=== PATIENT | female | born 1955 | race Caucasian/White ===

== ENCOUNTER 2016-05-20 13:44 | Outpatient (RCR) | payer MEDICARE, MEDICAID ==
[~2016-05-20 13:44] MED LIST: /QUET10TA PO; ACET500C PO; ARTISOL2 OU; ATIV1TAB10 PO; CALCCHW12 OR; CYCL5TA PO; EFFE150C PO; FLON0.05; LIDO5DIS TD; MECL25TA2 OR; MELOPOW PO; MULTTAB4 PO; NASONEX; NEXI20CA PO; PRO AIR INHALER; PRO AIR INHALER INH; REST0.05 EXT; SIMV20TA2 PO; SYMB80INH INH; SYSTSOL8 OP; TRAM50TA2 PO; VENL37.5 OR; VITACAP31 PO; VITATAB11 PO; VOLTAREN TOP; ZOCO20TA PO; [UNRECOGNIZED DRUG - CODE] OU
== END 2016-05-24 ==
LOC: M PT 13:44
PROVIDERS: ATTEND Podiatrist
DX: Z51.89 Encounter for other specified aftercare (principal)

== ENCOUNTER 2016-06-17 13:42 | Outpatient (RCR) | payer MEDICARE, MEDICAID | END 2016-06-21 | LOC: M PT 13:42 | PROVIDERS: ATTEND Podiatrist | DX: Z51.89 Encounter for other specified aftercare (principal); Z98.890 Other specified postprocedural states | CPT/HCPCS: 97035; 97140; G8978; G8979 ==

== ENCOUNTER → 2016-06-21 | Outpatient (CLI) | payer OTHER | LOC: M PAIN 11:00 | PROVIDERS: ATTEND Anesthesiology | DX: M54.5 Low back pain (principal); Z53.21 Procedure and treatment not carried out due to patient leaving prior to being seen by health care provider ==

== ENCOUNTER → 2016-07-19 | Outpatient (CLI) | payer OTHER ==
--- NOTE | 2016-07-27 01:54 | ECWPNPC ---
PATIENT NAME: YUNIEL CANAS : 1955 GENDER: FEMALE VISIT DATE: 07/19/2016 DISCHARGE DATE: 07/19/16 1514 VISIT LOCKED DATE TIME: PHYSICIAN: BATSHEVA MAIER RESOURCE: BATSHEVA MAIER REASON FOR APPOINTMENT 1. LOW BACK PAIN W/C HISTORY OF PRESENT ILLNESS HISTORY OF PRESENT ILLNESS: PAIN THE PATIENT DESCRIBES THE PAIN... 60 YEAR OLD FEMALE PATIENT WITH HISTORY OF CHRONIC LOW BACK PAIN. PATIENT DESCRIBES THE PAIN ACHING, SHARP, STABBING, SHOOTING, AND HAVING IT ALL THE TIME WITH A PAIN SCORE OF 9/10. PATIENT WAS HURT IN A WORK RELATED INJURY IN 1990 WHILE WORKING AT [employer] IN [place]. PATIENT REPORTS HAVING A LOT OF WATER ON THE FLOOR OF THE KITCHEN AND WAS RUSHING THROUGH THE KITCHEN AND SLIPPED TWICE. MRS. CANAS RECEIVED A BILATERAL LUMBAR FACET BLOCK ON 04/12/16 AND STATES THAT FOR 2 MONTHS SHE HAD OVER 50% REDUCTION IN PAIN AND AN INCREASE IN MOBILITY AND FUNCTIONALITY. PATIENT IS CURRENTLY USING TRAMADOL, IBUPROFEN, TENNS UNIT, AND LIDODERM PATCHES TO AID IN PAIN RELIEF. MRS. CANAS STATES THAT THE MEDICATION KEEPS HER MOBILE AND FUNCTIONAL. AT THIS TIME THE PATIENT STATES THAT ANY TYPE OF ACTIVITY INCREASES THE PAIN IN HER LOWER BACK. PATIENT DENIES UNEXPLAINABLE WEIGHT LOSS, FEVER, CHILLS, NEW CHANGES ON HER URINARY OR BOWEL CONTROL. FALL RISK SCREENING: SCREENING :NO FALLS IN THE PAST YEAR CURRENT MEDICATIONS TAKING ULTRAM 50 MG TABLET 1 BY MOUTH 1 TAB Q 4 HRS NEEDED FOR PAIN MDD6, NOTES: 04/12 1PM TAKING ACETAMINOPHEN 500 MG CAPSULE 1 TABLET NEEDED ORALLY 1 TO 2 TABS EVERY 6 HRS PRN MDD4, NOTES: 04/11 5PM TAKING LIDODERM 5 % PATCH 2 - 3 PATCHES TO INTACT SKIN REMOVE AFTER 12 HOURS EXTERNALLY AT BEDTIME, NOTES: 2 DAYS TAKING SEROQUEL 50 MG TABLET 1 TABLET ORALLY DAILY, NOTES: 04/11 12:30PM TAKING VENLAFAXINE HCL 150 MG TABLET EXTENDED RELEASE 24 HOUR 1 TABLET ORALLY ONCE A DAY WITH 37.5 MG TABLET (DR. MCCARTHY) TAKING NEXIUM 40 MG CAPSULE DELAYED RELEASE 1 TAB ORALLY 2 TIMES A DAY TAKING ZOCOR 20 MG TABLET 1 TABLET EVERY EVENING ORALLY AT BEDTIME TAKING MECLIZINE HCL 25 MG TABLET 1 TABLET BY MOUTH ONCE A DAY NEEDED FOR DIZZINESS TAKING PROAIR HFA 108 (90 BASE) MCG/ACT AEROSOL SOLUTION 2 PUFFS INHALATION EVERY 4 HOURS, NEEDED TAKING FLONASE 50 MCG/ACT SUSPENSION 1 SPRAY IN EACH NOSTRIL NASALLY DAILY NEEDED TAKING LORAZEPAM 0.5 MG TABLET 1 TABLET NEEDED ORALLY EVERY 6 HRS TAKING SYMBICORT 160-4.5 MCG/ACT AEROSOL 2 PUFFS INHALATION TWICE A DAY NOT-TAKING ZANAFLEX 4 MG TABLET 1 TABLET NEEDED ORALLY BEFORE BEDTIME CAN REPAE IN 4 HRS NEDEEDFOR SPASMS AND PAIN MDD2, NOTES: 1 WEEK AGO NOT-TAKING ZYRTEC 10 MG TABLET CHEWABLE 1 TABLET ORALLY ONCE A DAY, NOTES: 3 MONTHS AGO NOT-TAKING TRAMADOL HCL 50 MG TABLET 1 TABLET NEEDED ORALLY EVERY 6 - 8 HRS PRN PAIN MDD=3 NOT-TAKING EFFEXOR XR 37.5 MG CAPSULE EXTENDED RELEASE 24 HOUR 1CAPSULES WITH EFFEXOR 150 MG, TOTAL DOSE 187.5 MG ORALLY ONCE A DAY NOT-TAKING ASTELIN 137 MCG/SPRAY SOLUTION 2 PUFFS IN EACH NOSTRIL NASALLY TWICE A DAY NOT-TAKING MOBIC 15 MG TABLET 1 TABLET ORALLY ONCE A DAY NOT-TAKING VITAMIN B COMPLEX-C OTC CAPSULE 1/2 TABLET ORALLY 1/2 TAB IN AM , 1/2 TAB IN PM NOT-TAKING CALCIUM 600+D HIGH POTENCY 600-400 MG-UNIT TABLET 1 TABLET ORALLY BID NOT-TAKING DRISDOL 50,000 UNITS TABLET 1 TAB ORAL WEEKLY MEDICATION LIST REVIEWED AND RECONCILED WITH THE PATIENT PAST MEDICAL HISTORY ASTHMA, MILD INTERMITTENT/IS/[id number] 2010 NORMAL PFTS EXCEPT FOR VERY MILD DIFFUSION IMPAIRMENT-RECHLIN IMPAIRED FASTING GLUCOSE GERD/DYSPEPSIA/HISTORY OF PUD-JUNE 2008 EGD WITH HIATAL HERNIA, MILD GASTRITIS LUMBAR DJD STATUS POST FUSION IN 2000 AND 2002-JULY 2009 MRI SHOWING MINIMAL DJD AND L3-L5 MILD BULGE HYPERLIPIDEMIA 2B NONALCOHOLIC FATTY LIVER DISEASE-SEPTEMBER 2004 NORMAL WORKUP AND NORMAL ULTRASOUND ALLERGIC RHINITIS BENIGN POSITIONAL VERTIGO DEPRESSION/PANIC DISORDER/INSOMNIA CERVICAL DJD VITAMIN D DEFICIENCY L POSTERIOR KNEE VERRUCA EXCISION-03/2011-DERREK ALLERGIES ASPIRIN: NAUSEA/VOMITING: CONTRAINDICATION CLINORIL: TONGYE AND LIP BLISTERS: ALLERGY SURGICAL HISTORY L TAILOR'S BUNION REDUCTION-MAJAK 05/2011 L3-4 DISC SURGERY 03/2001 L3-4 DISC SURGERY 05/2002 REPAIR RIGHT SHOULDER AND CLAVICLE 2008 RIGHT CARPAL TUNNEL REPAIR 1990 TUBAL LIGATION 1982 FAMILY HISTORY NO FAMILY HISTORY DOCUMENTED. SOCIAL HISTORY GENERAL: TOBACCO USE ARE YOU A:NONSMOKER LEARNING BARRIERS / SPECIAL NEEDS ORIENTED TO PLAN OF CARE: PATIENT, PAIN MANAGEMENT PATIENT, ORIENTED TO PLAN OF CARE: PATIENT, PAIN MANAGEMENT PATIENT. NEW PATIENT PAIN DIARY TODAY'S VISITNOTES FROM 0-10, WHAT LEVEL IS YOUR PAIN TODAY?0 PAIN CLINIC PFS, CLERGY, PUBLIC HEALTH REFERRALS PFS REFERRAL NEEDED?NO CLERGY REFERRAL NEEDED?NO PUBLIC HEALTH REFERRAL NEEDED?NO WAS THE PROVIDER NOTIFIED OF ANY PERTINENT INFO?NO PFS REFERRAL NEEDED?NO CLERGY REFERRAL NEEDED?NO PUBLIC HEALTH REFERRAL NEEDED?NO WAS THE PROVIDER NOTIFIED OF ANY PERTINENT INFO?NO HOSPITALIZATION/MAJOR DIAGNOSTIC PROCEDURE NO HOSPITALIZATION HISTORY. REVIEW OF SYSTEMS CONSTITUTIONAL: ANY CHANGE IN YOUR MEDICAL CONDITION? NO . CHILLS NO . FEVER NO . INFECTION: DO YOU HAVE NEW INFECTIONS? NO . DO YOU HAVE HISTORY OF MRSA? NO . MUSCULOSKELETAL: ANY NEW PATTERNS OF PAIN OR NUMBNESS? NO . GASTROENTEROLOGY: ANY NEW CHANGE IN BOWEL CONTROL? NO . GENITOURINARY: ANY NEW CHANGE IN BLADDER CONTROL? NO . IS THERE A CHANCE YOU COULD BE ? NO . HEMATOLOGY/LYMPH: DO YOU TAKE ANY BLOOD THINNERS? (FOR EXAMPLE- COUMADIN, PLAVIX, AGGRENOX, PLATEL, PRADAXA, OR XARELTO) NO . WHEN WAS YOUR LAST DOSE? DATE: TIME: . NEUROLOGY: HAVE YOU FALLEN IN THE PAST 6 MONTHS? NO . ANY NEW EXTREMITY NUMBNESS OR WEAKNESS? NO . CARDIOLOGY: DO YOU HAVE A PACEMAKER OR DEFIBRILLATOR? NO . RESPIRATORY: HAVE YOU BEEN SICK IN THE PAST WEEK? NO . FEVER NO . FLU LIKE SYMPTOMS? NO . COUGH NO . INTEGUMENTARY: DO YOU HAVE ANY RASHES OR OPEN SORES? NO . ALLERGIC/IMMUNO: ARE YOU ALLERGIC TO SHELLFISH OR IV DYE? NO . ANY NEW ALLERGIES? NO . PSYCHIATRIC: DO YOU HAVE THOUGHTS OF HURTING YOURSELF OR SOMEONE ELSE? NO . ARE YOU ABUSED, NEGLECTED, OR IN AN UNSAFE ENVIRONMENT? NO . ENDOCRINOLOGY: ARE YOU DIABETIC? NO . OTHER: DO YOU NEED ANY PRESCRIPTIONS? NO . IF YES, PLEASE LIST: ____ . ANY NEW PROBLEMS WITH YOUR MEDICATIONS? NO . WHEN DID YOU LAST EAT? ____ . WHEN DID YOU LAST DRINK? ____ . WHAT DID YOU LAST DRINK? ____ . NAME OF PERSON DRIVING YOU HOME? ____ . DO YOU HAVE ANY OTHER QUESTIONS OR CONCERNS NO . REVIEWED BY: PROVIDER: BATSHEVA MAIER MD . VITAL SIGNS WT 133.8 LBS, HT 62 IN, BMI 24.47 INDEX, BP 135/89 MM HG, HR 96 /MIN, RR 18 /MIN, TEMP 98.2 F, OXYGEN SAT % 97, NA INITIALS TL 1409. EXAMINATION : PATIENT IS ALERT O X 3 AND COOPERATIVE. TENDERNESS IN THE LOWER BACK AND PARASPINAL MUSCLE GROUP. MRI DONE ON 07/28/09 SHOWS POST LAMINECTOMY CHANGES ALONG WITH DEGENERATIVE CHANGES. 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, LUMBAR REGION - M47.816 SPONDYLOSIS WITHOUT MYELOPATHY OR RADICULOPATHY, LUMBOSACRAL REGION - M47.817 TREATMENT POST LAMINECTOMY SYNDROME REFILL ULTRAM TABLET, 50 MG, 1, BY MOUTH, 1 TAB Q 4 HRS NEEDED FOR PAIN MDD4, 30 DAY(S), 90, REFILLS 0, NOTES: 04/12 1PM REFILL ACETAMINOPHEN CAPSULE, 500 MG, 1 TABLET NEEDED, ORALLY, 1 TO 2 TABS EVERY 6 HRS PRN MDD4, 30 DAY(S), 100, REFILLS 2, NOTES: 04/11 5PM REFILL LIDODERM PATCH, 5 %, 2 PATCHES TO INTACT SKIN REMOVE AFTER 12 HOURS, EXTERNALLY, AT BEDTIME, 30 DAY(S), 60, REFILLS 2, NOTES: 2 DAYS START TIZANIDINE HCL TABLET, 4 MG, 1 TABLET NEEDED, ORALLY FOR SPASMS AND PAIN, 1 BEFORE BEDTIME MAY REPEAT IN 4 HRS MDD2, 30 DAY(S), 50, REFILLS 1 NOTES: WE DISCUSSED SEVERAL ISSUES WITH MRS. CANAS'S PAIN MANAGEMENT CASE. AT THIS TIME THE PATIENT WILL CONTINUE WITH THE SAME MEDICATION REGIME BEFORE. PATIENT DENIES ABUSE OF ANY MEDICATION, DENIES USE OF ILLEGAL DRUGS, AND STATES THAT SHE IS ONLY USING THE MEDICATION FOR PAIN MANAGEMENT. PATIENT USING ULTRAM FOR THE SOMATIC PAIN, ALONG WITH TYLENOL AND THE LIDODERM PATCH, AND WILL USE TIZANIDINE FOR THE MUSCLE SPASMS. URINE TOXICOLOGY REPORT DONE ON 03/29/16 SHOWS CONSISTENT RESULTS WITH THE PATIENT'S MEDICATION LIST. AT THIS TIME THE PATIENT REPORTS HAVE 3 MONTHS OF OVER 50% PAIN RELIEF WITH MOBILITY AND FUNCTIONALITY INCREASED. PAIN IS STARTING TO RETURN AND THE PATIENT WOULD LIKE TO MOVE FORWARD WITH ANOTHER INJECTION. WE DISCUSSED THE RISKS, BENENFITS, AND ALTNERATIVES OF THE INJECTION AND THE PATIENT WOULD LIKE TO PROCEED AT THIS TIME. PATIENT IS ALSO A CANDIDATE FOR A RADIOFREQUENCY. PATIENT IS AWARE THAT SHE WILL NEED TO HAVE TWO DIAGNOSTIC TESTS DONE PRIOR TO THE RADIOFREQUENCY. INSTRUCTIONS WERE GIVEN, QUESTIONS WERE ANSWERED, PATIENT REPORTS UNDERSTANDING AND AGREES WITH THE PLAN. I, GARY ROGERS, DOCUMENTED THE ABOVE INFORMATION ACTING A SCRIBE FOR DR. MAIER. I HAVE REVIEWED THE ABOVE DOCUMENT, WRITTEN BY GARY ESCALANTEIBJovanny AND I VERIFY THAT IT IS ACCURATE. PROCEDURES PN WORKMANS' COMP OPINION IN YOUR OPINION, WAS THE INCIDENT THAT THE PATIENT DESCRIBED THE COMPETENT MEDICAL CAUSE OF THIS INJURY/ILLNESS? YES ARE THE PATIENT'S COMPLAINTS CONSISTENT WITH HIS/HER HISTORY OF THE INJURY/ILLNESS? YES IS THE PATIENT'S HISTORY OF THE INJURY/ILLNESS CONSISTENT WITH YOUR OBJECTIVE FINDING? YES WHAT IS THE PERCENTAGE OF TEMPORARY IMPAIRMENT? MODERATE TO MARKED = 66.7% IS THE PATIENT WORKING? NO DOCTOR ON SITE: BATSHEVA DELGADO MD PROCEDURE CODES FA211 ESTABILISHED PATIENT [facility] FACILITY CHARGE G8427 DOC MEDS VERIFIED W/PT OR RE G8730 PAIN ASSESS POS TOOL F/U PLAN DOC DISPOSITION & COMMUNICATION ELECTRONICALLY SIGNED BY BATSHEVA MAIER MD ON 07/26/2016 AT 05:59 PM EDT DISCLAIMER : THIS IS A VISIT SUMMARY EXTRACTED FROM THE [employer] CHART. IT IS NOT A COPY OF THE [employer] PROGRESS NOTE. BRANDI
== END ==
LOC: M PAIN 14:00
PROVIDERS: ATTEND Anesthesiology
DX: Z09 Encounter for follow-up examination after completed treatment for conditions other than malignant neoplasm (principal); G89.29 Other chronic pain; M96.1 Postlaminectomy syndrome, not elsewhere classified; M47.816 Spondylosis without myelopathy or radiculopathy, lumbar region; M47.817 Spondylosis without myelopathy or radiculopathy, lumbosacral region; J45.909 Unspecified asthma, uncomplicated; R73.01 Impaired fasting glucose; K30 Functional dyspepsia; E78.5 Hyperlipidemia, unspecified; H81.10 Benign paroxysmal vertigo, unspecified ear; F32.9 Major depressive disorder, single episode, unspecified; F41.0 Panic disorder [episodic paroxysmal anxiety]; G47.00 Insomnia, unspecified; E55.9 Vitamin D deficiency, unspecified; Z88.6 Allergy status to analgesic agent; Z88.8 Allergy status to other drugs, medicaments and biological substances; Z79.1 Long term (current) use of non-steroidal anti-inflammatories (NSAID); Z79.899 Other long term (current) drug therapy

== ENCOUNTER 2016-07-21 13:45 | Outpatient (RCR) | payer MEDICARE, MEDICAID | END 2016-07-22 | LOC: M PT 13:45 | PROVIDERS: ATTEND Podiatrist | DX: Z51.89 Encounter for other specified aftercare (principal) ==

== ENCOUNTER → 2016-08-10 | Outpatient (CLI) | payer OTHER ==
--- NOTE | 2016-08-16 02:35 | ECWPNPC ---
PATIENT NAME: YUNIEL CANAS : 1955 GENDER: FEMALE VISIT DATE: 08/10/2016 DISCHARGE DATE: 08/10/16 1429 VISIT LOCKED DATE TIME: PHYSICIAN: BATSHEVA MAIER RESOURCE: BATSHEVA MAIER REASON FOR APPOINTMENT 1. MEDS HISTORY OF PRESENT ILLNESS HISTORY OF PRESENT ILLNESS: PAIN THE PATIENT DESCRIBES THE PAIN... 61 YEAR OLD FEMALE PATIENT WITH HISTORY OF CHRONIC BACK PAIN. PATIENT DESCRIBES THE PAIN ACHING, BURNING, SHARP, STABBING, SHOOTING, AND HAVING IT ALL THE TIME WITH A PAIN SCORE OF 9/10 ON TODAY'S VISIT. PATIENT WAS INJURED IN A WORK RELATED INJURY ON 09-14-1990 WORKING FOR [employer], PATIENT WAS WALKING THROUGH THE KITCHEN FLOOR WHEN WAS WET WHEN SHE SLIPPED AND FELL, PATIENT ATTEMPTED TO GET UP WHEN SHE SLIPPED AGAIN INJURING HER BACK. PATIENT REPORTS THAT SHE HAD TWO BACK SURGERIES ONE IN 2000 AND 2002. PATIENT REPORTS THAT SHE HAS TRIED PHYSICAL THERAPY IN THE PAST AND IT GREATLY HELPED WITH INCREASING HER STRENGTH. PATIENT EXPRESSES THAT SHE IS IN A LOT OF PAIN AND VERY UNCOMFORTABLE. PATIENT REPORTS THAT SHE HAS DIFFICULTIES SLEEPING AND STAYING ASLEEP AT NIGHT DUE TO THE PAIN. PATIENT DENIES UNEXPLAINABLE WEIGHT LOSS, FEVER, CHILLS, NEW CHANGES ON HER URINARY OR BOWEL CONTROL. FALL RISK SCREENING: SCREENING :NO FALLS IN THE PAST YEAR CURRENT MEDICATIONS TAKING SEROQUEL 50 MG TABLET 1 TABLET ORALLY DAILY, NOTES: 04/11 12:30PM TAKING VENLAFAXINE HCL 150 MG TABLET EXTENDED RELEASE 24 HOUR 1 TABLET ORALLY ONCE A DAY TAKING NEXIUM 40 MG CAPSULE DELAYED RELEASE 1 TAB ORALLY 2 TIMES A DAY TAKING ZOCOR 20 MG TABLET 1 TABLET EVERY EVENING ORALLY AT BEDTIME TAKING MECLIZINE HCL 25 MG TABLET 1 TABLET BY MOUTH ONCE A DAY NEEDED FOR DIZZINESS TAKING PROAIR HFA 108 (90 BASE) MCG/ACT AEROSOL SOLUTION 2 PUFFS INHALATION EVERY 4 HOURS, NEEDED TAKING FLONASE 50 MCG/ACT SUSPENSION 1 SPRAY IN EACH NOSTRIL NASALLY DAILY NEEDED TAKING LORAZEPAM 0.5 MG TABLET 1 TABLET NEEDED ORALLY EVERY 6 HRS TAKING SYMBICORT 160-4.5 MCG/ACT AEROSOL 2 PUFFS INHALATION TWICE A DAY TAKING ULTRAM 50 MG TABLET 1 BY MOUTH 1 TAB Q 4 HRS NEEDED FOR PAIN MDD4, NOTES: STATES SHE IS TAKING 2 AT A TIME MDD 4 TABS TAKING ACETAMINOPHEN 500 MG CAPSULE 1 TABLET NEEDED ORALLY 1 TO 2 TABS EVERY 6 HRS PRN MDD4, NOTES: 04/11 5PM TAKING LIDODERM 5 % PATCH 2 PATCHES TO INTACT SKIN REMOVE AFTER 12 HOURS EXTERNALLY AT BEDTIME, NOTES: 2 DAYS TAKING TIZANIDINE HCL 4 MG TABLET 1 TABLET NEEDED ORALLY FOR SPASMS AND PAIN 1 BEFORE BEDTIME MAY REPEAT IN 4 HRS MDD2 TAKING VOLTAREN 1 % GEL TRANSDERMAL DAILY NEEDED TAKING RESTASIS 0.05 % EMULSION 1 DROP INTO AFFECTED EYE OPHTHALMIC TWICE A DAY TAKING REFRESH 1.4-0.6 % SOLUTION 1 GTT OU OPHTHALMIC 2-4 X/DAY NEEDED TAKING ARTIFICIAL TEARS 1.4 % SOLUTION 1 GTT OU OPHTHALMIC 4X/DAY NEEDED NOT-TAKING ZANAFLEX 4 MG TABLET 1 TABLET NEEDED ORALLY BEFORE BEDTIME CAN REPAE IN 4 HRS NEDEEDFOR SPASMS AND PAIN MDD2, NOTES: 1 WEEK AGO NOT-TAKING ZYRTEC 10 MG TABLET CHEWABLE 1 TABLET ORALLY ONCE A DAY, NOTES: 3 MONTHS AGO NOT-TAKING TRAMADOL HCL 50 MG TABLET 1 TABLET NEEDED ORALLY EVERY 6 - 8 HRS PRN PAIN MDD=3 NOT-TAKING EFFEXOR XR 37.5 MG CAPSULE EXTENDED RELEASE 24 HOUR 1CAPSULES WITH EFFEXOR 150 MG, TOTAL DOSE 187.5 MG ORALLY ONCE A DAY NOT-TAKING ASTELIN 137 MCG/SPRAY SOLUTION 2 PUFFS IN EACH NOSTRIL NASALLY TWICE A DAY NOT-TAKING MOBIC 15 MG TABLET 1 TABLET ORALLY ONCE A DAY NOT-TAKING VITAMIN B COMPLEX-C OTC CAPSULE 1/2 TABLET ORALLY 1/2 TAB IN AM , 1/2 TAB IN PM NOT-TAKING CALCIUM 600+D HIGH POTENCY 600-400 MG-UNIT TABLET 1 TABLET ORALLY BID NOT-TAKING DRISDOL 50,000 UNITS TABLET 1 TAB ORAL WEEKLY MEDICATION LIST REVIEWED AND RECONCILED WITH THE PATIENT PAST MEDICAL HISTORY ASTHMA, MILD INTERMITTENT/IS/[id number] 2010 NORMAL PFTS EXCEPT FOR VERY MILD DIFFUSION IMPAIRMENT-RECHLIN IMPAIRED FASTING GLUCOSE GERD/DYSPEPSIA/HISTORY OF PUD-JUNE 2008 EGD WITH HIATAL HERNIA, MILD GASTRITIS LUMBAR DJD STATUS POST FUSION IN 2000 AND 2002-JULY 2009 MRI SHOWING MINIMAL DJD AND L3-L5 MILD BULGE HYPERLIPIDEMIA 2B NONALCOHOLIC FATTY LIVER DISEASE-SEPTEMBER 2004 NORMAL WORKUP AND NORMAL ULTRASOUND ALLERGIC RHINITIS BENIGN POSITIONAL VERTIGO DEPRESSION/PANIC DISORDER/INSOMNIA CERVICAL DJD VITAMIN D DEFICIENCY L POSTERIOR KNEE VERRUCA EXCISION-03/2011-DERREK ALLERGIES ASPIRIN: NAUSEA/VOMITING: CONTRAINDICATION CLINORIL: TONGYE AND LIP BLISTERS: ALLERGY SURGICAL HISTORY L BETTY'S BUNION REDUCTION-MAJAK 05/2011 L3-4 DISC SURGERY 03/2001 L3-4 DISC SURGERY 05/2002 REPAIR RIGHT SHOULDER AND CLAVICLE 2008 RIGHT CARPAL TUNNEL REPAIR 1991 TUBAL LIGATION 1982 FAMILY HISTORY NO FAMILY HISTORY DOCUMENTED. SOCIAL HISTORY GENERAL: PAIN CLINIC PFS, CLERGY, PUBLIC HEALTH REFERRALS CLERGY REFERRAL NEEDED?NO WAS THE PROVIDER NOTIFIED OF ANY PERTINENT INFO?NO PFS REFERRAL NEEDED?NO PUBLIC HEALTH REFERRAL NEEDED?NO PATIENT: ____. HOSPITALIZATION/MAJOR DIAGNOSTIC PROCEDURE NO HOSPITALIZATION HISTORY. REVIEW OF SYSTEMS CONSTITUTIONAL: ANY CHANGE IN YOUR MEDICAL CONDITION? NO . CHILLS NO . FEVER NO . INFECTION: DO YOU HAVE NEW INFECTIONS? NO . DO YOU HAVE HISTORY OF MRSA? NO . MUSCULOSKELETAL: ANY NEW PATTERNS OF PAIN OR NUMBNESS? YES PT NOTES 1 WEEK OF DISCOMFORT LEFT LOW BACK RADIATING TO LEFT BUTTOCK AND LEFT THIGH . GASTROENTEROLOGY: ANY NEW CHANGE IN BOWEL CONTROL? NO . GENITOURINARY: ANY NEW CHANGE IN BLADDER CONTROL? NO . IS THERE A CHANCE YOU COULD BE ? NO . HEMATOLOGY/LYMPH: DO YOU TAKE ANY BLOOD THINNERS? (FOR EXAMPLE- COUMADIN, PLAVIX, AGGRENOX, PLATEL, PRADAXA, OR XARELTO) NO . WHEN WAS YOUR LAST DOSE? DATE: TIME: . NEUROLOGY: HAVE YOU FALLEN IN THE PAST 6 MONTHS? NO . ANY NEW EXTREMITY NUMBNESS OR WEAKNESS? YES PT NOTES NEW WEAKNESS DOWN BOTH LEGS X 2 WEEKS . CARDIOLOGY: DO YOU HAVE A PACEMAKER OR DEFIBRILLATOR? NO . RESPIRATORY: HAVE YOU BEEN SICK IN THE PAST WEEK? NO . FEVER NO . FLU LIKE SYMPTOMS? NO . COUGH NO . INTEGUMENTARY: DO YOU HAVE ANY RASHES OR OPEN SORES? NO . ALLERGIC/IMMUNO: ARE YOU ALLERGIC TO SHELLFISH OR IV DYE? NO . ANY NEW ALLERGIES? NO . PSYCHIATRIC: DO YOU HAVE THOUGHTS OF HURTING YOURSELF OR SOMEONE ELSE? NO . ARE YOU ABUSED, NEGLECTED, OR IN AN UNSAFE ENVIRONMENT? NO . ENDOCRINOLOGY: ARE YOU DIABETIC? NO . OTHER: DO YOU NEED ANY PRESCRIPTIONS? NO . IF YES, PLEASE LIST: ____ . ANY NEW PROBLEMS WITH YOUR MEDICATIONS? NO . WHEN DID YOU LAST EAT? ____ . WHEN DID YOU LAST DRINK? ____ . WHAT DID YOU LAST DRINK? ____ . NAME OF PERSON DRIVING YOU HOME? ____ . DO YOU HAVE ANY OTHER QUESTIONS OR CONCERNS NO . REVIEWED BY: PROVIDER: BATSHEVA MAIER MD . VITAL SIGNS WT 134.6 LBS, HT 62 IN, BMI 24.62 INDEX, BP 140/88 MM HG, HR 93 /MIN, RR 18 /MIN, TEMP 97.5 F, OXYGEN SAT % 95%, NA INITIALS SC 13 :37, REVIEWED BY: MLF. EXAMINATION : PATIENT IS ALERT O X 3 AND COOPERATIVE. PATIENT HAS DIFFICULTIES STANDING UP FROM A SUPINE POSITION. PATIENT AMBULATES SLOWLY WITH AN ANTALGIC GAIT. PATIENT'S RIGHT LEFT IS WEAKER AT FLEXION AND EXTENSION COMPARED TO THE LEFT LEG. THERE IS TENDERNESS IN THE LOW BACK PARASPINAL MUSCLE GROUP. MRI DONE ON 07/28/09 SHOWS POST LAMINECTOMY CHANGES ALONG WITH DEGENERATIVE CHANGES. 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, LUMBAR REGION - M47.816 SPONDYLOSIS WITHOUT MYELOPATHY OR RADICULOPATHY, LUMBOSACRAL REGION - M47.817 TREATMENT POST LAMINECTOMY SYNDROME REFILL ULTRAM TABLET, 50 MG, 1 TABLET NEEDED, BY MOUTH, 1 TAB Q 4 HRS NEEDED FOR PAIN MDD4, 30 DAY(S), 120, REFILLS 0, NOTES: STATES SHE IS TAKING 2 AT A TIME MDD 4 TABS REFILL TIZANIDINE HCL TABLET, 4 MG, 1 TABLET NEEDED, ORALLY FOR SPASMS AND PAIN, 1 BEFORE BEDTIME MAY REPEAT IN 4 HRS MDD2, 30 DAY(S), 50, REFILLS 1 REFILL LIDODERM PATCH, 5 %, 2 PATCHES TO INTACT SKIN REMOVE AFTER 12 HOURS, EXTERNALLY, AT BEDTIME FOR PAIN, 30 DAY(S), 60, REFILLS 2, NOTES: 2 DAYS NOTES: FACET JOINT INJECTION: YOUR EXPERIENCE MATERIAL WAS PRINTED,FACET JOINT INJECTION MATERIAL WAS PRINTED. CLINICAL NOTES: WE DISCUSSED SEVERAL ISSUES WITH MRS. CANAS'S PAIN MANAGEMENT CASE. AT THIS TIME I WILL HAVE THE PATIENT START ON SOMA FOR TWO WEEKS TO HELP HER SLEEP AT NIGHT. PATIENT WILL RECEIVE A REFILL OF LIDODERM PATCH TODAY AND IS TAKING IT FOR THE NEUROPATHIC PAIN. I WILL HAVE THE PATIENT START PHYSICAL THERAPY FOR 6 WEEKS 3 TIMES A WEEK TO SEE IF IT AIDS IN HER PAIN RELIEF AND INCREASE HER MOBILITY AND FUNCTIONALITY. I DISCUSSED OTHER INTERVENTIONS WITH THE PATIENT FOR HER PAIN, PATIENT EXPRESSED THAT SHE IS VERY ANXIOUS AND WORRIED ABOUT THE PAIN FROM THE PROCEDURE. INFORMED PATIENT THAT I CAN DO A PROCEDURE WITH IV SEDATION TO HELP WITH HER ANXIETY AND FEAR OF PAIN FROM THE PROCEDURE. I DISCUSSED WITH THE PATIENT TO THINK IT OVER IF IT IS SOMETHING SHE WOULD LIKE TO PROCEED WITH. PATIENT TO FOLLOW UP WITH ME IN 7 WEEKS. , INSTRUCTIONS WERE GIVEN, QUESTIONS WERE ANSWERED, PATIENT REPORTS UNDERSTANDING AND AGREES WITH THE PLAN. I, JAVID QUIROZ, DOCUMENTED THE ABOVE INFORMATION ACTING A SCRIBE FOR DR. MAIER. I HAVE REVIEWED THE ABOVE DOCUMENT, WRITTEN BY JAVID QUIROZ SCRIBJovanny AND I VERIFY THAT IT IS ACCURATE. OTHERS START SOMA TABLET, 350 MG, 1 TABLET NEEDED, ORALLY FOR SPASMS AND PAIN, BEFORE BEDTIME MDD1, 20 DAYS, 20, REFILLS 0 PROCEDURES PN WORKMANS' COMP OPINION IN YOUR OPINION, WAS THE INCIDENT THAT THE PATIENT DESCRIBED THE COMPETENT MEDICAL CAUSE OF THIS INJURY/ILLNESS? YES ARE THE PATIENT'S COMPLAINTS CONSISTENT WITH HIS/HER HISTORY OF THE INJURY/ILLNESS? YES IS THE PATIENT'S HISTORY OF THE INJURY/ILLNESS CONSISTENT WITH YOUR OBJECTIVE FINDING? YES WHAT IS THE PERCENTAGE OF TEMPORARY IMPAIRMENT? MODERATE TO MARKED = 66.7% IS THE PATIENT WORKING? NO DOCTOR ON SITE: BATSHEVA DELGADO MD PROCEDURE CODES FA211 ESTABILISHED PATIENT [facility] FACILITY CHARGE G8730 PAIN ASSESS POS TOOL F/U PLAN DOC G8427 DOC MEDS VERIFIED W/PT OR RE DISPOSITION & COMMUNICATION FOLLOW UP 7 WEEKS ELECTRONICALLY SIGNED BY BATSHEVA MAIER MD ON 08/15/2016 AT 08:36 PM EDT DISCLAIMER : THIS IS A VISIT SUMMARY EXTRACTED FROM THE [email or web address] CHART. IT IS NOT A COPY OF THE [email or web address] PROGRESS NOTE. BRANDI
== END ==
LOC: M PAIN 13:20
PROVIDERS: ATTEND Anesthesiology
DX: M96.1 Postlaminectomy syndrome, not elsewhere classified (principal); M47.816 Spondylosis without myelopathy or radiculopathy, lumbar region; M47.817 Spondylosis without myelopathy or radiculopathy, lumbosacral region; J45.909 Unspecified asthma, uncomplicated; K30 Functional dyspepsia; K44.9 Diaphragmatic hernia without obstruction or gangrene; E78.5 Hyperlipidemia, unspecified; K76.0 Fatty (change of) liver, not elsewhere classified; F32.9 Major depressive disorder, single episode, unspecified; F41.0 Panic disorder [episodic paroxysmal anxiety]; G47.00 Insomnia, unspecified; E55.9 Vitamin D deficiency, unspecified; Z88.6 Allergy status to analgesic agent; Z88.8 Allergy status to other drugs, medicaments and biological substances; Z79.899 Other long term (current) drug therapy

== ENCOUNTER 2016-08-17 12:30 | Outpatient (RCR) | payer MEDICARE, MEDICAID | END 2016-08-21 | LOC: M PT 12:30 | PROVIDERS: ATTEND Podiatrist | DX: Z51.89 Encounter for other specified aftercare (principal); Z47.89 Encounter for other orthopedic aftercare | CPT/HCPCS: 97035; 97110; 97140; G8978; G8979 ==

== ENCOUNTER → 2016-09-05 | Outpatient (CLI) | payer OTHER ==
[~2016-09-05] MED LIST changes: +BUPIVACAINE HCL 0.25% 30 ML VIAL As Ordered ONE; +ISOVUE-M 300 61% 15ML VIAL (Q9967) As Ordered ONE; +LIDOCAINE 1% SDV INJ 30 ML VIAL As Ordered ONE; +MIDAZOLAM INJ 2 MG/2 ML VIAL (J2250) As Ordered ONE; +SYMBICORT 160/4.5MCG INHALER 6GM INH ONE; +TRIAMCINOLONE ACETONIDE SUSP 40 MG/ML VIAL (J3301) As Ordered ONE; +fentaNYL 100 MCG/2 ML INJECTION (J3010) As Ordered ONE
--- NOTE | 2016-09-05 12:53 | REP ---
Partial lumbar spine series: Two views. History: Bilateral lumbar facet block for pain. 31 seconds of fluoroscopy time is reported. Findings: A sequence of two fluoroscopically obtained last image hold spot radiographs of the lumbar spine document needle position and contrast injection associated with lumbar facet injection procedure. Signed by Nelson Earl MD 09/05/2016 03:17 P
--- NOTE | 2016-09-10 23:33 | ECWPNPC ---
PATIENT NAME: YUNIEL CANAS : 1955 GENDER: FEMALE VISIT DATE: 09/05/2016 DISCHARGE DATE: 09/05/16 1207 VISIT LOCKED DATE TIME: PHYSICIAN: BATSHEVA MAIER RESOURCE: BATSHEVA MAIER REASON FOR APPOINTMENT 1. FACET HISTORY OF PRESENT ILLNESS HISTORY OF PRESENT ILLNESS: PAIN THE PATIENT DESCRIBES THE PAIN... FALL RISK SCREENING: SCREENING :NO FALLS IN THE PAST YEAR CURRENT MEDICATIONS TAKING SOMA 350 MG TABLET 1 TABLET NEEDED ORALLY FOR SPASMS AND PAIN BEFORE BEDTIME MDD1, NOTES: 09/03/16 TAKING ULTRAM 50 MG TABLET 1 TABLET NEEDED BY MOUTH 1 TAB Q 4 HRS NEEDED FOR PAIN MDD4, NOTES: LAST DOSE 09/04/16 1600 TAKING TIZANIDINE HCL 4 MG TABLET 1 TABLET NEEDED ORALLY FOR SPASMS AND PAIN 1 BEFORE BEDTIME MAY REPEAT IN 4 HRS MDD2, NOTES: NONE RECENTLY TAKING LIDODERM 5 % PATCH 2 PATCHES TO INTACT SKIN REMOVE AFTER 12 HOURS EXTERNALLY AT BEDTIME FOR PAIN, NOTES: 09/03/16 TAKING SEROQUEL 50 MG TABLET 1 TABLET ORALLY DAILY, NOTES: 09/04/16 2400 TAKING VENLAFAXINE HCL 150 MG TABLET EXTENDED RELEASE 24 HOUR 1 TABLET ORALLY ONCE A DAY, NOTES: 09/04/16 0900 TAKING NEXIUM 40 MG CAPSULE DELAYED RELEASE 1 TAB ORALLY 2 TIMES A DAY, NOTES: 09/04/16 2200 TAKING ZOCOR 20 MG TABLET 1 TABLET EVERY EVENING ORALLY AT BEDTIME, NOTES: 09/04/16 2400 TAKING MECLIZINE HCL 25 MG TABLET 1 TABLET BY MOUTH ONCE A DAY NEEDED FOR DIZZINESS, NOTES: 4 DAYS AGO TAKING PROAIR HFA 108 (90 BASE) MCG/ACT AEROSOL SOLUTION 2 PUFFS INHALATION EVERY 4 HOURS, NEEDED, NOTES: 09/03/16 TAKING FLONASE 50 MCG/ACT SUSPENSION 1 SPRAY IN EACH NOSTRIL NASALLY DAILY NEEDED, NOTES: 09/03/16 TAKING LORAZEPAM 0.5 MG TABLET 1 TABLET NEEDED ORALLY EVERY 6 HRS, NOTES: 09/04/16 1500 TAKING SYMBICORT 160-4.5 MCG/ACT AEROSOL 2 PUFFS INHALATION TWICE A DAY, NOTES: 09/04/16 2200 TAKING ACETAMINOPHEN 500 MG CAPSULE 1 TABLET NEEDED ORALLY 1 TO 2 TABS EVERY 6 HRS PRN MDD4, NOTES: 09/04/16 1200 TAKING VOLTAREN 1 % GEL TRANSDERMAL DAILY NEEDED, NOTES: 09/05/16 0700 TAKING RESTASIS 0.05 % EMULSION 1 DROP INTO AFFECTED EYE OPHTHALMIC TWICE A DAY, NOTES: 09/04/16 2299 TAKING REFRESH 1.4-0.6 % SOLUTION 1 GTT OU OPHTHALMIC 2-4 X/DAY NEEDED, NOTES: 09/04/16 2200 TAKING ARTIFICIAL TEARS 1.4 % SOLUTION 1 GTT OU OPHTHALMIC 4X/DAY NEEDED, NOTES: 09/03/16 NOT-TAKING ZANAFLEX 4 MG TABLET 1 TABLET NEEDED ORALLY BEFORE BEDTIME CAN REPAE IN 4 HRS NEDEEDFOR SPASMS AND PAIN MDD2, NOTES: 1 WEEK AGO NOT-TAKING ZYRTEC 10 MG TABLET CHEWABLE 1 TABLET ORALLY ONCE A DAY, NOTES: 3 MONTHS AGO NOT-TAKING TRAMADOL HCL 50 MG TABLET 1 TABLET NEEDED ORALLY EVERY 6 - 8 HRS PRN PAIN MDD=3 NOT-TAKING EFFEXOR XR 37.5 MG CAPSULE EXTENDED RELEASE 24 HOUR 1CAPSULES WITH EFFEXOR 150 MG, TOTAL DOSE 187.5 MG ORALLY ONCE A DAY NOT-TAKING ASTELIN 137 MCG/SPRAY SOLUTION 2 PUFFS IN EACH NOSTRIL NASALLY TWICE A DAY NOT-TAKING MOBIC 15 MG TABLET 1 TABLET ORALLY ONCE A DAY NOT-TAKING VITAMIN B COMPLEX-C OTC CAPSULE 1/2 TABLET ORALLY 1/2 TAB IN AM , 1/2 TAB IN PM NOT-TAKING CALCIUM 600+D HIGH POTENCY 600-400 MG-UNIT TABLET 1 TABLET ORALLY BID NOT-TAKING DRISDOL 50,000 UNITS TABLET 1 TAB ORAL WEEKLY MEDICATION LIST REVIEWED AND RECONCILED WITH THE PATIENT PAST MEDICAL HISTORY ASTHMA, MILD INTERMITTENT/IS/[id number] 2010 NORMAL PFTS EXCEPT FOR VERY MILD DIFFUSION IMPAIRMENT-RECHLIN IMPAIRED FASTING GLUCOSE GERD/DYSPEPSIA/HISTORY OF PUD-JUNE 2008 EGD WITH HIATAL HERNIA, MILD GASTRITIS LUMBAR DJD STATUS POST FUSION IN 2000 AND 2002-JULY 2009 MRI SHOWING MINIMAL DJD AND L3-L5 MILD BULGE HYPERLIPIDEMIA 2B NONALCOHOLIC FATTY LIVER DISEASE-SEPTEMBER 2004 NORMAL WORKUP AND NORMAL ULTRASOUND ALLERGIC RHINITIS BENIGN POSITIONAL VERTIGO DEPRESSION/PANIC DISORDER/INSOMNIA CERVICAL DJD VITAMIN D DEFICIENCY L POSTERIOR KNEE VERRUCA EXCISION-03/2011-DERREK ALLERGIES ASPIRIN: NAUSEA/VOMITING: CONTRAINDICATION CLINORIL: TONGYE AND LIP BLISTERS: ALLERGY SURGICAL HISTORY L TAILOR'S BUNION REDUCTION-TEZ 05/2011 L3-4 DISC SURGERY 03/2001 L3-4 DISC SURGERY 05/2002 REPAIR RIGHT SHOULDER AND CLAVICLE 2008 RIGHT CARPAL TUNNEL REPAIR 1990 TUBAL LIGATION 1983 RIGHT BUNION AND SECOND TOE SURGERY 02/2015 HOSPITALIZATION/MAJOR DIAGNOSTIC PROCEDURE SURGERIES REVIEW OF SYSTEMS CONSTITUTIONAL: ANY CHANGE IN YOUR MEDICAL CONDITION? NO . CHILLS NO . FEVER NO . INFECTION: DO YOU HAVE NEW INFECTIONS? NO . DO YOU HAVE HISTORY OF MRSA? NO . MUSCULOSKELETAL: ANY NEW PATTERNS OF PAIN OR NUMBNESS? NO . GASTROENTEROLOGY: ANY NEW CHANGE IN BOWEL CONTROL? NO . GENITOURINARY: ANY NEW CHANGE IN BLADDER CONTROL? NO . IS THERE A CHANCE YOU COULD BE ? NO . HEMATOLOGY/LYMPH: DO YOU TAKE ANY BLOOD THINNERS? (FOR EXAMPLE- COUMADIN, PLAVIX, AGGRENOX, PLATEL, PRADAXA, OR XARELTO) NO . WHEN WAS YOUR LAST DOSE? DATE: TIME: . NEUROLOGY: HAVE YOU FALLEN IN THE PAST 6 MONTHS? NO . ANY NEW EXTREMITY NUMBNESS OR WEAKNESS? NO . CARDIOLOGY: DO YOU HAVE A PACEMAKER OR DEFIBRILLATOR? NO . RESPIRATORY: HAVE YOU BEEN SICK IN THE PAST WEEK? NO . FEVER NO . FLU LIKE SYMPTOMS? NO . COUGH NO . INTEGUMENTARY: DO YOU HAVE ANY RASHES OR OPEN SORES? NO . ALLERGIC/IMMUNO: ARE YOU ALLERGIC TO SHELLFISH OR IV DYE? NO . ANY NEW ALLERGIES? NO . PSYCHIATRIC: DO YOU HAVE THOUGHTS OF HURTING YOURSELF OR SOMEONE ELSE? NO . ARE YOU ABUSED, NEGLECTED, OR IN AN UNSAFE ENVIRONMENT? NO . ENDOCRINOLOGY: ARE YOU DIABETIC? NO . OTHER: DO YOU NEED ANY PRESCRIPTIONS? NO . IF YES, PLEASE LIST: ____ . ANY NEW PROBLEMS WITH YOUR MEDICATIONS? NO . WHEN DID YOU LAST EAT? 1730 . WHEN DID YOU LAST DRINK? 0830 . WHAT DID YOU LAST DRINK? SIP WATER . NAME OF PERSON DRIVING YOU HOME? RAKESH TILLEY . DO YOU HAVE ANY OTHER QUESTIONS OR CONCERNS NO . REVIEWED BY: PROVIDER: . VITAL SIGNS WT 134.6 LBS, HT 62 IN, BMI 24.62 INDEX, BP 104/65 MM HG, HR 93 /MIN, RR 16 /MIN, TEMP 98.3 F, OXYGEN SAT % 96%, NA INITIALS SC 09:03, REVIEWED BY: LS. 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 BATSHEVA MAIER AIRLINE RESERVATIONIST NONE ANESTHESIA LOCAL WITH IV SEDATION PRE PROCEDURE NOTE THE PATIENT HAS A HISTORY OF CHRONIC LOW BACK PAIN. I EVALUATE THE PATIENT AND REVIEWED THE CHART. I WENT OVER THE RISKS, ALTERNATIVES, AND BENEFITS ASSOCIATED WITH THIS PROCEDURE. THE PATIENT WOULD LIKE TO PROCEED AND GIVE CONSENT TO PERFORMED THE PROCEDURE. PATIENT WOULD LIKE TO PROCEED WITH IV SEDATION DUE TO PAIN, DISCOMFORT AND ANXIETY ASSOCIATED WITH THE PROCEDURE. THE PATIENT DENIES UNEXPLAINABLE WEIGHT LOSS, FEVER, CHILLS, OR NEW CHANGES IN URINARY OR BOWEL CONTROL DESCRIPTION OF PROCEDURE THE PATIENT WAS BROUGHT TO THE PROCEDURE ROOM AND PLACED IN THE PRONE POSITION. THE LUMBOSACRAL AREA WAS CLEANED WITH CHLORAPREP SOLUTION AND DRAPED ASEPTICALLY. THE PROCEDURE WAS DONE UNDER STERILE CONDITIONS. I CHECKED LATERALITY AND THE LEVEL WHERE THE PROCEDURE WAS GOING TO BE PERFORMED WITH THE PATIENT AND THE SUPPORTING STAFF AT THE MOMENT OF THE TIME OUT IN THE PROCEDURE ROOM. UNDER FLUOROSCOPIC GUIDANCE, THE TARGET POINT WAS SELECTED AT THE RIGHT AND LEFT L4-L5 AND RIGHT AND LEFT L5-S1 FACET JOINT. TARGET POINT WAS SELECTED AFTER LATERAL ROTATION AND TILT OF THE MAGNIFIER OF THE C-ARM. LIDOCAINE 0.5% WAS USED TO NUMB THE SKIN AND THE SUBCUTANEOUS TISSUE BELOW IT. SPINAL NEEDLES, 22-GAUGE, WERE ADVANCED UNDER FLUOROSCOPIC GUIDANCE AND FOLLOWING PATIENT FEEDBACK UNTIL THE TARGETS WERE TOUCHED. THE POSITION OF THE NEEDLES WAS VERIFIED WITH AP AND LATERAL VIEWS. AFTER PROPER POSITION OF THE NEEDLES WAS ACHIEVED, ISOVUE-M DYE 30% 0.1 ML WAS INJECTED SHOWING ADEQUATE SPREAD OF THE DYE. THEN A SOLUTION OF 1.9 ML OF BUPIVACAINE 0.125% OF KENALOG 10 MG WAS INJECTED AT EACH SITE. PATIENT RECEIVED VERSED 2MG AND FENTANYL 100 MCG IV DIVIDED DOSES. THERE WAS NO EVIDENCE OF BLOOD, PARESTHESIA OR CEREBROSPINAL FLUID DURING THE PROCEDURE. THE PATIENT WAS SENT TO THE RECOVERY ROOM. THE PATIENT WAS MOVING THE EXTREMITIES AND DOING WELL. THERE WAS NO COMPLICATION DURING THE PROCEDURE. FLUOROSCOPY TIME WAS 31 SECONDS. FACE TO FACE TIME WAS 16 MINUTES. POST PROCEDURE NOTE THE PATIENT WILL BE SEEN IN A FOLLOW UP IN THE NEXT FEW WEEKS. INSTRUCTIONS WERE GIVEN, QUESTIONS WERE ANSWERED, AND THE PATIENT EXPRESSED UNDERSTANDING AND AGREES WITH THE PLAN. I, GARY ROGERS, DOCUMENTED THE ABOVE INFORMATION ACTING A SCRIBE FOR DR. MAIER. I HAVE REVIEWED THE ABOVE DOCUMENT, WRITTEN BY GARY ROGERS SCRIBJovanny AND I VERIFY THAT IT IS ACCURATE PN WORKMANS' COMP OPINION IN YOUR OPINION, WAS THE INCIDENT THAT THE PATIENT DESCRIBED THE COMPETENT MEDICAL CAUSE OF THIS INJURY/ILLNESS? YES ARE THE PATIENT'S COMPLAINTS CONSISTENT WITH HIS/HER HISTORY OF THE INJURY/ILLNESS? YES IS THE PATIENT'S HISTORY OF THE INJURY/ILLNESS CONSISTENT WITH YOUR OBJECTIVE FINDING? YES WHAT IS THE PERCENTAGE OF TEMPORARY IMPAIRMENT? MODERATE TO MARKED = 66.7% IS THE PATIENT WORKING? NO DOCTOR ON SITE: BATSHEVA DELGADO MD DIAGNOSTIC IMAGING [facility] FACET BLOCK (PAIN)[id number] PROCEDURE CODES 82746 INJ PARAVERT F JNT L/S 1 LEV 52147 INJ PARAVERT F JNT L/S 2 LEV 6045F RADXPS IN END [id number] PXD 26351 MOD SED SAME PHYS/QHP 5/>YRS DISPOSITION & COMMUNICATION FOLLOW UP 3 WEEKS ELECTRONICALLY SIGNED BY BATSHEVA MAIER MD ON 09/10/2016 AT 07:21 PM EDT DISCLAIMER : THIS IS A VISIT SUMMARY EXTRACTED FROM THE [employer] CHART. IT IS NOT A COPY OF THE [employer] PROGRESS NOTE. MTDD
== END ==
LOC: M PAIN 09:00
PROVIDERS: ATTEND Anesthesiology
DX: G89.29 Other chronic pain (principal); M47.816 Spondylosis without myelopathy or radiculopathy, lumbar region; M47.817 Spondylosis without myelopathy or radiculopathy, lumbosacral region; J45.20 Mild intermittent asthma, uncomplicated; K21.9 Gastro-esophageal reflux disease without esophagitis; K30 Functional dyspepsia; E78.5 Hyperlipidemia, unspecified; F32.9 Major depressive disorder, single episode, unspecified; F41.0 Panic disorder [episodic paroxysmal anxiety]; G47.00 Insomnia, unspecified; E55.9 Vitamin D deficiency, unspecified; H81.10 Benign paroxysmal vertigo, unspecified ear; Z88.6 Allergy status to analgesic agent; Z88.8 Allergy status to other drugs, medicaments and biological substances; Z79.899 Other long term (current) drug therapy
CPT/HCPCS: 64493; 64494; 99152; J2250; J3010; J3301; Q9967

== ENCOUNTER → 2016-09-28 | Outpatient (CLI) | payer OTHER ==
[~2016-09-28] MED LIST changes: -BUPIVACAINE HCL 0.25% 30 ML VIAL As Ordered ONE; -ISOVUE-M 300 61% 15ML VIAL (Q9967) As Ordered ONE; -LIDOCAINE 1% SDV INJ 30 ML VIAL As Ordered ONE; -MIDAZOLAM INJ 2 MG/2 ML VIAL (J2250) As Ordered ONE; -SYMBICORT 160/4.5MCG INHALER 6GM INH ONE; -TRIAMCINOLONE ACETONIDE SUSP 40 MG/ML VIAL (J3301) As Ordered ONE; -fentaNYL 100 MCG/2 ML INJECTION (J3010) As Ordered ONE
--- NOTE | 2016-10-12 02:32 | ECWPNPC ---
PATIENT NAME: YUNIEL CANAS : 1955 GENDER: FEMALE VISIT DATE: 09/28/2016 DISCHARGE DATE: 09/28/16 1512 VISIT LOCKED DATE TIME: PHYSICIAN: BATSHEVA MAIER RESOURCE: BATSHEVA MAIER REASON FOR APPOINTMENT 1. W/C BACK PAIN HISTORY OF PRESENT ILLNESS HISTORY OF PRESENT ILLNESS: PAIN THE PATIENT DESCRIBES THE PAIN... 61 YEAR OLD FEMALE PATIENT WITH HISTORY OF CHRONIC LOW BACK PAIN. PATIENT DESCRIBES THE PAIN ACHING AND SHARP WITH THE PAIN COMING AND GOING WITH A PAIN SCORE OF 5/10. 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 MRS. CANAS RECEIVED A LUMBAR FACET BLOCK ON 09/05/16 AND REPORTS HAVING OVER 50% RELIEF FROM PAIN SINCE THE INJECTION. PATIENT REPORTS HAVING A BETTER QUALITY OF LIFE AND STATES SHE IS ABLE TO SIT UP AND WALK EASIER SINCE THE INJECTION. CURRENTLY THE PATIENT IS USING TRAMADOL, LIDODERM, AND VOLTAREN GEL AND STATES THAT THE MEDICATION KEEPS THE PATIENT MOBILE AND FUNCTIONAL. PATIENT REPORTS USING A TENNS UNIT WHEN SHE FEELS THE MUSCLES SPASMING. PATIENT STATES THAT ANY TYPE OF ACTIVITY INCLUDING WALKING, STANDING, AND SITTING INCREASES THE PAIN IN THE PATIENT'S LOWER BACK AREA. PATIENT DENIES UNEXPLAINABLE WEIGHT LOSS, FEVER, CHILLS, NEW CHANGES ON HER URINARY OR BOWEL CONTROL. FALL RISK SCREENING: SCREENING :NO FALLS IN THE PAST YEAR CURRENT MEDICATIONS TAKING SOMA 350 MG TABLET 1 TABLET NEEDED ORALLY FOR SPASMS AND PAIN BEFORE BEDTIME MDD1, NOTES: 09/03/16 TAKING ULTRAM 50 MG TABLET 1 TABLET NEEDED BY MOUTH 1 TAB Q 4 HRS NEEDED FOR PAIN MDD4, NOTES: LAST DOSE 09/04/16 1600 TAKING TIZANIDINE HCL 4 MG TABLET 1 TABLET NEEDED ORALLY FOR SPASMS AND PAIN 1 BEFORE BEDTIME MAY REPEAT IN 4 HRS MDD2, NOTES: NONE RECENTLY TAKING LIDODERM 5 % PATCH 2 PATCHES TO INTACT SKIN REMOVE AFTER 12 HOURS EXTERNALLY AT BEDTIME FOR PAIN, NOTES: 09/03/16 TAKING SEROQUEL 50 MG TABLET 1 TABLET ORALLY DAILY, NOTES: 09/04/16 2400 TAKING VENLAFAXINE HCL 150 MG TABLET EXTENDED RELEASE 24 HOUR 1 TABLET ORALLY ONCE A DAY, NOTES: 09/04/16 0900 TAKING ZOCOR 20 MG TABLET 1 TABLET EVERY EVENING ORALLY AT BEDTIME, NOTES: 09/04/16 2400 TAKING MECLIZINE HCL 25 MG TABLET 1 TABLET BY MOUTH ONCE A DAY NEEDED FOR DIZZINESS, NOTES: 4 DAYS AGO TAKING PROAIR HFA 108 (90 BASE) MCG/ACT AEROSOL SOLUTION 2 PUFFS INHALATION EVERY 4 HOURS, NEEDED, NOTES: 09/03/16 TAKING FLONASE 50 MCG/ACT SUSPENSION 1 SPRAY IN EACH NOSTRIL NASALLY DAILY NEEDED, NOTES: 09/03/16 TAKING LORAZEPAM 0.5 MG TABLET 1 TABLET NEEDED ORALLY EVERY 6 HRS, NOTES: 09/04/16 1500 TAKING SYMBICORT 160-4.5 MCG/ACT AEROSOL 2 PUFFS INHALATION TWICE A DAY, NOTES: 09/04/162199 TAKING ACETAMINOPHEN 500 MG CAPSULE 1 TABLET NEEDED ORALLY 1 TO 2 TABS EVERY 6 HRS PRN MDD4, NOTES: 09/04/16 1200 TAKING VOLTAREN 1 % GEL TRANSDERMAL DAILY NEEDED, NOTES: 09/05/16 0700 TAKING RESTASIS 0.05 % EMULSION 1 DROP INTO AFFECTED EYE OPHTHALMIC TWICE A DAY, NOTES: 09/04/16 229 TAKING REFRESH 1.4-0.6 % SOLUTION 1 GTT OU OPHTHALMIC 2-4 X/DAY NEEDED, NOTES: 09/04/162199 TAKING ARTIFICIAL TEARS 1.4 % SOLUTION 1 GTT OU OPHTHALMIC 4X/DAY NEEDED, NOTES: 09/03/16 TAKING NEXIUM 40 MG CAPSULE DELAYED RELEASE 1 TAB ORALLY ([place]) 2 TIMES A DAY, NOTES: 09/04/162199 NOT-TAKING ZANAFLEX 4 MG TABLET 1 TABLET NEEDED ORALLY BEFORE BEDTIME CAN REPAE IN 4 HRS NEDEEDFOR SPASMS AND PAIN MDD2, NOTES: 1 WEEK AGO NOT-TAKING ZYRTEC 10 MG TABLET CHEWABLE 1 TABLET ORALLY ONCE A DAY, NOTES: 3 MONTHS AGO NOT-TAKING TRAMADOL HCL 50 MG TABLET 1 TABLET NEEDED ORALLY EVERY 6 - 8 HRS PRN PAIN MDD=3 NOT-TAKING EFFEXOR XR 37.5 MG CAPSULE EXTENDED RELEASE 24 HOUR 1CAPSULES WITH EFFEXOR 150 MG, TOTAL DOSE 187.5 MG ORALLY ONCE A DAY NOT-TAKING ASTELIN 137 MCG/SPRAY SOLUTION 2 PUFFS IN EACH NOSTRIL NASALLY TWICE A DAY NOT-TAKING MOBIC 15 MG TABLET 1 TABLET ORALLY ONCE A DAY NOT-TAKING VITAMIN B COMPLEX-C OTC CAPSULE 1/2 TABLET ORALLY 1/2 TAB IN AM , 1/2 TAB IN PM NOT-TAKING CALCIUM 600+D HIGH POTENCY 600-400 MG-UNIT TABLET 1 TABLET ORALLY BID NOT-TAKING DRISDOL 50,000 UNITS TABLET 1 TAB ORAL WEEKLY MEDICATION LIST REVIEWED AND RECONCILED WITH THE PATIENT PAST MEDICAL HISTORY ASTHMA, MILD INTERMITTENT/IS/[id number] 2010 NORMAL PFTS EXCEPT FOR VERY MILD DIFFUSION IMPAIRMENT-RECHLIN IMPAIRED FASTING GLUCOSE GERD/DYSPEPSIA/HISTORY OF PUD-JUNE 2008 EGD WITH HIATAL HERNIA, MILD GASTRITIS LUMBAR DJD STATUS POST FUSION IN 2000 AND 2002-JULY 2009 MRI SHOWING MINIMAL DJD AND L3-L5 MILD BULGE HYPERLIPIDEMIA 2B NONALCOHOLIC FATTY LIVER DISEASE-SEPTEMBER 2004 NORMAL WORKUP AND NORMAL ULTRASOUND ALLERGIC RHINITIS BENIGN POSITIONAL VERTIGO DEPRESSION/PANIC DISORDER/INSOMNIA CERVICAL DJD VITAMIN D DEFICIENCY L POSTERIOR KNEE VERRUCA EXCISION-03/2011-DERREK ALLERGIES ASPIRIN: NAUSEA/VOMITING: CONTRAINDICATION CLINORIL: TONGYE AND LIP BLISTERS: ALLERGY SURGICAL HISTORY L TAILOR'S BUNION REDUCTION-TEZ 05/2011 L3-4 DISC SURGERY 03/2001 L3-4 DISC SURGERY 05/2002 REPAIR RIGHT SHOULDER AND CLAVICLE 2007 RIGHT CARPAL TUNNEL REPAIR 1990 TUBAL LIGATION 1983 RIGHT BUNION AND SECOND TOE SURGERY 02/2015 FAMILY HISTORY NO FAMILY HISTORY DOCUMENTED. SOCIAL HISTORY GENERAL: PAIN CLINIC PFS, CLERGY, PUBLIC HEALTH REFERRALS CLERGY REFERRAL NEEDED?NO WAS THE PROVIDER NOTIFIED OF ANY PERTINENT INFO?NO PFS REFERRAL NEEDED?NO PUBLIC HEALTH REFERRAL NEEDED?NO PATIENT: ____. HOSPITALIZATION/MAJOR DIAGNOSTIC PROCEDURE SURGERIES REVIEW OF SYSTEMS CONSTITUTIONAL: ANY CHANGE IN YOUR MEDICAL CONDITION? NO . CHILLS NO . FEVER NO . INFECTION: DO YOU HAVE NEW INFECTIONS? NO . DO YOU HAVE HISTORY OF MRSA? NO . MUSCULOSKELETAL: ANY NEW PATTERNS OF PAIN OR NUMBNESS? NO . GASTROENTEROLOGY: ANY NEW CHANGE IN BOWEL CONTROL? NO . GENITOURINARY: ANY NEW CHANGE IN BLADDER CONTROL? NO . IS THERE A CHANCE YOU COULD BE ? NO . HEMATOLOGY/LYMPH: DO YOU TAKE ANY BLOOD THINNERS? (FOR EXAMPLE- COUMADIN, PLAVIX, AGGRENOX, PLATEL, PRADAXA, OR XARELTO) NO . WHEN WAS YOUR LAST DOSE? DATE: TIME: . NEUROLOGY: HAVE YOU FALLEN IN THE PAST 6 MONTHS? NO . ANY NEW EXTREMITY NUMBNESS OR WEAKNESS? NO . CARDIOLOGY: DO YOU HAVE A PACEMAKER OR DEFIBRILLATOR? NO . RESPIRATORY: HAVE YOU BEEN SICK IN THE PAST WEEK? NO . FEVER NO . FLU LIKE SYMPTOMS? NO . COUGH NO . INTEGUMENTARY: DO YOU HAVE ANY RASHES OR OPEN SORES? NO . ALLERGIC/IMMUNO: ARE YOU ALLERGIC TO SHELLFISH OR IV DYE? NO . ANY NEW ALLERGIES? NO . PSYCHIATRIC: DO YOU HAVE THOUGHTS OF HURTING YOURSELF OR SOMEONE ELSE? NO . ARE YOU ABUSED, NEGLECTED, OR IN AN UNSAFE ENVIRONMENT? NO . ENDOCRINOLOGY: ARE YOU DIABETIC? NO . OTHER: DO YOU NEED ANY PRESCRIPTIONS? NO . IF YES, PLEASE LIST: ____ . ANY NEW PROBLEMS WITH YOUR MEDICATIONS? NO . WHEN DID YOU LAST EAT? ____ . WHEN DID YOU LAST DRINK? ____ . WHAT DID YOU LAST DRINK? ____ . NAME OF PERSON DRIVING YOU HOME? ____ . DO YOU HAVE ANY OTHER QUESTIONS OR CONCERNS NO . REVIEWED BY: PROVIDER: BATSHEVA MAIER MD . VITAL SIGNS WT 128.0 LBS, HT 62 IN, BMI 23.41 INDEX, BP 144/85 MM HG, HR 93 /MIN, RR 16 /MIN, TEMP 98.0 F, OXYGEN SAT % 96%, NA INITIALS AW 1344. EXAMINATION : PATIENT IS ALERT O X 3 AND COOPERATIVE. PATIENT HAS DIFFICULTIES STANDING UP FROM A SUPINE POSITION. PATIENT AMBULATES SLOWLY WITH AN ANTALGIC GAIT. PATIENT'S RIGHT LEFT IS WEAKER AT FLEXION AND EXTENSION COMPARED TO THE LEFT LEG. THERE IS TENDERNESS IN THE LOW BACK PARASPINAL MUSCLE GROUP. MRI DONE ON 07/28/09 SHOWS POST LAMINECTOMY CHANGES ALONG WITH DEGENERATIVE CHANGES. 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, LUMBAR REGION - M47.816 SPONDYLOSIS WITHOUT MYELOPATHY OR RADICULOPATHY, LUMBOSACRAL REGION - M47.817 TREATMENT POST LAMINECTOMY SYNDROME REFILL ULTRAM TABLET, 50 MG, 1 TABLET NEEDED, BY MOUTH, 1 TAB Q 4 HRS NEEDED FOR PAIN MDD4 ([place]), 30 DAY(S), 110, REFILLS 0, NOTES: LAST DOSE 09/04/16 1600 REFILL TIZANIDINE HCL TABLET, 4 MG, 1 TABLET NEEDED, ORALLY FOR SPASMS AND PAIN, 1 BEFORE BEDTIME MAY REPEAT IN 4 HRS MDD2, 30 DAY(S), 50, REFILLS 1, NOTES: NONE RECENTLY REFILL ACETAMINOPHEN CAPSULE, 500 MG, 1 TABLET NEEDED, ORALLY, 1 TO 2 TABS EVERY 6 HRS PRN MDD4, 30 DAY(S), 100, REFILLS 2, NOTES: 09/04/16 1200 NOTES: WE DISCUSSED SEVERAL ISSUES WITH MRS. CANAS'S PAIN MANAGEMENT CASE. AT THIS TIME THE PATIENT WILL CONTINUE WITH THE SAME MEDICATION REGIME BEFORE. PATIENT DENIES ABUSE OF ANY MEDICATION, DENIES USE OF ILLEGAL DRUGS, AND STATES THAT SHE IS ONLY USING THE MEDICATION FOR PAIN MANAGEMENT. PATIENT USING ULTRAM FOR THE SOMATIC PAIN, ALONG WITH TYLENOL AND THE LIDODERM PATCH, AND WILL USE TIZANIDINE FOR THE MUSCLE SPASMS. URINE TOXICOLOGY REPORT DONE ON 03/29/16 SHOWS CONSISTENT RESULTS WITH THE PATIENT'S MEDICATION LIST. AT THIS TIME THE PATIENT STATES SHE IS STILL DOING WELL FROM THE LUMBAR FACET BLOCK DONE ONE 09/05/16 AND DOES NOT WANT INTERVENTIONS AT THIS TIME. PATIENT WILL RETURN TO THE CLINIC IN 2 MONTHS BUT WAS ADVISED TO CALL IF THE PAIN SIGNIFICANTLY WORSENS. INSTRUCTIONS WERE GIVEN, QUESTIONS WERE ANSWERED, PATIENT REPORTS UNDERSTANDING AND AGREES WITH THE PLAN. I, GARY ROGERS, DOCUMENTED THE ABOVE INFORMATION ACTING A SCRIBE FOR DR. MAIER. I HAVE REVIEWED THE ABOVE DOCUMENT, WRITTEN BY GARY GEE AND I VERIFY THAT IT IS ACCURATE. OTHERS REFILL NEXIUM CAPSULE DELAYED RELEASE, 40 MG, 1 TAB, ORALLY ([place]), 2 TIMES A DAY, 30 DAY(S), 60 TABLET, REFILLS 0, NOTES: 09/04/16 2200 PROCEDURES PN WORKMANS' COMP OPINION IN YOUR OPINION, WAS THE INCIDENT THAT THE PATIENT DESCRIBED THE COMPETENT MEDICAL CAUSE OF THIS INJURY/ILLNESS? YES ARE THE PATIENT'S COMPLAINTS CONSISTENT WITH HIS/HER HISTORY OF THE INJURY/ILLNESS? YES IS THE PATIENT'S HISTORY OF THE INJURY/ILLNESS CONSISTENT WITH YOUR OBJECTIVE FINDING? YES WHAT IS THE PERCENTAGE OF TEMPORARY IMPAIRMENT? MODERATE TO MARKED = 66.7% IS THE PATIENT WORKING? NO DOCTOR ON SITE: BATSHEVA DELGADO MD PROCEDURE CODES FA211 ESTABILISHED PATIENT [facility] FACILITY CHARGE G8427 DOC MEDS VERIFIED W/PT OR RE A6585 PAIN ASSESS POS TOOL F/U PLAN DOC DISPOSITION & COMMUNICATION FOLLOW UP 2 MONTHS ELECTRONICALLY SIGNED BY BATSHEVA MAIER MD ON 10/10/2016 AT 03:33 PM EDT DISCLAIMER : THIS IS A VISIT SUMMARY EXTRACTED FROM THE [employer] CHART. IT IS NOT A COPY OF THE [employer] PROGRESS NOTE. BRANDI
== END ==
LOC: M PAIN 13:40
PROVIDERS: ATTEND Anesthesiology
DX: M96.1 Postlaminectomy syndrome, not elsewhere classified (principal); M47.816 Spondylosis without myelopathy or radiculopathy, lumbar region; M47.817 Spondylosis without myelopathy or radiculopathy, lumbosacral region; K21.9 Gastro-esophageal reflux disease without esophagitis; J45.20 Mild intermittent asthma, uncomplicated; E78.5 Hyperlipidemia, unspecified; H81.10 Benign paroxysmal vertigo, unspecified ear; F32.9 Major depressive disorder, single episode, unspecified; F41.0 Panic disorder [episodic paroxysmal anxiety]; G47.00 Insomnia, unspecified; M50.30 Other cervical disc degeneration, unspecified cervical region; E55.9 Vitamin D deficiency, unspecified; Z88.6 Allergy status to analgesic agent; Z88.8 Allergy status to other drugs, medicaments and biological substances; Z79.1 Long term (current) use of non-steroidal anti-inflammatories (NSAID); Z79.899 Other long term (current) drug therapy

== ENCOUNTER → 2016-11-28 | Outpatient (CLI) | payer OTHER ==
[~2016-11-28] MED LIST changes: +TIZA2CAP3 PO; +VENL150C43 PO; +VENL75CA47 PO
--- NOTE | 2016-12-13 01:55 | ECWPNPC ---
PATIENT NAME: YUNIEL CANAS : 1955 GENDER: FEMALE VISIT DATE: 11/28/2016 DISCHARGE DATE: 11/28/16 1605 VISIT LOCKED DATE TIME: PHYSICIAN: BATSHEVA MAIER RESOURCE: BATSHEVA MAIER REASON FOR APPOINTMENT 1. W/C LOW BACK PAIN HISTORY OF PRESENT ILLNESS HISTORY OF PRESENT ILLNESS: PAIN THE PATIENT DESCRIBES THE PAIN... 61 YEAR OLD FEMALE PATIENT WITH HISTORY OF CHRONIC LOW BACK PAIN. PATIENT DESCRIBES THE PAIN ACHING AND SHARP WITH THE PAIN COMING AND GOING WITH A PAIN SCORE OF 7/10. 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 MRS. CANAS RECEIVED A LUMBAR FACET BLOCK ON 09/05/16 AND REPORTS HAVING OVER 2 MONTHS OF OVER 50% RELIEF FROM PAIN SINCE THE INJECTION. PATIENT REPORTS HAVING A BETTER QUALITY OF LIFE AND STATES SHE IS ABLE TO SIT UP AND WALK EASIER SINCE THE INJECTION. HOWEVER, THE PAIN IS STARTING TO RETURN AT THIS TIME. CURRENTLY THE PATIENT IS USING TRAMADOL, LIDODERM, AND VOLTAREN GEL AND STATES THAT THE MEDICATION KEEPS THE PATIENT MOBILE AND FUNCTIONAL. PATIENT REPORTS USING A TENNS UNIT WHEN SHE FEELS THE MUSCLES SPASMING. PATIENT STATES THAT ANY TYPE OF ACTIVITY INCLUDING WALKING, STANDING, AND SITTING INCREASES THE PAIN IN THE PATIENT'S LOWER BACK AREA. PATIENT DENIES UNEXPLAINABLE WEIGHT LOSS, FEVER, CHILLS, NEW CHANGES ON HER URINARY OR BOWEL CONTROL. FALL RISK SCREENING: SCREENING :NO FALLS IN THE PAST YEAR CURRENT MEDICATIONS TAKING LIDODERM 5 % PATCH 2 PATCHES TO INTACT SKIN REMOVE AFTER 12 HOURS EXTERNALLY AT BEDTIME FOR PAIN TAKING SEROQUEL 50 MG TABLET 1 TABLET ORALLY DAILY TAKING VENLAFAXINE HCL 150 MG TABLET EXTENDED RELEASE 24 HOUR 1 TABLET ORALLY ONCE A DAY TAKING ZOCOR 20 MG TABLET 1 TABLET EVERY EVENING ORALLY AT BEDTIME TAKING MECLIZINE HCL 25 MG TABLET 1 TABLET BY MOUTH ONCE A DAY NEEDED FOR DIZZINESS TAKING PROAIR HFA 108 (90 BASE) MCG/ACT AEROSOL SOLUTION 2 PUFFS INHALATION EVERY 4 HOURS, NEEDED TAKING FLONASE 50 MCG/ACT SUSPENSION 1 SPRAY IN EACH NOSTRIL NASALLY DAILY NEEDED TAKING LORAZEPAM 0.5 MG TABLET 1 TABLET NEEDED ORALLY EVERY 6 HRS TAKING SYMBICORT 160-4.5 MCG/ACT AEROSOL 2 PUFFS INHALATION TWICE A DAY TAKING RESTASIS 0.05 % EMULSION 1 DROP INTO AFFECTED EYE OPHTHALMIC TWICE A DAY TAKING REFRESH 1.4-0.6 % SOLUTION 1 GTT OU OPHTHALMIC 2-4 X/DAY NEEDED TAKING ARTIFICIAL TEARS 1.4 % SOLUTION 1 GTT OU OPHTHALMIC 4X/DAY NEEDED TAKING ACETAMINOPHEN 500 MG CAPSULE 1 TABLET NEEDED ORALLY 1 TO 2 TABS EVERY 6 HRS PRN MDD4 TAKING NEXIUM 40 MG CAPSULE DELAYED RELEASE 1 TAB ORALLY ([place]) 2 TIMES A DAY TAKING VOLTAREN 1 % GEL 1 STRIP TRANSDERMAL FOUR TIMES DAILY NEEDED FOR PAIN TAKING ULTRAM 50 MG TABLET 1 TABLET NEEDED BY MOUTH 1 TAB Q 4 HRS NEEDED FOR PAIN MDD4 ([place]) NOT-TAKING SOMA 350 MG TABLET 1 TABLET NEEDED ORALLY FOR SPASMS AND PAIN BEFORE BEDTIME MDD1 NOT-TAKING TIZANIDINE HCL 4 MG TABLET 1 TABLET NEEDED ORALLY FOR SPASMS AND PAIN 1 BEFORE BEDTIME MAY REPEAT IN 4 HRS MDD2 NOT-TAKING ZANAFLEX 4 MG TABLET 1 TABLET NEEDED ORALLY BEFORE BEDTIME CAN REPAE IN 4 HRS NEDEEDFOR SPASMS AND PAIN MDD2, NOTES: 1 WEEK AGO NOT-TAKING ZYRTEC 10 MG TABLET CHEWABLE 1 TABLET ORALLY ONCE A DAY, NOTES: 3 MONTHS AGO NOT-TAKING TRAMADOL HCL 50 MG TABLET 1 TABLET NEEDED ORALLY EVERY 6 - 8 HRS PRN PAIN MDD=3 NOT-TAKING EFFEXOR XR 37.5 MG CAPSULE EXTENDED RELEASE 24 HOUR 1CAPSULES WITH EFFEXOR 150 MG, TOTAL DOSE 187.5 MG ORALLY ONCE A DAY NOT-TAKING ASTELIN 137 MCG/SPRAY SOLUTION 2 PUFFS IN EACH NOSTRIL NASALLY TWICE A DAY NOT-TAKING MOBIC 15 MG TABLET 1 TABLET ORALLY ONCE A DAY NOT-TAKING VITAMIN B COMPLEX-C OTC CAPSULE 1/2 TABLET ORALLY 1/2 TAB IN AM , 1/2 TAB IN PM NOT-TAKING CALCIUM 600+D HIGH POTENCY 600-400 MG-UNIT TABLET 1 TABLET ORALLY BID NOT-TAKING DRISDOL 50,000 UNITS TABLET 1 TAB ORAL WEEKLY MEDICATION LIST REVIEWED AND RECONCILED WITH THE PATIENT PAST MEDICAL HISTORY ASTHMA, MILD INTERMITTENT/IS/[id number] 2010 NORMAL PFTS EXCEPT FOR VERY MILD DIFFUSION IMPAIRMENT-RECHLIN IMPAIRED FASTING GLUCOSE GERD/DYSPEPSIA/HISTORY OF PUD-JUNE 2008 EGD WITH HIATAL HERNIA, MILD GASTRITIS LUMBAR DJD STATUS POST FUSION IN 2000 AND 2002-JULY 2009 MRI SHOWING MINIMAL DJD AND L3-L5 MILD BULGE HYPERLIPIDEMIA 2B NONALCOHOLIC FATTY LIVER DISEASE-SEPTEMBER 2004 NORMAL WORKUP AND NORMAL ULTRASOUND ALLERGIC RHINITIS BENIGN POSITIONAL VERTIGO DEPRESSION/PANIC DISORDER/INSOMNIA CERVICAL DJD VITAMIN D DEFICIENCY L POSTERIOR KNEE VERRUCA EXCISION-03/2011-DERREK ALLERGIES ASPIRIN: NAUSEA/VOMITING: CONTRAINDICATION CLINORIL: TONGYE AND LIP BLISTERS: ALLERGY SURGICAL HISTORY L TAILOR'S BUNION REDUCTION-MAJAK 05/2011 L3-4 DISC SURGERY 03/2001 L3-4 DISC SURGERY 05/2002 REPAIR RIGHT SHOULDER AND CLAVICLE 2007 RIGHT CARPAL TUNNEL REPAIR 1990 TUBAL LIGATION 1983 RIGHT BUNION AND SECOND TOE SURGERY 02/2015 HOSPITALIZATION/MAJOR DIAGNOSTIC PROCEDURE SURGERIES REVIEW OF SYSTEMS REVIEWED BY: PROVIDER: BATSHEVA MAIER MD . CONSTITUTIONAL: ANY CHANGE IN YOUR MEDICAL CONDITION? NO . CHILLS NO . FEVER NO . INFECTION: DO YOU HAVE NEW INFECTIONS? NO . DO YOU HAVE HISTORY OF MRSA? NO . MUSCULOSKELETAL: ANY NEW PATTERNS OF PAIN OR NUMBNESS? NO . GASTROENTEROLOGY: ANY NEW CHANGE IN BOWEL CONTROL? YES, CONSTIPATION . GENITOURINARY: ANY NEW CHANGE IN BLADDER CONTROL? NO . IS THERE A CHANCE YOU COULD BE ? NO . HEMATOLOGY/LYMPH: DO YOU TAKE ANY BLOOD THINNERS? (FOR EXAMPLE- COUMADIN, PLAVIX, AGGRENOX, PLATEL, PRADAXA, OR XARELTO) NO . WHEN WAS YOUR LAST DOSE? DATE: TIME: . NEUROLOGY: HAVE YOU FALLEN IN THE PAST 6 MONTHS? NO . ANY NEW EXTREMITY NUMBNESS OR WEAKNESS? NO . CARDIOLOGY: DO YOU HAVE A PACEMAKER OR DEFIBRILLATOR? NO . RESPIRATORY: HAVE YOU BEEN SICK IN THE PAST WEEK? NO . FEVER NO . FLU LIKE SYMPTOMS? NO . COUGH NO . INTEGUMENTARY: DO YOU HAVE ANY RASHES OR OPEN SORES? NO . ALLERGIC/IMMUNO: ARE YOU ALLERGIC TO SHELLFISH OR IV DYE? NO . ANY NEW ALLERGIES? NO . PSYCHIATRIC: DO YOU HAVE THOUGHTS OF HURTING YOURSELF OR SOMEONE ELSE? NO . ARE YOU ABUSED, NEGLECTED, OR IN AN UNSAFE ENVIRONMENT? NO . ENDOCRINOLOGY: ARE YOU DIABETIC? NO . OTHER: DO YOU NEED ANY PRESCRIPTIONS? YES, TRAMADOL, LIDO PATCHES, TENS UNIT 3.25 PATCHES, BATTERIES, LEAD WIRES . IF YES, PLEASE LIST: ____ . ANY NEW PROBLEMS WITH YOUR MEDICATIONS? NO . WHEN DID YOU LAST EAT? ____ . WHEN DID YOU LAST DRINK? ____ . WHAT DID YOU LAST DRINK? ____ . NAME OF PERSON DRIVING YOU HOME? ____ . DO YOU HAVE ANY OTHER QUESTIONS OR CONCERNS NO . VITAL SIGNS WT 130.4 LBS, HT 62 IN, BMI 23.85 INDEX, BP 143/100 MM HG, REPEAT BP MANUAL 142/98, HR 84 /MIN, RR 16 /MIN, TEMP 98.3 F, OXYGEN SAT % 97%, NA INITIALS TR [id number] TO RECHECK BP MANUALLY. EXAMINATION : PATIENT IS ALERT O X 3 AND COOPERATIVE. PATIENT HAS DIFFICULTIES STANDING UP FROM A SUPINE POSITION. PATIENT AMBULATES SLOWLY WITH AN ANTALGIC GAIT. PATIENT'S RIGHT LEFT IS WEAKER AT FLEXION AND EXTENSION COMPARED TO THE LEFT LEG. FAVERE TEST POSITIVE FOR PAIN IN RIGHT AND LEFT SIDE. THERE IS TENDERNESS IN THE LOW BACK PARASPINAL MUSCLE GROUP. MRI DONE ON 07/28/09 SHOWS POST LAMINECTOMY CHANGES ALONG WITH DEGENERATIVE CHANGES. 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, LUMBAR REGION - M47.816 SPONDYLOSIS WITHOUT MYELOPATHY OR RADICULOPATHY, LUMBOSACRAL REGION - M47.817 TREATMENT POST LAMINECTOMY SYNDROME REFILL ULTRAM TABLET, 50 MG, 1 TABLET NEEDED, BY MOUTH, 1 TAB Q 4 HRS NEEDED FOR PAIN MDD4 ([place]), 30 DAY(S), 110, REFILLS 0 REFILL ACETAMINOPHEN CAPSULE, 500 MG, 1 TABLET NEEDED, ORALLY, 1 TO 2 TABS EVERY 6 HRS PRN MDD4, 30 DAY(S), 100, REFILLS 2 REFILL LIDODERM PATCH, 5 %, 2 PATCHES TO INTACT SKIN REMOVE AFTER 12 HOURS, EXTERNALLY, AT BEDTIME FOR PAIN, 30 DAY(S), 60, REFILLS 2 START TIZANIDINE HCL TABLET, 2 MG, 1 TABLET NEEDED, ORALLY, BEFORE BEDTIME MAY REPEAT IN 5 HRS MDD2, 30 DAY(S), 45, REFILLS 0 NOTES: WE DISCUSSED SEVERAL ISSUES WITH MRS. CANAS'S PAIN MANAGEMENT CASE. AT THIS TIME THE PATIENT WILL CONTINUE WITH THE SAME MEDICATION REGIME BEFORE. PATIENT DENIES ABUSE OF ANY MEDICATION, DENIES USE OF ILLEGAL DRUGS, AND STATES THAT SHE IS ONLY USING THE MEDICATION FOR PAIN MANAGEMENT. PATIENT USING ULTRAM FOR THE SOMATIC PAIN, ALONG WITH TYLENOL, VOLTAREN GEL AND THE LIDODERM PATCH, AND WILL USE TIZANIDINE FOR THE MUSCLE SPASMS. PATIENT WAS REMINDED TO BRING ALL MEDICATIONS TO EVERY VISIT IN THEIR ORIGINAL BOTTLES. URINE TOXICOLOGY REPORT DONE ON 03/29/16 SHOWS CONSISTENT RESULTS WITH THE PATIENT'S MEDICATION LIST. PATIENT WILL PERFORM A URINE TOXICOLOGY TODAY. DUE TO THE PATIENT HAVING PAIN LOWER THEN BEFORE AND THE FAVERE TEST POSITIVE FOR PAIN I WOULD LIKE TO MOVE FORWARD WITH A SACROILIAC JOINT BLOCK. WE DISCUSSED THE RISKS, BENENFITS, AND ALTERNATIVES OF THE INJECTION AND THE PATIENT WOULD LIKE TO PROCEED. INSTRUCTIONS WERE GIVEN, QUESTIONS WERE ANSWERED, PATIENT REPORTS UNDERSTANDING AND AGREES WITH THE PLAN. I, GARY ROGERS, DOCUMENTED THE ABOVE INFORMATION ACTING A SCRIBE FOR DR. MAIER. I HAVE REVIEWED THE ABOVE DOCUMENT, WRITTEN BY GARY GEE AND I VERIFY THAT IT IS ACCURATE. OTHERS REFILL VOLTAREN GEL, 1 %, 1 STRIP, TRANSDERMAL, FOUR TIMES DAILY NEEDED FOR PAIN, 30 DAY(S), 1, REFILLS 2 REFILL ZANAFLEX TABLET, 2 MG, 1 TABLET NEEDED, ORALLY, BEFORE BEDTIME CAN REPAE IN 4 HRS NEDEEDFOR SPASMS AND PAIN MDD2, 30 DAY(S), 50, REFILLS 1 PROCEDURE CODES FA211 ESTABILISHED PATIENT [facility] FACILITY CHARGE G8427 DOC MEDS VERIFIED W/PT OR RE G8730 PAIN ASSESS POS TOOL F/U PLAN DOC DISPOSITION & COMMUNICATION FOLLOW UP SIJ AFTER APPROVAL ELECTRONICALLY SIGNED BY BATSHEVA MAIER MD ON 12/12/2016 AT 05:56 PM EDT DISCLAIMER : THIS IS A VISIT SUMMARY EXTRACTED FROM THE [employer] CHART. IT IS NOT A COPY OF THE [employer] PROGRESS NOTE. STEVEND
== END ==
LOC: M PAIN 13:40
PROVIDERS: ATTEND Anesthesiology
DX: M96.1 Postlaminectomy syndrome, not elsewhere classified (principal); M47.816 Spondylosis without myelopathy or radiculopathy, lumbar region; M47.817 Spondylosis without myelopathy or radiculopathy, lumbosacral region; J45.20 Mild intermittent asthma, uncomplicated; K21.9 Gastro-esophageal reflux disease without esophagitis; E78.5 Hyperlipidemia, unspecified; K76.0 Fatty (change of) liver, not elsewhere classified; H81.10 Benign paroxysmal vertigo, unspecified ear; F32.9 Major depressive disorder, single episode, unspecified; F41.0 Panic disorder [episodic paroxysmal anxiety]; G47.00 Insomnia, unspecified; K59.00 Constipation, unspecified; Z88.6 Allergy status to analgesic agent; Z88.8 Allergy status to other drugs, medicaments and biological substances; Z79.1 Long term (current) use of non-steroidal anti-inflammatories (NSAID); Z79.899 Other long term (current) drug therapy

== ENCOUNTER 2016-12-22 10:22 | Emergency (ER) | payer MEDICARE, MEDICAID ==
[~2016-12-22] VITALS: Ht 157.5 cm; Wt 58.2 kg
[~2016-12-22 10:22] MED LIST changes: -TIZA2CAP3 PO; -VENL150C43 PO; -VENL75CA47 PO
[2016-12-22] MEDS ORDERED: VENL150C43 PO (10:39)
[2016-12-22] MEDS ORDERED: VENL75CA47 PO (10:39)
[2016-12-22] MEDS ORDERED: TIZA2CAP3 PO (10:39)
[2016-12-22] MEDS ORDERED: LORazepam 0.5 MG TAB PO ONE ×2 (12:30→18:45)
--- NOTE | 2016-12-22 12:57 | ECGEPIP ---
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
[2016-12-22 13:20] LABS: METHADONE URINE NEGATIVE (NEGATIVE)
[2016-12-22 13:24] LABS: BASO % 0.5 % (0.0-1.0); EOS # 0.2 K/mm3 (0.0-0.50); EOS % 2.6 % (0.0-3.0); LARGE UNSTAINED CELL # 0.1 K/mm3 (0.0-0.4); LARGE UNSTAINED CELL % 1.7 % (0.0-4.0); LYMPH # 2.3 K/mm3 (1.5-4.5); LYMPH % 33.4 % (24.0-44.0); MEAN CORPUSCULAR HEMOGLOBIN 29.6 pg (27.0-33.0); MEAN CORPUSCULAR HGB CONC 33.5 g/dl (32.0-36.5); MEAN CORPUSCULAR VOLUME 88.2 fl (80.0-96.0); MONO # 0.4 K/mm3 (0.0-0.8); MONO % 5.6 % (0.0-5.0); NEUTROPHILS # 3.7 K/mm3 (1.8-7.7); NEUTROPHILS % 56.2 % (36.0-66.0); PLATELET COUNT, AUTOMATED 301 k/mm3 (150-450); RED CELL DISTRIBUTION WIDTH 12.6 % (11.5-14.5); WHITE BLOOD COUNT 6.5 K/mm3 (4.0-10.0)
--- NOTE | 2016-12-22 13:27 | REP ---
CHEST X-RAY: TWO VIEWS. HISTORY: Chest pain. COMPARISON STUDY: 02/11/2015 FINDINGS: The patient is status post ventral discectomy and spine fusion in the lower cervical spine. The lungs are well inflated and clear. Pleural angles are sharp. Heart size is normal. Pulmonary vasculature is not increased. No other significant bony abnormality is seen. IMPRESSION: Lower cervical spine fusion plate. Otherwise no acute disease. Signed by Nelson Earl MD 12/22/2016 02:39 P
[2016-12-22 13:34] LABS: ALBUMIN/GLOBULIN RATIO 1.03 (1.00-1.93); ALKALINE PHOSPHATASE 96 U/L (45-117); ALT/SGPT 21 U/L (12-78); ANION GAP 11 MEQ/L (8-16); AST/SGOT 17 U/L (15-37); BILIRUBIN,DIRECT < 0.1 MG/DL (0.0-0.2); BILIRUBIN,TOTAL 0.3 MG/DL (0.2-1.0); BLOOD UREA NITROGEN 13 MG/DL (7-18); CALCIUM LEVEL 9.2 MG/DL (8.8-10.2); CARBON DIOXIDE LEVEL 24 MEQ/L (21-32); CHLORIDE LEVEL 106 MEQ/L (98-107); CREATININE FOR GFR 0.68 MG/DL (0.55-1.02); GLOMERULAR FILTRATION RATE > 60.0 (>45); GLUCOSE, FASTING 90 MG/DL (80-110); POTASSIUM SERUM 3.3 MEQ/L (3.5-5.1); SODIUM LEVEL 141 MEQ/L (136-145); TOTAL PROTEIN 7.9 GM/DL (6.4-8.2)
[2016-12-22] MEDS ORDERED: POTASSIUM CHLORIDE 10 MEQ SR TABLET PO ONE (13:45)
[2016-12-22 18:50] VITALS: BP 152/76
--- NOTE | 2016-12-23 08:20 | ECGEPIP ---
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
== END 2016-12-22 18:59 | disposition home or self-care (01) ==
LOC: M ED 10:22
DX: F41.9 Anxiety disorder, unspecified (principal); E78.5 Hyperlipidemia, unspecified; J45.909 Unspecified asthma, uncomplicated; K21.9 Gastro-esophageal reflux disease without esophagitis; M51.36 Other intervertebral disc degeneration, lumbar region; Z82.49 Family history of ischemic heart disease and other diseases of the circulatory system; Z79.899 Other long term (current) drug therapy; Z88.6 Allergy status to analgesic agent; Z88.8 Allergy status to other drugs, medicaments and biological substances
CPT/HCPCS: 36415; 71020; 80048; 80076; 80307; 82550; 82553; 83880; 84443; 84484; 85025; 93005; 93041; 94760; 99284; G0480

== ENCOUNTER → 2016-12-30 | Outpatient (REF) | payer MEDICARE, MEDICAID, OTHER ==
[~2016-12-30] MED LIST changes: +TIZA2CAP3 PO; +VENL150C43 PO; +VENL75CA47 PO
== END ==
LOC: M SFHCPLAZ 12-29 18:03
PROVIDERS: ATTEND Family Medicine
DX: L98.9 Disorder of the skin and subcutaneous tissue, unspecified (principal)

== ENCOUNTER → 2017-01-06 | Outpatient (CLI) | payer OTHER, MEDICARE, MEDICAID ==
--- NOTE | 2017-01-20 00:56 | ECWPNPC ---
PATIENT NAME: YUNIEL CANAS : 1955 GENDER: FEMALE VISIT DATE: 01/06/2017 DISCHARGE DATE: 01/06/17 1228 VISIT LOCKED DATE TIME: PHYSICIAN: RAY EDGE RESOURCE: RAY EDGE REASON FOR APPOINTMENT 1. MEDICATIONS W/C HISTORY OF PRESENT ILLNESS HISTORY OF PRESENT ILLNESS: PAIN THE PATIENT DESCRIBES THE PAIN... THE PATIENT DESCRIBES THE PAIN... THE PATIENT DESCRIBES THE PAIN... HERE FOR F/U. F/U.HAD BILAT. LUMBAR FACET BLOCK ON 11-02-15.REPORTS >75% IMPROVEMENT IN PAIN POST PROC.THIS IS A WORK RELATED CHRONIC LBP W RATING PAIN VAS 8/10.REPORTING THAT PAIN HAS RETURNED APROXIMATLEY 1 WK AGO. CURRENTLY ATTENDING PT AND SHE FEELS IT IS HELPING.DESCRIBES PAIN CONSTANT ACHING AND SHARP PAIN. PAIN IS AGGREVATED BY DOING LAUNDRY OR PROLONGED SITTING OR WALKING.PAIN IS LOCATED ACROSS LOW BACK.CURRENTLY BEING EVALUATED FOR CHEST PAIN EPISODES.HAS UPCOMING APPOINTMENT WITH CARDIOLOGY. FALL RISK SCREENING: SCREENING :NO FALLS IN THE PAST YEAR CURRENT MEDICATIONS TAKING VENLAFAXINE HCL 150 MG TABLET EXTENDED RELEASE 24 HOUR 1 TABLET ORALLY ONCE A DAY TAKING ZOCOR 20 MG TABLET 1 TABLET EVERY EVENING ORALLY AT BEDTIME TAKING MECLIZINE HCL 25 MG TABLET 1 TABLET BY MOUTH ONCE A DAY NEEDED FOR DIZZINESS TAKING PROAIR HFA 108 (90 BASE) MCG/ACT AEROSOL SOLUTION 2 PUFFS INHALATION EVERY 4 HOURS, NEEDED TAKING FLONASE 50 MCG/ACT SUSPENSION 1 SPRAY IN EACH NOSTRIL NASALLY DAILY NEEDED TAKING LORAZEPAM 0.5 MG TABLET 1.5 TABLET MY MOUTH DAILY THROUGH DR. CARTER DAILY TAKING RESTASIS 0.05 % EMULSION 1 DROP INTO AFFECTED EYE OPHTHALMIC TWICE A DAY TAKING REFRESH 1.4-0.6 % SOLUTION 1 GTT OU OPHTHALMIC 2-4 X/DAY NEEDED TAKING ARTIFICIAL TEARS 1.4 % SOLUTION 1 GTT OU OPHTHALMIC 4X/DAY NEEDED TAKING ACETAMINOPHEN 500 MG CAPSULE 1 TABLET NEEDED ORALLY 1 TO 2 TABS EVERY 6 HRS PRN MDD4 TAKING LIDODERM 5 % PATCH 2 PATCHES TO INTACT SKIN REMOVE AFTER 12 HOURS EXTERNALLY AT BEDTIME FOR PAIN TAKING VOLTAREN 1 % GEL 1 STRIP TRANSDERMAL FOUR TIMES DAILY NEEDED FOR PAIN TAKING TIZANIDINE HCL 2 MG TABLET 1 TABLET NEEDED ORALLY BEFORE BEDTIME MAY REPEAT IN 5 HRS MDD2 TAKING NEXIUM 40 MG CAPSULE DELAYED RELEASE 1 TAB ORALLY ([place]) 2 TIMES A DAY TAKING TRAMADOL HCL 50 MG TABLET 1 TABLET NEEDED ORALLY EVERY 6 - 8 HRS PRN PAIN MDD=3 TAKING NITROGLYCERIN 0.4 MG TABLET SUBLINGUAL DIRECTED SUBLINGUAL AT ONSET OF SYMPTOMS, THEN IN 5 MINUTS IF NOT RESOLVED. IF PERSISTENT GO TO ER. TAKING ASPIRIN 81 MG TABLET CHEWABLE 1 TABLET ORALLY ONCE A DAY TAKING CLOTRIMAZOLE 1 % CREAM 1 APPLICATION TO AFFECTED AREA EXTERNALLY TWICE A DAY TAKING SERTRALINE HCL 50 MG TABLET 1 TABLET ORALLY ONCE A DAY TAKING BUSPIRONE HCL 5 MG TABLET 2 TABLETS ORALLY DAILY TAKING QUETIAPINE FUMARATE 50 MG TABLET 1 TABLET ORALLY ONCE A DAY NOT-TAKING ZANAFLEX 2 MG TABLET 1 TABLET NEEDED ORALLY BEFORE BEDTIME CAN REPAE IN 4 HRS NEDEEDFOR SPASMS AND PAIN MDD2 NOT-TAKING ULTRAM 50 MG TABLET 1 TABLET NEEDED BY MOUTH 1 TAB Q 4 HRS NEEDED FOR PAIN MDD4 ([place]) NOT-TAKING SOMA 350 MG TABLET 1 TABLET NEEDED ORALLY FOR SPASMS AND PAIN BEFORE BEDTIME MDD1 NOT-TAKING TIZANIDINE HCL 4 MG TABLET 1 TABLET NEEDED ORALLY FOR SPASMS AND PAIN 1 BEFORE BEDTIME MAY REPEAT IN 4 HRS MDD2 NOT-TAKING ZYRTEC 10 MG TABLET CHEWABLE 1 TABLET ORALLY ONCE A DAY, NOTES: 3 MONTHS AGO NOT-TAKING EFFEXOR XR 37.5 MG CAPSULE EXTENDED RELEASE 24 HOUR 1CAPSULES WITH EFFEXOR 150 MG, TOTAL DOSE 187.5 MG ORALLY ONCE A DAY NOT-TAKING ASTELIN 137 MCG/SPRAY SOLUTION 2 PUFFS IN EACH NOSTRIL NASALLY TWICE A DAY NOT-TAKING MOBIC 15 MG TABLET 1 TABLET ORALLY ONCE A DAY NOT-TAKING VITAMIN B COMPLEX-C OTC CAPSULE 1/2 TABLET ORALLY 1/2 TAB IN AM , 1/2 TAB IN PM NOT-TAKING CALCIUM 600+D HIGH POTENCY 600-400 MG-UNIT TABLET 1 TABLET ORALLY BID NOT-TAKING DRISDOL 50,000 UNITS TABLET 1 TAB ORAL WEEKLY MEDICATION LIST REVIEWED AND RECONCILED WITH THE PATIENT PAST MEDICAL HISTORY ASTHMA, MILD INTERMITTENT/IS/[id number] 2010 NORMAL PFTS EXCEPT FOR VERY MILD DIFFUSION IMPAIRMENT-RECHLIN IMPAIRED FASTING GLUCOSE GERD/DYSPEPSIA/HISTORY OF PUD-JUNE 2008 EGD WITH HIATAL HERNIA, MILD GASTRITIS LUMBAR DJD STATUS POST FUSION IN 2000 AND 2002-JULY 2009 MRI SHOWING MINIMAL DJD AND L3-L5 MILD BULGE HYPERLIPIDEMIA 2B NONALCOHOLIC FATTY LIVER DISEASE-SEPTEMBER 2004 NORMAL WORKUP AND NORMAL ULTRASOUND ALLERGIC RHINITIS BENIGN POSITIONAL VERTIGO DEPRESSION/PANIC DISORDER/INSOMNIA CERVICAL DJD VITAMIN D DEFICIENCY L POSTERIOR KNEE VERRUCA EXCISION-03/2011-DERREK ALLERGIES ASPIRIN: NAUSEA/VOMITING: CONTRAINDICATION CLINORIL: TONGYE AND LIP BLISTERS: ALLERGY SURGICAL HISTORY L TAILOR'S BUNION REDUCTION-MAJAK 05/2011 L3-4 DISC SURGERY 03/2001 L3-4 DISC SURGERY 05/2002 REPAIR RIGHT SHOULDER AND CLAVICLE 2008 RIGHT CARPAL TUNNEL REPAIR 1991 TUBAL LIGATION 1983 RIGHT BUNION AND SECOND TOE SURGERY 02/2015 RIGHT FOOT HAMMER TOE SURGERY SOCIAL HISTORY GENERAL: TOBACCO USE ARE YOU A:NONSMOKER ALCOHOL SCREENING DID YOU HAVE A DRINK CONTAINING ALCOHOL IN THE PAST YEAR?YES HOW OFTEN DID YOU HAVE A DRINK CONTAINING ALCOHOL IN THE PAST YEAR?TWO TO FOUR TIMES A MONTH (2 POINTS) HOW MANY DRINKS DID YOU HAVE ON A TYPICAL DAY WHEN YOU WERE DRINKING IN THE PAST YEAR?1 OR 2 (0 POINTS) HOW OFTEN DID YOU HAVE SIX OR MORE DRINKS ON ONE OCCASION IN THE PAST YEAR?NEVER (0 POINTS) POINTS2 INTERPRETATIONNEGATIVE RECREATIONAL DRUG USE DRUG USE?NO CAFFEINE CAFFEINE USE?YES 2 MUGS COFFEE/DAY SEXUAL HX HAD SEX IN THE LAST 12 MONTHS (VAGINAL, ORAL, OR ANAL)?NO HAVE YOU EVER HAD AN STD?NO HIV / HEP-C SCREENING HIV TEST OFFERED TO PATIENT:YES DATE OFFERED:12/30/2016 TEST ACCEPTED:NO REASON:PATIENT DECLINED HEP-C TEST OFFERED TO PATIENT:YES DATE OFFERED:12/30/2016 TEST ACCEPTED:YES OCCUPATION: DISABLED . 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 EXERCISE: NO REGULAR EXERCISE. MARITAL STATUS: .. OTHERS AT HOME: NONE. PETS: NONE. MUSLIM MUSLIM NO SIKHISM BELIEFS THAT WOULD IMPACT HEALTH CARE. LANGUAGE LANGUAGES SPOKEN:BURMESE EDUCATION LEVEL OF EDUCATION:COLLEGE LEARNING BARRIERS / SPECIAL NEEDS BARRIERS TO LEARNING?NO HEARING IMPAIRED?NO VISION IMPAIRED?NO COGNITIVELY IMPAIRED?NO READINESS TO LEARN?YES LEARNING PREFERENCES?NO LEARNING CAPABILITIES PRESENT?YES EMOTIONAL BARRIERS?NO SPECIAL DEVICES?NO LOW PRESSURE BOILER TENDER NEEDED?NO PAIN CLINIC PFS, CLERGY, PUBLIC HEALTH REFERRALS CLERGY REFERRAL NEEDED?NO WAS THE PROVIDER NOTIFIED OF ANY PERTINENT INFO?NO PFS REFERRAL NEEDED?NO PUBLIC HEALTH REFERRAL NEEDED?NO PATIENT: ____. HOSPITALIZATION/MAJOR DIAGNOSTIC PROCEDURE SURGERIES REVIEW OF SYSTEMS REVIEWED BY: PROVIDER: RAY SALCEDO . CONSTITUTIONAL: ANY CHANGE IN YOUR MEDICAL CONDITION? YES, PT STATES SHE WAS HAVING CHEST TIGHTNES, STRESS RELATED, CHEST PAIN GOT SO BAD SHE WENT TO [facility] ER VIA AMBULANCE WHERE SHE WAS TX'D WITH LORAZEPAM AND REFERED TO LABOR GANG SUPERVISOR TO MAKE SURE EVERYTHING IS OK . CHILLS NO . FEVER NO . INFECTION: DO YOU HAVE NEW INFECTIONS? NO . DO YOU HAVE HISTORY OF MRSA? NO . MUSCULOSKELETAL: ANY NEW PATTERNS OF PAIN OR NUMBNESS? NO . GASTROENTEROLOGY: ANY NEW CHANGE IN BOWEL CONTROL? NO . GENITOURINARY: ANY NEW CHANGE IN BLADDER CONTROL? NO . IS THERE A CHANCE YOU COULD BE ? NO . HEMATOLOGY/LYMPH: DO YOU TAKE ANY BLOOD THINNERS? (FOR EXAMPLE- COUMADIN, PLAVIX, AGGRENOX, PLATEL, PRADAXA, OR XARELTO) NO . WHEN WAS YOUR LAST DOSE? DATE: TIME: . NEUROLOGY: HAVE YOU FALLEN IN THE PAST 6 MONTHS? NO . ANY NEW EXTREMITY NUMBNESS OR WEAKNESS? NO . CARDIOLOGY: DO YOU HAVE A PACEMAKER OR DEFIBRILLATOR? NO . RESPIRATORY: HAVE YOU BEEN SICK IN THE PAST WEEK? NO . FEVER NO . FLU LIKE SYMPTOMS? NO . COUGH NO . INTEGUMENTARY: DO YOU HAVE ANY RASHES OR OPEN SORES? NO . ALLERGIC/IMMUNO: ARE YOU ALLERGIC TO SHELLFISH OR IV DYE? NO . ANY NEW ALLERGIES? NO . PSYCHIATRIC: DO YOU HAVE THOUGHTS OF HURTING YOURSELF OR SOMEONE ELSE? NO . ARE YOU ABUSED, NEGLECTED, OR IN AN UNSAFE ENVIRONMENT? NO . ENDOCRINOLOGY: ARE YOU DIABETIC? NO . OTHER: DO YOU NEED ANY PRESCRIPTIONS? NO . IF YES, PLEASE LIST: ____ . ANY NEW PROBLEMS WITH YOUR MEDICATIONS? NO . WHEN DID YOU LAST EAT? ____ . WHEN DID YOU LAST DRINK? ____ . WHAT DID YOU LAST DRINK? ____ . NAME OF PERSON DRIVING YOU HOME? ____ . DO YOU HAVE ANY OTHER QUESTIONS OR CONCERNS NO . VITAL SIGNS WT 129 LBS, HT 62 IN, BMI 23.59 INDEX, BP 135/99 MM HG, HR 95 /MIN, RR 16 /MIN, TEMP 98.7 F, OXYGEN SAT % 96, REVIEWED BY: EM. EXAMINATION GENERAL EXAMINATION: LUNGS:LUNG SOUNDS ARE CLEAR. HEART:HEART RATE REGULAR. MUSCULOSKELETAL:*, MUSCLE STRENGTH TESTING 5/5 BILATERAL, PALPATION: POSITIVE FOR MILD PAIN OVER L/S SPINE. POSITIVE FOR MILD PAIN OVER L/S PARSPINALS.ROJM LIMITED WITH BOTH FLEXION AND EXTENSION. SPECIFIC POINT TENDERNESS OVER LUMBAR FACETS BILAT.-L4/5-L5/S1. DIAGNOSTIC: . ASSESSMENTS POST LAMINECTOMY SYNDROME - M96.1 (PRIMARY) TREATMENT POST LAMINECTOMY SYNDROME NOTES: CONTINUE TREATMENT FOR RECENT CHEST PAIN.F/U NECESSARY WITH PAIN CENTER. PROCEDURE CODES FA211 ESTABILISHED PATIENT [facility] CHARGE DISPOSITION & COMMUNICATION FOLLOW UP 2 MONTHS ELECTRONICALLY SIGNED BY DENISSE ISLAS ON 01/19/2017 AT 09:33 PM EDT DISCLAIMER : THIS IS A VISIT SUMMARY EXTRACTED FROM THE [employer] CHART. IT IS NOT A COPY OF THE [employer] PROGRESS NOTE. BRANDI
== END ==
LOC: M PAIN 11:45
PROVIDERS: ATTEND Nurse Practitioner Family
DX: M96.1 Postlaminectomy syndrome, not elsewhere classified (principal); M47.816 Spondylosis without myelopathy or radiculopathy, lumbar region; M47.817 Spondylosis without myelopathy or radiculopathy, lumbosacral region; F41.8 Other specified anxiety disorders; J45.30 Mild persistent asthma, uncomplicated; K21.9 Gastro-esophageal reflux disease without esophagitis; E78.5 Hyperlipidemia, unspecified; E55.9 Vitamin D deficiency, unspecified; R07.9 Chest pain, unspecified; Z88.6 Allergy status to analgesic agent; Z88.8 Allergy status to other drugs, medicaments and biological substances; Z79.899 Other long term (current) drug therapy

== ENCOUNTER → 2017-01-30 | Outpatient (CLI) | payer MEDICARE, MEDICAID ==
[2017-01-30 11:21] LABS: ALBUMIN 3.6 GM/DL (3.2-5.2); ALBUMIN/GLOBULIN RATIO 1.16 (1.00-1.93); ALKALINE PHOSPHATASE 95 U/L (45-117); ALT/SGPT 22 U/L (12-78); ANION GAP 6 MEQ/L (8-16); AST/SGOT 14 U/L (15-37); BILIRUBIN,TOTAL 0.3 MG/DL (0.2-1.0); BLOOD UREA NITROGEN 12 MG/DL (7-18); CALCIUM LEVEL 8.9 MG/DL (8.8-10.2); CARBON DIOXIDE LEVEL 32 MEQ/L (21-32); CHLORIDE LEVEL 102 MEQ/L (98-107); CHOLESTEROL LEVEL 169 MG/DL (<200); CREATININE FOR GFR 0.61 MG/DL (0.55-1.02); GLOMERULAR FILTRATION RATE > 60.0 (>45); GLUCOSE, FASTING 98 MG/DL (80-110); POTASSIUM SERUM 4.3 MEQ/L (3.5-5.1); SODIUM LEVEL 140 MEQ/L (136-145); TOTAL PROTEIN 6.7 GM/DL (6.4-8.2); TRIGLYCERIDES LEVEL 302 MG/DL (<150)
== END ==
LOC: M LAB 10:23
PROVIDERS: ATTEND Family Medicine
DX: R07.9 Chest pain, unspecified (principal)

== ENCOUNTER → 2017-02-28 | Outpatient (CLI) | payer MEDICARE, MEDICAID ==
--- NOTE | 2017-02-28 23:59 | ECWPNPC ---
PATIENT NAME: YUNIEL CANAS : 1955 GENDER: FEMALE VISIT DATE: 02/28/2017 DISCHARGE DATE: 02/28/17 1152 VISIT LOCKED DATE TIME: PHYSICIAN: RAY EDGE RESOURCE: RAY EDGE REASON FOR APPOINTMENT 1. W/C, FOLLOWUP HISTORY OF PRESENT ILLNESS HISTORY OF PRESENT ILLNESS: PAIN THE PATIENT DESCRIBES THE PAIN... THE PATIENT DESCRIBES THE PAIN... THE PATIENT DESCRIBES THE PAIN... THE PATIENT DESCRIBES THE PAIN... HERE FOR F/U. HAD BILAT. LUMBAR FACET BLOCK ON 11-02-15.REPORTED >75% IMPROVEMENT IN PAIN POST PROC.THIS IS A WORK RELATED CHRONIC LBP W RATING PAIN VAS 7.5/10.REPORTING THAT PAIN HAS RETURNED APROXIMATLEY 1 WK AGO. DESCRIBES PAIN CONSTANT ACHING AND SHARP PAIN. PAIN IS AGGREVATED BY DOING LAUNDRY OR PROLONGED SITTING OR WALKING.PAIN IS LOCATED ACROSS LOW BACK.HAD APPOINTMENT WITH CARDIOLOGY RECENTLY THAT WAS NORMAL. FALL RISK SCREENING: SCREENING :NO FALLS IN THE PAST YEAR CURRENT MEDICATIONS TAKING VENLAFAXINE HCL 150 MG TABLET EXTENDED RELEASE 24 HOUR 1 TABLET ORALLY ONCE A DAY TAKING ZOCOR 20 MG TABLET 1 TABLET EVERY EVENING ORALLY AT BEDTIME TAKING MECLIZINE HCL 25 MG TABLET 1 TABLET BY MOUTH ONCE A DAY NEEDED FOR DIZZINESS TAKING PROAIR HFA 108 (90 BASE) MCG/ACT AEROSOL SOLUTION 2 PUFFS INHALATION EVERY 4 HOURS, NEEDED TAKING FLONASE 50 MCG/ACT SUSPENSION 1 SPRAY IN EACH NOSTRIL NASALLY DAILY NEEDED TAKING LORAZEPAM 0.5 MG TABLET 2 TABLETS MY MOUTH DAILY THROUGH DR. CARTER DAILY NEEDED TAKING RESTASIS 0.05 % EMULSION 1 DROP INTO AFFECTED EYE OPHTHALMIC TWICE A DAY TAKING ARTIFICIAL TEARS 1.4 % SOLUTION 1 GTT OU OPHTHALMIC 4X/DAY NEEDED TAKING ACETAMINOPHEN 500 MG CAPSULE 1 TABLET NEEDED ORALLY 1 TO 2 TABS EVERY 6 HRS PRN MDD4 TAKING LIDODERM 5 % PATCH 2 PATCHES TO INTACT SKIN REMOVE AFTER 12 HOURS EXTERNALLY AT BEDTIME FOR PAIN TAKING VOLTAREN 1 % GEL 1 STRIP TRANSDERMAL FOUR TIMES DAILY NEEDED FOR PAIN TAKING TRAMADOL HCL 50 MG TABLET 1 TABLET NEEDED ORALLY EVERY 6 - 8 HRS PRN PAIN MDD=3 TAKING ASPIRIN 81 MG TABLET CHEWABLE 1 TABLET ORALLY ONCE A DAY TAKING BUSPIRONE HCL 5 MG TABLET 2 TABLETS ORALLY DAILY TAKING QUETIAPINE FUMARATE 50 MG TABLET 1 TABLET ORALLY ONCE A DAY TAKING VALACYCLOVIR HCL 1 GM TABLET 1 TABLET ORALLY EVERY 24 HRS, NOTES: START AT THE FIRST ONSET OF SYMPTOMS AND TAKE FOR THE FULL 5 DAYS. IF NEEDING FREQUENT COURSES, FOLLOWUP TO DISCUSS SUPPRESSIVE THERAPY. TAKING VENLAFAXINE HCL 75 MG TABLET 1 TABLET WITH FOOD ORALLY ONCE A DAY TAKING NITROGLYCERIN 0.4 MG TABLET SUBLINGUAL DIRECTED SUBLINGUAL AT ONSET OF SYMPTOMS, THEN IN 5 MINUTS IF NOT RESOLVED. IF PERSISTENT GO TO ER. TAKING PULMICORT FLEXHALER 90 MCG/ACT AEROSOL POWDER BREATH ACTIVATED 2 PUFFS INHALATION TWICE A DAY TAKING LEVOCETIRIZINE DIHYDROCHLORIDE 5 MG TABLET 1 TABLET IN THE EVENING ORALLY ONCE A DAY TAKING NEXIUM 40 MG CAPSULE DELAYED RELEASE 1 TAB ORALLY ([place]) 2 TIMES A DAY TAKING TIZANIDINE HCL 2 MG TABLET 1 TABLET NEEDED ORALLY BEFORE BEDTIME MAY REPEAT IN 5 HRS MDD2 TAKING REFRESH 1.4-0.6 % SOLUTION 1 GTT OU OPHTHALMIC 2-4 X/DAY NEEDED NOT-TAKING SERTRALINE HCL 50 MG TABLET 1 TABLET ORALLY ONCE A DAY NOT-TAKING FLUTICASONE PROPIONATE 50 MCG/ACT SUSPENSION 1 SPRAY IN EACH NOSTRIL NASALLY ONCE A DAY NOT-TAKING NASACORT ALLERGY 24HR 55 MCG/ACT AEROSOL 1 PUFF IN EACH NOSTRIL NASALLY ONCE A DAY NOT-TAKING ZYRTEC 10 MG TABLET CHEWABLE 1 TABLET ORALLY ONCE A DAY, NOTES: 3 MONTHS AGO MEDICATION LIST REVIEWED AND RECONCILED WITH THE PATIENT PAST MEDICAL HISTORY ASTHMA, MILD INTERMITTENT/IS/[id number] 2010 NORMAL PFTS EXCEPT FOR VERY MILD DIFFUSION IMPAIRMENT-RECHLIN IMPAIRED FASTING GLUCOSE GERD/DYSPEPSIA/HISTORY OF PUD-JUNE 2008 EGD WITH HIATAL HERNIA, MILD GASTRITIS LUMBAR DJD STATUS POST FUSION IN 2000 AND 2002-JULY 2009 MRI SHOWING MINIMAL DJD AND L3-L5 MILD BULGE HYPERLIPIDEMIA 2B NONALCOHOLIC FATTY LIVER DISEASE-SEPTEMBER 2004 NORMAL WORKUP AND NORMAL ULTRASOUND ALLERGIC RHINITIS BENIGN POSITIONAL VERTIGO DEPRESSION/PANIC DISORDER/INSOMNIA CERVICAL DJD VITAMIN D DEFICIENCY L POSTERIOR KNEE VERRUCA EXCISION-03/2011-DERREK ALLERGIES ASPIRIN: NAUSEA/VOMITING: CONTRAINDICATION CLINORIL: TONGYE AND LIP BLISTERS: ALLERGY SOCIAL HISTORY GENERAL: TOBACCO USE ARE YOU A:NONSMOKER ALCOHOL SCREENING DID YOU HAVE A DRINK CONTAINING ALCOHOL IN THE PAST YEAR?YES HOW OFTEN DID YOU HAVE A DRINK CONTAINING ALCOHOL IN THE PAST YEAR?TWO TO FOUR TIMES A MONTH (2 POINTS) HOW MANY DRINKS DID YOU HAVE ON A TYPICAL DAY WHEN YOU WERE DRINKING IN THE PAST YEAR?1 OR 2 (0 POINTS) HOW OFTEN DID YOU HAVE SIX OR MORE DRINKS ON ONE OCCASION IN THE PAST YEAR?NEVER (0 POINTS) POINTS2 INTERPRETATIONNEGATIVE RECREATIONAL DRUG USE DRUG USE?NO CAFFEINE CAFFEINE USE?YES 2 MUGS COFFEE/DAY SEXUAL HX HAD SEX IN THE LAST 12 MONTHS (VAGINAL, ORAL, OR ANAL)?NO HAVE YOU EVER HAD AN STD?NO HIV / HEP-C SCREENING HIV TEST OFFERED TO PATIENT:YES DATE OFFERED:12/30/2016 TEST ACCEPTED:NO REASON:PATIENT DECLINED HEP-C TEST OFFERED TO PATIENT:YES DATE OFFERED:12/30/2016 TEST ACCEPTED:YES OCCUPATION: DISABLED . 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 EXERCISE: NO REGULAR EXERCISE. MARITAL STATUS: .. OTHERS AT HOME: NONE. PETS: NONE. YAZDANISM YAZDANISM NO QUAKER BELIEFS THAT WOULD IMPACT HEALTH CARE. LANGUAGE LANGUAGES SPOKEN:PORTUGUESE EDUCATION LEVEL OF EDUCATION:COLLEGE LEARNING BARRIERS / SPECIAL NEEDS CHANGE FROM LAST VISIT?NO BARRIERS TO LEARNING?NO HEARING IMPAIRED?NO VISION IMPAIRED?NO COGNITIVELY IMPAIRED?NO READINESS TO LEARN?YES LEARNING PREFERENCES?NO LEARNING CAPABILITIES PRESENT?YES EMOTIONAL BARRIERS?NO SPECIAL DEVICES?NO PIPE STRAIGHTENER NEEDED?NO PAIN CLINIC PFS, CLERGY, PUBLIC HEALTH REFERRALS PFS REFERRAL NEEDED?NO CLERGY REFERRAL NEEDED?NO PUBLIC HEALTH REFERRAL NEEDED?NO WAS THE PROVIDER NOTIFIED OF ANY PERTINENT INFO?NO HAS THE PATIENT BEEN EDUCATED REGARDING HIS/HER PLAN OF CARE?YES HAS THE PATIENT BEEN EDUCATED REGARDING PAIN, THE RISK FOR PAIN, THE IMPORTANCE OF EFFECTIVE PAIN MANAGEMENT, AND THE PAIN ASSESSMENT PROCESS?YES PATIENT: ____. ADVANCE DIRECTIVES HEALTH CARE PROXY?YES NAME OF HCP CHRIS SCHMITZSON DO YOU HAVE A COPY WITH YOU? ON RECORD DO YOU HAVE A DNR?NO WOULD YOU LIKE MORE INFORMATION?NO LIVING WILL?NO WOULD YOU LIKE MORE INFORMATION?NO POWER OF FURNITURE DIPPER?NO WOULD YOU LIKE MORE INFORMATION?NO REVIEW OF SYSTEMS REVIEWED BY: PROVIDER: RAY SALCEDO . CONSTITUTIONAL: ANY CHANGE IN YOUR MEDICAL CONDITION? NO . CHILLS NO . FEVER NO . INFECTION: DO YOU HAVE NEW INFECTIONS? NO . DO YOU HAVE HISTORY OF MRSA? NO . MUSCULOSKELETAL: ANY NEW PATTERNS OF PAIN OR NUMBNESS? NO . GASTROENTEROLOGY: ANY NEW CHANGE IN BOWEL CONTROL? NO . GENITOURINARY: ANY NEW CHANGE IN BLADDER CONTROL? NO . IS THERE A CHANCE YOU COULD BE ? NO . HEMATOLOGY/LYMPH: DO YOU TAKE ANY BLOOD THINNERS? (FOR EXAMPLE- COUMADIN, PLAVIX, AGGRENOX, PLATEL, PRADAXA, OR XARELTO) NO . WHEN WAS YOUR LAST DOSE? DATE: TIME: . NEUROLOGY: HAVE YOU FALLEN IN THE PAST 6 MONTHS? NO . ANY NEW EXTREMITY NUMBNESS OR WEAKNESS? NO . CARDIOLOGY: DO YOU HAVE A PACEMAKER OR DEFIBRILLATOR? NO . RESPIRATORY: HAVE YOU BEEN SICK IN THE PAST WEEK? NO . FEVER NO . FLU LIKE SYMPTOMS? NO . COUGH NO . INTEGUMENTARY: DO YOU HAVE ANY RASHES OR OPEN SORES? NO . ALLERGIC/IMMUNO: ARE YOU ALLERGIC TO SHELLFISH OR IV DYE? NO . ANY NEW ALLERGIES? NO . PSYCHIATRIC: DO YOU HAVE THOUGHTS OF HURTING YOURSELF OR SOMEONE ELSE? NO . ARE YOU ABUSED, NEGLECTED, OR IN AN UNSAFE ENVIRONMENT? NO . ENDOCRINOLOGY: ARE YOU DIABETIC? NO . OTHER: DO YOU NEED ANY PRESCRIPTIONS? YES . IF YES, PLEASE LIST: TRAMADOL . ANY NEW PROBLEMS WITH YOUR MEDICATIONS? NO . WHEN DID YOU LAST EAT? ____ . WHEN DID YOU LAST DRINK? ____ . WHAT DID YOU LAST DRINK? ____ . NAME OF PERSON DRIVING YOU HOME? ____ . DO YOU HAVE ANY OTHER QUESTIONS OR CONCERNS YES, "I WANT TO GO AHEAD WITH THE SHOTS IN LOWER BACK" . VITAL SIGNS WT 138.6 LBS, HT 62 IN, BMI 25.35 INDEX, BP 150/96 MM HG, REPEAT BP 110/86 MANUAL RIGHT ARM, HR 103 /MIN, RR 16 /MIN, TEMP 97.9 F, OXYGEN SAT % 95%, NA INITIALS TL 1102, REVIEWED BY: CS. EXAMINATION GENERAL EXAMINATION: LUNGS:LUNG SOUNDS ARE CLEAR. HEART:HEART RATE REGULAR. MUSCULOSKELETAL:*, MUSCLE STRENGTH TESTING 5/5 BILATERAL, PALPATION: POSITIVE FOR MILD PAIN OVER L/S SPINE. POSITIVE FOR MILD PAIN OVER L/S PARSPINALS.ROJM LIMITED WITH BOTH FLEXION AND EXTENSION. SPECIFIC POINT TENDERNESS OVER LUMBAR FACETS BILAT.-L4/5-L5/S1. DIAGNOSTIC: . 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 PROCEDURES PN WORKMANS' COMP OPINION IN YOUR OPINION, WAS THE INCIDENT THAT THE PATIENT DESCRIBED THE COMPETENT MEDICAL CAUSE OF THIS INJURY/ILLNESS? YES ARE THE PATIENT'S COMPLAINTS CONSISTENT WITH HIS/HER HISTORY OF THE INJURY/ILLNESS? YES IS THE PATIENT'S HISTORY OF THE INJURY/ILLNESS CONSISTENT WITH YOUR OBJECTIVE FINDING? YES WHAT IS THE PERCENTAGE OF TEMPORARY IMPAIRMENT? MODERATE TO MARKED = 66.7% IS THE PATIENT WORKING? NO DOCTOR ON SITE: BATSHEVA DELGADO MD PREVENTIVE MEDICINE PAIN CLINIC TEACHING: PROCEDURE TEACHING PRE-PROCEDURE TEACHING DONE. PATIENT VERBALIZES UNDERSTANDING.. PROCEDURE CODES FA211 ESTABILISHED PATIENT [facility] CHARGE DISPOSITION & COMMUNICATION FOLLOW UP 2WKS POST (REASON: BILAT L4/5-L5/S1 THERAPEUTIC FACET BLOCK-W/C) ELECTRONICALLY SIGNED BY DENISSE ISLAS ON 02/28/2017 AT 04:35 PM EST DISCLAIMER : THIS IS A VISIT SUMMARY EXTRACTED FROM THE [employer] CHART. IT IS NOT A COPY OF THE [employer] PROGRESS NOTE. BRANDI
== END ==
LOC: M PAIN 10:45
PROVIDERS: ATTEND Nurse Practitioner Family
DX: M96.1 Postlaminectomy syndrome, not elsewhere classified (principal); M43.07 Spondylolysis, lumbosacral region; M79.674 Pain in right toe(s); F41.8 Other specified anxiety disorders; J45.30 Mild persistent asthma, uncomplicated; F32.9 Major depressive disorder, single episode, unspecified; Z88.6 Allergy status to analgesic agent; Z88.8 Allergy status to other drugs, medicaments and biological substances; Z79.82 Long term (current) use of aspirin; Z79.899 Other long term (current) drug therapy; Z98.890 Other specified postprocedural states
CPT/HCPCS: 73660; 90834; G0463

== ENCOUNTER → 2017-03-22 | Outpatient (CLI) | payer MEDICARE, MEDICAID ==
--- NOTE | 2017-03-22 14:56 | REP ---
Pelvic sonography: History: Pelvic pain times 3 weeks. Findings: Transabdominal and transvaginal scanning are performed. Uterine dimensions are normal at 5.4 x 2.4 x 2.7 cm in this postmenopausal woman. Endometrial echo is 0.2 cm thick and centrally placed. Bladder mccabe are smooth as visualized. No free fluid is seen. Neither ovary could be directly visualized transabdominally or transvaginally. No adnexal mass or cyst is seen. Impression: Negative pelvic sonography. Neither ovary directly visualized. Signed by Nelson Earl MD 03/22/2017 03:13 P
== END ==
LOC: M RAD 13:49
PROVIDERS: ATTEND Nurse Practitioner Family
DX: R10.2 Pelvic and perineal pain (principal)

== ENCOUNTER 2017-04-04 07:35 | Day surgery (SDC) | payer MEDICARE, MEDICAID ==
[~2017-04-04] VITALS: Ht 157.5 cm; Wt 58.4 kg
[~2017-04-04 07:35] MED LIST changes: +MULT1CHW39 PO; +OMEG100011 PO; +PULM90IN INH; +VENTAER IN
[2017-04-04] MEDS ORDERED: NS 1,000 ML IV ONE (08:15)
[2017-04-04] MEDS ORDERED: LIDOCAINE 2% INJ 100 MG/5 ML SDV (FOR ANES.) As Ordered ONE (08:41)
[2017-04-04] MEDS ORDERED: PROPOFOL 200 MG/20 ML VIAL As Ordered ONE (08:41)
--- NOTE | 2017-04-04 08:46 | ROOR ---
Patient Name: Randee Uribe Procedure Date: 04/04/2017 8:35 AM Date of : 1955 Age: 61 Room: [facility] Gender: Female Note Status: Finalized Procedure: Upper GI endoscopy Indications: Heartburn Providers: Sonido COSTA MD Referring MD: Chepe Nayak MD Requesting Provider: Medicines: Monitored Anesthesia Care Complications: No immediate complications. Procedure: Pre-Anesthesia Assessment: - The heart rate, respiratory rate, oxygen saturations, blood pressure, adequacy of pulmonary ventilation, and response to care were monitored throughout the procedure. The Endoscope was introduced through the mouth, and advanced to the second part of duodenum. The upper GI endoscopy was accomplished without difficulty. The patient tolerated the procedure well. Findings: Very small (insignificant) Hiatal Hernia. The esophagus was normal. The stomach was normal. The examined duodenum was normal. Impression: - Very small (insignificant) Hiatal Hernia. - Normal esophagus. - Normal stomach. - Normal examined duodenum. - No specimens collected. Recommendation: - Observe patient's clinical course. - Follow an antireflux regimen. Sonido Costa MD Sonido COSTA MD 04/04/2017 8:46:34 AM This report has been signed electronically. Number of Addenda: 0 Note Initiated On: 04/04/2017 8:35 AM Estimated Blood Loss: Estimated blood loss: none.
--- NOTE | 2017-04-04 09:03 | ROOR ---
Patient Name: Randee Uribe Procedure Date: 04/04/2017 8:36 AM Date of : 1955 Age: 61 Room: [facility] Gender: Female Note Status: Finalized Procedure: Colonoscopy Indications: Screening for colorectal malignant neoplasm Providers: Sonido COSTA MD Referring MD: Chepe Nayak MD Requesting Provider: Medicines: Monitored Anesthesia Care Complications: No immediate complications. Procedure: Pre-Anesthesia Assessment: - The heart rate, respiratory rate, oxygen saturations, blood pressure, adequacy of pulmonary ventilation, and response to care were monitored throughout the procedure. The Colonoscope was introduced through the anus and advanced to the cecum, identified by appendiceal orifice and ileocecal valve. The colonoscopy was performed without difficulty. The patient tolerated the procedure well. The quality of the bowel preparation was good. Findings: The perianal and digital rectal examinations were normal. (Exam: Complete, Prep: Good or Excellent.) A diminutive polyp was found in the cecum. The polyp was sessile. The polyp was removed with a cold snare. Resection and retrieval were complete. Mild diverticulosis and small internal hemorrhoids. The exam was otherwise without abnormality. Impression: - (Exam: Complete, Prep: Good or Excellent.) - One diminutive polyp in the cecum, removed with a cold snare. Resected and retrieved. - Mild diverticulosis and small internal hemorrhoids. - The colonoscopy was otherwise normal. Recommendation: - Await pathology results. - If the pathology report reveals adenomatous tissue, then repeat the colonoscopy for surveillance in 5 years. - If the pathology report indicates hyperplastic polyp, then repeat colonoscopy for screening purposes in 10 years. - Telephone endoscopist for pathology results in 2 weeks. Sonido Costa MD Sonido COSTA MD 04/04/2017 9:03:04 AM This report has been signed electronically. Number of Addenda: 0 Note Initiated On: 04/04/2017 8:36 AM Estimated Blood Loss: Estimated blood loss: none.
[2017-04-04 09:30] VITALS: BP 109/72
== END 2017-04-04 09:45 | disposition home or self-care (01) ==
LOC: M OPP 07:35
PROVIDERS: ATTEND Internal Medicine Gastroenterology
DX: Z12.11 Encounter for screening for malignant neoplasm of colon (principal); D12.0 Benign neoplasm of cecum; K57.30 Diverticulosis of large intestine without perforation or abscess without bleeding; K64.8 Other hemorrhoids; R12 Heartburn; K44.9 Diaphragmatic hernia without obstruction or gangrene; I10 Essential (primary) hypertension; E78.5 Hyperlipidemia, unspecified; K21.9 Gastro-esophageal reflux disease without esophagitis; M19.90 Unspecified osteoarthritis, unspecified site; M54.9 Dorsalgia, unspecified; F41.9 Anxiety disorder, unspecified; J45.909 Unspecified asthma, uncomplicated; Z87.11 Personal history of peptic ulcer disease; Z88.8 Allergy status to other drugs, medicaments and biological substances; Z79.899 Other long term (current) drug therapy; Z80.3 Family history of malignant neoplasm of breast

== ENCOUNTER → 2017-04-13 | Outpatient (CLI) | payer OTHER, MEDICAID, MEDICARE ==
[~2017-04-13] MED LIST changes: -/QUET10TA PO; -ACET500C PO; -ARTISOL2 OU; -ATIV1TAB10 PO; +BUPIVACAINE HCL 0.25% 30 ML VIAL As Ordered; -CALCCHW12 OR; -CYCL5TA PO; -EFFE150C PO; -FLON0.05; +ISOVUE-M 300 61% 15ML VIAL (Q9967) As Ordered; -LIDO5DIS TD; +LIDOCAINE 1% SDV INJ 30 ML VIAL As Ordered; -MECL25TA2 OR; -MELOPOW PO; +MIDAZOLAM INJ 2 MG/2 ML VIAL (J2250) As Ordered; -MULT1CHW39 PO; -MULTTAB4 PO; -NASONEX; -NEXI20CA PO; -OMEG100011 PO; -PRO AIR INHALER; -PRO AIR INHALER INH; -PULM90IN INH; -REST0.05 EXT; -SIMV20TA2 PO; -SYMB80INH INH; -SYSTSOL8 OP; -TIZA2CAP3 PO; -TRAM50TA2 PO; +TRIAMCINOLONE ACETONIDE SUSP 40 MG/ML VIAL (J3301) As Ordered; -VENL150C43 PO; -VENL37.5 OR; -VENL75CA47 PO; -VENTAER IN; -VITACAP31 PO; -VITATAB11 PO; -VOLTAREN TOP; -ZOCO20TA PO; -[UNRECOGNIZED DRUG - CODE] OU; +fentaNYL 100 MCG/2 ML INJECTION (J3010) As Ordered
== END ==
LOC: M PAIN 11:30
DX: G89.29 Other chronic pain (principal); M47.816 Spondylosis without myelopathy or radiculopathy, lumbar region; M47.817 Spondylosis without myelopathy or radiculopathy, lumbosacral region; Z79.82 Long term (current) use of aspirin; Z79.891 Long term (current) use of opiate analgesic; Z79.899 Other long term (current) drug therapy; Z88.8 Allergy status to other drugs, medicaments and biological substances
CPT/HCPCS: J3301

== ENCOUNTER → 2017-05-05 | Outpatient (CLI) | payer OTHER, MEDICAID, MEDICARE | LOC: M PAIN 11:15 | DX: M96.1 Postlaminectomy syndrome, not elsewhere classified (principal); M47.816 Spondylosis without myelopathy or radiculopathy, lumbar region; J45.990 Exercise induced bronchospasm; R73.01 Impaired fasting glucose; E78.5 Hyperlipidemia, unspecified; H81.13 Benign paroxysmal vertigo, bilateral; F32.9 Major depressive disorder, single episode, unspecified; F41.0 Panic disorder [episodic paroxysmal anxiety]; G47.00 Insomnia, unspecified; Z79.899 Other long term (current) drug therapy; Z88.6 Allergy status to analgesic agent; Z88.8 Allergy status to other drugs, medicaments and biological substances | CPT/HCPCS: G0463 ==

== ENCOUNTER → 2017-07-18 | Outpatient (CLI) | payer OTHER, MEDICAID, MEDICARE | LOC: M PAIN 13:45 | DX: M96.1 Postlaminectomy syndrome, not elsewhere classified (principal); J45.990 Exercise induced bronchospasm; R73.01 Impaired fasting glucose; K21.9 Gastro-esophageal reflux disease without esophagitis; E78.5 Hyperlipidemia, unspecified; H81.10 Benign paroxysmal vertigo, unspecified ear; F32.9 Major depressive disorder, single episode, unspecified; F41.0 Panic disorder [episodic paroxysmal anxiety]; G47.00 Insomnia, unspecified; Z79.899 Other long term (current) drug therapy; Z88.6 Allergy status to analgesic agent; Z88.8 Allergy status to other drugs, medicaments and biological substances | CPT/HCPCS: G0463 ==

== ENCOUNTER → 2017-08-11 | Outpatient (CLI) | payer OTHER, MEDICAID, MEDICARE | LOC: M PAIN 11:15 | DX: M54.5 Low back pain (principal); G89.29 Other chronic pain; M79.1 Myalgia; M46.96 Unspecified inflammatory spondylopathy, lumbar region; J45.909 Unspecified asthma, uncomplicated; Z79.891 Long term (current) use of opiate analgesic; Z79.899 Other long term (current) drug therapy; Z88.8 Allergy status to other drugs, medicaments and biological substances | CPT/HCPCS: G0463 ==

== ENCOUNTER → 2017-10-20 | Outpatient (CLI) | payer OTHER | LOC: M PAIN 09:15 | DX: M96.1 Postlaminectomy syndrome, not elsewhere classified (principal); G89.29 Other chronic pain; J45.990 Exercise induced bronchospasm; E78.5 Hyperlipidemia, unspecified; K76.9 Liver disease, unspecified; H81.10 Benign paroxysmal vertigo, unspecified ear; F32.9 Major depressive disorder, single episode, unspecified; F43.10 Post-traumatic stress disorder, unspecified; G47.00 Insomnia, unspecified; Z79.899 Other long term (current) drug therapy; Z88.6 Allergy status to analgesic agent; Z88.8 Allergy status to other drugs, medicaments and biological substances | CPT/HCPCS: G0463 ==

== ENCOUNTER → 2017-11-17 | Outpatient (CLI) | payer OTHER, MEDICARE, MEDICAID ==
[2017-11-17 13:29] LABS: CREATININE FOR GFR 0.79 MG/DL (0.55-1.30); GLOMERULAR FILTRATION RATE > 60.0 (>45)
[2017-11-17 13:29] LABS: BLOOD UREA NITROGEN 14 MG/DL (7-18)
== END ==
LOC: M LAB 12:12
DX: Z01.812 Encounter for preprocedural laboratory examination (principal); M96.1 Postlaminectomy syndrome, not elsewhere classified
CPT/HCPCS: 82565

== ENCOUNTER 2017-11-28 14:54 | Outpatient (RCR) | payer MEDICARE, OTHER, MEDICAID | END 2017-12-22 | LOC: M PT 14:54 | DX: Z51.89 Encounter for other specified aftercare (principal); M54.2 Cervicalgia | CPT/HCPCS: 97010; 97110 ==

== ENCOUNTER → 2017-12-01 | Outpatient (CLI) | payer OTHER, MEDICARE, MEDICAID ==
[~2017-12-01] MED LIST changes: +BUPIVACAINE HCL 0.25% 10 ML VIAL As Ordered; -ISOVUE-M 300 61% 15ML VIAL (Q9967) As Ordered; -LIDOCAINE 1% SDV INJ 30 ML VIAL As Ordered; -MIDAZOLAM INJ 2 MG/2 ML VIAL (J2250) As Ordered; +diazePAM 5 MG TAB As Ordered; +diphenhydrAMINE 25 MG CAP As Ordered; -fentaNYL 100 MCG/2 ML INJECTION (J3010) As Ordered; +oxyCODONE 5MG TAB As Ordered
== END ==
LOC: M PAIN 13:30
DX: G89.29 Other chronic pain (principal); M79.1 Myalgia; M54.5 Low back pain; J44.9 Chronic obstructive pulmonary disease, unspecified; R73.01 Impaired fasting glucose; E78.5 Hyperlipidemia, unspecified; K76.0 Fatty (change of) liver, not elsewhere classified; F32.9 Major depressive disorder, single episode, unspecified; F41.0 Panic disorder [episodic paroxysmal anxiety]; G47.00 Insomnia, unspecified; Z79.899 Other long term (current) drug therapy; Z88.6 Allergy status to analgesic agent; Z88.8 Allergy status to other drugs, medicaments and biological substances; Z86.69 Personal history of other diseases of the nervous system and sense organs; Z87.11 Personal history of peptic ulcer disease
CPT/HCPCS: J3301

== ENCOUNTER → 2017-12-06 | Outpatient (CLI) | payer MEDICARE, MEDICAID ==
[2017-12-06 14:10] LABS: ANION GAP 7 MEQ/L (8-16); BLOOD UREA NITROGEN 14 MG/DL (7-18); CALCIUM LEVEL 8.9 MG/DL (8.8-10.2); CARBON DIOXIDE LEVEL 29 MEQ/L (21-32); CHLORIDE LEVEL 104 MEQ/L (98-107); CHOLESTEROL LEVEL 150 MG/DL (<200); CHOLESTEROL RISK RATIO 2.884 (<5); CREATININE FOR GFR 0.76 MG/DL (0.55-1.30); GLOMERULAR FILTRATION RATE > 60.0 (>45); GLUCOSE, FASTING 91 MG/DL (70-100); HDL CHOLESTEROL 52 MG/DL (>40); LDL CHOLESTEROL 69.2 MG/DL (<100); NON-HDL-C 98 MG/DL; SODIUM LEVEL 140 MEQ/L (136-145); TRIGLYCERIDES LEVEL 144 MG/DL (<150)
[2017-12-06 14:15] LABS: TOTAL 25(OH) VITAMIN D 35.6 NG/ML (30.0-100.0)
[2017-12-06 14:35] LABS: ESTIMATED AVERAGE GLUCOSE 120 MG/DL (60-110); HEMOGLOBIN A1c 5.8 %
== END ==
LOC: M LAB 12:46
DX: R73.03 Prediabetes (principal); E55.9 Vitamin D deficiency, unspecified; M17.11 Unilateral primary osteoarthritis, right knee
CPT/HCPCS: 73560

== ENCOUNTER 2017-12-27 12:05 | Outpatient (RCR) | payer MEDICARE, OTHER, MEDICAID | END 2018-01-21 | LOC: M PT 12:05 | DX: Z51.89 Encounter for other specified aftercare (principal); M54.2 Cervicalgia | CPT/HCPCS: 97010 ==

== ENCOUNTER → 2018-01-02 | Outpatient (CLI) | payer OTHER, MEDICAID, MEDICARE | LOC: M PAIN 11:30 | DX: M96.1 Postlaminectomy syndrome, not elsewhere classified (principal); J45.20 Mild intermittent asthma, uncomplicated; R73.01 Impaired fasting glucose; E78.5 Hyperlipidemia, unspecified; F32.9 Major depressive disorder, single episode, unspecified; F41.0 Panic disorder [episodic paroxysmal anxiety]; G47.00 Insomnia, unspecified; E55.9 Vitamin D deficiency, unspecified; Z88.6 Allergy status to analgesic agent; Z88.8 Allergy status to other drugs, medicaments and biological substances; Z86.69 Personal history of other diseases of the nervous system and sense organs | CPT/HCPCS: G0463 ==

== ENCOUNTER → 2018-01-02 | Outpatient (CLI) | payer MEDICARE, MEDICAID | LOC: M PAIN 11:00 | DX: M54.2 Cervicalgia (principal); G89.29 Other chronic pain; J45.20 Mild intermittent asthma, uncomplicated; R73.01 Impaired fasting glucose; E78.5 Hyperlipidemia, unspecified; F32.9 Major depressive disorder, single episode, unspecified; F41.0 Panic disorder [episodic paroxysmal anxiety]; G47.00 Insomnia, unspecified; E55.9 Vitamin D deficiency, unspecified; Z79.899 Other long term (current) drug therapy; Z88.6 Allergy status to analgesic agent; Z88.8 Allergy status to other drugs, medicaments and biological substances; Z87.11 Personal history of peptic ulcer disease; Z86.69 Personal history of other diseases of the nervous system and sense organs | CPT/HCPCS: G0463 ==

== ENCOUNTER → 2018-01-15 | Outpatient (CLI) | payer MEDICARE, MEDICAID | LOC: M RAD 15:11 | DX: M54.2 Cervicalgia (principal); M25.78 Osteophyte, vertebrae; Z98.1 Arthrodesis status | CPT/HCPCS: 72052 ==

== ENCOUNTER → 2018-01-17 | Outpatient (CLI) | payer MEDICARE, MEDICAID | LOC: M PAIN 11:45 | DX: M79.1 Myalgia (principal); J45.20 Mild intermittent asthma, uncomplicated; R73.01 Impaired fasting glucose; K21.9 Gastro-esophageal reflux disease without esophagitis; R10.13 Epigastric pain; M51.36 Other intervertebral disc degeneration, lumbar region; E78.5 Hyperlipidemia, unspecified; K76.0 Fatty (change of) liver, not elsewhere classified; F32.9 Major depressive disorder, single episode, unspecified; F41.0 Panic disorder [episodic paroxysmal anxiety]; M50.20 Other cervical disc displacement, unspecified cervical region; E55.9 Vitamin D deficiency, unspecified; H81.10 Benign paroxysmal vertigo, unspecified ear; Z79.1 Long term (current) use of non-steroidal anti-inflammatories (NSAID); Z79.899 Other long term (current) drug therapy; Z88.6 Allergy status to analgesic agent; Z88.8 Allergy status to other drugs, medicaments and biological substances | CPT/HCPCS: J3301 ==

== ENCOUNTER 2018-01-25 12:10 | Outpatient (RCR) | payer MEDICARE, MEDICAID, OTHER | END 2018-02-21 | LOC: M PT 12:10 | DX: M54.2 Cervicalgia (principal) | CPT/HCPCS: 97110 ==

== ENCOUNTER → 2018-02-01 | Outpatient (CLI) | payer MEDICARE, MEDICAID | LOC: M PAIN 11:30 | DX: M54.2 Cervicalgia (principal); J45.20 Mild intermittent asthma, uncomplicated; R73.01 Impaired fasting glucose; E78.5 Hyperlipidemia, unspecified; F32.9 Major depressive disorder, single episode, unspecified; F41.0 Panic disorder [episodic paroxysmal anxiety]; G47.00 Insomnia, unspecified; E55.9 Vitamin D deficiency, unspecified; H81.10 Benign paroxysmal vertigo, unspecified ear; Z79.899 Other long term (current) drug therapy; Z88.6 Allergy status to analgesic agent; Z88.8 Allergy status to other drugs, medicaments and biological substances; Z91.09 Other allergy status, other than to drugs and biological substances; Z87.11 Personal history of peptic ulcer disease | CPT/HCPCS: G0463 ==

== ENCOUNTER → 2018-02-07 | Outpatient (CLI) | payer OTHER, MEDICAID, MEDICARE ==
[~2018-02-07] MED LIST changes: -BUPIVACAINE HCL 0.25% 10 ML VIAL As Ordered; +ISOVUE-M 300 61% 15ML VIAL (Q9967) As Ordered; +LIDOCAINE 1% SDV INJ 30 ML VIAL As Ordered; +MIDAZOLAM INJ 2 MG/2 ML VIAL (J2250) As Ordered; -diazePAM 5 MG TAB As Ordered; -diphenhydrAMINE 25 MG CAP As Ordered; +fentaNYL 100 MCG/2 ML INJECTION (J3010) As Ordered; -oxyCODONE 5MG TAB As Ordered
== END ==
LOC: M PAIN 13:00
DX: G89.29 Other chronic pain (principal); M47.816 Spondylosis without myelopathy or radiculopathy, lumbar region; M47.817 Spondylosis without myelopathy or radiculopathy, lumbosacral region; J45.909 Unspecified asthma, uncomplicated; R73.01 Impaired fasting glucose; E78.5 Hyperlipidemia, unspecified; F41.0 Panic disorder [episodic paroxysmal anxiety]; F32.9 Major depressive disorder, single episode, unspecified; Z79.899 Other long term (current) drug therapy; Z88.6 Allergy status to analgesic agent; Z88.8 Allergy status to other drugs, medicaments and biological substances; Z91.018 Allergy to other foods; Z91.09 Other allergy status, other than to drugs and biological substances; Z87.11 Personal history of peptic ulcer disease; G47.00 Insomnia, unspecified; Z86.69 Personal history of other diseases of the nervous system and sense organs
CPT/HCPCS: J3301

== ENCOUNTER → 2018-02-14 | Outpatient (CLI) | payer MEDICARE, MEDICAID | LOC: M RAD 10:43 | DX: Z12.31 Encounter for screening mammogram for malignant neoplasm of breast (principal); Z80.3 Family history of malignant neoplasm of breast | CPT/HCPCS: 77067 ==

== ENCOUNTER → 2018-02-14 | Outpatient (CLI) | payer MEDICARE, MEDICAID | LOC: M RAD 10:45 | DX: M47.892 Other spondylosis, cervical region (principal); Z12.31 Encounter for screening mammogram for malignant neoplasm of breast (principal); M54.2 Cervicalgia; Z98.1 Arthrodesis status; Z80.3 Family history of malignant neoplasm of breast | CPT/HCPCS: 72141 ==

== ENCOUNTER → 2018-02-22 | Outpatient (CLI) | payer OTHER, MEDICAID | LOC: M PAIN 11:00 | DX: M96.1 Postlaminectomy syndrome, not elsewhere classified (principal); M43.07 Spondylolysis, lumbosacral region; J45.909 Unspecified asthma, uncomplicated; E78.5 Hyperlipidemia, unspecified; F32.9 Major depressive disorder, single episode, unspecified; F41.0 Panic disorder [episodic paroxysmal anxiety]; G47.00 Insomnia, unspecified; E55.9 Vitamin D deficiency, unspecified; H81.10 Benign paroxysmal vertigo, unspecified ear; Z79.899 Other long term (current) drug therapy; Z88.6 Allergy status to analgesic agent; Z88.8 Allergy status to other drugs, medicaments and biological substances; Z91.018 Allergy to other foods; Z91.09 Other allergy status, other than to drugs and biological substances; Z87.11 Personal history of peptic ulcer disease | CPT/HCPCS: G0463 ==

== ENCOUNTER → 2018-03-22 | Outpatient (CLI) | payer MEDICARE, MEDICAID, OTHER | LOC: M PAIN 11:00 | DX: M54.2 Cervicalgia (principal); M47.22 Other spondylosis with radiculopathy, cervical region; G89.29 Other chronic pain; J45.909 Unspecified asthma, uncomplicated; R73.01 Impaired fasting glucose; E78.5 Hyperlipidemia, unspecified; H81.13 Benign paroxysmal vertigo, bilateral; F32.9 Major depressive disorder, single episode, unspecified; F41.0 Panic disorder [episodic paroxysmal anxiety]; G47.00 Insomnia, unspecified; Z79.899 Other long term (current) drug therapy; Z88.6 Allergy status to analgesic agent; Z88.8 Allergy status to other drugs, medicaments and biological substances; Z91.09 Other allergy status, other than to drugs and biological substances; Z91.018 Allergy to other foods | CPT/HCPCS: G0463 ==

== ENCOUNTER → 2018-05-23 | Outpatient (CLI) | payer MEDICARE, MEDICAID ==
[~2018-05-23] MED LIST changes: +/QUET10TA PO; +ACET500C PO; +ARTISOL2 OU; +ATIV1TAB10 PO; -BUPIVACAINE HCL 0.25% 30 ML VIAL As Ordered; +BUPIVACAINE HCL 0.25% 30 ML VIAL As Ordered ONE; +CALCCHW12 OR; +CYCL5TA PO; +EFFE150C PO; +FLON0.05; -ISOVUE-M 300 61% 15ML VIAL (Q9967) As Ordered; +ISOVUE-M 300 61% 15ML VIAL (Q9967) As Ordered ONE; +LIDO5DIS TD; -LIDOCAINE 1% SDV INJ 30 ML VIAL As Ordered; +LIDOCAINE 1% SDV INJ 30 ML VIAL As Ordered ONE; +MECL25TA2 OR; +MELOPOW PO; -MIDAZOLAM INJ 2 MG/2 ML VIAL (J2250) As Ordered; +MIDAZOLAM INJ 2 MG/2 ML VIAL (J2250) As Ordered ONE; +MULT1CHW39 PO; +MULTTAB4 PO; +NASONEX; +NEXI20CA PO; +OMEG100011 PO; +PRO AIR INHALER; +PRO AIR INHALER INH; +PULM90IN INH; +REST0.05 EXT; +SIMV20TA2 PO; +SYMB80INH INH; +SYSTSOL8 OP; +TIZA2CAP PO; +TRAM50TA2 PO; -TRIAMCINOLONE ACETONIDE SUSP 40 MG/ML VIAL (J3301) As Ordered; +TRIAMCINOLONE ACETONIDE SUSP 40 MG/ML VIAL (J3301) As Ordered ONE; +VENL150C43 PO; +VENL37.5 OR; +VENL75CA47 PO; +VENTAER IN; +VITACAP31 PO; +VITATAB11 PO; +VOLTAREN TOP; +ZOCO20TA PO; +[UNRECOGNIZED DRUG - CODE] OU; -fentaNYL 100 MCG/2 ML INJECTION (J3010) As Ordered; +fentaNYL 100 MCG/2 ML INJECTION (J3010) As Ordered ONE
--- NOTE | 2018-05-23 13:00 | REP ---
Cervical spine: Single view. History: Bilateral cervical facet block for pain. 7 seconds of fluoroscopy time is reported. Findings: A single last image hold fluoroscopically obtained spot radiograph of the cervical spine documents various needle positions and contrast injections associated with cervical facet injection procedure. Electronically Signed by Nelson Earl MD 05/23/2018 12:52 P
--- NOTE | 2018-06-06 02:24 | ECWPNPC ---
PATIENT NAME: YUNIEL CANAS : 1955 GENDER: FEMALE VISIT DATE: 05/23/2018 DISCHARGE DATE: 05/23/18 1338 VISIT LOCKED DATE TIME: PHYSICIAN: BATSHEVA MAIER MD RESOURCE: BATSHEVA MAIER MD DISCLAIMER : THIS IS A VISIT SUMMARY EXTRACTED FROM THE [employer] CHART. IT IS NOT A COPY OF THE [employer] PROGRESS NOTE. MTDD
== END ==
LOC: M PAIN 10:45
PROVIDERS: ATTEND Anesthesiology
DX: G89.29 Other chronic pain (principal); M47.812 Spondylosis without myelopathy or radiculopathy, cervical region; J45.990 Exercise induced bronchospasm; K21.9 Gastro-esophageal reflux disease without esophagitis; E78.5 Hyperlipidemia, unspecified; H81.10 Benign paroxysmal vertigo, unspecified ear; F32.9 Major depressive disorder, single episode, unspecified; F41.0 Panic disorder [episodic paroxysmal anxiety]; Z79.899 Other long term (current) drug therapy; Z88.6 Allergy status to analgesic agent; Z88.8 Allergy status to other drugs, medicaments and biological substances; Z91.09 Other allergy status, other than to drugs and biological substances; Z91.018 Allergy to other foods
CPT/HCPCS: 64490; 64491; 99152; J2250; J3010; J3301; Q9967

== ENCOUNTER → 2018-06-28 | Outpatient (CLI) | payer MEDICARE ==
[~2018-06-28] MED LIST changes: -BUPIVACAINE HCL 0.25% 30 ML VIAL As Ordered ONE; -ISOVUE-M 300 61% 15ML VIAL (Q9967) As Ordered ONE; -LIDOCAINE 1% SDV INJ 30 ML VIAL As Ordered ONE; -MIDAZOLAM INJ 2 MG/2 ML VIAL (J2250) As Ordered ONE; -TRIAMCINOLONE ACETONIDE SUSP 40 MG/ML VIAL (J3301) As Ordered ONE; -fentaNYL 100 MCG/2 ML INJECTION (J3010) As Ordered ONE
[2018-06-28 15:51] LABS: HEMOGLOBIN A1c 5.9 %
[2018-06-28 16:00] LABS: ALBUMIN 3.6 GM/DL (3.2-5.2); ALT/SGPT 37 U/L (12-78); BILIRUBIN,TOTAL 0.2 MG/DL (0.2-1.0); BLOOD UREA NITROGEN 15 MG/DL (7-18); CALCIUM LEVEL 8.4 MG/DL (8.8-10.2); CARBON DIOXIDE LEVEL 30 MEQ/L (21-32); CHLORIDE LEVEL 105 MEQ/L (98-107); CHOLESTEROL LEVEL 182 MG/DL (<200); CHOLESTEROL RISK RATIO 3.137 (<5); CREATININE FOR GFR 0.72 MG/DL (0.55-1.30); GLOMERULAR FILTRATION RATE > 60.0 (>45); GLUCOSE, FASTING 93 MG/DL (70-100); HDL CHOLESTEROL 58 MG/DL (>40); LDL CHOLESTEROL 101 MG/DL (<100); NON-HDL-C 124 MG/DL; POTASSIUM SERUM 4.5 MEQ/L (3.5-5.1); SODIUM LEVEL 141 MEQ/L (136-145); TOTAL PROTEIN 6.6 GM/DL (6.4-8.2); TRIGLYCERIDES LEVEL 114 MG/DL (<150)
[2018-07-04 14:14] LABS: HLA-B27 Negative (.); SSA SJOGRENS A <0.2 AI (0.0-0.9); SSB SJOGRENS B <0.2 AI (0.0-0.9)
== END ==
LOC: M LAB 14:46
PROVIDERS: ATTEND Family Medicine
DX: Z13.1 Encounter for screening for diabetes mellitus (principal); M47.816 Spondylosis without myelopathy or radiculopathy, lumbar region; E78.2 Mixed hyperlipidemia; R13.10 Dysphagia, unspecified

== ENCOUNTER → 2018-07-25 | Outpatient (CLI) | payer MEDICARE, MEDICAID ==
[~2018-07-25] MED LIST changes: -/QUET10TA PO; -CYCL5TA PO; +CYCL5TAB5 PO; -MULT1CHW39 PO; +MULT200T7 PO; +SERO1TAB PO
--- NOTE | 2018-07-28 00:55 | ECWPNPC ---
PATIENT NAME: YUNIEL CANAS : 1955 GENDER: FEMALE VISIT DATE: 07/25/2018 DISCHARGE DATE: 07/25/18 1247 VISIT LOCKED DATE TIME: PHYSICIAN: LAURA CARPENTER RESOURCE: LAURA CARPENTER REASON FOR APPOINTMENT 1. [facility]-NECK HISTORY OF PRESENT ILLNESS HISTORY OF PRESENT ILLNESS: PAIN THE PATIENT DESCRIBES THE PAINDURING THE LAST MONTH SEVERITY - PAIN SCORE OF8/10 LOCATIONSCERVICAL 62 YR OLD FEMALE HERE FOR F/U ON CHRONIC NECK PAIN. FALL RISK SCREENING: SCREENING :NO FALLS REPORTED IN THE LAST YEAR CURRENT MEDICATIONS TAKING VENLAFAXINE HCL 150 MG TABLET EXTENDED RELEASE 24 HOUR 1 TABLET ORALLY ONCE A DAY, NOTES: 05/23/18 0900 TAKING ZOCOR 20 MG TABLET 1 TABLET EVERY EVENING ORALLY AT BEDTIME, NOTES: 05/21/18 PM TAKING PROAIR HFA 108 (90 BASE) MCG/ACT AEROSOL SOLUTION 2 PUFFS INHALATION EVERY 4 HOURS, NEEDED, NOTES: 05/22/18 TAKING LORAZEPAM 0.5 MG TABLET 2 TABLETS IN AM 1 TABLET IN PM MY MOUTH DAILY THROUGH DR. CARTER DAILY NEEDED, NOTES: 05/23/18 09 TAKING RESTASIS 0.05 % EMULSION 2 DROPS INTO AFFECTED EYE OPHTHALMIC TWICE A DAY, NOTES: 05/22/18 PM TAKING BUSPIRONE HCL 30 MG TABLET 1 TABLETS ORALLY TWICE A DAY, NOTES: 05/23/18 09 TAKING QUETIAPINE FUMARATE 50 MG TABLET 1 TABLET ORALLY ONCE A DAY, NOTES: TOTAL OF 75 MG 05/22/18 PM TAKING FISH OIL OMEGA-3 1000 MG CAPSULE 1 CAPSULE ORALLY BID, NOTES: 05/23/18 09 TAKING MULTIVITAMIN ADULTS - TABLET ORALLY , NOTES: 05/23/18899 TAKING PULMICORT FLEXHALER 90 MCG/ACT AEROSOL POWDER BREATH ACTIVATED 2 PUFFS INHALATION TWICE A DAY, NOTES: 05/23/18 0800 TAKING TENS UNIT - DAILY PRN TAKING FLUTICASONE PROPIONATE 50 MCG/ACT SUSPENSION 2 SPRAYS IN EACH NOSTRIL NASALLY ONCE A DAY, NOTES: 05/23/18 09 TAKING NITROGLYCERIN 0.4 MG TABLET SUBLINGUAL DIRECTED SUBLINGUAL AT ONSET OF SYMPTOMS, THEN IN 5 MINUTS IF NOT RESOLVED. IF PERSISTENT GO TO ER., NOTES: NONE RECENT TAKING VOLTAREN 1 % GEL DIRECTED TOPICALLY LOW BACK TID PRN, NOTES: 05/22/18 PM TAKING TIZANIDINE HCL 2 MG TABLET 1 TABLET NEEDED ORALLY BEFORE BEDTIME MAY REPEAT IN 5 HRS MDD2, NOTES: TAKES 3 TABLETS AT NIGHT TAKING QUETIAPINE FUMARATE 25 MG TABLET 1 TABLET ORALLY ONCE A DAY, NOTES: TAKES WITH 50 MG FOR TOTAL OF 75MG 02/06/18 TAKING VALACYCLOVIR HCL 1 GM TABLET 1 TABLET ORALLY EVERY 24 HRS, NOTES: NONE IN A MONTH TAKING MECLIZINE HCL 25 MG TABLET 1 TABLET BY MOUTH ONCE A DAY NEEDED FOR DIZZINESS, NOTES: 2 DAYS AGO TAKING LIDODERM 5 % PATCH 2 PATCHES TO INTACT SKIN REMOVE AFTER 12 HOURS EXTERNALLY LOW BACK AT BEDTIME FOR PAIN, NOTES: 3-4 DAYS AGO TAKING TRAMADOL HCL 50 MG TABLET 1 TABLET NEEDED ORALLY EVERY 8 HRS PRN MDD3, NOTES: 05/22/18 PM TAKING ACETAMINOPHEN 500 MG CAPSULE 1 TABLET NEEDED ORALLY 1 TO 2 TABS EVERY 6 HRS PRN MDD4, NOTES: 05/22/18 PM TAKING NEXIUM 40 MG CAPSULE DELAYED RELEASE 1 TAB ORALLY ([place]) 2 TIMES A DAY, NOTES: 05/22/18 PM TAKING VENLAFAXINE HCL 75 MG TABLET 1 TABLET WITH FOOD ORALLY ONCE A DAY, NOTES: 05/23/18 0900 TOTAL 225 MG TAKING OMEPRAZOLE 20 MG CAPSULE DELAYED RELEASE 1 CAPSULE ORALLY ONCE A DAY, NOTES: 05/22/18 PMFOR REFLUX AND HISTORY OF HIATAL HERNIA TAKING SYSTANE 0.4-0.3 % SOLUTION 2 DROPS EACH EYE DAILY, NOTES: 05/23/18 TAKING REFRESH 1.4-0.6 % SOLUTION 2 DROPS EACH EYE 2-4 X/DAY NEEDED, NOTES: 05/22/18 TAKING MONTELUKAST SODIUM 10 MG TABLET 1 TABLET ORALLY ONCE A DAY, NOTES: 05/22/18 PM TAKING ZOCOR 20 MG TABLET 1 TABLET IN THE EVENING ORALLY ONCE A DAY TAKING ARTIFICIAL TEARS 1.4 % SOLUTION 1 GTT OU OPHTHALMIC 4X/DAY NEEDED NOT-TAKING LEVOCETIRIZINE DIHYDROCHLORIDE 5 MG TABLET 1 TABLET IN THE EVENING ORALLY ONCE A DAY MEDICATION LIST REVIEWED AND RECONCILED WITH THE PATIENT PAST MEDICAL HISTORY ASTHMA, MILD INTERMITTENT/IS/[id number] 2010 NORMAL PFTS EXCEPT FOR VERY MILD DIFFUSION IMPAIRMENT-RECHLIN IMPAIRED FASTING GLUCOSE GERD/DYSPEPSIA/HISTORY OF PUD-JUNE 2008 EGD WITH HIATAL HERNIA, MILD GASTRITIS LUMBAR DJD STATUS POST FUSION IN 2000 AND 2002-JULY 2009 MRI SHOWING MINIMAL DJD AND L3-L5 MILD BULGE HYPERLIPIDEMIA 2B NONALCOHOLIC FATTY LIVER DISEASE-SEPTEMBER 2004 NORMAL WORKUP AND NORMAL ULTRASOUND ALLERGIC RHINITIS BENIGN POSITIONAL VERTIGO DEPRESSION/PANIC DISORDER/INSOMNIA CERVICAL DJD VITAMIN D DEFICIENCY L POSTERIOR KNEE VERRUCA EXCISION-03/2011-DERREK 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 BENIGN PAROXYSMAL POSITIONAL VERTIGO PERSONAL 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 ALLERGIES ASPIRIN: NAUSEA/VOMITING - CONTRAINDICATION CLINORIL: TONGYE AND LIP BLISTERS - ALLERGY PERFUME: DYSPNEA MEAT: NAUSEA/VOMITING SURGICAL HISTORY L TAILOR'S BUNION REDUCTION-MAJAK 05/2011 L3-4 DISC SURGERY 03/2001 L3-4 DISC SURGERY 05/2002 REPAIR RIGHT SHOULDER AND CLAVICLE 2007 RIGHT CARPAL TUNNEL REPAIR 1990 TUBAL LIGATION 1983 RIGHT BUNION AND SECOND TOE SURGERY 02/2015 RIGHT FOOT HAMMER TOE SURGERY FAMILY HISTORY FATHER: , DIAGNOSED WITH HYPERTENSION, HEART DISEASE MOTHER: , CANCER SIBLINGS: ALIVE, HEART DISEASE, CANCER MOTHER: MYASTHENIA GRAVIS; BREAST CA HX UNCLEAR\NFATHER: OF [place] AT 89\NSISTER: BREAST CA IN 30S, TUMORBROTHER HAD A STENT PLACED 2019. SOCIAL HISTORY GENERAL: TOBACCO USE ARE YOU A:NONSMOKER ALCOHOL SCREENING DID YOU HAVE A DRINK CONTAINING ALCOHOL IN THE PAST YEAR?YES HOW OFTEN DID YOU HAVE A DRINK CONTAINING ALCOHOL IN THE PAST YEAR?TWO TO FOUR TIMES A MONTH (2 POINTS) HOW MANY DRINKS DID YOU HAVE ON A TYPICAL DAY WHEN YOU WERE DRINKING IN THE PAST YEAR?1 OR 2 (0 POINTS) HOW OFTEN DID YOU HAVE SIX OR MORE DRINKS ON ONE OCCASION IN THE PAST YEAR?NEVER (0 POINTS) POINTS2 INTERPRETATIONNEGATIVE RECREATIONAL DRUG USE DRUG USE?NO CAFFEINE CAFFEINE USE?YES 1-2 MUGS COFFEE/DAY SEXUAL HX HAD SEX IN THE LAST 12 MONTHS (VAGINAL, ORAL, OR ANAL)?NO HAVE YOU EVER HAD AN STD?NO HIV / HEP-C SCREENING HIV TEST OFFERED TO PATIENT:YES DATE OFFERED:12/30/2016 TEST ACCEPTED:NO REASON:PATIENT DECLINED HEP-C TEST OFFERED TO PATIENT:YES DATE OFFERED:12/30/2016 TEST ACCEPTED:YES WORSHIP [id number] BUDDHISM NO SABIANISM BELIEFS THAT WOULD IMPACT HEALTH CARE. LANGUAGE LANGUAGES SPOKEN:BENINESE EDUCATION LEVEL OF EDUCATION:COLLEGE LEARNING BARRIERS / SPECIAL NEEDS CHANGE FROM LAST VISIT?NO BARRIERS TO LEARNING?NO HEARING IMPAIRED?NO VISION IMPAIRED?NO COGNITIVELY IMPAIRED?NO READINESS TO LEARN?YES LEARNING PREFERENCES?NO LEARNING CAPABILITIES PRESENT?YES EMOTIONAL BARRIERS?NO SPECIAL DEVICES?NO EARLY CHILDHOOD AIDE CLASSROOM NEEDED?NO OCCUPATION: DISABLED . 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 EXERCISE: NO REGULAR EXERCISE. MARITAL STATUS: .. OTHERS AT HOME: NONE. PAIN CLINIC PFS, CLERGY, PUBLIC HEALTH REFERRALS PFS REFERRAL NEEDED?NO CLERGY REFERRAL NEEDED?NO PUBLIC HEALTH REFERRAL NEEDED?NO WAS THE PROVIDER NOTIFIED OF ANY PERTINENT INFO?NO HAS THE PATIENT BEEN EDUCATED REGARDING HIS/HER PLAN OF CARE?YES HAS THE PATIENT BEEN EDUCATED REGARDING PAIN, THE RISK FOR PAIN, THE IMPORTANCE OF EFFECTIVE PAIN MANAGEMENT, AND THE PAIN ASSESSMENT PROCESS?YES ADVANCE DIRECTIVE ADVANCE DIRECTIVE DISCUSSED WITH PATIENT:YES HCP - CALI TILLEY ([facility]) 01/17/18 1213 REVIEWED WITH PT BVREVIEWED WITH PATIENT 02/01/18 1221 JSREVIEWED WITH PT 02/22/18 1132 BVREVIEWED WITH PT 05/23/18 1142 BVREVIEWED WITH PT 07/25/18 1150 LAS. HOSPITALIZATION/MAJOR DIAGNOSTIC PROCEDURE SURGERIES REVIEW OF SYSTEMS REVIEWED BY: PROVIDER: JANY Mc CONSTITUTIONAL: ANY CHANGE IN YOUR MEDICAL CONDITION? NO . CHILLS NO . FEVER NO . INFECTION: DO YOU HAVE NEW INFECTIONS? NO . DO YOU HAVE HISTORY OF MRSA? NO . MUSCULOSKELETAL: ANY NEW PATTERNS OF PAIN OR NUMBNESS? YES PT HAD BILATERAL CERVICAL FACET THERAPEUTIC FACETS DONE 05/23, SHE REPORTS GOOD PAIN RELIEF FOR ALMOST TWO MONTHS, WITH PAIN RETURNING A COUPLE OF WEEKS AGO. . GASTROENTEROLOGY: ANY NEW CHANGE IN BOWEL CONTROL? NO . GENITOURINARY: ANY NEW CHANGE IN BLADDER CONTROL? NO . IS THERE A CHANCE YOU COULD BE ? NO . HEMATOLOGY/LYMPH: DO YOU TAKE ANY BLOOD THINNERS? (FOR EXAMPLE- COUMADIN, PLAVIX, AGGRENOX, PLATEL, PRADAXA, OR XARELTO) NO . WHEN WAS YOUR LAST DOSE? DATE: TIME: . NEUROLOGY: HAVE YOU FALLEN IN THE PAST 12 MONTHS? NO . ANY NEW EXTREMITY NUMBNESS OR WEAKNESS? NO . CARDIOLOGY: DO YOU HAVE A PACEMAKER OR DEFIBRILLATOR? NO . RESPIRATORY: HAVE YOU BEEN SICK IN THE PAST WEEK? NO . FEVER NO . FLU LIKE SYMPTOMS? NO . COUGH NO . INTEGUMENTARY: DO YOU HAVE ANY RASHES OR OPEN SORES? NO . ALLERGIC/IMMUNO: ARE YOU ALLERGIC TO IV DYE? NO . ANY NEW ALLERGIES? NO . PSYCHIATRIC: DO YOU HAVE THOUGHTS OF HURTING YOURSELF OR SOMEONE ELSE? NO . ARE YOU ABUSED, NEGLECTED, OR IN AN UNSAFE ENVIRONMENT? NO . ENDOCRINOLOGY: ARE YOU DIABETIC? NO . OTHER: DO YOU NEED ANY PRESCRIPTIONS? NO . IF YES, PLEASE LIST: ____ . ANY NEW PROBLEMS WITH YOUR MEDICATIONS? NO . WHEN DID YOU LAST EAT? ____ . WHEN DID YOU LAST DRINK? ____ . WHAT DID YOU LAST DRINK? ____ . NAME OF PERSON DRIVING YOU HOME? ____ . DO YOU HAVE ANY OTHER QUESTIONS OR CONCERNS PT WOULD LIKE TO HAVE CERVICAL INJECTIONS AGAIN . VITAL SIGNS WT 143 LBS, HT 62 IN, BMI 26.15 INDEX, BP 146/93 MM HG, HR 74 /MIN, RR 18 /MIN, TEMP 99.0 F, OXYGEN SAT % 93%, SAFE IN ENV? (Y/N) YES, NA INITIALS AW 1136, REVIEWED BY: KARLY 11:30. EXAMINATION GENERAL EXAMINATION: GENERAL APPEARANCE:NO ACUTE DISTRESS, WELL NOURISHED AND HYDRATED. PSYCHAPPROPRIATE MOOD AND AFFECT . NECK: NO SCARS, TENDERNESS TO BILATERAL PARACERVICAL MUSCLES. PAIN WITH EXTENSION AND ROTATION OF CERVICAL SPINE.. LUNGS:CLEAR TO AUSCULTATION BILATERALLY, NO WHEEZES, RHONCHI, RALES. HEART:NO MURMURS, REGULAR RATE AND RHYTHM. 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 PROCEDURE CODES FA211 ESTABILISHED PATIENT [facility] CHARGE DISPOSITION & COMMUNICATION FOLLOW UP POST PROCEDURE (REASON: BILATERAL CERVICAL FACET BLOCK) ELECTRONICALLY SIGNED BY DENISSE CAMACHO ON 07/27/2018 AT 08:24 AM EDT DISCLAIMER : THIS IS A VISIT SUMMARY EXTRACTED FROM THE [employer] CHART. IT IS NOT A COPY OF THE [employer] PROGRESS NOTE. MTDD
== END ==
LOC: M PAIN 11:00
PROVIDERS: ATTEND Nurse Practitioner Family
DX: M47.22 Other spondylosis with radiculopathy, cervical region (principal); J45.20 Mild intermittent asthma, uncomplicated; R73.01 Impaired fasting glucose; K21.9 Gastro-esophageal reflux disease without esophagitis; K29.70 Gastritis, unspecified, without bleeding; M51.36 Other intervertebral disc degeneration, lumbar region; E78.5 Hyperlipidemia, unspecified; K76.0 Fatty (change of) liver, not elsewhere classified; F32.9 Major depressive disorder, single episode, unspecified; F41.0 Panic disorder [episodic paroxysmal anxiety]; G47.00 Insomnia, unspecified; E55.9 Vitamin D deficiency, unspecified; M50.30 Other cervical disc degeneration, unspecified cervical region; M51.37 Other intervertebral disc degeneration, lumbosacral region; H81.10 Benign paroxysmal vertigo, unspecified ear; Z79.891 Long term (current) use of opiate analgesic; Z79.899 Other long term (current) drug therapy; Z88.6 Allergy status to analgesic agent; Z88.8 Allergy status to other drugs, medicaments and biological substances; Z91.018 Allergy to other foods; Z91.048 Other nonmedicinal substance allergy status

== ENCOUNTER → 2018-07-25 | Outpatient (CLI) | payer MEDICARE, MEDICAID ==
--- NOTE | 2018-07-28 00:55 | ECWPNPC ---
PATIENT NAME: YUNIEL CANAS : 1955 GENDER: FEMALE VISIT DATE: 07/25/2018 DISCHARGE DATE: 07/25/18 1304 VISIT LOCKED DATE TIME: PHYSICIAN: LAURA CARPENTER RESOURCE: LAURA CARPENTER REASON FOR APPOINTMENT 1. W/C LOW BACK HISTORY OF PRESENT ILLNESS HISTORY OF PRESENT ILLNESS: PAIN THE PATIENT DESCRIBES THE PAIN... SEVERITY - PAIN SCORE OF8/10 62 YR OLD FEMALE S/P LAMINECTOMY AND SPINAL FUSION FOR WORK RELATED ACCIDENT, HERE FOR F/U.PAIN SCALE 8/10.LAST PROCEDURE 02/08 WAS BILATERAL THERAPUETIC FACET BLOCK WITH GOOD RESULTS.HAS BEEN RELATIVLEY PAIN FREE FOR 2-3 MONTHS. PATIENT IS COMPLAININING OF PAIN THAT IS ACHING AND RADIATES DOWN BOTH LEGS. FALL RISK SCREENING: SCREENING :NO FALLS REPORTED IN THE LAST YEAR CURRENT MEDICATIONS TAKING VENLAFAXINE HCL 150 MG TABLET EXTENDED RELEASE 24 HOUR 1 TABLET ORALLY ONCE A DAY, NOTES: 05/23/18 0900 TAKING ZOCOR 20 MG TABLET 1 TABLET EVERY EVENING ORALLY AT BEDTIME, NOTES: 05/21/18 PM TAKING PROAIR HFA 108 (90 BASE) MCG/ACT AEROSOL SOLUTION 2 PUFFS INHALATION EVERY 4 HOURS, NEEDED, NOTES: 05/22/18 TAKING LORAZEPAM 0.5 MG TABLET 2 TABLETS IN AM 1 TABLET IN PM MY MOUTH DAILY THROUGH DR. CARTER DAILY NEEDED, NOTES: 05/23/18 09 TAKING RESTASIS 0.05 % EMULSION 2 DROPS INTO AFFECTED EYE OPHTHALMIC TWICE A DAY, NOTES: 05/22/18 PM TAKING BUSPIRONE HCL 30 MG TABLET 1 TABLETS ORALLY TWICE A DAY, NOTES: 05/23/18 09 TAKING QUETIAPINE FUMARATE 50 MG TABLET 1 TABLET ORALLY ONCE A DAY, NOTES: TOTAL OF 75 MG 05/22/18 PM TAKING FISH OIL OMEGA-3 1000 MG CAPSULE 1 CAPSULE ORALLY BID, NOTES: 05/23/18 09 TAKING MULTIVITAMIN ADULTS - TABLET ORALLY , NOTES: 05/23/18 09 TAKING PULMICORT FLEXHALER 90 MCG/ACT AEROSOL POWDER BREATH ACTIVATED 2 PUFFS INHALATION TWICE A DAY, NOTES: 05/23/18 0800 TAKING TENS UNIT - DAILY PRN TAKING FLUTICASONE PROPIONATE 50 MCG/ACT SUSPENSION 2 SPRAYS IN EACH NOSTRIL NASALLY ONCE A DAY, NOTES: 05/23/18 0900 TAKING NITROGLYCERIN 0.4 MG TABLET SUBLINGUAL DIRECTED SUBLINGUAL AT ONSET OF SYMPTOMS, THEN IN 5 MINUTS IF NOT RESOLVED. IF PERSISTENT GO TO ER., NOTES: NONE RECENT TAKING VOLTAREN 1 % GEL DIRECTED TOPICALLY LOW BACK TID PRN, NOTES: 05/22/18 PM TAKING TIZANIDINE HCL 2 MG TABLET 1 TABLET NEEDED ORALLY BEFORE BEDTIME MAY REPEAT IN 5 HRS MDD2, NOTES: TAKES 3 TABLETS AT NIGHT TAKING QUETIAPINE FUMARATE 25 MG TABLET 1 TABLET ORALLY ONCE A DAY, NOTES: TAKES WITH 50 MG FOR TOTAL OF 75MG 02/06/18 TAKING VALACYCLOVIR HCL 1 GM TABLET 1 TABLET ORALLY EVERY 24 HRS, NOTES: NONE IN A MONTH TAKING MECLIZINE HCL 25 MG TABLET 1 TABLET BY MOUTH ONCE A DAY NEEDED FOR DIZZINESS, NOTES: 2 DAYS AGO TAKING LIDODERM 5 % PATCH 2 PATCHES TO INTACT SKIN REMOVE AFTER 12 HOURS EXTERNALLY LOW BACK AT BEDTIME FOR PAIN, NOTES: 3-4 DAYS AGO TAKING TRAMADOL HCL 50 MG TABLET 1 TABLET NEEDED ORALLY EVERY 8 HRS PRN MDD3, NOTES: 05/22/18 PM TAKING ACETAMINOPHEN 500 MG CAPSULE 1 TABLET NEEDED ORALLY 1 TO 2 TABS EVERY 6 HRS PRN MDD4, NOTES: 05/22/18 PM TAKING NEXIUM 40 MG CAPSULE DELAYED RELEASE 1 TAB ORALLY ([place]) 2 TIMES A DAY, NOTES: 05/22/18 PM TAKING VENLAFAXINE HCL 75 MG TABLET 1 TABLET WITH FOOD ORALLY ONCE A DAY, NOTES: 05/23/18 0900 TOTAL 225 MG TAKING OMEPRAZOLE 20 MG CAPSULE DELAYED RELEASE 1 CAPSULE ORALLY ONCE A DAY, NOTES: 05/22/18 PMFOR REFLUX AND HISTORY OF HIATAL HERNIA TAKING SYSTANE 0.4-0.3 % SOLUTION 2 DROPS EACH EYE DAILY, NOTES: 05/23/18 TAKING REFRESH 1.4-0.6 % SOLUTION 2 DROPS EACH EYE 2-4 X/DAY NEEDED, NOTES: 05/22/18 TAKING MONTELUKAST SODIUM 10 MG TABLET 1 TABLET ORALLY ONCE A DAY, NOTES: 05/22/18 PM TAKING ZOCOR 20 MG TABLET 1 TABLET IN THE EVENING ORALLY ONCE A DAY TAKING ARTIFICIAL TEARS 1.4 % SOLUTION 1 GTT OU OPHTHALMIC 4X/DAY NEEDED NOT-TAKING LEVOCETIRIZINE DIHYDROCHLORIDE 5 MG TABLET 1 TABLET IN THE EVENING ORALLY ONCE A DAY MEDICATION LIST REVIEWED AND RECONCILED WITH THE PATIENT PAST MEDICAL HISTORY ASTHMA, MILD INTERMITTENT/IS/[id number]-TUYEIIC-KOHLLREE 2010 NORMAL PFTS EXCEPT FOR VERY MILD DIFFUSION IMPAIRMENT-RECHLIN IMPAIRED FASTING GLUCOSE GERD/DYSPEPSIA/HISTORY OF PUD-JUNE 2008 EGD WITH HIATAL HERNIA, MILD GASTRITIS LUMBAR DJD STATUS POST FUSION IN 2000 AND 2002-JULY 2009 MRI SHOWING MINIMAL DJD AND L3-L5 MILD BULGE HYPERLIPIDEMIA 2B NONALCOHOLIC FATTY LIVER DISEASE-SEPTEMBER 2004 NORMAL WORKUP AND NORMAL ULTRASOUND ALLERGIC RHINITIS BENIGN POSITIONAL VERTIGO DEPRESSION/PANIC DISORDER/INSOMNIA CERVICAL DJD VITAMIN D DEFICIENCY L POSTERIOR KNEE VERRUCA EXCISION-03/2011-DERREK 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 BENIGN PAROXYSMAL POSITIONAL VERTIGO PERSONAL 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 ALLERGIES ASPIRIN: NAUSEA/VOMITING - CONTRAINDICATION CLINORIL: TONGYE AND LIP BLISTERS - ALLERGY PERFUME: DYSPNEA MEAT: NAUSEA/VOMITING SURGICAL HISTORY L TAILOR'S BUNION REDUCTION-MAJTYSHAWN 05/2011 L3-4 DISC SURGERY 03/2001 L3-4 DISC SURGERY 05/2002 REPAIR RIGHT SHOULDER AND CLAVICLE 2007 RIGHT CARPAL TUNNEL REPAIR 1990 TUBAL LIGATION 1982 RIGHT BUNION AND SECOND TOE SURGERY 02/2015 RIGHT FOOT HAMMER TOE SURGERY FAMILY HISTORY FATHER: , DIAGNOSED WITH HYPERTENSION, HEART DISEASE MOTHER: , CANCER SIBLINGS: ALIVE, HEART DISEASE, CANCER MOTHER: MYASTHENIA GRAVIS; BREAST CA HX UNCLEAR\\NFATHER: OF [place] AT 89\\NSISTER: BREAST CA IN 30S, TUMOR\NBROTHER HAD A STENT PLACED 2018. SOCIAL HISTORY GENERAL: TOBACCO USE ARE YOU A:NONSMOKER ALCOHOL SCREENING DID YOU HAVE A DRINK CONTAINING ALCOHOL IN THE PAST YEAR?YES HOW OFTEN DID YOU HAVE A DRINK CONTAINING ALCOHOL IN THE PAST YEAR?TWO TO FOUR TIMES A MONTH (2 POINTS) HOW MANY DRINKS DID YOU HAVE ON A TYPICAL DAY WHEN YOU WERE DRINKING IN THE PAST YEAR?1 OR 2 (0 POINTS) HOW OFTEN DID YOU HAVE SIX OR MORE DRINKS ON ONE OCCASION IN THE PAST YEAR?NEVER (0 POINTS) POINTS2 INTERPRETATIONNEGATIVE RECREATIONAL DRUG USE DRUG USE?NO CAFFEINE CAFFEINE USE?YES 1-2 MUGS COFFEE/DAY SEXUAL HX HAD SEX IN THE LAST 12 MONTHS (VAGINAL, ORAL, OR ANAL)?NO HAVE YOU EVER HAD AN STD?NO HIV / HEP-C SCREENING HIV TEST OFFERED TO PATIENT:YES DATE OFFERED:12/30/2016 TEST ACCEPTED:NO REASON:PATIENT DECLINED HEP-C TEST OFFERED TO PATIENT:YES DATE OFFERED:12/30/2016 TEST ACCEPTED:YES RASTAFARI [id number] AMISH NO RASTAFARI BELIEFS THAT WOULD IMPACT HEALTH CARE. LANGUAGE LANGUAGES SPOKEN:GERMAN EDUCATION LEVEL OF EDUCATION:COLLEGE LEARNING BARRIERS / SPECIAL NEEDS CHANGE FROM LAST VISIT?NO BARRIERS TO LEARNING?NO HEARING IMPAIRED?NO VISION IMPAIRED?NO COGNITIVELY IMPAIRED?NO READINESS TO LEARN?YES LEARNING PREFERENCES?NO LEARNING CAPABILITIES PRESENT?YES EMOTIONAL BARRIERS?NO SPECIAL DEVICES?NO SPECIAL SYSTEMS TECHNICIAN NEEDED?NO OCCUPATION: DISABLED . 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 EXERCISE: NO REGULAR EXERCISE. MARITAL STATUS: .. OTHERS AT HOME: NONE. PAIN CLINIC PFS, CLERGY, PUBLIC HEALTH REFERRALS PFS REFERRAL NEEDED?NO CLERGY REFERRAL NEEDED?NO PUBLIC HEALTH REFERRAL NEEDED?NO WAS THE PROVIDER NOTIFIED OF ANY PERTINENT INFO?NO HAS THE PATIENT BEEN EDUCATED REGARDING HIS/HER PLAN OF CARE?YES HAS THE PATIENT BEEN EDUCATED REGARDING PAIN, THE RISK FOR PAIN, THE IMPORTANCE OF EFFECTIVE PAIN MANAGEMENT, AND THE PAIN ASSESSMENT PROCESS?YES ADVANCE DIRECTIVE ADVANCE DIRECTIVE DISCUSSED WITH PATIENT:YES HCP - CALI TILLEY ([facility]) 01/17/18 1213 REVIEWED WITH PT BVREVIEWED WITH PATIENT 02/01/18 1221 JSREVIEWED WITH PT 02/22/18 1132 BVREVIEWED WITH PT 05/23/18 1142 BVREVIEWED WITH PT 07/25/18 1150 LAS. HOSPITALIZATION/MAJOR DIAGNOSTIC PROCEDURE SURGERIES REVIEW OF SYSTEMS REVIEWED BY: PROVIDER: DEEPIKA . CONSTITUTIONAL: ANY CHANGE IN YOUR MEDICAL CONDITION? NO . CHILLS NO . FEVER NO . INFECTION: DO YOU HAVE NEW INFECTIONS? NO . DO YOU HAVE HISTORY OF MRSA? NO . MUSCULOSKELETAL: ANY NEW PATTERNS OF PAIN OR NUMBNESS? NO . GASTROENTEROLOGY: ANY NEW CHANGE IN BOWEL CONTROL? NO . GENITOURINARY: ANY NEW CHANGE IN BLADDER CONTROL? NO . IS THERE A CHANCE YOU COULD BE ? NO . HEMATOLOGY/LYMPH: DO YOU TAKE ANY BLOOD THINNERS? (FOR EXAMPLE- COUMADIN, PLAVIX, AGGRENOX, PLATEL, PRADAXA, OR XARELTO) NO . WHEN WAS YOUR LAST DOSE? DATE: TIME: . NEUROLOGY: HAVE YOU FALLEN IN THE PAST 12 MONTHS? NO . ANY NEW EXTREMITY NUMBNESS OR WEAKNESS? NO . CARDIOLOGY: DO YOU HAVE A PACEMAKER OR DEFIBRILLATOR? NO . RESPIRATORY: HAVE YOU BEEN SICK IN THE PAST WEEK? NO . FEVER NO . FLU LIKE SYMPTOMS? NO . COUGH NO . INTEGUMENTARY: DO YOU HAVE ANY RASHES OR OPEN SORES? NO . ALLERGIC/IMMUNO: ARE YOU ALLERGIC TO IV DYE? NO . ANY NEW ALLERGIES? NO . PSYCHIATRIC: DO YOU HAVE THOUGHTS OF HURTING YOURSELF OR SOMEONE ELSE? NO . ARE YOU ABUSED, NEGLECTED, OR IN AN UNSAFE ENVIRONMENT? NO . ENDOCRINOLOGY: ARE YOU DIABETIC? NO . OTHER: DO YOU NEED ANY PRESCRIPTIONS? YES . IF YES, PLEASE LIST: ____TRAMADOL, LIDODERM PATCHES . ANY NEW PROBLEMS WITH YOUR MEDICATIONS? NO . WHEN DID YOU LAST EAT? ____ . WHEN DID YOU LAST DRINK? ____ . WHAT DID YOU LAST DRINK? ____ . NAME OF PERSON DRIVING YOU HOME? ____ . DO YOU HAVE ANY OTHER QUESTIONS OR CONCERNS YES WOULD LIKE TO DISCUSS INJECTIONS LOW BACK . VITAL SIGNS WT 143 LBS, HT 62 IN, BMI 26.15 INDEX, BP 146/93 MM HG, HR 74 /MIN, RR 18 /MIN, TEMP 99.0 F, OXYGEN SAT % 93%, SAFE IN ENV? (Y/N) YES, NA INITIALS AW 1136, REVIEWED BY: POOJA. EXAMINATION GENERAL EXAMINATION: GENERAL APPEARANCE:NO ACUTE DISTRESS, WELL NOURISHED AND HYDRATED. PSYCHAPPROPRIATE MOOD AND AFFECT . LUNGS:CLEAR TO AUSCULTATION BILATERALLY, NO WHEEZES, RHONCHI, RALES. HEART:NO MURMURS, REGULAR RATE AND RHYTHM. BACK: TENDERNESS ALONG LUMBAR SPINE L4-5 REGION SLR POSITIVE BILATERAL REFLEXES 2 +\LIMITED ROM PAIN WITH EXTENSION AND ROTATION OF LUMBAR SPINE. ASSESSMENTS SPONDYLOSIS OF LUMBAR REGION WITHOUT MYELOPATHY OR RADICULOPATHY - M47.816 (PRIMARY) SPONDYLOSIS OF LUMBOSACRAL REGION WITHOUT MYELOPATHY OR RADICULOPATHY - M47.817 LUMBAR ARTHROPATHY - M46.96 TREATMENT SPONDYLOSIS OF LUMBAR REGION WITHOUT MYELOPATHY OR RADICULOPATHY CONTINUE VOLTAREN GEL, 1 %, DIRECTED, TOPICALLY LOW BACK, TID PRN, 30 DAYS, 1 TUBE, REFILLS 1, NOTES: 05/22/18 PM CONTINUE TRAMADOL HCL TABLET, 50 MG, 1 TABLET NEEDED, ORALLY, EVERY 8 HRS PRN MDD3, 30 DAYS, 90, REFILLS 0, NOTES: 05/22/18 PM CLINICAL NOTES: BRINGS IN MEDICATIONS WHICH IS APPROPRIATE FOR WHAT WAS DISPENSED. RECENT URINE TOXICOLOGY REVIEWED. NO UNAUTHORIZED MEDICATIONS. NO ILLICIT SUBSTANCES AND PRESCRIBED MEDICATIONS WERE PRESENT. , RISKS AND BENEFITS OF NARCOTIC/OPIOD MEDICATIONS WERE REVIEWED WITH PATIENT - THIS INCLUDES BUT IS NOT LIMITED TO RISK OF DEPENDANCE/DEVELOPMENT OF ADDICTION, MOOD DISTURBANCE AND DEPRESSION, OSTEOPOROSIS, HORMONAL AND LABIDAL CHANGES, RESPIRATORY DEPRESSION AND . PATIENT IS ADVISED NOT TO DRIVE OR DRINK ALCOHOL WHILE ON THESE MEDICATIONS, ISTOP REGISTRY REVIEWED AND DEMONSTRATES COMPLLIANCE. (REF #[id number] ) BRINGS IN MEDICATIONS WHICH IS APPROPRIATE FOR WHAT WAS DISPENSED. RECENT URINE TOXICOLOGY REVIEWED. NO UNAUTHORIZED MEDICATIONS. NO ILLICIT SUBSTANCES AND PRESCRIBED MEDICATIONS WERE PRESENT. LUMBAR ARTHROPATHY START LIDODERM PATCH, 5 %, 1 PATCH TO SKIN REMOVE AFTER 12 HOURS, EXTERNALLY, ONCE A DAY, 30 DAYS, 1 CLINICAL NOTES: BILATERAL L4-L5, L5-S1 THERAPUETIC FACET BLOCK. PROCEDURE CODES FA211 ESTABILISHED PATIENT [facility] CHARGE DISPOSITION & COMMUNICATION FOLLOW UP POST PROCEDURE (REASON: BILATERAL L4-L5, L5-S1 THERAPUETIC FACET BLOCK) ELECTRONICALLY SIGNED BY DENISSE CAMACHO ON 07/27/2018 AT 08:24 AM EDT DISCLAIMER : THIS IS A VISIT SUMMARY EXTRACTED FROM THE [employer] CHART. IT IS NOT A COPY OF THE [employer] PROGRESS NOTE. BRANDI
== END ==
LOC: M PAIN 11:15
PROVIDERS: ATTEND Nurse Practitioner Family
DX: M47.816 Spondylosis without myelopathy or radiculopathy, lumbar region (principal); M47.817 Spondylosis without myelopathy or radiculopathy, lumbosacral region; M46.96 Unspecified inflammatory spondylopathy, lumbar region; J45.20 Mild intermittent asthma, uncomplicated; R73.01 Impaired fasting glucose; K21.9 Gastro-esophageal reflux disease without esophagitis; R10.13 Epigastric pain; K29.70 Gastritis, unspecified, without bleeding; M51.36 Other intervertebral disc degeneration, lumbar region; E78.5 Hyperlipidemia, unspecified; K76.0 Fatty (change of) liver, not elsewhere classified; J30.9 Allergic rhinitis, unspecified; H81.10 Benign paroxysmal vertigo, unspecified ear; F32.9 Major depressive disorder, single episode, unspecified; F41.0 Panic disorder [episodic paroxysmal anxiety]; M50.30 Other cervical disc degeneration, unspecified cervical region; E55.9 Vitamin D deficiency, unspecified; Z79.899 Other long term (current) drug therapy; Z98.1 Arthrodesis status; Z88.6 Allergy status to analgesic agent; Z88.8 Allergy status to other drugs, medicaments and biological substances; Z91.018 Allergy to other foods; Z91.048 Other nonmedicinal substance allergy status

== ENCOUNTER 2018-08-02 16:31 | Emergency (ER) | payer OTHER, MEDICARE, MEDICAID ==
[~2018-08-02] VITALS: Ht 157.5 cm; Wt 64.1 kg
[2018-08-02] MEDS ORDERED: ONDANSETRON 4MG/2ML VIAL (J2405) IV ONE (17:15)
[2018-08-02] MEDS ORDERED: ISOVUE-370 76% 100ML VIAL (Q9967) As Ordered ONE (17:17)
[2018-08-02] MEDS: MORPHINE 4 MG/ML 1ML VIAL/SYRINGE (J2270) IV PRN ×2 (17:37→18:29)
[2018-08-02 18:20] LABS: BASO % 0.3 % (0.0-1.0); EOS # 0.2 10^3/uL (0.0-0.50); EOS % 2.3 % (0.0-3.0); HEMATOCRIT 40.4 % (36.0-47.0); HEMOGLOBIN 13.6 g/dl (12.0-15.5); LYMPH % 22.6 % (24.0-44.0); MEAN CORPUSCULAR HEMOGLOBIN 30.6 pg (27.0-33.0); MEAN CORPUSCULAR HGB CONC 33.7 g/dl (32.0-36.5); MONO # 0.8 10^3/uL (0.0-0.8); MONO % 8.9 % (0.0-5.0); NEUTROPHILS # 5.7 10^3/uL (1.8-7.7); NEUTROPHILS % 65.6 % (36.0-66.0); PLATELET COUNT, AUTOMATED 289 10^3/uL (150-450); RED BLOOD COUNT 4.44 10^6/uL (4.00-5.40); WHITE BLOOD COUNT 8.7 10^3/uL (4.0-10.0)
--- NOTE | 2018-08-02 18:22 | REP ---
CT BRAIN WITHOUT IV CONTRAST: TECHNIQUE: CT brain performed without IV contrast. The ventricles are normal in size and position with no midline shift or mass effect. Carlisle/white differentiation is well maintained. There is no acute intracranial hemorrhage. There is no extra-axial fluid collection. No skull fracture is seen. There is chronic opacification of the right mastoid air cells compatible with chronic changes similar to prior study of 11/14/2008. IMPRESSION: No evidence of acute bleed or fracture. Electronically Signed by Jose Elias Carlisle MD 08/02/2018 08:36 P
[2018-08-02 18:24] LABS: ALBUMIN 3.6 GM/DL (3.2-5.2); ALT/SGPT 35 U/L (12-78); AMYLASE 37 U/L (25-115); BILIRUBIN,DIRECT < 0.1 MG/DL (0.0-0.2); BILIRUBIN,TOTAL 0.3 MG/DL (0.2-1.0); BLOOD UREA NITROGEN 11 MG/DL (7-18); CALCIUM LEVEL 8.9 MG/DL (8.8-10.2); CARBON DIOXIDE LEVEL 28 MEQ/L (21-32); CHLORIDE LEVEL 106 MEQ/L (98-107); CPK CREATINE PHOSPHOKINASE 81 U/L (26-192); CREATININE FOR GFR 0.75 MG/DL (0.55-1.30); GLOMERULAR FILTRATION RATE > 60.0 (>45); GLUCOSE, FASTING 92 MG/DL (70-100); LIPASE 148 U/L (73-393); POTASSIUM SERUM 4.2 MEQ/L (3.5-5.1); SODIUM LEVEL 139 MEQ/L (136-145); TOTAL PROTEIN 6.7 GM/DL (6.4-8.2); TROPONIN I < 0.02 NG/ML (< 0.10)
--- NOTE | 2018-08-02 18:27 | REP ---
CT CERVICAL SPINE: CT cervical spine was performed in the axial plane with sagittal and coronal reconstruction images performed. There is no evidence of compression fracture or malalignment. There is evidence of prior anterior cervical discectomy and fusion at the C6 and C7 levels. There is mild anterior spurring of C3 through C5. There is narrowing with subchondral sclerosis and cystic change at the dens and ring of C1 with apparent fusion of C1 and C2 on the right. There are erosive changes of the dens. There is diffuse narrowing, sclerosis and spurring at the posterior facet joints. There is bilateral femoral narrowing at C3-4, left sided foraminal narrowing at C4-5 and right sided foraminal narrowing at C5-6. IMPRESSION: Diffuse degenerative changes. No evidence of acute fracture or dislocation. Electronically Signed by Jose Elias Carlisle MD 08/02/2018 08:37 P
--- NOTE | 2018-08-02 18:28 | REP ---
CT CHEST WITH IV CONTRAST: TECHNIQUE: Axial contrast enhanced images from the thoracic inlet to the upper abdomen using 100 mL Isovue 370 intravenous contrast material with multiplanar reformations. The lungs demonstrate no infiltrate or other significant parenchymal opacity. There is no pneumothorax. No thoracic aortic dissection is seen. There is no mediastinal hematoma. The heart is normal in size. There is no mediastinal, hilar or chest wall lymphadenopathy. There is no pleural or pericardial effusion. There is a small hiatal hernia. The visualized osseous structures are intact with no evidence of acute fracture. IMPRESSION: Essentially unremarkable CT of the chest with no acute traumatic findings. Small hiatal hernia. Electronically Signed by Jose Elias Carlisle MD 08/02/2018 08:36 P
[2018-08-02 18:34] LABS: INR 0.97
[2018-08-02 18:35] LABS: PARTIAL THROMBOPLASTIN TIME 28.4 SECONDS (25.4-37.6)
--- NOTE | 2018-08-02 18:41 | REP ---
CT ABDOMEN AND PELVIS WITH IV CONTRAST: TECHNIQUE: Axial contrast enhanced images from the lung bases to the pubic symphysis using 100 mL Isovue 370 intravenous contrast material with multiplanar reformations. Liver, spleen, adrenals, pancreas and kidneys are unremarkable in appearance with no evidence of traumatic injury. There is no abdominal aortic aneurysm. There is no adenopathy, free air or free fluid. No bowel wall thickening is seen. The appendix is normal. No pelvic mass is seen. Urinary bladder appears intact. The visualized osseous structures appear intact. There are degenerative changes of the spine. IMPRESSION: No evidence of acute traumatic injury. No free air or free fluid. Electronically Signed by Jose Elias Carlisle MD 08/02/2018 08:37 P
--- NOTE | 2018-08-02 18:45 | REP ---
CT LUMBAR SPINE: CT lumbar spine performed in the axial plane. Sagittal and coronal reconstruction images are performed. There is no compression fracture. There is no malalignment with normal lumbar lordosis. There is mild diffuse spurring. There is a disc spacer at the L3-4 level. Metallic clips are seen anterior to the L4 vertebral body. Mild diffuse sclerosis, narrowing and spurring is seen at the posterior facet joints. IMPRESSION: Degenerative changes. Disc spacer at L3-4. No acute fracture or dislocation. Electronically Signed by Jose Elias Carlisle MD 08/02/2018 08:37 P
--- NOTE | 2018-08-02 18:48 | REP ---
CT MAXILLOFACIAL BONES: CT maxillofacial bones performed in the axial plane. Sagittal and coronal reconstruction images are performed. There is no evidence of maxillofacial bone fracture. The mandible is intact. Zygomatic arches are intact. No nasal bone fracture is seen. No orbital floor fracture is seen. Globes are intact. A tiny amount of fluid is seen in the sphenoid sinus. Otherwise no abnormal sinus opacification is seen. Chronic changes are seen in the right mastoid air cells with chronic opacification. IMPRESSION: No evidence of maxillofacial bone fracture. Electronically Signed by Jose Elias Carlisle MD 08/02/2018 08:42 P
--- NOTE | 2018-08-02 19:39 | REP ---
PELVIS AND LEFT HIP: AP view of the pelvis and AP and frog leg views of the left hip are performed. There is no acute fracture or dislocation. No intrinsic osseous pathology is seen. There are minor degenerative changes at the hips. IMPRESSION: No fracture or dislocation. Electronically Signed by Jose Elias Carlisle MD 08/02/2018 08:44 P
--- NOTE | 2018-08-02 19:40 | REP ---
LEFT KNEE, FOUR VIEWS: There is no evidence of an acute fracture, dislocation or intrinsic bone disease. IMPRESSION: No fracture or dislocation. Electronically Signed by Jose Elias Carlisle MD 08/02/2018 08:44 P
--- NOTE | 2018-08-02 19:40 | REP ---
LEFT FEMUR. TWO VIEWS: There is no evidence of an acute fracture, dislocation or intrinsic bone disease. IMPRESSION: No fracture or dislocation. Electronically Signed by Jose Elias Carlisle MD 08/02/2018 08:44 P
[2018-08-02] MEDS ORDERED: MORPHINE 10 MG/ML 1ML VIAL (J2270) IV ONE (20:15)
[2018-08-02] MEDS ORDERED: NORCO 5/325MG TABLET (BULK FOR ED) PO ONE (20:15)
[2018-08-02 20:30] VITALS: BP 152/88
--- NOTE | 2018-08-03 21:48 | ECGEPIP ---
Stationary ECG Study [facility] - ED Test Date: 2018-08-02 Pat Name: YUNIEL CANAS Department: Room: - Gender: F [employer] Department: [place] : 1955 Requested By: Akash Foreman Order Number: [id number] Reading MD: Brittny Ashley Measurements Intervals Sylvester Rate: 80 P: 51 MS: 193 QRS: 14 QRSD: 94 T: 42 QT: 378 QTc: 437 Interpretive Statements SINUS RHYTHM NSTTW ABNORMALITY SIMILAR 12/22/16 Electronically Signed On 08-03-2018 21:47:50 EDT by Brittny Ashley
== END 2018-08-02 20:40 | disposition home or self-care (01) ==
LOC: M ED 16:31
DX: Z04.1 Encounter for examination and observation following transport accident (principal); V03.10XA Pedestrian on foot injured in collision with car, pick-up truck or van in traffic accident, initial encounter; Y92.410 Unspecified street and highway as the place of occurrence of the external cause; M50.321 Other cervical disc degeneration at C4-C5 level; M50.322 Other cervical disc degeneration at C5-C6 level; M51.36 Other intervertebral disc degeneration, lumbar region; J45.909 Unspecified asthma, uncomplicated; K21.9 Gastro-esophageal reflux disease without esophagitis; Z98.1 Arthrodesis status; Z88.8 Allergy status to other drugs, medicaments and biological substances; Z79.899 Other long term (current) drug therapy; Z79.51 Long term (current) use of inhaled steroids
CPT/HCPCS: 70450; 70486; 71260; 72125; 72131; 73502; 73552; 73564; 74177; 80048; 80076; 82150; 82550; 82553; 83605; 83690; 84484; 85025; 85610; 85730; 86850; 86900; 86901; 93005; 93041; 94760; 96374; 96375; 96376; 99285; J2270; J2405; Q9967

== ENCOUNTER → 2018-08-28 | Outpatient (CLI) | payer OTHER ==
--- NOTE | 2018-08-28 10:32 | REP ---
MRI LEFT KNEE: TECHNIQUE: Axial proton density fat saturation, sagittal proton density T2 STIR, water excitation, coronal proton density, proton density fat saturation. Medial meniscus is intact. The anterior horn of the lateral meniscus centrally demonstrates some ill-defined high signal which may represent some degree of fraying. There is increased signal in the region of the femoral insertion of the anterior cruciate ligament most consistent with a high grade sprain or partial tear. The posterior cruciate ligament is intact. There is increased signal involving the medial collateral ligament, predominately in the region of the femoral insertion, most consistent with a sprain or a low grade partial tear. Lateral collateral ligament is intact. Extensor mechanism is intact medial and lateral patellar retinacula are intact. There is significant cartilaginous thinning the medial patellar facet. There is moderate chondromalacia along the femoral condyles and tibial plateaus with some minor subchondral marrow edema, particularly in the lateral femoral condyle. There is no occult fracture. There is a moderate joint effusion, with fluid extending into the medial popliteal fossa. A rounded joint body is seen at the inferior margin of the patellofemoral joint measuring about 9 mm in maximum diameter. IMPRESSION: There may be some fraying centrally of the anterior horn of the lateral meniscus. There are findings most consistent with a high grade sprain or partial tear at the femoral insertion of the anterior cruciate ligament. There are also findings consistent with a sprain or partial tear of the medial collateral ligament. Severe cartilaginous thinning, medial patellar facet. Moderate cartilaginous thinning along the femoral condyles and tibial plateaus. Moderate joint effusion. Oval 8 mm joint body at the inferior margin of the patellofemoral joint. Electronically Signed by Jose Elias Carlisle MD 08/29/2018 02:57 P
== END ==
LOC: M RAD 08:51
PROVIDERS: ATTEND Family Medicine
DX: S83.511A Sprain of anterior cruciate ligament of right knee, initial encounter (principal); X58.XXXA Exposure to other specified factors, initial encounter; Y92.89 Other specified places as the place of occurrence of the external cause

== ENCOUNTER 2018-09-20 13:45 | Outpatient (RCR) | payer OTHER | END 2018-09-21 | LOC: M PT 13:45 | PROVIDERS: ATTEND Family Medicine | DX: T14.8XXD Other injury of unspecified body region, subsequent encounter (principal); W18.30XD Fall on same level, unspecified, subsequent encounter; Y92.009 Unspecified place in unspecified non-institutional (private) residence as the place of occurrence of the external cause ==

== ENCOUNTER 2018-10-15 12:43 | Outpatient (RCR) | payer OTHER | END 2018-10-21 | LOC: M PT 12:43 | PROVIDERS: ATTEND Family Medicine | DX: T14.8XXA Other injury of unspecified body region, initial encounter (principal); W18.30XA Fall on same level, unspecified, initial encounter; Y92.009 Unspecified place in unspecified non-institutional (private) residence as the place of occurrence of the external cause ==

== ENCOUNTER 2018-11-19 12:39 | Outpatient (RCR) | payer OTHER | END 2018-11-21 | LOC: M PT 12:39 | PROVIDERS: ATTEND Family Medicine | DX: S83.412A Sprain of medial collateral ligament of left knee, initial encounter (principal); S83.512A Sprain of anterior cruciate ligament of left knee, initial encounter; T14.8XXA Other injury of unspecified body region, initial encounter ==

== ENCOUNTER 2018-12-20 11:01 | Outpatient (RCR) | payer OTHER | END 2018-12-22 | LOC: M PT 11:01 | PROVIDERS: ATTEND Family Medicine | DX: M16.12 Unilateral primary osteoarthritis, left hip (principal); R42 Dizziness and giddiness ==

== ENCOUNTER → 2019-01-01 | Outpatient (CLI) | payer MEDICARE, MEDICAID, OTHER ==
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
== END ==
LOC: M PAIN 13:45
PROVIDERS: ATTEND Nurse Practitioner Family
DX: M54.2 Cervicalgia (principal); M47.22 Other spondylosis with radiculopathy, cervical region; G89.29 Other chronic pain; J45.20 Mild intermittent asthma, uncomplicated; K21.9 Gastro-esophageal reflux disease without esophagitis; E78.5 Hyperlipidemia, unspecified; Z86.59 Personal history of other mental and behavioral disorders; Z88.6 Allergy status to analgesic agent; Z91.018 Allergy to other foods; Z91.09 Other allergy status, other than to drugs and biological substances; Z79.899 Other long term (current) drug therapy

== ENCOUNTER → 2019-01-11 | Outpatient (CLI) | payer OTHER, MEDICAID ==
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
== END ==
LOC: M PAIN 13:15
PROVIDERS: ATTEND Nurse Practitioner Family
DX: M47.817 Spondylosis without myelopathy or radiculopathy, lumbosacral region (principal); G89.29 Other chronic pain; J45.20 Mild intermittent asthma, uncomplicated; R73.01 Impaired fasting glucose; K21.9 Gastro-esophageal reflux disease without esophagitis; E78.5 Hyperlipidemia, unspecified; Z86.59 Personal history of other mental and behavioral disorders; G47.00 Insomnia, unspecified; Z88.6 Allergy status to analgesic agent; Z91.018 Allergy to other foods; Z79.899 Other long term (current) drug therapy

== ENCOUNTER 2019-01-17 12:51 | Outpatient (RCR) | payer OTHER | END 2019-01-21 | LOC: M PT 12:51 | PROVIDERS: ATTEND Family Medicine | DX: S83.412D Sprain of medial collateral ligament of left knee, subsequent encounter (principal); M76.822 Posterior tibial tendinitis, left leg; M76.72 Peroneal tendinitis, left leg; W18.30XA Fall on same level, unspecified, initial encounter; Y92.009 Unspecified place in unspecified non-institutional (private) residence as the place of occurrence of the external cause ==

== ENCOUNTER → 2019-02-12 | Outpatient (CLI) | payer MEDICARE, MEDICAID ==
[~2019-02-12] MED LIST changes: +BUPIVACAINE HCL 0.25% 30 ML VIAL As Ordered ONE; +ISOVUE-M 300 61% 15ML VIAL (Q9967) As Ordered ONE; +LIDOCAINE 1% SDV INJ 30 ML VIAL As Ordered ONE; +TRIAMCINOLONE ACETONIDE SUSP 40 MG/ML VIAL (J3301) As Ordered ONE; +diazePAM 5 MG TAB As Ordered ONE; +diphenhydrAMINE 25 MG CAP As Ordered ONE; +oxyCODONE 5MG TAB As Ordered ONE
--- NOTE | 2019-02-12 15:06 | REP ---
C-ARM VIEWS CERVICAL SPINE: CLINICAL HISTORY: Pain. C-arm views cervical spine is performed during bilateral facet injection by Dr. Vale. Wishek are seen in the lower cervical facet joints bilaterally and a tiny amount of contrast is injected. 10 seconds of fluoroscopy time utilized. Electronically Signed by Jose Elias Carlisle MD 02/13/2019 12:25 P
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
== END ==
LOC: M PAIN 10:30
PROVIDERS: ATTEND Anesthesiology
DX: M47.812 Spondylosis without myelopathy or radiculopathy, cervical region (principal); J45.20 Mild intermittent asthma, uncomplicated; R73.01 Impaired fasting glucose; K21.9 Gastro-esophageal reflux disease without esophagitis; K44.9 Diaphragmatic hernia without obstruction or gangrene; K29.70 Gastritis, unspecified, without bleeding; H81.10 Benign paroxysmal vertigo, unspecified ear; F32.9 Major depressive disorder, single episode, unspecified; E55.9 Vitamin D deficiency, unspecified; K76.0 Fatty (change of) liver, not elsewhere classified; R10.13 Epigastric pain; G47.00 Insomnia, unspecified; M50.30 Other cervical disc degeneration, unspecified cervical region; M51.37 Other intervertebral disc degeneration, lumbosacral region; Z79.899 Other long term (current) drug therapy; Z88.6 Allergy status to analgesic agent; Z88.8 Allergy status to other drugs, medicaments and biological substances; Z91.018 Allergy to other foods; Z91.048 Other nonmedicinal substance allergy status
CPT/HCPCS: 64490; 64491; J3301; Q9967

== ENCOUNTER 2019-02-20 12:54 | Outpatient (RCR) | payer OTHER ==
[~2019-02-20 12:54] MED LIST changes: -BUPIVACAINE HCL 0.25% 30 ML VIAL As Ordered ONE; -ISOVUE-M 300 61% 15ML VIAL (Q9967) As Ordered ONE; -LIDOCAINE 1% SDV INJ 30 ML VIAL As Ordered ONE; -TRIAMCINOLONE ACETONIDE SUSP 40 MG/ML VIAL (J3301) As Ordered ONE; -diazePAM 5 MG TAB As Ordered ONE; -diphenhydrAMINE 25 MG CAP As Ordered ONE; -oxyCODONE 5MG TAB As Ordered ONE
== END 2019-02-21 ==
LOC: M PT 12:54
PROVIDERS: ATTEND Family Medicine
DX: Z47.89 Encounter for other orthopedic aftercare (principal)

== ENCOUNTER → 2019-04-30 | Outpatient (CLI) | payer OTHER | LOC: M PAIN 11:30 | PROVIDERS: ATTEND Anesthesiology | DX: Z53.21 Procedure and treatment not carried out due to patient leaving prior to being seen by health care provider (principal) ==

== ENCOUNTER → 2019-08-15 | Outpatient (CLI) | payer OTHER ==
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
== END ==
LOC: M TMPAIN 10:45 → M PAIN 10:45
PROVIDERS: ATTEND Nurse Practitioner Family
DX: M47.816 Spondylosis without myelopathy or radiculopathy, lumbar region (principal); Z79.891 Long term (current) use of opiate analgesic; Z79.899 Other long term (current) drug therapy; Z88.8 Allergy status to other drugs, medicaments and biological substances; Z91.030 Bee allergy status; Z91.048 Other nonmedicinal substance allergy status

== ENCOUNTER → 2019-09-05 | Outpatient (CLI) | payer OTHER ==
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
== END ==
LOC: M PAIN 13:00
PROVIDERS: ATTEND Nurse Practitioner Family
DX: M79.18 Myalgia, other site (principal); R73.01 Impaired fasting glucose; Z86.59 Personal history of other mental and behavioral disorders; Z88.6 Allergy status to analgesic agent; Z88.8 Allergy status to other drugs, medicaments and biological substances; Z91.018 Allergy to other foods; Z91.09 Other allergy status, other than to drugs and biological substances; Z79.899 Other long term (current) drug therapy

== ENCOUNTER → 2019-09-22 | Outpatient (CLI) | payer OTHER | LOC: M LABSMTC 11:30 | PROVIDERS: ATTEND Anesthesiology | DX: Z11.59 Encounter for screening for other viral diseases (principal) | CPT/HCPCS: C9803; U0003 ==

== ENCOUNTER → 2019-09-25 | Outpatient (CLI) | payer OTHER ==
[~2019-09-25] MED LIST changes: +BUPIVACAINE HCL 0.25% 10ML VIAL As Ordered ONE; +BUPIVACAINE HCL 0.25% 30ML VIAL As Ordered ONE; +diazePAM 5 MG TAB As Ordered ONE; +diphenhydrAMINE 25MG CAP As Ordered ONE; +oxyCODONE 5MG TAB As Ordered ONE
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
== END ==
LOC: M PAIN 09:45
PROVIDERS: ATTEND Anesthesiology
DX: M79.18 Myalgia, other site (principal)

== ENCOUNTER → 2019-09-26 | Outpatient (CLI) | payer OTHER ==
[~2019-09-26] MED LIST changes: -BUPIVACAINE HCL 0.25% 10ML VIAL As Ordered ONE; -BUPIVACAINE HCL 0.25% 30ML VIAL As Ordered ONE; -diazePAM 5 MG TAB As Ordered ONE; -diphenhydrAMINE 25MG CAP As Ordered ONE; -oxyCODONE 5MG TAB As Ordered ONE
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
== END ==
LOC: M PAIN 11:30
PROVIDERS: ATTEND Nurse Practitioner Family
DX: M79.18 Myalgia, other site (principal); M47.816 Spondylosis without myelopathy or radiculopathy, lumbar region

== ENCOUNTER 2019-10-21 13:45 | Outpatient (RCR) | payer OTHER | END 2019-10-22 | disposition home or self-care (01) | LOC: M PT 13:45 | PROVIDERS: ATTEND Orthopaedic Surgery | DX: Z47.89 Encounter for other orthopedic aftercare (principal); M76.72 Peroneal tendinitis, left leg; M76.822 Posterior tibial tendinitis, left leg ==

== ENCOUNTER → 2019-11-22 | Outpatient (RCR) | payer OTHER | LOC: M PT 10-24 13:50 | PROVIDERS: ATTEND Orthopaedic Surgery | DX: M65.272 Calcific tendinitis, left ankle and foot (principal) ==

== ENCOUNTER → 2019-11-26 | Outpatient (POV) | payer OTHER, MEDICARE, MEDICAID | LOC: M PAIN 09:00 | PROVIDERS: ATTEND Nurse Practitioner Family | DX: M96.1 Postlaminectomy syndrome, not elsewhere classified (principal) ==

== ENCOUNTER 2019-12-17 13:00 | Outpatient (RCR) | payer OTHER | END 2019-12-23 | disposition home or self-care (01) | LOC: M PT 13:00 | PROVIDERS: ATTEND Orthopaedic Surgery | DX: M76.72 Peroneal tendinitis, left leg (principal); M76.822 Posterior tibial tendinitis, left leg ==

== ENCOUNTER → 2020-01-30 | Outpatient (CLI) | payer OTHER, MEDICARE, MEDICAID | LOC: M LABSMTC 10:01 | PROVIDERS: ATTEND Anesthesiology | DX: Z20.828 Contact with and (suspected) exposure to other viral communicable diseases (principal) ==

== ENCOUNTER → 2020-02-04 | Outpatient (CLI) | payer OTHER ==
[~2020-02-04] MED LIST changes: +ISOVUE-M 300 61% 15ML VIAL As Ordered ONE; +LIDOCAINE 1% SDV 30ML VIAL As Ordered ONE; +diazePAM 5 MG TAB As Ordered ONE; +diphenhydrAMINE 25MG CAP As Ordered ONE; +methylPREDNISolone SUSP 40MG/ML 1ML VIAL (DEPO MEDROL) As Ordered ONE; +oxyCODONE 5MG TAB As Ordered ONE
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
--- NOTE | 2020-02-07 09:08 | REP ---
FLUORSCOPIC GUIDED SPINE INJECTION: 02/04/20. CLINICAL: Epidural injection. TECHNIQUE: Intraoperative fluoroscopic imaging using portable C-ARM Technique. FINDINGS: Few images demonstrate catheter placement at the lower lumbar level in satisfactory position. Total fluoroscopic time 14.7 seconds. IMPRESSION: Status post epidural injection. MTDD
== END ==
LOC: M PAIN 09:00
PROVIDERS: ATTEND Anesthesiology
DX: M96.1 Postlaminectomy syndrome, not elsewhere classified (principal); M51.16 Intervertebral disc disorders with radiculopathy, lumbar region; R73.01 Impaired fasting glucose; K21.9 Gastro-esophageal reflux disease without esophagitis; Z86.59 Personal history of other mental and behavioral disorders; Z88.6 Allergy status to analgesic agent; Z91.018 Allergy to other foods; Z91.09 Other allergy status, other than to drugs and biological substances; Z79.899 Other long term (current) drug therapy
CPT/HCPCS: 62323; J1030; Q9967

== ENCOUNTER → 2020-02-18 | Outpatient (CLI) | payer OTHER ==
[~2020-02-18] MED LIST changes: -ISOVUE-M 300 61% 15ML VIAL As Ordered ONE; -LIDOCAINE 1% SDV 30ML VIAL As Ordered ONE; -diazePAM 5 MG TAB As Ordered ONE; -diphenhydrAMINE 25MG CAP As Ordered ONE; -methylPREDNISolone SUSP 40MG/ML 1ML VIAL (DEPO MEDROL) As Ordered ONE; -oxyCODONE 5MG TAB As Ordered ONE
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
== END ==
LOC: M PAIN 14:00
PROVIDERS: ATTEND Nurse Practitioner Family
DX: G89.29 Other chronic pain (principal); M96.1 Postlaminectomy syndrome, not elsewhere classified; M51.16 Intervertebral disc disorders with radiculopathy, lumbar region; J45.20 Mild intermittent asthma, uncomplicated; R73.01 Impaired fasting glucose; K21.9 Gastro-esophageal reflux disease without esophagitis; E78.5 Hyperlipidemia, unspecified; K76.0 Fatty (change of) liver, not elsewhere classified; F32.9 Major depressive disorder, single episode, unspecified; E55.9 Vitamin D deficiency, unspecified; F41.9 Anxiety disorder, unspecified; Z79.891 Long term (current) use of opiate analgesic; Z79.899 Other long term (current) drug therapy; Z88.6 Allergy status to analgesic agent; Z88.8 Allergy status to other drugs, medicaments and biological substances; Z91.018 Allergy to other foods

== ENCOUNTER → 2020-05-20 | Outpatient (CLI) | payer OTHER ==
[2020-05-22 10:10] LABS: ANTINUCLEAR ANTIBODIES DIRECT Negative (Negative)
== END ==
LOC: M LAB 15:01
PROVIDERS: ATTEND Physician Assistant Medical
DX: R51.9 Headache, unspecified (principal); M54.2 Cervicalgia

== ENCOUNTER → 2020-05-20 | Outpatient (CLI) | payer OTHER ==
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
== END ==
LOC: M PAIN 13:30
PROVIDERS: ATTEND Nurse Practitioner Family
DX: M47.817 Spondylosis without myelopathy or radiculopathy, lumbosacral region (principal); J45.20 Mild intermittent asthma, uncomplicated; R73.01 Impaired fasting glucose; K21.9 Gastro-esophageal reflux disease without esophagitis; E78.5 Hyperlipidemia, unspecified; K76.0 Fatty (change of) liver, not elsewhere classified; F32.9 Major depressive disorder, single episode, unspecified; F41.0 Panic disorder [episodic paroxysmal anxiety]; E55.9 Vitamin D deficiency, unspecified; F07.81 Postconcussional syndrome; Z79.891 Long term (current) use of opiate analgesic; Z79.899 Other long term (current) drug therapy; Z88.2 Allergy status to sulfonamides; Z88.8 Allergy status to other drugs, medicaments and biological substances; Z91.018 Allergy to other foods; Z91.048 Other nonmedicinal substance allergy status

== ENCOUNTER → 2020-06-04 | Outpatient (CLI) | payer OTHER, MEDICARE, MEDICAID | LOC: M LABSMTC 12:40 | PROVIDERS: ATTEND Anesthesiology | DX: Z20.822 Contact with and (suspected) exposure to COVID-19 (principal) ==

== ENCOUNTER → 2020-06-09 | Outpatient (CLI) | payer OTHER ==
[~2020-06-09] MED LIST changes: +BUPIVACAINE HCL 0.25% 30ML VIAL As Ordered ONE; +ISOVUE-M 300 61% 15ML VIAL As Ordered ONE; +LIDOCAINE 1% SDV 30ML VIAL As Ordered ONE
--- NOTE | 2020-06-09 15:20 | REP ---
INDICATION: BILATERAL LUMBAR DIAGNOSTIC FACET BLOCK. COMPARISON: None. TECHNIQUE: Three views. 35.3 seconds of fluoroscopy time is reported. FINDINGS: A sequence of 3 last image hold fluoroscopically obtained spot radiograph(s) of the lumbar spine document(s) needle position(s) and contrast injection associated with injection procedure. IMPRESSION: Procedural imaging. <Electronically signed by Gunnar Earl > 06/09/20 [id number]
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
== END ==
LOC: M PAIN 11:20
PROVIDERS: ATTEND Anesthesiology
DX: M47.816 Spondylosis without myelopathy or radiculopathy, lumbar region (principal); M47.817 Spondylosis without myelopathy or radiculopathy, lumbosacral region; R73.01 Impaired fasting glucose; K21.9 Gastro-esophageal reflux disease without esophagitis; Z86.59 Personal history of other mental and behavioral disorders; Z88.6 Allergy status to analgesic agent; Z88.8 Allergy status to other drugs, medicaments and biological substances; Z91.018 Allergy to other foods; Z91.09 Other allergy status, other than to drugs and biological substances; Z79.899 Other long term (current) drug therapy
CPT/HCPCS: 64493; 64494; Q9967

== ENCOUNTER → 2020-06-23 | Outpatient (CLI) | payer OTHER ==
[~2020-06-23] MED LIST changes: -BUPIVACAINE HCL 0.25% 30ML VIAL As Ordered ONE; -ISOVUE-M 300 61% 15ML VIAL As Ordered ONE; -LIDOCAINE 1% SDV 30ML VIAL As Ordered ONE
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
== END ==
LOC: M PAIN 14:00
PROVIDERS: ATTEND Nurse Practitioner Family
DX: G89.29 Other chronic pain (principal); M47.816 Spondylosis without myelopathy or radiculopathy, lumbar region; J45.20 Mild intermittent asthma, uncomplicated; R73.01 Impaired fasting glucose; K21.9 Gastro-esophageal reflux disease without esophagitis; E78.5 Hyperlipidemia, unspecified; K76.0 Fatty (change of) liver, not elsewhere classified; F32.9 Major depressive disorder, single episode, unspecified; E55.9 Vitamin D deficiency, unspecified; F41.9 Anxiety disorder, unspecified; Z79.891 Long term (current) use of opiate analgesic; Z79.899 Other long term (current) drug therapy; Z88.6 Allergy status to analgesic agent; Z88.8 Allergy status to other drugs, medicaments and biological substances; Z91.048 Other nonmedicinal substance allergy status

== ENCOUNTER → 2020-08-06 | Outpatient (CLI) | payer OTHER, MEDICARE, MEDICAID | LOC: M LABSMTC 12:21 | PROVIDERS: ATTEND Anesthesiology | DX: Z20.828 Contact with and (suspected) exposure to other viral communicable diseases (principal); Z11.59 Encounter for screening for other viral diseases ==

== ENCOUNTER → 2020-08-11 | Outpatient (CLI) | payer OTHER ==
[~2020-08-11] MED LIST changes: +BUPIVACAINE HCL 0.25% 30ML VIAL As Ordered ONE; +ISOVUE-M 300 61% 15ML VIAL As Ordered ONE; +LIDOCAINE 1% SDV 30ML VIAL As Ordered ONE
--- NOTE | 2020-08-11 12:32 | REP ---
INDICATION: BILAT LFBD. COMPARISON: None. TECHNIQUE: Two views. 28.7 seconds of fluoroscopy time is reported. FINDINGS: A sequence of 2 last image hold fluoroscopically obtained spot radiograph(s) of the lumbar spine document(s) needle position(s) and contrast injection associated with injection procedure. IMPRESSION: Procedural imaging. <Electronically signed by Gunnar Earl > 08/11/20 [id number]
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
== END ==
LOC: M PAIN 10:00
PROVIDERS: ATTEND Anesthesiology
DX: M47.816 Spondylosis without myelopathy or radiculopathy, lumbar region (principal); M47.817 Spondylosis without myelopathy or radiculopathy, lumbosacral region; J45.20 Mild intermittent asthma, uncomplicated; R73.01 Impaired fasting glucose; K21.9 Gastro-esophageal reflux disease without esophagitis; Z86.59 Personal history of other mental and behavioral disorders; Z87.820 Personal history of traumatic brain injury; Z88.6 Allergy status to analgesic agent; Z88.8 Allergy status to other drugs, medicaments and biological substances; Z91.018 Allergy to other foods; Z91.09 Other allergy status, other than to drugs and biological substances; Z79.899 Other long term (current) drug therapy
CPT/HCPCS: 64493; 64494; Q9967

== ENCOUNTER → 2020-08-12 | Outpatient (CLI) | payer MEDICARE ==
[~2020-08-12] MED LIST changes: -BUPIVACAINE HCL 0.25% 30ML VIAL As Ordered ONE; -ISOVUE-M 300 61% 15ML VIAL As Ordered ONE; -LIDOCAINE 1% SDV 30ML VIAL As Ordered ONE
--- NOTE | 2020-08-12 14:17 | REPPI ---
INDICATION: RIGHT MEDIAL KNEE PAIN COMPARISON: None. TECHNIQUE: Single AP weightbearing view of the right and left knee FINDINGS: Subchondral sclerosis and joint space narrowing is appreciated bilaterally (right greater than left) along with subtle cortical irregularity and very subtle early spurring along the right knee lateral compartment. IMPRESSION: Degenerative changes (right greater than left). <Electronically signed by Jorge Soliz > 08/12/20 [id number]
== END ==
LOC: M PLAIMG 13:42
PROVIDERS: ATTEND Family Medicine
DX: M17.0 Bilateral primary osteoarthritis of knee (principal); M25.561 Pain in right knee
CPT/HCPCS: 73565; G0463

== ENCOUNTER → 2020-08-18 | Outpatient (CLI) | payer MEDICARE ==
--- NOTE | 2020-08-19 14:37 | REP ---
INDICATION: PAIN. COMPARISON: No prior standing lateral view of the left knee for comparison. Latest prior sunrise view 05/28/2013 TECHNIQUE: Standing lateral view and sunrise view FINDINGS: The patellofemoral interval appears unchanged. There is no fracture, dislocation, or subluxation. IMPRESSION: As above <Electronically signed by Master Correa > 08/19/20 [id number]
--- NOTE | 2020-08-19 14:37 | REP ---
INDICATION: PAIN. COMPARISON: No prior standing ankle radiographs for comparison. TECHNIQUE: Four views standing, however, the radiographic beam was centered mid tibia with greater than 90% of the tibia and fibula being radiographed rather than proper collimation as per department policy and procedure. This examination was performed in my absence. FINDINGS: Secondary to fan beam artifact the mortise is fictitiously narrowed. There is no evidence of an acute fracture or destructive osseous lesion. IMPRESSION: As above <Electronically signed by Master Correa > 08/19/20 [id number]
== END ==
LOC: M SOG 11:38
PROVIDERS: ATTEND Orthopaedic Surgery Adult Reconstructive Orthopaedic Surgery
DX: M25.562 Pain in left knee (principal); M25.572 Pain in left ankle and joints of left foot

== ENCOUNTER → 2020-08-31 | Outpatient (CLI) | payer OTHER, MEDICARE ==
[~2020-08-31] MED LIST changes: +PROHANCE 279.3MG/ML 15ML VIAL As Ordered ONE
--- NOTE | 2020-09-01 08:45 | REP ---
INDICATION: LT ANKLE PAIN ? POST TRAUMATIC ARTHRITIS. COMPARISON: MRI 05/27/2019. TECHNIQUE: Multiple sequences are obtained in the axial, coronal and sagittal planes prior to and following the intravenous administration of 13 mL ProHance. FINDINGS: The Achilles, anterior tibial, posterior tibial, flexor hallucis longus, flexor digitorum longus and peroneal tendons are all intact. There is mild fluid surrounding portions of the visualized peroneal tendons, posterior tibial tendon, with mild to moderate fluid surrounding portions of the flexor hallucis longus tendon, suggesting some degree of tenosynovitis involving these tendons. These findings have mildly increased since the prior study. The anterior and posterior talofibular, calcaneofibular and deltoid ligaments appear intact. Plantar tendon appears intact. There is no plantar fasciitis. Sinus tarsi appears unremarkable. No ganglion cyst is seen. There is normal amount of joint fluid. The cartilaginous surfaces are smooth. No osteochondral defect is seen at the tibiotalar joint. There is no bone marrow edema or occult fracture. There is no abnormal soft tissue or osseous enhancement identified. IMPRESSION: There is mild fluid surrounding portions of the visualized peroneal tendons, posterior tibial tendon, with mild to moderate fluid surrounding portions of the flexor hallucis longus tendon, suggesting some degree of tenosynovitis involving these tendons. These findings have mildly increased since the prior study. <Electronically signed by Jose Elias Carlisle > 09/01/20 0849
== END ==
LOC: M RAD 18:04
PROVIDERS: ATTEND Orthopaedic Surgery Adult Reconstructive Orthopaedic Surgery
DX: M25.572 Pain in left ankle and joints of left foot (principal)
CPT/HCPCS: 73723; A9576

== ENCOUNTER → 2020-08-31 | Outpatient (CLI) | payer MEDICARE, OTHER ==
[~2020-08-31] MED LIST changes: -PROHANCE 279.3MG/ML 15ML VIAL As Ordered ONE
[2020-08-31 16:28] LABS: BLOOD UREA NITROGEN 14 MG/DL (7-18); CREATININE FOR GFR 0.68 MG/DL (0.55-1.30); GLOMERULAR FILTRATION RATE > 60.0 (>45)
== END ==
LOC: M LAB 14:55
PROVIDERS: ATTEND Orthopaedic Surgery Adult Reconstructive Orthopaedic Surgery
DX: M25.572 Pain in left ankle and joints of left foot (principal)

== ENCOUNTER → 2020-09-09 | Outpatient (CLI) | payer OTHER ==
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
== END ==
LOC: M PAIN 14:15
PROVIDERS: ATTEND Nurse Practitioner Family
DX: M47.816 Spondylosis without myelopathy or radiculopathy, lumbar region (principal); G89.29 Other chronic pain; J45.20 Mild intermittent asthma, uncomplicated; R73.01 Impaired fasting glucose; Z86.59 Personal history of other mental and behavioral disorders; Z87.820 Personal history of traumatic brain injury; Z88.6 Allergy status to analgesic agent; Z88.8 Allergy status to other drugs, medicaments and biological substances; Z91.018 Allergy to other foods; Z79.899 Other long term (current) drug therapy

== ENCOUNTER → 2020-09-14 | Outpatient (REF) | payer MEDICARE, MEDICAID ==
[~2020-09-14] MED LIST changes: +ATIV1TAB10; +BUSP30TA PO; +ESOM40CA35; +FLUT11IN; +MECL-86; +MONT10TA10; +NITR0.4S14; +OMEG1CAP85; +OMEP-221; +QUET50TA4; +SIMV20TA22; +TRAM50TA2; +ZONI50CA11
[2020-09-14 11:26] LABS: HEMOGLOBIN A1c 5.5 %
[2020-09-14 11:30] LABS: ALBUMIN 3.6 GM/DL (3.2-5.2); ALT/SGPT 21 U/L (12-78); BILIRUBIN,TOTAL 0.2 MG/DL (0.2-1.0); BLOOD UREA NITROGEN 21 MG/DL (7-18); CALCIUM LEVEL 9.4 MG/DL (8.8-10.2); CARBON DIOXIDE LEVEL 27 MEQ/L (21-32); CHLORIDE LEVEL 109 MEQ/L (98-107); CHOLESTEROL LEVEL 184 MG/DL (<200); CHOLESTEROL RISK RATIO 4.842 (<5); CREATININE FOR GFR 0.77 MG/DL (0.55-1.30); GLOMERULAR FILTRATION RATE > 60.0 (>45); GLUCOSE, FASTING 116 MG/DL (70-100); HDL CHOLESTEROL 38 MG/DL (>40); LDL CHOLESTEROL 119 MG/DL (<100); NON-HDL-C 146 MG/DL; POTASSIUM SERUM 4.1 MEQ/L (3.5-5.1); SODIUM LEVEL 142 MEQ/L (136-145); TOTAL PROTEIN 6.8 GM/DL (6.4-8.2); TRIGLYCERIDES LEVEL 135 MG/DL (<150)
== END ==
LOC: M PLALAB 08:34
PROVIDERS: ATTEND Family Medicine
DX: E78.2 Mixed hyperlipidemia (principal); R73.03 Prediabetes

== ENCOUNTER → 2020-11-17 | Outpatient (CLI) | payer MEDICARE, MEDICAID ==
[~2020-11-17] MED LIST changes: -ATIV1TAB10; -BUSP30TA PO; -ESOM40CA35; -FLUT11IN; -MECL-86; -MONT10TA10; -NITR0.4S14; -OMEG1CAP85; -OMEP-221; -QUET50TA4; -SIMV20TA22; -TRAM50TA2; -ZONI50CA11
--- NOTE | 2020-11-17 16:02 | DEXAMM ---
INDICATION: M81.0 AGE REL OSTEOPOROSIS W/O FX. COMPARISON: January 01, 2004. TECHNIQUE: Bone density was measured using dual-energy x-ray absorptionmetry (DEXA). FINDINGS: AP SPINE L1-L4 BMD 1.381 g/cm2 Young Adult T-Score 1.5 Age Matched Z-Score 3.1. LT FEMUR, TOTAL BMD 0.940 g/cm2 Young Adult T-Score -0.5 Age Matched Z-Score 0.7. LT NECK BMD 0.849 g/cm2 Young Adult T-Score -1.4 Age Matched Z-Score 0.2. RT FEMUR, TOTAL BMD 0.942 g/cm2 Young Adult T-Score -0.5 Age Matched Z-Score 0.7. RT NECK BMD 0.894 g/cm2 Young Adult T-Score -1.0 Age Matched Z-Score 0.5. IMPRESSION: There is normal bone density of the spine. There is low bone density of the left hip. There is low bone density of the right hip. The density of the spine has decreased 14.1% since the initial exam on January 01, 2004. The density of the left hip has decreased 11.6% since initial exam on January 01, 2004. The density of the right hip has decreased 11.0% since the initial exam on January 01, 2004. FOLLOW-UP: Recommendation for the next bone density exam: 2 years. <Electronically signed by Gunnar Earl > 11/17/20 [id number]
--- NOTE | 2020-11-18 09:06 | REPMRS ---
Patient History The patient states she has not had a clinical breast exam in over a year. Patient is postmenopausal. Family history of breast cancer at age 39 in sister. Benign US guided breast biopsy of the right breast. No Hormone Replacement Therapy Patient states no breast complaints today. Patient has signed MRS History Sheet. Digital Woman Screen Mammo: November 17, 2020 - Exam #: [id number] Bilateral CC and MLO view(s) were taken. Technologist: Yesenia Martin, Technologist Prior study comparison: February 14, 2018, bilateral digital mammo screening bilat, performed at [facility]. October 16, 2014, bilateral digital mammo screening bilat, performed at [facility]. FINDINGS: There are scattered fibroglandular densities. Screening. Digital screening (2D) mammography was performed bilaterally in the CC and MLO projections. Additionally, breast tomosynthesis (3D mammography) was performed bilaterally in the CC and MLO projections. Todays exam was compared to the prior exam/exams. By history, the patient has no complaints of a palpable breast abnormality or other significant breast complaints. The breasts are unchanged in size and shape. There are no vanessa-soft tissue densities or spiculated masses. There is no internal architectural distortion. Once again, stable benign appearing calcifications are seen.There are no suspicious vanessa-calcific clusters. Skin thickening or nipple retraction is not present. IMPRESSION: BI-RADS Category 2- Benign Findings. There is no evidence of malignant alteration of the breasts. Followup examination recommended in one year. The Volpara volumetric breast density category is B, there are scattered areas of fibroglandular densities. This mammogram was read with the assistance of [facility] [place],an FDA approved computer aided detection system for mammography. The lifetime Tyrer-Cuzick score is 11.2 % Negative x-ray reports should not delay surgical consultation if a dominant or clinically suspicious mass is present. Not all breast cancers can be identified by mammography. Therefore, we recommend that you continue to perform regular breast self-examination and physical examination and then promptly contact your physician of any concerns or changes. Adenosis and dense breasts may obscure an underlying neoplasm. Assessment: BI-RADS/ACR category 2 mammogram. Benign Findings. Recommendation Routine screening mammogram of both breasts in 1 year. Electronically Signed By: Master Correa DO 11/18/20 0906
== END ==
LOC: M WHC 13:31
PROVIDERS: ATTEND Family Medicine
DX: Z12.31 Encounter for screening mammogram for malignant neoplasm of breast (principal); M81.0 Age-related osteoporosis without current pathological fracture

== ENCOUNTER 2020-11-18 12:46 | Outpatient (RCR) | payer OTHER ==
[2020-11-30] MEDS ORDERED: OMEP40CA5 PO (07:18)
[2020-11-30] MEDS ORDERED: FLUT11IN (07:18)
[2020-11-30] MEDS ORDERED: ATIV1TAB10 PO (07:18)
[2020-11-30] MEDS ORDERED: QUET50TA4 PO (07:18)
[2020-11-30] MEDS ORDERED: SIMV20TA22 (07:18)
[2020-11-30] MEDS ORDERED: MONT10TA97 PO (07:18)
[2020-11-30] MEDS ORDERED: ESOM40CA35 (07:18)
[2020-11-30] MEDS ORDERED: MECL-86 PO (07:18)
[2020-11-30] MEDS ORDERED: BUSP30TA PO (07:18)
[2020-11-30] MEDS ORDERED: ZONI50CA11 PO (07:18)
[2020-11-30] MEDS ORDERED: NITR0.4S14 PO (07:18)
[2020-11-30] MEDS ORDERED: TRAM50TA2 PO (07:18)
[2020-11-30] MEDS ORDERED: OMEG1CAP85 PO (07:18)
[2021-02-22] MEDS ORDERED: VALA1TAB5 PO (13:25)
[2021-02-22] MEDS ORDERED: SIMV20TA22 PO (13:25)
[2021-02-22] MEDS ORDERED: ESOM40CA35 PO (13:25)
[2021-02-22] MEDS ORDERED: CALCCAP4 PO (13:35)
[2021-02-22] MEDS ORDERED: VITA200031 PO (13:35)
[2021-02-22] MEDS ORDERED: GLUC500C37 PO (13:35)
== END 2020-11-21 ==
LOC: M PT 12:46
PROVIDERS: ATTEND Orthopaedic Surgery Adult Reconstructive Orthopaedic Surgery
DX: M65.272 Calcific tendinitis, left ankle and foot (principal)

== ENCOUNTER → 2020-12-03 | Outpatient (CLI) | payer OTHER ==
[~2020-12-03] MED LIST changes: +ATIV1TAB10; +BUSP30TA PO; +ESOM40CA35; +FLUT11IN; +MECL-86; +MONT10TA10; +NITR0.4S14; +OMEG1CAP85; +OMEP-221; +QUET50TA4; +SIMV20TA22; +TRAM50TA2; +ZONI50CA11
== END ==
LOC: M LABSMTC 14:06
PROVIDERS: ATTEND Anesthesiology
DX: Z01.812 Encounter for preprocedural laboratory examination (principal); Z20.822 Contact with and (suspected) exposure to COVID-19

== ENCOUNTER 2020-12-04 13:03 | Outpatient (RCR) | payer OTHER, MEDICARE | END 2020-12-22 | LOC: M PT 13:03 | PROVIDERS: ATTEND Orthopaedic Surgery Adult Reconstructive Orthopaedic Surgery | DX: M65.272 Calcific tendinitis, left ankle and foot (principal) ==

== ENCOUNTER → 2020-12-07 | Outpatient (CLI) | payer OTHER | LOC: M LABSMTC 11:34 | PROVIDERS: ATTEND Anesthesiology | DX: Z20.828 Contact with and (suspected) exposure to other viral communicable diseases (principal); Z11.59 Encounter for screening for other viral diseases ==

== ENCOUNTER → 2020-12-08 | Outpatient (CLI) | payer OTHER ==
[~2020-12-08] MED LIST changes: +BUPIVACAINE HCL 0.25% 30ML VIAL As Ordered ONE; +LIDOCAINE 1% SDV 30ML VIAL As Ordered ONE; +dexameTHASONE 10MG/1ML VIAL PRES.FREE (J1100 PER 1MG) As Ordered ONE; +diazePAM 5MG TABLET As Ordered ONE; +diphenhydrAMINE 25MG CAP As Ordered ONE; +oxyCODONE 5MG TAB As Ordered ONE
--- NOTE | 2020-12-08 16:55 | REP ---
INDICATION: RIGHT LUMBAR COOL RADIOFREQUENCY. COMPARISON: None. TECHNIQUE: Four C-arm views lumbar spine. FINDINGS: [place] are seen along the lower lumbar spine. IMPRESSION: 75 seconds fluoroscopy time utilized. <Electronically signed by Jose Elias Carlisle > 12/08/20 1644
== END ==
LOC: M PAIN 13:00
PROVIDERS: ATTEND Anesthesiology
DX: M47.816 Spondylosis without myelopathy or radiculopathy, lumbar region (principal); J45.20 Mild intermittent asthma, uncomplicated; R73.01 Impaired fasting glucose; K21.9 Gastro-esophageal reflux disease without esophagitis; E55.9 Vitamin D deficiency, unspecified; Z86.59 Personal history of other mental and behavioral disorders; Z87.820 Personal history of traumatic brain injury; Z88.6 Allergy status to analgesic agent; Z88.8 Allergy status to other drugs, medicaments and biological substances; Z91.018 Allergy to other foods; Z79.899 Other long term (current) drug therapy
CPT/HCPCS: 64635; 64636; J1100

== ENCOUNTER 2021-01-20 12:19 | Outpatient (RCR) | payer OTHER, MEDICARE ==
[~2021-01-20 12:19] MED LIST changes: -ATIV1TAB10; -BUPIVACAINE HCL 0.25% 30ML VIAL As Ordered ONE; -LIDOCAINE 1% SDV 30ML VIAL As Ordered ONE; -MECL-86; +MECL-86 PO; -MONT10TA10; +MONT10TA97 PO; -NITR0.4S14; +NITR0.4S14 PO; -OMEG1CAP85; +OMEG1CAP85 PO; -OMEP-221; +OMEP40CA5 PO; -QUET50TA4; +QUET50TA4 PO; -TRAM50TA2; -ZONI50CA11; +ZONI50CA11 PO; -dexameTHASONE 10MG/1ML VIAL PRES.FREE (J1100 PER 1MG) As Ordered ONE; -diazePAM 5MG TABLET As Ordered ONE; -diphenhydrAMINE 25MG CAP As Ordered ONE; -oxyCODONE 5MG TAB As Ordered ONE
[2021-02-22] MEDS ORDERED: VALA1TAB5 PO (13:25)
[2021-02-22] MEDS ORDERED: ESOM40CA35 PO (13:25)
[2021-02-22] MEDS ORDERED: SIMV20TA22 PO (13:25)
[2021-02-22] MEDS ORDERED: VITA200031 PO (13:35)
[2021-02-22] MEDS ORDERED: GLUC500C37 PO (13:35)
[2021-02-22] MEDS ORDERED: CALCCAP4 PO (13:35)
== END 2021-01-21 ==
LOC: M PT 12:19
PROVIDERS: ATTEND Orthopaedic Surgery Adult Reconstructive Orthopaedic Surgery
DX: M65.272 Calcific tendinitis, left ankle and foot (principal)

== ENCOUNTER → 2021-01-21 | Outpatient (CLI) | payer OTHER ==
[~2021-01-21] MED LIST changes: +ATIV1TAB10; +MECL-86; -MECL-86 PO; +MONT10TA10; -MONT10TA97 PO; +NITR0.4S14; -NITR0.4S14 PO; +OMEG1CAP85; -OMEG1CAP85 PO; +OMEP-221; -OMEP40CA5 PO; +QUET50TA4; -QUET50TA4 PO; +TRAM50TA2; +ZONI50CA11; -ZONI50CA11 PO
== END ==
LOC: M PAIN 14:30
PROVIDERS: ATTEND Anesthesiology
DX: M79.18 Myalgia, other site (principal); J45.20 Mild intermittent asthma, uncomplicated; K21.9 Gastro-esophageal reflux disease without esophagitis; E55.9 Vitamin D deficiency, unspecified; Z86.59 Personal history of other mental and behavioral disorders; Z87.820 Personal history of traumatic brain injury; Z88.6 Allergy status to analgesic agent; Z88.8 Allergy status to other drugs, medicaments and biological substances; Z91.018 Allergy to other foods; Z91.09 Other allergy status, other than to drugs and biological substances; Z79.899 Other long term (current) drug therapy

== ENCOUNTER → 2021-02-22 | Outpatient (CLI) | payer OTHER ==
[~2021-02-22] MED LIST changes: -ATIV1TAB10; +CALCCAP4 PO; +ESOM40CA35 PO; +GLUC500C37 PO; -MECL-86; +MECL-86 PO; -MONT10TA10; +MONT10TA10 PO; -NITR0.4S14; +NITR0.4S14 PO; -OMEG1CAP85; +OMEG1CAP85 PO; -OMEP-221; +OMEP-221 PO; -QUET50TA4; +QUET50TA4 PO; +SIMV20TA22 PO; -TRAM50TA2; +VALA1TAB5 PO; +VITA200031 PO; -ZONI50CA11; +ZONI50CA11 PO
== END ==
LOC: M PAIN 15:00
PROVIDERS: ATTEND Anesthesiology
DX: M79.18 Myalgia, other site (principal); Z79.899 Other long term (current) drug therapy

== ENCOUNTER → 2021-03-03 | Outpatient (CLI) | payer MEDICARE, OTHER, MEDICAID | LOC: M LABSMTC 11:52 | PROVIDERS: ATTEND Anesthesiology | DX: Z01.818 Encounter for other preprocedural examination (principal); Z11.52 Encounter for screening for COVID-19 ==

== ENCOUNTER 2021-03-08 11:39 | Day surgery (SDC) | payer MEDICARE ==
[~2021-03-08] VITALS: Ht 157.5 cm; Wt 63.5 kg
[~2021-03-08 11:39] MED LIST changes: +NS 1,000 ML IV ONE
--- OUTSIDE RECORDS SUMMARY | 2021-03-08 11:45 | CCD | Continuity of Care Document ---
Author Author Randee NAYAK MD Organization Unknown Address [address] [place] [address], [place] [address] Phone [phone] Care Team Providers Care Professor Of Violin Name Role Phone Nael Morillo MD AUTM [phone] Compa Shaikh MD AUTM [phone] Tanner Vale MD AUTM [phone] Ashley Mcneill MD AUTM [phone] Iraida Mejia AUTM [phone] Problems Active Problems Provider Date Precordial pain Sonido Nayak MD Onset: 01/09/2017 Pure hypercholesterolemia Sonido Nayak MD Onset: 2016 Palpitations Sonido Nayak MD Onset: 01/09/2017 Heart murmur Sonido Nayak MD Onset: 01/09/2017 Dietary management surveillance Sonido Nayak MD Onset: 01/09/2017 Dyspnea XIOMY Stinson Onset: 05/29/2020 Social History Type Date Description Comments Sex Unknown ETOH Use Does not consume alcohol Tobacco Use Start: Unknown Patient has never smoked Smoking Status Reviewed: 05/29/20 Patient has never smoked Exercise Type/Frequency Does housework sporadica lly Exercise Limitations Back Pain Exercise Limitations Palpitations Exercise Limitations Shortness Of Breath Exercise Limitations Orthopedic Problem tendonit is in left ankle/lower leg; MCL and ACL issues in left knee Allergies, Adverse Reactions, Alerts Active Allergies Criticality Reaction | Severity Comments Date Aspirin Unable to assess criticality ulcers 01/09/2017 Sulindac Unable to assess criticality 05/28/2020 Medications Active Medications SIG Qnty Indications Ordering Provide r Date Omeprazole 40mg Capsules DR 1 by mouth twice every day Ashley Mcneill MD 11/16/2020 Vitamin B Complex Tablets 1 by mouth every day Unknown 11/16/2020 Zonisamide 100mg Capsules 1 by mouth twice daily Iraida Mejia PA 11/16/2020 Venlafaxine HCL 75mg Tablets 1 by mouth every day with 150 mg dose Unknown 11/15 Seroquel 50mg Tablets 1 by mouth once a day at bedtime Compa Shaikh MD 05/28/2020 Multivitamin Women 50+ 50+ Tablets 1 by mouth every day Unknown 05/28/2020 Montelukast Sodium 10mg Tablets 1 by mouth daily Unknown 05/28/2020 Buspirone HCL 30mg Tablets 1 by mouth twice a day Compa Shaikh MD 06/12/2018 Restasis 0.05% Emulsion 1 drop in both eyes twice a day Unknown 04/02/2018 [place] 3 1000mg Capsules 1 by mouth two times a day Unknown 04/02/2018 Flonase Allergy Relief 50mcg/Act Suspension 2 sprays nasally daily as needed Tani Nayak MD 02/06/2017 Nitroglycerin 0.4mg Tablets Sub 1 tab sl every 5 min times 3 doses as needed chest disc 30tabs J jay jay Schofield MD 01/08/2017 Tramadol HCL 50mg Tablets 1 by mouth every 6 hours as needed, as directed Unknown 0 01/08/2017 Voltaren 1% Gel apply as d irected daily Unknown 01/08/2017 Lidoderm 5% Patches as directed as needed Unknown 01/08/2017 Acetaminophen 500mg Tablets a s needed Unknown 01/08/2017 Artificial Tears 1.4% Solution 1gtt both eyes three times a day, as needed Unknown 01/08/2017 Refresh Tears 0.5% Solution both eyes as needed Unknown 01/08/2017 Lorazepam 0.5mg Tablets 2 by mouth once a day as needed Unknown 01/08/2017 Proair HFA 108(90Base) mcg/Act Aer osol 2 puffs by mouth as needed Unknown 017 Meclizine HCL 25mg Tablets 1 by mouth daily as needed Unknown 01/08/2017 Zocor 20mg Tablets take 1 tab in the evening Unknown 01/08/2017 Venlafaxine HCL ER 150mg Caps ER 2 4HR 1 by mouth every day Unknown 01/08/2017 Immunizations Description No Information Available Vital Signs Date Vital Result Comment 05/29/2020 1:29pm Weight 145.00 lb Height 62 inches 5'2" BMI (Body Mass Index) 26.5 kg/m2 Heart Rate 95 /min BP Systolic Sitting 130 mmHg Ra, medium cuff BP Diastolic Sitting 86 mmHg Ra, medium cuff 04/03/2018 12:52pm Weight 136.00 lb Height 62 inches 5'2" BMI (Body Mass Index) 24.9 kg/m2 BP Systolic Sitting 158 mmHg Adult cuff/LA BP Diastolic Sitting 98 mmHg Adult cuff/LA Results Description No Information Available Procedures Date Code Description Status 11/12/2020 78728 Chronic Care MGMT 20 Mins Clinical Staff Time Per Calendar Month Completed 11/12/2020 63443 Chronic Care Management Services Ea Addl 20 Min Completed 10/07/2020 96730 Chronic Care MGMT 20 Mins Clinical Staff Time Per Calendar Month Completed 10/07/2020 64724 Chronic Care Management Services Ea Addl 20 Min Completed 09/04/2020 35168 Chronic Care MGMT 20 Mins Clinical Staff Time Per Calendar Month Completed 09/04/2020 21469 Chronic Care Management Services Ea Addl 20 Min Completed 07/29/2020 21202 Chronic Care MGMT 20 Mins Clinical Staff Time Per Calendar Month Completed 07/29/2020 55998 Chronic Care Management Services Ea Addl 20 Min Completed 07/20/2020 15750 Echocardiogram 2-D Doppler Color Completed 07/17/2020 55315 Chronic Care MGMT 20 Mins Clinical Staff Time Per Calendar Month Completed 07/17/2020 36733 Chronic Care Management Services Ea Addl 20 Min Completed Medical Devices Description No Information Available Encounters Type Date Location Provider Dx Diagnosis Office Visit 11/12/2020 8:29a Main Office Sonido Nayak MD E78.0 0 Pure hypercholesterolemia, unspecified R00.2 Palpitations Office Visit 10/07/2020 7:54a Main Office Sonido Nayak MD E78.0 0 Pure hypercholesterolemia, unspecified R00.2 Palpitations Office Visit 09/04/2020 9:55a Main Office Sonido Nayak MD E78.0 0 Pure hypercholesterolemia, unspecified R00.2 Palpitations Office Visit 07/29/2020 2:48p Main Office Sonido Nayak MD R00.2 Palpitations E78.00 Pure hypercholesterolemia, u nspecified Office Visit 07/17/2020 1:51p Main Office Sonido Nayak MD E78.0 0 Pure hypercholesterolemia, unspecified R07.2 Precordial pain R00.2 Palpitations Assessments Date Code Description Provider 11/12/2020 E78.00 Pure hypercholesterolemia, unspe cified Sonido Nayak MD 11/12/2020 R00.2 Palpitations Sonido Nayak MD 10/07/2020 E78.00 Pure hypercholesterolemia, unspe cified Sonido Nayak MD 10/07/2020 R00.2 Palpitations Sonido Nayak MD 09/04/2020 E78.00 Pure hypercholesterolemia, unspe cified Sonido Nayak MD 09/04/2020 R00.2 Palpitations Sonido Nayak MD 07/29/2020 R00.2 Palpitations Sonido Nayak MD 07/29/2020 E78.00 Pure hypercholesterolemia, unspe cified Sonido Nayak MD 07/20/2020 R00.2 Palpitations ECHO 07/20/2020 R06.02 Shortness of breath ECHO 07/17/2020 E78.00 Pure hypercholesterolemia, unspe cified Sonido Nayak MD 07/17/2020 R07.2 Precordial pain Sonido Nayak MD 07/17/2020 R00.2 Palpitations Sonido Nayak MD Plan of Treatment Future Appointment(s):* 05/31/2021 1:00 pm - XIOMY Stinson at Main Office 05/29/2020 - XIOMY Stinson* R07.2 Precordial pain* Recommendations:* Discussed repeat stress testing, at this time patient denies stress testing She is agreeable to let us know if this pain changes or becomes more consistent * R00.2 Palpitations* New Labs:* BMP, Ordered: 05/29/20 * Magnesium Level, Ordered: 05/29/20 * Thyroid Stimulating Hormone, Ordered: 05/29/20 * Free T4, Ordered: 05/29/20 * Recommendations:* Echocardiogram Doppler ordered for further evaluation Holter monitor discussed with patient, at this time she denies further evaluation with Holter monitor Please obtain labs Decrease caffeine consumption Patient agreeable to contact us if these palpitations change or worsen * R06.02 Shortness of breath* Recommendations:* Echocardiogram Doppler ordered for further evaluation As above, patient refuses further stress testing at this time She is agreeable to adhere to her asthma regimen and will be following with her primary care provider Patient is agreeable to contact us if her shortness of breath worsens * E78.00 Pure hypercholesterolemia, unspecified* New Labs:* Lipid Panel, Ordered: 05/29/20 * Recommendations:* Please obtain fasting labs Continue Zocor at the current dosage * Z71.3 Dietary counseling and surveillance* Recommendations:* Recommended for patient to follow a more whole food diet. Advised patient to avoid overly processed foods and packaged foods. Advised patient to avoid sodas, juices and other liquid calories. Recommended at least 30 minutes of exercise 3 days a week. * All * Follow up:* Follow up in 1 year Functional Status Functional Condition Comment Date Status Independent with all ADL's Activ e Mental Status Description No Information Available Referrals Description No Information Available
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
--- OUTSIDE RECORDS SUMMARY | 2021-03-08 11:45 | CCD | Continuity of Care Document ---
Author Author Randee NAYAK MD Organization Unknown Address [address] [place] [address], [place] [address] Phone [phone] Care Team Providers Care Law Examiner Name Role Phone Nael Morillo MD AUTM [phone] Compa Shaikh MD AUTM [phone] Tanner Vale MD AUTM [phone] Ashley Mcneill MD AUTM [phone] Iraida Mejia AUTM [phone] Problems Active Problems Provider Date Precordial pain Soindo Nayak MD Onset: 01/09/2017 Pure hypercholesterolemia Sonido Nayak MD Onset: 2016 Palpitations Sonido Nayak MD Onset: 01/09/2017 Heart murmur Sondio Nayak MD Onset: 01/09/2017 Dietary management surveillance [...] both eyes twice a day Unknown 04/02/2018 [place] 3 1000mg Capsules 1 by mouth two [...] Information Available Procedures Date Code Description Status 12/15/2020 28470 Chronic Care MGMT 20 Mins Clinical Staff Time Per Calendar Month Completed 11/12/2020 57080 Chronic Care MGMT 20 Mins Clinical Staff Time Per Calendar Month Completed 11/12/2020 45810 Chronic Care Management Services Ea Addl 20 Min Completed 10/07/2020 81272 Chronic Care MGMT 20 Mins Clinical Staff Time Per Calendar Month Completed 10/07/2020 47878 Chronic Care Management Services Ea Addl 20 Min Completed 09/04/2020 36842 Chronic Care MGMT 20 Mins Clinical Staff Time Per Calendar Month Completed 09/04/2020 04028 Chronic Care Management Services Ea Addl 20 Min Completed 07/29/2020 36863 Chronic Care MGMT 20 Mins Clinical Staff Time Per Calendar Month Completed 07/29/2020 88396 Chronic Care Management Services Ea Addl 20 Min Completed Medical Devices Description No Information Available Encounters Type Date Location Provider Dx Diagnosis Office Visit 12/15/2020 9:11a Main Office Sonido Nayak MD E78.0 0 Pure hypercholesterolemia, unspecified R00.2 Palpitations Office Visit 11/12/2020 8:29a Main Office Sonido [...] R00.2 Palpitations E78.00 Pure hypercholesterolemia, u nspecified Assessments Date Code Description Provider 12/15/2020 E78.00 Pure hypercholesterolemia, unspe cified Sonido Nayak MD 12/15/2020 R00.2 Palpitations Sonido Nayak MD 11/12/2020 E78.00 Pure hypercholesterolemia, unspe cified Sonido Nayak MD 11/12/2020 R00.2 Palpitations Sonido Nayak MD 10/07/2020 E78.00 Pure hypercholesterolemia, unspe cified Sonido Nayak MD 10/07/2020 R00.2 Palpitations Sonido Nayak MD 09/04/2020 E78.00 Pure hypercholesterolemia, unspe cified Sonido Nayak MD 09/04/2020 R00.2 Palpitations Sonido Nayak MD 07/29/2020 R00.2 Palpitations Sonido Nayak MD 07/29/2020 E78.00 Pure hypercholesterolemia, unspe cified Sonido Nayak MD Plan of Treatment Future Appointment(s):* 05/31/2021 1:00 pm - XIOMY Stinson at Main Office 05/29/2020 - XOIMY Stinson* R07.2 Precordial pain* Recommendations:* Discussed repeat [...]
--- OUTSIDE RECORDS SUMMARY | 2021-03-08 11:45 | CCD | Continuity of Care Document ---
Author Author Randee NAYAK MD Organization Unknown Address [address] [place] [address], [place] [address] Phone [phone] Care Team Providers Care Softball Umpire Name Role Phone Nael Morillo MD AUTM [phone] Compa Shaikh MD AUTM [phone] Tanner Vale MD AUTM Ashley Mcneill MD AUTM [phone] Iraida Mejia AUTM [phone] Problems Active Problems Provider Date Precordial pain [...] both eyes twice a day Unknown 04/02/2018 [place] 3 1000mg Capsules 1 by mouth two [...] Available Procedures Date Code Description Status 11/12/2020 75636 Chronic Care MGMT 20 Mins Clinical Staff Time Per Calendar Month Completed 11/12/2020 18672 Chronic Care Management Services Ea Addl 20 Min Completed 10/07/2020 96443 Chronic Care MGMT 20 Mins Clinical Staff Time Per Calendar Month Completed 10/07/2020 67437 Chronic Care Management Services Ea Addl 20 Min Completed 09/04/2020 26213 Chronic Care MGMT 20 Mins Clinical Staff Time Per Calendar Month Completed 09/04/2020 53475 Chronic Care Management Services Ea Addl 20 Min Completed 07/29/2020 92251 Chronic Care MGMT 20 Mins Clinical Staff Time Per Calendar Month Completed 07/29/2020 82024 Chronic Care Management Services Ea Addl 20 Min Completed 07/20/2020 37472 Echocardiogram 2-D Doppler Color Completed 07/17/2020 38641 Chronic Care MGMT 20 Mins Clinical Staff Time Per Calendar Month Completed 07/17/2020 28952 Chronic Care Management Services Ea Addl 20 [...]
--- OUTSIDE RECORDS SUMMARY | 2021-03-08 11:45 | CCD | Continuity of Care Document ---
Author Author Randee NAYAK MD Organization Unknown Address [address] [place] [address], [place] [address] Phone [phone] Care Team Providers Care Inspector Fuel Hose Name Role Phone Nael Morillo MD AUTM [phone] Compa Shaikh MD AUTM [phone] Tanner Vale MD AUTM Ashley Mcneill MD AUTM [phone] Iraida Mejia AUTM [phone] Problems Active Problems Provider Date Precordial pain oSnido Nayak MD Onset: 01/09/2017 Pure hypercholesterolemia Sonido [...] MCL and ACL issues in left knee Allergies and adverse reactions Active Allergies Criticality Reaction | Severity Comments [...] mouth once a day at bedtime Compa Sahikh MD 05/28/2020 Multivitamin Women 50+ 50+ Tablets 1 by mouth every day Unknown 05/28/2020 Montelukast Sodium 10mg Tablets 1 by mouth daily Unknown 05/28/2020 Buspirone HCL 30mg Tablets 1 by mouth twice a day Compa Shaikh MD 06/12/2018 Restasis 0.05% Emulsion 1 drop in both eyes twice a day Unknown 04/02/2018 [place] 3 1000mg Capsules 1 by mouth two [...] Information Available Procedures Date Code Description Status 01/08/2021 22997 Chronic Care MGMT 20 Mins Clinical Staff Time Per Calendar Month Completed 12/15/2020 35539 Chronic Care MGMT 20 Mins Clinical Staff Time Per Calendar Month Completed 11/12/2020 27485 Chronic Care MGMT 20 Mins Clinical Staff Time Per Calendar Month Completed 11/12/2020 55016 Chronic Care Management Services Ea Addl 20 Min Completed 10/07/2020 55240 Chronic Care MGMT 20 Mins Clinical Staff Time Per Calendar Month Completed 10/07/2020 47476 Chronic Care Management Services Ea Addl 20 Min Completed 09/04/2020 08897 Chronic Care MGMT 20 Mins Clinical Staff Time Per Calendar Month Completed 09/04/2020 29660 Chronic Care Management Services Ea Addl 20 Min Completed Medical Devices Description No Information Available Encounters Type Date Location Provider Dx Diagnosis Office Visit 01/08/2021 7:50a Main Office Sonido Nayak MD E78.0 0 Pure hypercholesterolemia, unspecified R00.2 Palpitations Office Visit 12/15/2020 9:11a Main Office Sonido [...] E78.0 0 Pure hypercholesterolemia, unspecified R00.2 Palpitations Assessments Date Code Description Provider 01/08/2021 E78.00 Pure hypercholesterolemia, unspe cified Sonido Nayak MD 01/08/2021 R00.2 Palpitations Sonido Nayak MD 12/15/2020 E78.00 Pure hypercholesterolemia, unspe umesh Nayak MD 12/15/2020 R00.2 Palpitations Sonido Nayak MD 11/12/2020 E78.00 Pure hypercholesterolemia, unspe cified Sonido Nayak MD 11/12/2020 R00.2 Palpitations Sonido Nayak MD 10/07/2020 E78.00 Pure hypercholesterolemia, unspe civishal Nayak MD 10/07/2020 R00.2 Palpitations Sonido Nayak MD 09/04/2020 E78.00 Pure hypercholesterolemia, unspe umesh Nayka MD 09/04/2020 R00.2 Palpitations Sonido Nayak MD Plan of [...]
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
--- OUTSIDE RECORDS SUMMARY | 2021-03-08 11:45 | CCD | Continuity of Care Document ---
Author Author Randee NAYAK MD Organization Unknown Address [address] [place] [address], [place] [address] Phone [phone] Care Team Providers Care Bartenders Name Role Phone Nael Morillo MD AUTM [phone] Compa Shaikh MD AUTM [phone] Tanner Vale MD AUTM [phone] Ashley Mcneill MD AUTM [phone] Iraida Mejia AUTM [phone] Problems Active Problems Provider Date Precordial pain [...] both eyes twice a day Unknown 04/02/2018 [place] 3 1000mg Capsules 1 by mouth two [...] Available Procedures Date Code Description Status 12/15/2020 53540 Chronic Care MGMT 20 Mins Clinical Staff Time Per Calendar Month Completed 11/12/2020 91801 Chronic Care MGMT 20 Mins Clinical Staff Time Per Calendar Month Completed 11/12/2020 48676 Chronic Care Management Services Ea Addl 20 Min Completed 10/07/2020 28339 Chronic Care MGMT 20 Mins Clinical Staff Time Per Calendar Month Completed 10/07/2020 99901 Chronic Care Management Services Ea Addl 20 Min Completed 09/04/2020 14362 Chronic Care MGMT 20 Mins Clinical Staff Time Per Calendar Month Completed 09/04/2020 50868 Chronic Care Management Services Ea Addl 20 Min Completed 07/29/2020 42465 Chronic Care MGMT 20 Mins Clinical Staff Time Per Calendar Month Completed 07/29/2020 08423 Chronic Care Management Services Ea Addl 20 [...]
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
--- OUTSIDE RECORDS SUMMARY | 2021-03-08 11:45 | CCD ---
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 Active confirmed 278864462 Problem Gastroesophageal reflux disease without esophagitis K21.9 Active confirmed 694378226 Problem Other chronic pain G89.29 Active confirmed 8 4938478 Problem Mixed hyperlipidemia E78.2 Active confirmed 401457866 Problem Vitamin D deficiency E55.9 Active confirmed 11261145 Problem Chronic allergic rhinitis J30.9 Active confirmed 95843768 Problem Moderate persistent asthma without complication J4 5.40 Active confirmed 622208765 Problem Spondylosis without myelopathy or radiculopathy, cervical region M47.812 Active confirmed 985839436 Problem 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.812 Active confirmed 76143429947047033 Problem Recurrent major depressive disorder, in partial remission F33.41 Active confirmed 86175003 Problem Spondylosis without myelopathy or radiculopathy, lumbosacral region M47.817 Active confirmed 00247705 Problem Post concussive syndrome F07.81 Active confirmed 47486723 Problem Spondylosis without myelopathy or radiculopathy, lumbar region M47.816 Active confirmed 822450363 Problem Bilateral hearing loss, unspecified hearing loss type H91.93 Active confirmed 63022340 Problem Dry eyes H04.123 Active confirmed 937035478 Problem Panic disorder F41.0 Active confirmed 17829 1005 Problem Psychophysiological insomnia F51.04 Active confirme d 504879752 Problem Age-related osteoporosis without current pathological fracture M81.0 Active confirmed 03578720 ALLERGIES Allergen (clinical drug ingredient) Drug/Non Drug Allergy do cumented on EMR Reaction Allergy Type Onset Date Status meat (CRAWLS OR FLYS) Nausea/Vomiting Non Drug Allergy Active aspirin Aspirin([facility] Code:[address]-32) Nausea/Vomiting Drug Aller gy Active Perfume Perfume Dyspnea Drug Allergy Active Clinoril Tongye and lip blisters Drug Allergy Active ENCOUNTERS from 1955 to 2021-02-08 Encounter Location Date Provider Diagnosis [facility] [address] Floor [phone] [place] [address] Jan, Tanner Acuña IMMUNIZATIONS Vaccine Route Administration Date Status COVID-19 dose #2 given elsewhere Unspecified Unknown Jul Administered COVID-19 dose #1 given elsewhere Unspecified Unknown Mar 2020 Administered Pneumococcal Adult 0.5mL Pneumovax 23 IM [...] Education Language: Question Answer Notes Languages spoken: Malagasy Orthodoxy: Question Answer Notes Orthodoxy 06 Bahai No amish beliefs that would impact health care. Domestic [...] REASON FOR REFERRAL No Information VITAL SIGNS No information MEDICATIONS Medication SIG (Take, Route, Frequency, Duration) Notes Start Da te End Date Status Nebo 3-6-9 - as directed Orally Not -Taking Voltaren 1 % as directed topically low back TID PRN Apr Active ProAir HFA 108 (90 Base) MCG/ACT 2 puffs Inhalation Every 4 hour s, as needed Active Acetaminophen 500 MG 1 tablet as needed Orally 1 to 2 tabs e very 6 hrs prn mdd4 Oct, Active Tens Unit - daily prn Active Fluticasone Propionate 50 MCG/ACT 2 sprays in each nostril Nasal ly Once a day Jan, Active Flovent HFA 110 MCG/ACT 1 puff Inhalation Twice a day 2020 Active Montelukast Sodium 10 MG 1 tablet Orally Once a day Active Lidoderm 5 % 2 patches to intact skin rem ove after 12 hours Externally low back at bedtime for pain Active Fish Oil 1000 MG 1 capsule Orally Twice a day Active Simvastatin 20 MG TAKE ONE TABLET BY MOUTH AT BEDTIME oral ly Daily for 90 days Active Gabapentin 100 MG 1 capsule Orally 3x a day Not-Taking Vitamin D (Cholecalciferol) 25 MCG (1000 UT) 1 capsule Orally twice a day Active busPIRone HCl 30 MG 1 tablets Orally twice a day Active LORazepam 0.5 MG 2 tablets in AM 1 tablet in PM My mouth daily through Dr. Pitts Daily as needed more than 3 days ago Active Meclizine HCl 25 MG 1 tablet by mouth Once a day as needed for 90 day s Active NexIUM 40 MG 1 capsule Orally Once a day for 90 day(s) Sep, Active valACYclovir HCl 1 GM 1 tablet Orally Once a day x 5 days as needed for 90 days Active Restasis 0.05 % 2 drops into affected eye Ophthalmic Twice a day Active Venlafaxine HCl 150 MG 1 tablet Orally Once a day Active QUEtiapine Fumarate 50 MG 1 tablet Orally Once a day Active Venlafaxine HCl 75 MG 1 tablet with food Orally Once a day for 30 day (s) Active Calcium 500 MG 1 tablet with meals Orally Twice a day for 30 day(s) Active Artificial Tears 1.4 % 1 gtt ou Ophthalmic 4x/day as needed Active Zonisamide 25 MG 2 capsules Orally Twice a day Active Refresh 1.4-0.6 % 2 drops each eye 2-4 x/day as needed Active Alaway 0.025 % 1 drop into affected eye Ophthalmic Twice a day Active Nitroglycerin 0.4 MG as directed Sublingual At on set of symptoms, then in 5 minuts if not resolved. If persistent go to ER. Dec, Active Multivitamin Adults - 1 Orally Daily Active Systane 0.4-0.3 % 2 drops each eye Daily Active traMADol HCl 50 MG 1 tablet as needed Orally Daily for 30 days 0900 30 Dec, 2020 Active PROCEDURES No Information RESULTS No Results REASON FOR VISIT Trigger Point Injections MEDICAL (GENERAL) HISTORY Type Description Date Medical History Asthma, mild intermittent/is /vjqermpf-tkrgjix-Jlxtaqdn 2010 normal PFTs except for very mild [...] No Information FUNCTIONAL STATUS No Information ASSESSMENTS No Information PLAN OF TREATMENT Medication Medication Name Sig Start Date Stop Date traMADol HCl 50 MG 1 tablet as needed Orally Daily for 30 days 3 0 Dec, 2020 Next Appt Details Provider Name:Tanner Arianne, 2021-02-22 03:00:00 PM, [address], , [place], [address], Provider Name:Ashlye Mcneill, 2021-03-01 01:00:00 PM, [address] [facility], , [place], [address], Insurance Providers Payer Name Payer Address Payer Phone Insured Name Patient Relati onship to Insured Coverage Start Date Coverage End Date [facility] [employer] [address] [facility] [id number] YUNIEL CANAS 1991
--- OUTSIDE RECORDS SUMMARY | 2021-03-08 11:45 | CCD | Summary of Care ---
Author Author [facility] Address Unknown Phone Unavailable Care Team Providers Care Assistant Golf Professional Name Role Phone Rad Smtyh MD PCP Reason for Visit * Reason Comments Memory Loss * Consultation (Routine) Referred By Contact Referred To Contact Status Reason Specialty Diagnoses / Procedures Iraida Mejia, XIOMY [address] [place] [address] Neuropsychology [facility] [address] [place] [phone] Authorized Physical Diagnoses Medicine and Headache, Rehabilitation unspecified Encounter Details Care Team Description Date Type Department Smith Crooks, PhD [address] [place] [address] [phone] Memory loss 12/29/2020 Telemedicine Neuropsychology Assessment Program [address] [place] [phone] Allergies No Known Active Allergiesdocumented as of this encounter (statuses as of 12/29/2020) Medications End Date Status Medication Sig Dispensed Refills Start Date Active esomeprazole (NEXIUM) 40 Take 40 mg by 0 MG capsule mouth every morning before breakfast. Active venlafaxine (EFFEXOR) 100 Take 100 mg 0 MG tablet by mouth Three times daily. Active tramadol (ULTRAM) 50 MG Take 50 mg by 0 tablet mouth every 6 (six) hours as needed for Pain. Active acetaminophen (TYLENOL) Take 650 mg 0 325 MG tablet by mouth every 6 (six) hours as needed for Pain. Active lidocaine (LIDODERM) 5 % Place 1 patch 0 onto the skin every 24 (twenty-four) hours. Active quetiapine (SEROQUEL) 100 Take 100 mg 0 MG tablet by mouth Two Times Daily. Active meclizine (ANTIVERT) 12.5 Take 12.5 mg 0 MG tablet by mouth Three times daily as needed. Active atorvastatin (LIPITOR) 10 Take 10 mg by 0 MG tablet mouth daily. Active mometasone (NASONEX) 50 2 sprays by 0 MCG/ACT nasal spray Nasal route daily. Active albuterol (VENTOLIN HFA) Inhale 2 0 108 (90 BASE) MCG/ACT puffs into inhaler the lungs every 6 (six) hours. documented as of this encounter (statuses as of 12/29/2020) Active Problems No known active problemsdocumented as of this encounter (statuses as of 12/29/2020) Immunizations Name Administration Dates Next Due documented as of this encounter Social History Date Tobacco Use Types Packs/Day Years Used Never Smoker Smokeless Tobacco: Never Used Comments Alcohol Use Standard Drinks/Week No 0 (1 standard drink = 0.6 o z pure alcohol) Sex Assigned at Date Recorded Not on file documented as of this encounter Last Filed Vital Signs Not on filedocumented in this encounter Progress Notes * Smith Crooks, PhD - 12/29/2020 8:15 AM EDT Patient was seen for neuropsychological evaluation (4 hours). Patient will retur n on 01/05/21 to complete testing. Full report to follow. Due to health concerns and community risk brought about by the COVID-19 outbreak and [facility] declaration of a state of emergency, a telehealth interview was offered instead of an in-person appointment, which she agreed to do via telephone. Smith Crooks, Ph.D., ABPP-CN Diplomate, [place] [employer] of [employer] Neuropsychology documented in this encounter Plan of Treatment Care Team Description Date Type Specialty Smith Crooks, PhD [address] [place] [address] [phone] 01/05/2021 Confidential Physical Medicine a nd Rehabilitation Health Maintenance Due Date Last Done Comments Hepatitis C Screening (B. 1955 [id number]) MMR Vaccines (1 of 1 - [birth year]07/1956 Standard series) Varicella Vaccines (1 of 08/07/1956 2 - 2-dose childhood series) Breast Cancer Screening 2 2004 years Zoster Vaccines (1 of 2) 2004 DTaP,Tdap,and Td Vaccines 01/27/2017 12/30/2016 (2 - Td or Tdap) Osteoporosis Screening 2 08/07/2019 yr Pneumococcal Vaccine: 65+ 08/07/2019 Years (1 of 1 - PPSV23) Influenza Vaccine 01/22/2021 Colon Cancer Screening 10 04/04/2027 04/04/2017 yrs COVID-19 Vaccine Completed 07/23/2020, 07/23/2020, 06/25/2020, Additional history exists HIB Vaccines Aged Out No longer eligible based on patient's age to complete this topic Hepatitis A Vaccines Aged Out No longer eligibl e based on patient's age to complete this topic Hepatitis B Vaccines Aged Out No longer eligibl e based on patient's age to complete this topic IPV Vaccines Aged Out No longer eligible based on patient's age to complete this topic Pneumococcal Vaccine: Aged Out No longer eligib le based on patient's age to Pediatrics (0 to 5 Years) complete this topic and At-Risk Patients (6 to 64 Years) documented as of this encounter Results Not on filedocumented in this encounter Visit Diagnoses Diagnosis Memory loss documented in this encounter
--- OUTSIDE RECORDS SUMMARY | 2021-03-08 11:45 | CCD | Continuity of Care Document ---
Author Author Randee NAYAK MD Organization Unknown Address [address] [place] [address], [place] [address] Phone [phone] Care Team Providers Care Director Of Cardiology Service Line Name Role Phone Nael Morillo MD AUTM [phone] Compa Shaikh MD AUTM [phone] Tanner Vale MD AUTM Ashley Mcneill MD AUTM [phone] Iraida Mejia AUTM [phone] Problems Active Problems Provider Date Precordial pain [...] both eyes twice a day Unknown 04/02/2018 [place] 3 1000mg Capsules 1 by mouth two [...] Available Procedures Date Code Description Status 01/08/2021 99314 Chronic Care MGMT 20 Mins Clinical Staff Time Per Calendar Month Completed 12/15/2020 07192 Chronic Care MGMT 20 Mins Clinical Staff Time Per Calendar Month Completed 11/12/2020 17036 Chronic Care MGMT 20 Mins Clinical Staff Time Per Calendar Month Completed 11/12/2020 99347 Chronic Care Management Services Ea Addl 20 Min Completed 10/07/2020 97843 Chronic Care MGMT 20 Mins Clinical Staff Time Per Calendar Month Completed 10/07/2020 94867 Chronic Care Management Services Ea Addl 20 Min Completed 09/04/2020 39807 Chronic Care MGMT 20 Mins Clinical Staff Time Per Calendar Month Completed 09/04/2020 57400 Chronic Care Management Services Ea Addl 20 [...] MD 09/04/2020 E78.00 Pure hypercholesterolemia, unspe umesh Nayak MD 09/04/2020 R00.2 Palpitations Snoido Nayak MD Plan of Treatment Future Appointment(s):* [...]
--- OUTSIDE RECORDS SUMMARY | 2021-03-08 11:45 | CCD ---
Author Author [facility] Organization [facility] Address Unknown Phone Unavailable Care Team Providers Care Certified Optician Name Role Phone Ashley Mcneill Unavailable PROBLEMS Type Condition ICD9-CM Code [id number] Code Onset Dates Condition S tatus W/U Status Risk SNOMED Code Notes Problem Herpes simplex infection of perianal skin A60.1 Active confirmed 507826734 Problem Gastroesophageal reflux disease without esophagitis K21.9 Active confirmed 429042556 Problem Other chronic pain G89.29 Active confirmed 8 2157592 Problem Mixed hyperlipidemia E78.2 Active confirmed 298656647 Problem Vitamin D deficiency E55.9 Active confirmed 99423087 Problem Chronic allergic rhinitis J30.9 Active confirmed 41130721 Problem Moderate persistent asthma without complication J4 5.40 Active confirmed 530014027 Problem Spondylosis without myelopathy or radiculopathy, cervical region M47.812 Active confirmed 809441137 Problem 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.812 Active confirmed 92605197822577951 Problem Recurrent major depressive disorder, in partial remission F33.41 Active confirmed 54450264 Problem Spondylosis without myelopathy or radiculopathy, lumbosacral region M47.817 Active confirmed 76980957 Problem Post concussive syndrome F07.81 Active confirmed 46247046 Problem Spondylosis without myelopathy or radiculopathy, lumbar region M47.816 Active confirmed 942825806 Problem Bilateral hearing loss, unspecified hearing loss type H91.93 Active confirmed 99864286 Problem Dry eyes H04.123 Active confirmed 744846165 Problem Panic disorder F41.0 Active confirmed 07597 1005 Problem Psychophysiological insomnia F51.04 Active confirme d 834459456 Problem Age-related osteoporosis without current pathological fracture M81.0 Active confirmed 36357873 ALLERGIES Allergen (clinical drug ingredient) Drug/Non Drug Allergy do cumented on EMR Reaction Allergy Type Onset Date Status meat (CRAWLS OR FLYS) Nausea/Vomiting Non Drug Allergy Active aspirin Aspirin([facility] Code:[address]-95) Nausea/Vomiting Drug Aller gy Active Perfume Perfume Dyspnea Drug Allergy Active Clinoril Tongye and lip blisters Drug Allergy Active ENCOUNTERS from 1955 to 2021-03-04 Encounter Location Date Provider Diagnosis [facility] [address] [facility] [phone] [place] [address] Feb, Ashley Mcneill Moderate persistent asthma w ithout complication J45.40 ; Chronic allergic rhinitis J30.9 ; Gastroesophageal reflux disease without esophagitis K21.9 ; Mixed hyperlipidemia E78.2 and Herpes simplex infection of perianal skin A60.1 IMMUNIZATIONS Vaccine Route Administration Date Status COVID-19 dose #2 given elsewhere Unspecified Unknown Apr 2020 Administered COVID-19 dose #1 given elsewhere Unspecified Unknown Mar ch 2020 Administered Pneumococcal Adult 0.5mL Pneumovax 23 [...] Education Language: Question Answer Notes Languages spoken: Romansh Jewish: Question Answer Notes Jewish 06 Buddhist No anabaptist beliefs that would impact health care. Domestic [...] FOR REFERRAL No Information VITAL SIGNS Weight 139.4 lbs Feb, Height 62 in Feb, BMI 25.49 kg/m2 Feb, Heart Rate 90 /min Feb, Respiratory Rate 18 /min 08 Feb, 2021 Temperature 96.8 degrees Fahrenheit Feb, Oximetry 96 08 Feb, 2021 Blood pressure systolic 120 mm Hg Feb, Blood pressure diastolic 80 mm Hg Feb, MEDICATIONS Medication SIG (Take, Route, Frequency, Duration) Notes Start Da te End Date Status Flovent HFA 110 MCG/ACT 1 puff Inhalation Twice a day 2020 Active Venlafaxine HCl 75 MG 1 tablet with food Orally Once a day for 30 day (s) Active QUEtiapine Fumarate 50 MG 1 tablet Orally Once a day Active Tens Unit - daily prn Active Fluticasone Propionate 50 MCG/ACT 2 sprays in each nostril Nasal ly Once a day Jan, Active Calcium 600 MG 1 tablet with meals Orally Once a day Active Lidoderm 5 % 2 patches to intact skin rem ove after 12 hours Externally low back at bedtime for pain Active Zonisamide 100 MG 2 capsules Orally Twice a day Active valACYclovir HCl 1 GM 1 tablet Orally Once a day x 5 days as needed for 90 days Active Albuterol Sulfate HFA 108 (90 Base) MCG/ACT INHALE TWO PUFFS BY MOUTH EVERY 4 HOURS NEEDED Active Vitamin D (Cholecalciferol) 25 MCG (1000 UT) 1 capsule Orally twice a day Active Fish Oil 1000 MG 1 capsule Orally Twice a day Active busPIRone HCl 30 MG 1 tablets Orally twice a day Active Meclizine HCl 25 MG 1 tablet by mouth Once a day as needed for 90 day s Active Gabapentin 100 MG 1 capsule Orally 3x a day Not-Taking NexIUM 40 MG 1 capsule Orally Once a day Sep, Active Montelukast Sodium 10 MG TAKE ONE TABLET BY MOUTH EVERY DAY Active Restasis 0.05 % 2 drops into affected eye Ophthalmic Twice a day Active LORazepam 0.5 MG 2 tablets in AM 1 tablet in PM My mouth daily through Dr. Pitts Daily as needed more than 3 days ago Active Voltaren 1 % as directed topically low back TID PRN Apr Active Acetaminophen 500 MG 1 tablet as needed Orally 1 to 2 tabs e very 6 hrs prn mdd4 Oct, Active Simvastatin 20 MG TAKE ONE TABLET BY MOUTH AT BEDTIME orally Daily Active Venlafaxine HCl 150 MG 1 tablet Orally Once a day PLUS 70MG Active Artificial Tears 1.4 % 1 gtt ou Ophthalmic 4x/day as needed Active Refresh 1.4-0.6 % 2 drops each eye 2-4 x/day as needed Active traMADol HCl 50 MG 1 tablet as needed Orally for pain Daily for 30 days Feb, Active Systane 0.4-0.3 % 2 drops each eye Daily Active Nitroglycerin 0.4 MG as directed Sublingual At on set of symptoms, then in 5 minuts if not resolved. If persistent go to ER. Dec, Active Multivitamin Adults - 1 Orally Daily Active PROCEDURES No Information RESULTS No Results REASON FOR VISIT follow up MEDICAL (GENERAL) HISTORY Type Description Date Medical History Asthma, mild intermittent/is /axejphoq-lowlaxd-Lsheodpx 2010 normal PFTs except for very mild [...] deficiency Medical History L posterior knee verruca excision--[facility] History Degeneration of cervical intervertebral disc [...] Surgical History repair right shoulder and clavicle 2008 Surgical History right carpal tunnel repair 1990 [...] Notes Treatment Notes Treatm ent Clinical Notes Feb, Moderate persistent asthma without compl ication (ICD-10 - J45.40) Denies any recent asthma exacerbations; hasn't used albuterol in several months. Feb, Chronic allergic rhinitis (ICD-10 - J30.9) Allergies are well controlled. Feb, Gastroesophageal reflux dise ase without esophagitis (ICD-10 - K21.9) She states nexium is no longer working for reflux; has an EGD scheduled next week with Dr. Gomez. Feb, Mixed hyperlipidemia (ICD-10 - E78.2) Feb, Herpes simplex infection of perianal skin (ICD-1 0 - A60.1) PLAN OF TREATMENT Medication Medication Name Sig Start Date Stop Date NexIUM 40 MG 1 capsule Orally Once a day Sep, Simvastatin 20 MG TAKE ONE TABLET BY MOUTH AT BEDTIME orally Noemi ly Fluticasone Propionate 50 MCG/ACT 2 sprays in each nostril N asally Once a day Jan, Flovent HFA 110 MCG/ACT 1 puff Inhalation Twice a day Sep, Montelukast Sodium 10 MG TAKE ONE TABLET BY MOUTH EVERY DAY Albuterol Sulfate HFA 108 (90 Base) MCG/ACT INHALE TWO PUFFS BY MOUTH EVERY 4 HOURS NEEDED valACYclovir HCl 1 GM 1 tablet Orally Once a day x 5 days as needed for 90 days Treatment Notes Assessment Notes Clinical Notes Moderate persistent asthma without complication Denies any recent asthma exacerbations; hasn't used albuterol in several months. Chronic allergic rhinitis Allergies are well controlled. Gastroesophageal reflux disease without esophagitis She states nexium is no longer working for reflux; has an EGD scheduled next week with Dr. Gomez. Next Appt Details 09/2021; 30 min Reason:AWV Follow Up:09/2021; 30 minAWV Insurance Providers Payer Name Payer Address Payer Phone Insured Name Patient Relati onship to Insured Coverage Start Date Coverage End Date MEDICARE COMPLETE [facility] [address] [address] [facility] [id number] YUNIEL CANAS self
--- OUTSIDE RECORDS SUMMARY | 2021-03-08 11:46 | CCD ---
Author Author [facility] Organization [facility] Address Unknown Phone Unavailable Care Team Providers Care Gi Asst Name Role Phone Tanner Acuña Unavailable PROBLEMS Type Condition ICD9-CM Code [id number] Code Onset Dates Condition S tatus W/U Status Risk SNOMED Code Notes Problem Herpes simplex infection of perianal skin A60.1 Active confirmed 242104282 Problem Gastroesophageal reflux disease without esophagitis K21.9 Active confirmed 418246136 Problem Other chronic pain G89.29 Active confirmed 8 6731389 Problem Mixed hyperlipidemia E78.2 Active confirmed 328140664 Problem Vitamin D deficiency E55.9 Active confirmed 66303755 Problem Chronic allergic rhinitis J30.9 Active confirmed 39481258 Problem Moderate persistent asthma without complication J4 5.40 Active confirmed 360687275 Problem Spondylosis without myelopathy or radiculopathy, cervical region M47.812 Active confirmed 243394830 Problem 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.812 Active confirmed 62283682269627847 Problem Recurrent major depressive disorder, in partial remission F33.41 Active confirmed 99112578 Problem Spondylosis without myelopathy or radiculopathy, lumbosacral region M47.817 Active confirmed 69814311 Problem Post concussive syndrome F07.81 Active confirmed 78869244 Problem Spondylosis without myelopathy or radiculopathy, lumbar region M47.816 Active confirmed 628469874 Problem Bilateral hearing loss, unspecified hearing loss type H91.93 Active confirmed 04810362 Problem Dry eyes H04.123 Active confirmed 298396156 Problem Panic disorder F41.0 Active confirmed 39298 1005 Problem Psychophysiological insomnia F51.04 Active confirme d 894035047 Problem Age-related osteoporosis without current pathological fracture M81.0 Active confirmed 82793716 ALLERGIES Allergen (clinical drug ingredient) Drug/Non Drug Allergy do cumented on EMR Reaction Allergy Type Onset Date Status Clinoril Tongye and lip blisters Drug Allergy Active meat (CRAWLS OR FLYS) Nausea/Vomiting Non Drug Allergy Active aspirin Aspirin([facility] Code:[address]-32) Nausea/Vomiting Drug Aller gy Active Perfume Perfume Dyspnea Non Drug Allergy Active ENCOUNTERS from 1955 to 2020-12-15 Encounter Location Date Provider Diagnosis [facility] [address] [phone] [place] [address] Nov, Tanner Acuña Other chronic pain G 89.29 IMMUNIZATIONS Vaccine Route Administration Date Status COVID-19 [...] Education Language: Question Answer Notes Languages spoken: Uzbek Baptist: Question Answer Notes Baptist 06 Druze No mormonism beliefs that would impact health care. Domestic [...] affected eye Ophthalmic Twice a day Active [place] 3-6-9 - as directed Orally Not -Taking [...] Information RESULTS No Results REASON FOR VISIT TRAMADOL REFILL MEDICAL (GENERAL) HISTORY Type Description Date Medical History Asthma, mild intermittent/is /cgdmorkw-hrrgegp-Agxkixxt 2010 normal PFTs except for very mild [...] Treatment Notes Treatm ent Clinical Notes Nov, Other chronic pain (ICD-10 - G89.29) PLAN OF TREATMENT Medication Medication Name Sig Start Date Stop Date traMADol HCl 50 MG 1-2 tablet as needed Orally every 8 hrs prn mdd3 for 30 days Nov, Simvastatin 20 MG TAKE ONE TABLET BY MOUTH AT BEDTIME oral ly Daily for 90 days Next Appt Details Provider Name:Tanner Acuña, 2021-01-21 02:30:00 PM, [address], , [place], [address], Provider Name:Ashley Mcneill, 2021-03-01 01:00:00 PM, [address] [facility], , [place], [address], Insurance Providers Payer Name Payer Address Payer Phone Insured Name Patient Relati onship to Insured Coverage Start Date Coverage End Date [facility] [employer] [address] [facility] [id number] YUNIEL CANAS 1991
--- OUTSIDE RECORDS SUMMARY | 2021-03-08 11:46 | CCD ---
Author Author [facility] Organization [facility] Address Unknown Phone Unavailable Care Team Providers Care Tumbler Operator Name Role Phone Tanner Acuña Unavailable PROBLEMS Type Condition ICD9-CM Code [id number] Code Onset Dates Condition S tatus W/U Status Risk SNOMED Code Notes Problem Herpes simplex infection of perianal skin A60.1 Active confirmed 676654338 Problem Gastroesophageal reflux disease without esophagitis K21.9 Active confirmed 575331132 Problem Other chronic pain G89.29 Active confirmed 8 1693763 Problem Mixed hyperlipidemia E78.2 Active confirmed 815810331 Problem Vitamin D deficiency E55.9 Active confirmed 76775269 Problem Chronic allergic rhinitis J30.9 Active confirmed 96742169 Problem Moderate persistent asthma without complication J4 5.40 Active confirmed 162169623 Problem Spondylosis without myelopathy or radiculopathy, cervical region M47.812 Active confirmed 828476401 Problem 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.812 Active confirmed 84836610171480992 Problem Recurrent major depressive disorder, in partial remission F33.41 Active confirmed 75629525 Problem Spondylosis without myelopathy or radiculopathy, lumbosacral region M47.817 Active confirmed 15809711 Problem Post concussive syndrome F07.81 Active confirmed 64353254 Problem Spondylosis without myelopathy or radiculopathy, lumbar region M47.816 Active confirmed 696046983 Problem Bilateral hearing loss, unspecified hearing loss type H91.93 Active confirmed 26693657 Problem Dry eyes H04.123 Active confirmed 421963312 Problem Panic disorder F41.0 Active confirmed 13229 1005 Problem Psychophysiological insomnia F51.04 Active confirme d 613218257 Problem Age-related osteoporosis without current pathological fracture M81.0 Active confirmed 61986726 ALLERGIES Allergen (clinical drug ingredient) Drug/Non Drug Allergy do cumented on EMR Reaction Allergy Type Onset Date Status Clinoril Tongye and lip blisters Drug Allergy Active meat (CRAWLS OR FLYS) Nausea/Vomiting Non Drug Allergy Active aspirin Aspirin([facility] Code:[address]-92) Nausea/Vomiting Drug Aller gy Active Perfume Perfume Dyspnea Non Drug Allergy Active ENCOUNTERS from 1955 to 2020-12-08 Encounter Location Date Provider Diagnosis [facility] [address] [phone] [place] [address] 16 Nov, 2020 Tanner Acuña IMMUNIZATIONS Vaccine Route Administration Date [...] Education Language: Question Answer Notes Languages spoken: Chinese Confucianism: Question Answer Notes Confucianism 06 Rastafarian No holiness beliefs that would impact health care. Domestic [...] affected eye Ophthalmic Twice a day Active [place]antis 3-6-9 - as directed Orally Not -Taking [...] 1 capsule Orally twice a day Active QUEtiapine Fumarate 50 MG 1 tablet Orally Once a day Active Zocor 20 MG 1 tablet every evening Orally at bedtime Active Lidoderm 5 % 2 patches to intact skin rem ove after 12 hours Externally low back at bedtime for pain Active Venlafaxine HCl 150 MG 1 tablet Orally Once a day Active valACYclovir HCl 1 GM 1 tablet Orally Once a day x 5 days as needed for 90 days Active Voltaren 1 % as directed topically low back TID PRN Apr Active LORazepam 0.5 MG 2 tablets in AM 1 tablet in PM My mouth daily through Dr. Pitts Daily as needed more than 3 days ago Active Nitroglycerin 0.4 MG as directed Sublingual [...] a day for 30 day (s) Active traMADol HCl 50 MG 1-2 tablet as needed Orally every 8 hrs prn mdd3 12/07/20 0900 Sep, Active Fluticasone Propionate 50 MCG/ACT 2 sprays in each nostril Nasal ly Once a day Jan, Active ProAir HFA 108 (90 Base) MCG/ACT 2 puffs Inhalation Every 4 hour s, as needed Active Montelukast Sodium 10 MG 1 tablet Orally Once a day Active PROCEDURES No Information RESULTS No Results REASON FOR VISIT PHYSICAL THERAPY MEDICAL (GENERAL) HISTORY Type Description Date Medical History Asthma, mild intermittent/is /ubgevmgy-bisjjrk-Baxcqvuy 2010 normal PFTs except for very mild [...] Information ASSESSMENTS No Information PLAN OF TREATMENT Next Appt Details Provider Name:Tanner Acuña, 2021-01-21 02:30:00 PM, [address], , [place], [address], Provider Name:Ashley Mcneill, 2021-03-01 01:00:00 PM, [address] [facility], , [place], [address], Insurance Providers Payer Name Payer Address Payer Phone Insured Name Patient Relati onship to Insured Coverage Start Date Coverage End Date [facility] [employer] [address] [facility] [id number] YUNIEL CANAS 1991
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
--- OUTSIDE RECORDS SUMMARY | 2021-03-08 11:47 | CCD ---
Author Author [facility] Organization [facility] Address Unknown Phone Unavailable Care Team Providers Care Crutch Maker Name Role Phone Charlebois, A Juanita RPA C Unavailable Unavailable Charlebois, A Juanita RPA C Unavailable Unavailable Charlebois, A Juanita RPA C Unavailable Unavailable Charlebois, A Juanita RPA C Unavailable Unavailable Charlebois, A Juanita RPA C Unavailable Unavailable Charlebois, A Juanita RPA C Unavailable Unavailable Charlebois, A Juanita RPA C Unavailable Unavailable Charlebois, A Juanita RPA C Unavailable Unavailable Charlebois, A Juanita RPA C Unavailable Unavailable Charlebois, A Juanita RPA C Unavailable Unavailable Charlebois, A Juanita RPA C Unavailable Unavailable Charlebois, A Juanita RPA C Unavailable Unavailable Charlebois, A Juanita RPA C Unavailable Unavailable Charlebois, A Juanita RPA C Unavailable Unavailable Charlebois, A Ujanita RPA C Unavailable Unavailable Charlebois, A Juanita RPA C Unavailable Unavailable Charlebois, A Juanita RPA C Unavailable Unavailable Charlebois, A Juanita RPA C Unavailable Unavailable Charlebois, A Juanita RPA C Unavailable Unavailable Charlebois, A Juanita RPA C Unavailable Unavailable Charlebois, A Juanita RPA C Unavailable Unavailable Charlebois, A Juanita RPA C Unavailable Unavailable Charlebois, A Juanita RPA C Unavailable Unavailable Charlebois, A Juanita RPA C Unavailable Unavailable Charlebois, A Juanita RPA C Unavailable Unavailable Charlebois, A Juanita RPA C Unavailable Unavailable Charlebois, A Juanita RPA C Unavailable Unavailable Charlebois, A Juanita RPA C Unavailable Unavailable Charlebois, A Juanita RPA C Unavailable Unavailable Charlebois, A Juanita RPA C Unavailable Unavailable Charlebois, A Juanita RPA C Unavailable Unavailable Charlebois, A Juanita RPA C Unavailable Unavailable Charlebois, A Juanita RPA C Unavailable Unavailable CARONE, A TREY Unavailable Unavailable Trickey, J Iraida PA Unavailable Unavailable Trickey, J Iraida PA Unavailable Unavailable Trickey, J Iraida PA Unavailable Unavailable Trickey, J Iraida PA Unavailable Unavailable Trickey, J Iraida PA Unavailable Unavailable Trickey, J Iraida PA Unavailable Unavailable Trickey, J Iraida PA Unavailable Unavailable Trickey, J Iraida PA Unavailable Unavailable Trickey, J Iraida PA Unavailable Unavailable Trickey, J Iraida PA Unavailable Unavailable Trickey, J Iraida PA Unavailable Unavailable Trickey, J Iraida PA Unavailable Unavailable Trickey, J Iraida PA Unavailable Unavailable Trickey, J Iraida PA Unavailable Unavailable Trickey, J Iraida PA Unavailable Unavailable Trickey, J Iraida PA Unavailable Unavailable Trickey, J Iraida PA Unavailable Unavailable Trickey, J Iraida PA Unavailable Unavailable Trickey, J Iraida PA Unavailable Unavailable Trickey, J Iraida PA Unavailable Unavailable Trickey, J Iraida PA Unavailable Unavailable Trickey, J Iraida PA Unavailable Unavailable Trickey, J Iraida PA Unavailable Unavailable Trickey, J Iraida PA Unavailable Unavailable Trickey, J Iraida PA Unavailable Unavailable Trickey, J Iraida PA Unavailable Unavailable Trickey, J Iraida PA Unavailable Unavailable Trickey, J Iraida PA Unavailable Unavailable Trickey, J Iraida PA Unavailable Unavailable Trickey, J Iraida PA Unavailable Unavailable Trickey, J Iraida PA Unavailable Unavailable Trickey, J Iraida PA Unavailable Unavailable Trickey, J Iraida PA Unavailable Unavailable Trickey, J Iraida PA Unavailable Unavailable Trickey, J Iraida PA Unavailable Unavailable Trickey, J Iraida PA Unavailable Unavailable Trickey, J Iraida PA Unavailable Unavailable Trickey, J Iraida PA Unavailable Unavailable Trickey, J Iraida PA Unavailable Unavailable Trickey, J Iraida PA Unavailable Unavailable Trickey, J Iraida PA Unavailable Unavailable Trickey, J Iraida PA Unavailable Unavailable Trickey, J Iraida PA Unavailable Unavailable Trickey, J Iraida PA Unavailable Unavailable Trickey, J Iraida PA Unavailable Unavailable Trickey, J Iraida PA Unavailable Unavailable Trickey, J Iraida PA Unavailable Unavailable Trickey, J Iraida PA Unavailable Unavailable Trickey, J Iraida PA Unavailable Unavailable Margret Sauer MD Unavailable Unavailable Margret Sauer MD Unavailable Unavailable Margret Sauer MD Unavailable Unavailable Margret Sauer MD Unavailable Unavailable Margret Sauer MD Unavailable Unavailable Margret Sauer MD Unavailable Unavailable Margret Sauer MD Unavailable Unavailable Margret Sauer MD Unavailable Unavailable Margret Sauer MD Unavailable Unavailable Margret Sauer MD Unavailable Unavailable Dani Steve MD Unavailable Unavailable Dani Steve MD Unavailable Unavailable Dani Steve MD Unavailable Unavailable Dani Steve MD Unavailable Unavailable Dani Steve MD Unavailable Unavailable Dani Steve MD Unavailable Unavailable Dani Steve MD Unavailable Unavailable Dani Steve MD Unavailable Unavailable Dani Steve MD Unavailable Unavailable Dani Steve MD Unavailable Unavailable Dani Steve MD Unavailable Unavailable Dani Steve MD Unavailable Unavailable Dani Steve MD Unavailable Unavailable Dani Steve MD Unavailable Unavailable Dani Steve MD Unavailable Unavailable SteveDani mckeon MD Unavailable Unavailable SteveDani mckeon MD Unavailable Unavailable Dani Steve MD Unavailable Unavailable Dani Steve MD Unavailable Unavailable Dani Steve MD Unavailable Unavailable Dani Steve MD Unavailable Unavailable Dani Steve MD Unavailable Unavailable Dani Steve MD Unavailable Unavailable Dani Steve MD Unavailable Unavailable Dani Steve MD Unavailable Unavailable Dani Steve MD Unavailable Unavailable Dani Steve MD Unavailable Unavailable Dani Steve MD Unavailable Unavailable Dani Steve MD Unavailable Unavailable Dani Steve MD Unavailable Unavailable Dani Steve MD Unavailable Unavailable Dani Steve MD Unavailable Unavailable Steve, Dani Roach MD Unavailable Unavailable Steve, Dani Roach MD Unavailable Unavailable Steve, Dani Roach MD Unavailable Unavailable Steve, Dani Roach MD Unavailable Unavailable Steve, Dani Roach MD Unavailable Unavailable Steve, Dani Roach MD Unavailable Unavailable Steve, Dani Roach MD Unavailable Unavailable Steve, Dani Roach MD Unavailable Unavailable Steve, Dani Roach MD Unavailable Unavailable Steve, Dani Roach MD Unavailable Unavailable Steve, Dani Roach MD Unavailable Unavailable Steve, Dani Roach MD Unavailable Unavailable Steve, Dani Roach MD Unavailable Unavailable Steve, Dani Roach MD Unavailable Unavailable Steve, Dani Roach MD Unavailable Unavailable Steve, Dani Roach MD Unavailable Unavailable Steve, Dani Roach MD Unavailable Unavailable Steve, Dani Roach MD Unavailable Unavailable FIDEL, L MIKE PA Unavailable Unavailable FIDEL, L MIKE PA Unavailable Unavailable FIDEL, L MIKE PA Unavailable Unavailable FIDEL, L MIKE PA Unavailable Unavailable FIDEL, L MIKE PA Unavailable Unavailable FIDEL, L MIKE PA Unavailable Unavailable FIDEL, L MIKE PA Unavailable Unavailable FIDEL, L MIKE PA Unavailable Unavailable FIDEL, L MIKE PA Unavailable Unavailable FIDEL, L MIKE PA Unavailable Unavailable FIDEL, L MIKE PA Unavailable Unavailable FIDEL, L MIKE PA Unavailable Unavailable FIDEL, L MIKE PA Unavailable Unavailable FIDEL, L MIKE PA Unavailable Unavailable FIDEL, L MIKE PA Unavailable Unavailable FIDEL, L MIKE PA Unavailable Unavailable ANTECOL, Obed OSWALD MD Unavailable Unavailable ANTECOL, Obed OSWALD MD Unavailable Unavailable ANTECOL, Obed OSWALD MD Unavailable Unavailable ANTECOL, Obed OSWALD MD Unavailable Unavailable ANTECOL, Obed OSWALD MD Unavailable Unavailable ANTECOL, Obed OSWALD MD Unavailable Unavailable ANTECOL, Obed OSWALD MD Unavailable Unavailable ANTECOL, Obed OSWALD MD Unavailable Unavailable ANTECOL, Obed OSWALD MD Unavailable Unavailable ANTECOL, Obed OSWALD MD Unavailable Unavailable ANTECOL, Obed OSWALD MD Unavailable Unavailable ANTECOL, Obed OSWALD MD Unavailable Unavailable ANTECOL, Obed OSWALD MD Unavailable Unavailable ANTECOL, Obed OSWALD MD Unavailable Unavailable ANTECOL, Obed OSWALD MD Unavailable Unavailable ANTECOL, Obed OSWALD MD Unavailable Unavailable ANTECOL, Obed OSWALD MD Unavailable Unavailable ANTECOL, Obed OSWALD MD Unavailable Unavailable ANTECOL, Obed OSWALD MD Unavailable Unavailable ANTECOL, Obed OSWALD MD Unavailable Unavailable ANTECOL, Obed OSWALD MD Unavailable Unavailable ANTECOL, Obed OSWALD MD Unavailable Unavailable ANTECOL, Obed OSWALD MD Unavailable Unavailable ANTECOL, Obed OSWALD MD Unavailable Unavailable ANTECOL, Obed OSWALD MD Unavailable Unavailable ANTECOL, Obed OSWALD MD Unavailable Unavailable ANTECOL, Obed OSWALD MD Unavailable Unavailable ANTECOL, Obed OSWALD MD Unavailable Unavailable ANTECOL, Obed OSWALD MD Unavailable Unavailable ANTECOL, Obed OSWALD MD Unavailable Unavailable ANTECOL, Obed OSWALD MD Unavailable Unavailable ANTECOL, Obed OSWALD MD Unavailable Unavailable ANTECOL, Obed OSWALD MD Unavailable Unavailable ANTECOL, Obed OSWALD MD Unavailable Unavailable ANTECOL, Obed OSWALD MD Unavailable Unavailable ANTECOL, Obed OSWALD MD Unavailable Unavailable ANTECOL, Obed OSWALD MD Unavailable Unavailable ANTECOL, Obed OSWALD MD Unavailable Unavailable ANTECOL, Obed OSWALD MD Unavailable Unavailable ANTECOL, Obed OSWALD MD Unavailable Unavailable ANTECOL, Obed OSWALD MD Unavailable Unavailable ANTECOL, Obed OSWALD MD Unavailable Unavailable ANTECOL, Obed OSWALD MD Unavailable Unavailable ANTECOL, Obed OSWALD MD Unavailable Unavailable ANTECOL, Obed OSWALD MD Unavailable Unavailable ANTECOL, Obed OSWALD MD Unavailable Unavailable ANTECOL, Obed OSWALD MD Unavailable Unavailable ANTECOL, Obed OSWALD MD Unavailable Unavailable ANTECOL, Obed OSWALD MD Unavailable Unavailable ANTECOL, Obed OSWALD MD Unavailable Unavailable ANTECOL, Obed OSWALD MD Unavailable Unavailable ANTECOL, Obed OSWALD MD Unavailable Unavailable ANTECOL, Obed OSWALD MD Unavailable Unavailable ANTECOL, Obed OSWALD MD Unavailable Unavailable LISANDRA MEDEROS MD Unavailable Unavailable LISANDRA MEDEROS MD Unavailable Unavailable LISANDRA MEDEROS MD Unavailable Unavailable LISANDRA MEDEROS MD Unavailable Unavailable LISANDRA MEDEROS MD Unavailable Unavailable LISANDRA MEDEROS MD Unavailable Unavailable LISANDRA MEDEROS MD Unavailable Unavailable LISANDRA MEDEROS MD Unavailable Unavailable LISANDRA MEDEROS MD Unavailable Unavailable LISANDRA MEDEROS MD Unavailable Unavailable LISANDRA MEDEROS MD Unavailable Unavailable LISANDRA MEDEROS MD Unavailable Unavailable LISANDRA MEDEROS MD Unavailable Unavailable LISANDRA MEDEROS MD Unavailable Unavailable LISANDRA MEDEROS MD Unavailable Unavailable LISANDRA MEDEROS MD Unavailable Unavailable LISANDRA MEDEROS MD Unavailable Unavailable LISANDRA MEDEROS MD Unavailable Unavailable LISANDRA MEDEROS MD Unavailable Unavailable LISANDRA MEDEROS MD Unavailable Unavailable LISANDRA MEDEROS MD Unavailable Unavailable LISANDRA MEDEROS MD Unavailable Unavailable LISANDRA MEDEROS MD Unavailable Unavailable LISANDRA MEDEROS MD Unavailable Unavailable LISANDRA MEDEROS MD Unavailable Unavailable LISANDRA MEDEROS MD Unavailable Unavailable LISANDRA MEDEROS MD Unavailable Unavailable LISANDRA MEDEROS MD Unavailable Unavailable LISANDRA MEDEROS MD Unavailable Unavailable LISANDRA MEDEROS MD Unavailable Unavailable LISANDRA MEDEROS MD Unavailable Unavailable [id number], [id number] Unavailable Unavailable MEDENT_[id number], [id number] Unavailable Unavailable MEDENT_[id number], [id number] Unavailable Unavailable MEDENT_[id number], [id number] Unavailable Unavailable MEDENT_[id number], [id number] Unavailable Unavailable Re-disclosure Warning The records that you are about to access may contain information from federally-assisted alcohol or drug abuse programs. If such information is present, then the following federally mandated warning applies: This information has been disclosed to you from records protected by federal confidentiality rules (42 CFR part 2). The federal rules prohibit you from making any further disclosure of this information unless further disclosure is expressly permitted by the written consent of the person to whom it pertains or as otherwise permitted by 42 CFR part 2. A general authorization for the release of medical or other information is NOT sufficient for this purpose. The Federal rules restrict any use of the information to criminally investigate or prosecute any alcohol or drug abuse patient.The records that you are about to access may contain highly sensitive health information, the redisclosure of which is protected by Article 27-F of the [place] Public Health law. If you continue you may have access to information: Regarding HIV / AIDS; Provided by facilities licensed or operated by the [place] Office of Mental Health; or Provided by the [place] Office for People With Developmental Disabilities. If such information is present, then the following [place] mandated warning applies: This information has been disclosed to you from confidential records which are protected by state law. State law prohibits you from making any further disclosure of this information without the specific written consent of the person to whom it pertains, or as otherwise permitted by law. Any unauthorized further disclosure in violation of state law may result in a fine or usp sentence or both. A general authorization for the release of medical or other information is NOT sufficient authorization for further disc losure. Allergies and Adverse Reactions Type Description Substance Reaction Status Data Source(s ) Propensity to adverse reactions NO KNOWN ALLERGIES NO KNOWN [facility] Family History Family Member Name Family Member Gender Family Member Status Date o f Status Description Data Source(s) Unknown Male Problem MEDENT ([facility]) Unknown Unknown Problem MEDENT ([facility], ) sister late 30s dx Unknown Male Problem [facility] ([facility]) Unknown Female Problem MEDENT ([facility] Encounters Encounter Providers Location Date Indications Data Source(s ) [place] [address] [facility] [address] 03/01/2021 12:00:00 AM EST eCW1 ([facility]) TeleMedicine Phone E/M by Phys 11-20 Min [address] [place] [address] 02/22/2021 12:00:00 AM EDT eCW1 ([facility]) [place] [address] [facility] [address] 02/02/2021 12:00:00 AM EDT eCW1 ([facility]) Outpatient Attender: Iraida STAUFFER Main office - [facility] 01/14/2021 11:15:00 AM EDT MEDENT ([facility]) Office Visit Attender: MARGRET HAWKINS MD Main Office 01/08/2021 07: 50:00 AM EDT MEDENT ([facility]) Outpatient Attender: TREY Cline nder: [phone] [id number]: Iraida STAUFFER [id number] 01/05/2021 12:00:00 AM EDT [facility] Outpatient Attender: [id number] MEDENT_ [id number]: TREY OLIVARESeferrer: Iraida STAUFFER [id number] 12/29/2020 12:00:00 AM EDT - 12/29/2020 09:35:32 AM [facility] Office Visit Attender: MARGRET HAWKINS MD Main Office 12/15/2020 09: 11:00 AM EDT MED[facility] ([facility]) [place] [address] [facility] [address] 12/14/2020 12:00:00 AM EDT eCW1 ([facility]) [place] [address] [facility] [address] 12/14/2020 12:00:00 AM EDT eCW1 ([facility]) (PN WCPROC) W/C Procedure [address] [place] [address] 12/08/2020 12:00:00 AM EDT eCW1 ([facility]) [place] [address] [facility] [address] 12/07/2020 12:00:00 AM EDT [facility] [place] [address] [facility] [address] 11/23/2020 12:00:00 AM EDT eCW1 ([facility]) Office Visit Attender: MARGRET HAWKINS MD Main Office 11/12/2020 08: 29:00 AM EDT MED[facility] ([facility]) [place] [address] [facility] [address] 10/29/2020 12:00:00 AM EDT eCW1 ([facility]) Outpatient Attender: Iraida STAUFFER Main office - [facility] 10/14/2020 01:15:00 PM EDT MEDENT ([facility] ) Office Visit Attender: MARGRET HAWKINS MD Main Office 10/07/2020 07: 54:00 AM EDT MED[facility] ([facility]) [place] [address] [facility] [address] 10/06/2020 12:00:00 AM EDT [facility]CW1 [facility] Outpatient [address] [facility] [place] [address] 10/05/2020 12:00:00 AM EDT [facility]CW1 [facility]) Outpatient Attender: Margret Alvarado/Alysa/Chintan/Rein dl 10/01/2020 01:30:00 PM EDT MED[facility] ([facility]) [place] [address] [facility] [address] 09/22/2020 12:00:00 AM EDT [facility]CW1 [facility]) [place] [address] [facility] [address] 09/22/2020 12:00:00 AM EDT eCW1 [facility]) Outpatient Attender: Juanita Alvarado/Alysa/Roberta sarabia/Patricia 09/14/2020 01:00:00 PM EDT MEDENT ([facility]) Unknown [address] [facility] [address] 09/09/2020 12:00:00 AM EDT eCW1 [facility] Outpatient [address] [facility] [address] 09/09/2020 12:00:00 AM EDT eCW1 ([facility]) Office Visit Attender: MARGRET HAWKINS MD Main Office 09/04/2020 09: 55:00 AM EDT MEDENT ([facility]) Outpatient Attender: Margret Alvarado/Alysa/Chintan/Evan monique 08/19/2020 01:00:00 PM EDT MED[facility] ([facility]) Unknown [address] [facility] [address] 08/13/2020 12:00:00 AM EDT eCW1 ([facility]) Outpatient [address] [facility] [address] 08/12/2020 12:00:00 AM EDT eCW1 ([facility]) (PN Proc 45) Pain Procedure 45 [address] [place] [address] 08/11/2020 12:00:00 AM EDT eCW1 [facility]) Unknown [address] [facility] [address] 08/10/2020 12:00:00 AM EDT eCW1 ([facility]) Office Visit Attender: MARGRET HAWKINS MD Main Office 07/29/2020 02: 48:00 PM EDT MEDENT ([facility]) Office Visit Attender: MARGRET HAWKINS MD Main Office 07/17/2020 01: 51:00 PM EDT MEDENT ([facility]) Outpatient Attender: Iraida STAUFFER Main office - [facility] 06/24/2020 12:00:00 PM EST MED[facility] ([facility] Unknown [address] [facility] [address] 06/24/2020 12:00:00 AM EST eCW1 ([facility]) Outpatient [address] [facility] [place] [address] 06/23/2020 12:00:00 AM EST eCW1 ([facility]) Unknown [address] [facility] [place] [address] 06/15/2020 12:00:00 AM EST eCW1 ([facility]) (PN [facility]) W/C Procedure [address] [place] [address] 06/09/2020 12:00:00 AM EST eCW1 ([facility]) Unknown [address] [facility] [place] [address] 06/05/2020 12:00:00 AM EST eCW1 ([facility]) Outpatient Attender: MIKE STAUFFER Main Office 05/29/2020 1 2:30:00 PM EST MEDENT ([facility]) Unknown [address] [facility] [address] 05/25/2020 12:00:00 AM EST eCW1 ([facility]) Outpatient [address] [facility] [address] 05/20/2020 12:00:00 AM EST eCW1 ([facility]) Office Visit Attender: MARGRET HAWKINS MD Main Office 05/18/2020 08: 02:00 AM EST MEDENT ([facility]) Unknown [address] [facility] [address] 05/18/2020 12:00:00 AM EST eCW1 ([facility]) Outpatient Attender: Iraida STAUFFER Main office - [facility] 05/15/2020 10:00:00 AM EST MED[facility] ([facility]) Unknown [address] [facility] [id number] 05/12/2020 12:00:00 AM EST eCW1 ([facility]) Outpatient [address] [facility] [id number] 04/06/2020 12:00:00 AM EST eCW1 ([facility]) [place] [address] [facility] [address] 04/01/2020 12:00:00 AM EST eCW1 ([facility]) Outpatient Attender: LISANDRA MEDEROS MD Physical Therapy 12:15:00 PM EST MEDENT ([facility]) Office Visit Attender: MARGRET HAWKINS MD Main Office 03/17/2020 07: 45:00 AM EST MEDENT ([facility]) Outpatient Attender: Doc Steve MD Physical Therapy 03/02/2020 1 2:00:00 PM EST MED[facility] ([facility]) [place]patient [address] [facility] [address] 02/18/2020 12:00:00 AM EDT eCW1 ([facility]) Office Visit Attender: MARGRET HAWKINS MD Main Office 02/12/2020 11: 54:00 AM EDT MEDENT ([facility]) (PN Proc 60) Pain Procedure 60 [address] [place] [address] 02/04/2020 12:00:00 AM EDT eCW1 ([facility]) [place] [address] [facility] [address] 01/31/2020 12:00:00 AM EDT eCW1 ([facility]) Office Visit Attender: Doc Steve MD Physical Therapy 2019 12:15:00 PM EDT MEDENT ([facility]) Office Visit Attender: MARGRET HAWKINS MD Main Office 01/16/2020 02: 52:00 PM EDT MEDENT ([facility]) Immunizations Vaccine Date Status Description Data Source(s) COVID-19 dose #2 given elsewhere Unspecified 07/23/2020 01:1 7:00 PM EDT completed eCW1 ([facility]) COVID-19 dose #2 given elsewhere Unspecified 07/23/2020 01:1 7:00 PM EDT completed eCW1 ([facility]) COVID-19 dose #2 given elsewhere Unspecified 07/23/2020 01:1 7:00 PM EDT completed eCW1 ([facility]) COVID-19 dose #2 given elsewhere Unspecified 07/23/2020 01:1 7:00 PM EDT completed eCW1 ([facility]) COVID-19 dose #2 given elsewhere Unspecified 07/23/2020 01:1 7:00 PM EDT completed eCW1 ([facility]) COVID-19 dose #2 given elsewhere Unspecified 07/23/2020 01:1 7:00 PM EDT completed eCW1 ([facility]) COVID-19 dose #2 given elsewhere Unspecified 07/23/2020 01:1 7:00 PM EDT completed eCW1 ([facility]) COVID-19 dose #2 given elsewhere Unspecified 07/23/2020 01:1 7:00 PM EDT completed eCW1 ([facility]) COVID-19 dose #2 given elsewhere Unspecified 07/23/2020 01:1 7:00 PM EDT completed eCW1 ([facility]) COVID-19 dose #2 given elsewhere Unspecified 07/23/2020 01:1 7:00 PM EDT completed eCW1 ([facility]) COVID-19 dose #2 given elsewhere Unspecified 07/23/2020 01:1 7:00 PM EDT completed eCW1 ([facility]) COVID-19 VACCINE Moderna 07/23/2020 12:00:00 AM EDT completed [facility] Vaccine Series Complete: YESThis Data wa s Submitted to [facility] Via [employer]. COVID-19 dose #1 given elsewhere Unspecified 06/25/2020 01:1 7:00 PM EST completed eCW1 ([facility]) COVID-19 dose #1 given elsewhere Unspecified 06/25/2020 01:1 7:00 PM EST completed eCW1 ([facility]) COVID-19 dose #1 given elsewhere Unspecified 06/25/2020 01:1 7:00 PM EST completed eCW1 ([facility]) COVID-19 dose #1 given elsewhere Unspecified 06/25/2020 01:1 7:00 PM EST completed eCW1 ([facility]) COVID-19 dose #1 given elsewhere Unspecified 06/25/2020 01:1 7:00 PM EST completed eCW1 ([facility]) COVID-19 dose #1 given elsewhere Unspecified 06/25/2020 01:1 7:00 PM EST completed eCW1 ([facility]) COVID-19 dose #1 given elsewhere Unspecified 06/25/2020 01:1 7:00 PM EST completed eCW1 ([facility]) COVID-19 dose #1 given elsewhere Unspecified 06/25/2020 01:1 7:00 PM EST completed eCW1 ([facility]) COVID-19 dose #1 given elsewhere Unspecified 06/25/2020 01:1 7:00 PM EST completed eCW1 ([facility]) COVID-19 dose #1 given elsewhere Unspecified 06/25/2020 01:1 7:00 PM EST completed eCW1 ([facility]) COVID-19 dose #1 given elsewhere Unspecified 06/25/2020 01:1 7:00 PM EST completed eCW1 ([facility]) COVID-19 VACCINE Moderna 06/25/2020 12:00:00 AM EST completed [employer] Vaccine Series Complete: NOThis Data was Submitted to [facility] Via [employer]. Medications Medication Brand Name Start Date Product Form Dose Route Admi nistrative Instructions Pharmacy Instructions Status Indications Reaction Description Data Source(s) valacyclovir 1000 MG Oral Tablet VALACYCLOVIR HCL 03/02/2021 12: 00:00 AM EST tablet 20 TAKE ONE TABLET BY MOUTH EVERY D AY FOR 5 DAYS NEEDED TAKE ONE TABLET BY MOUTH EVERY DAY FOR 5 DAYS NEEDED SOLD: 03/05/2021 [facility] tramadol hydrochloride 50 MG Oral Tablet traMADol HCl 50 MG traMADol HCl 50 MG 02/22/2021 12:00:00 AM EDT 1.0 {tablet_as_needed} active traMADol HCl 50 MG eCW1 ([facility]) 50 mg 02/22/2021 12:00:00 AM EDT tablet 20 TAKE ONE TABLET BY MOUTH EVERY DAY NEEDED FOR PAIN MAXIMUM DAILY DOSE = 1 TABLET TAKE ONE TABLET BY MOUTH EVERY DAY NEEDED FOR PAIN MAXIMUM DAILY DOSE = 1 TABLET SOLD: 02/25/2021 [facility] tramadol hydrochloride 50 MG Oral Tablet traMADol HCl 50 MG traMADol HCl 50 MG 02/22/2021 12:00:00 AM EDT 1.0 {tablet_as_needed} active traMADol HCl 50 MG eCW1 ([facility]) 1 gram 02/18/2021 12:00:00 AM EDT capsule 180 TAKE ONE CAPSULE BY MOUTH TWICE A DAY TAKE ONE CAPSULE BY MOUTH TWICE A DAY SOLD: 02/25/2021 [facility] 90 mcg/actuation 02/18/2021 12:00:00 AM EDT HFA aerosol inha ler 8 INHALE TWO PUFFS BY MOUTH EVERY 4 HOURS NEEDED INHALE TWO PUFFS BY MOUTH EVERY 4 HOURS NEEDED SOLD: 02/25/2021 [facility] montelukast 10 MG Oral Tablet MONTELUKAST SODIUM 02/15/2021 12:0 0:00 AM EDT tablet 30 TAKE ONE TABLET BY MOUTH EVERY D AY TAKE ONE TABLET BY MOUTH EVERY DAY SOLD: 02/25/2021 [facility] 30 mg 02/08/2021 12:00:00 AM EDT tablet 60 TAKE ONE TABLET BY MOUTH TWICE A DAY TAKE ONE TABLET BY MOUTH TWICE A DAY SOLD: 02/10/2021 [facility] 150 mg 02/05/2021 12:00:00 AM EDT capsule,extended releas e 24hr 30 TAKE ONE CAPSULE BY MOUTH EVERY DAY TAKE ONE CAPSULE BY MOUTH EVERY DAY SOLD: 02/10/2021 [facility] 75 mg 02/05/2021 12:00:00 AM EDT capsule,extended releas e 24hr 30 TAKE ONE CAPSULE BY MOUTH EVERY DAY TAKE ONE CAPSULE BY MOUTH EVERY DAY SOLD: 02/10/2021 [facility] 0.5 mg 02/05/2021 12:00:00 AM EDT tablet 14 TAKE TWO TABLETS BY MOUTH EVERY DAY NEEDED MAXIMUM DAILY DOSE = 2 TABLETS TAKE TWO TABLETS BY MOUTH EVERY DAY NEEDED MAXIMUM DAILY DOSE = 2 TABLETS SOLD: 02/10/2021 [facility] quetiapine 50 MG Oral Tablet QUETIAPINE FUMARATE 02/04/2021 12:0 0:00 AM EDT tablet 30 TAKE ONE TABLET BY MOUTH AT BEDT MEI TAKE ONE TABLET BY MOUTH AT BEDTIME SOLD: 02/10/2021 [facility] 50 mg 01/21/2021 12:00:00 AM EDT tablet 20 TAKE ONE TABLET BY MOUTH EVERY DAY NEEDED MAXIMUM DAILY DOSE = 1 TAKE ONE TABLET BY MOUTH EVERY DAY NEEDED MAXIMUM DAILY DOSE = 1 SOLD: 01/27/2021 [facility] tramadol hydrochloride 50 MG Oral Tablet traMADol HCl 50 MG traMADol HCl 50 MG 01/21/2021 12:00:00 AM EDT 1.0 {tablet_as_needed} active traMADol HCl 50 MG eCW1 ([facility]) 30 mg 01/16/2021 12:00:00 AM EDT tablet 60 TAKE ONE TABLET BY MOUTH TWICE A DAY DIRECTED TAKE ONE TABLET BY MOUTH TWICE A DAY DIRECTED SOLD: 01/19/2021 [facility] 150 mg 12/16/2020 12:00:00 AM EDT capsule,extended releas e 24hr 30 TAKE ONE CAPSULE BY MOUTH ONCE DAILY TAKE ONE CAPSULE BY MOUTH ONCE DAILY SOLD: 12/17/2020 [facility] quetiapine 50 MG Oral Tablet QUETIAPINE FUMARATE 12/16/2020 12:0 0:00 AM EDT tablet 30 TAKE ONE TABLET BY MOUTH AT BEDT MEI TAKE ONE TABLET BY MOUTH AT BEDTIME SOLD: 12/17/2020 [facility] 50 mg 12/15/2020 12:00:00 AM EDT tablet 21 TAKE ONE TO TWO TABLETS BY MOUTH EVERY 8 HOURS NEEDED MAXIMUM DAILY DOSE = THREE TABLETS TAKE ONE TO TWO TABLETS BY MOUTH EVERY 8 HOURS NEEDED MAXIMUM DAILY DOSE = THREE TABLETS SOLD: 12/17/2020 [facility] 50 mg 12/15/2020 12:00:00 AM EDT tablet 21 TAKE ONE TO TWO TABLETS BY MOUTH EVERY 8 HOURS NEEDED MAXIMUM DAILY DOSE = THREE TABLETS TAKE ONE TO TWO TABLETS BY MOUTH EVERY 8 HOURS NEEDED MAXIMUM DAILY DOSE = THREE TABLETS SOLD: 12/31/2020 [facility] tramadol hydrochloride 50 MG Oral Tablet traMADol HCl 50 MG traMADol HCl 50 MG 12/14/2020 12:00:00 AM EDT active traMADol HCl 50 MG eCW1 ([facility]) tramadol hydrochloride 50 MG Oral Tablet traMADol HCl 50 MG traMADol HCl 50 MG 12/14/2020 12:00:00 AM EDT active traMADol HCl 50 MG eCW1 ([facility]) tramadol hydrochloride 50 MG Oral Tablet traMADol HCl 50 MG traMADol HCl 50 MG 12/14/2020 12:00:00 AM EDT active traMADol HCl 50 MG eCW1 ([facility]) 20 mg 12/11/2020 12:00:00 AM EDT tablet 90 TAKE ONE TABLET BY MOUTH AT BEDTIME TAKE ONE TABLET BY MOUTH AT BEDTIME SOLD: 12/15/2020 [facility] 30 mg 11/27/2020 12:00:00 AM EDT tablet 60 TAKE ONE TABLET BY MOUTH TWO TIMES A DAY DIRECTED TAKE ONE TABLET BY MOUTH TWO TIMES A DAY DIRECTED SOLD: 11/27/2020 [facility] 0.5 mg 11/27/2020 12:00:00 AM EDT tablet 14 TAKE 2 TABLETS BY MOUTH ONCE A DAY NEEDED MAXIMUM DAILY DOSE = 2 TABLETS TAKE 2 TABLETS BY MOUTH ONCE A DAY NEEDED MAXIMUM DAILY DOSE = 2 TABLETS SOLD: 11/27/2020 [facility] 75 mg 11/24/2020 12:00:00 AM EDT capsule,extended releas e 24hr 30 TAKE ONE CAPSULE BY MOUTH ONCE A DAY TAKE ONE CAPSULE BY MOUTH ONCE A DAY SOLD: 12/31/2020 [facility] 75 mg 11/24/2020 12:00:00 AM EDT capsule,extended releas e 24hr 30 TAKE ONE CAPSULE BY MOUTH ONCE A DAY TAKE ONE CAPSULE BY MOUTH ONCE A DAY SOLD: 11/27/2020 [facility] valacyclovir 1000 MG Oral Tablet VALACYCLOVIR HCL 11/23/2020 12: 00:00 AM EDT tablet 10 TAKE ONE TABLET BY M OUTH ONCE DAILY FOR 5 DAYS THEN NEEDED FOR FLARES TAKE ONE TABLET BY MOUTH ONCE DAILY FOR 5 DAYS THEN NEEDED FOR FLARES SOLD: 11/23/2020 [facility] 0.05 % 11/23/2020 12:00:00 AM EDT dropperette 60 INSTILL ONE DROP INTO BOTH EYES TWICE A DAY INSTILL ONE DROP INTO BOTH EYES TWICE A DAY SOLD: 11/23/2020 [facility] Vitamin B Complex 11/16/2020 12:00:00 AM EDT ORAL active MEDENT ([facility]) Omeprazole 40 MG Delayed Release Oral Capsule Omeprazole 11/16/2020 12:00:00 AM EDT ORAL active [facility] ([facility]) zonisamide 100 MG Oral Capsule Zonisamide 11/16/2020 12:00:00 AM EDT ORAL active [facility] ([facility]) venlafaxine 75 MG Oral Tablet Venlafaxine HCL 11/15/2020 12:00:00 AM EDT ORAL active [facility] ([facility]) quetiapine 50 MG Oral Tablet QUETIAPINE FUMARATE 10/30/2020 12:0 0:00 AM EDT tablet 30 TAKE ONE TABLET BY MOUTH AT BEDT MEI TAKE ONE TABLET BY MOUTH AT BEDTIME SOLD: 11/23/2020 [facility] quetiapine 50 MG Oral Tablet QUETIAPINE FUMARATE 10/30/2020 12:0 0:00 AM EDT tablet 30 TAKE ONE TABLET BY MOUTH AT BEDT MEI TAKE ONE TABLET BY MOUTH AT BEDTIME SOLD: 11/04/2020 [facility] 150 mg 10/30/2020 12:00:00 AM EDT capsule,extended releas e 24hr 30 TAKE ONE CAPSULE BY MOUTH EVERY DAY TAKE ONE CAPSULE BY MOUTH EVERY DAY SOLD: 11/23/2020 [facility] 150 mg 10/30/2020 12:00:00 AM EDT capsule,extended releas e 24hr 30 TAKE ONE CAPSULE BY MOUTH EVERY DAY TAKE ONE CAPSULE BY MOUTH EVERY DAY SOLD: 11/04/2020 [facility] 0.5 mg 10/30/2020 12:00:00 AM EDT tablet 14 TAKE TWO TABLETS BY MOUTH EVERY DAY NEEDED MAXIMUM DAILY DOSE = 2 TABLETS TAKE TWO TABLETS BY MOUTH EVERY DAY NEEDED MAXIMUM DAILY DOSE = 2 TABLETS SOLD: 11/04/2020 [facility] 0.5 mg 10/20/2020 12:00:00 AM EDT tablet 14 TAKE TWO TABLETS BY MOUTH EVERY DAY NEEDED MAXIMUM DAILY DOSE = TWO TABLETS TAKE TWO TABLETS BY MOUTH EVERY DAY NEEDED MAXIMUM DAILY DOSE = TWO TABLETS SOLD: 10/22/2020 [facility] 100 mg 10/15/2020 12:00:00 AM EDT capsule 60 TAKE ONE CAPSULE BY MOUTH TWICE A DAY TAKE ONE CAPSULE BY MOUTH TWICE A DAY SOLD: 01/19/2021 [facility] 100 mg 10/15/2020 12:00:00 AM EDT capsule 60 TAKE ONE CAPSULE BY MOUTH TWICE A DAY TAKE ONE CAPSULE BY MOUTH TWICE A DAY SOLD: 10/22/2020 [facility] Meclizine Hydrochloride 25 MG Oral Tablet MECLIZINE HCL 10/15/2020 12:00:00 AM EDT tablet 60 TAKE ONE TABLET BY MOUTH TWI CE A DAY NEEDED FOR DIZZINESS TAKE ONE TABLET BY MOUTH TWICE A DAY NEEDED FOR DIZZINESS SOLD: 10/22/2020 [facility] 100 mg 10/15/2020 12:00:00 AM EDT capsule 60 TAKE ONE CAPSULE BY MOUTH TWICE A DAY TAKE ONE CAPSULE BY MOUTH TWICE A DAY SOLD: 02/12/2021 [facility] Meclizine Hydrochloride 25 MG Oral Tablet MECLIZINE HCL 10/15/2020 12:00:00 AM EDT tablet 60 TAKE ONE TABLET BY MOUTH TWI CE A DAY NEEDED FOR DIZZINESS TAKE ONE TABLET BY MOUTH TWICE A DAY NEEDED FOR DIZZINESS SOLD: 12/31/2020 [facility] 100 mg 10/15/2020 12:00:00 AM EDT capsule 60 TAKE ONE CAPSULE BY MOUTH TWICE A DAY TAKE ONE CAPSULE BY MOUTH TWICE A DAY SOLD: 12/15/2020 [facility] Meclizine Hydrochloride 25 MG Oral Tablet MECLIZINE HCL 10/15/2020 12:00:00 AM EDT tablet 60 TAKE ONE TABLET BY MOUTH TWI CE A DAY NEEDED FOR DIZZINESS TAKE ONE TABLET BY MOUTH TWICE A DAY NEEDED FOR DIZZINESS SOLD: 02/10/2021 [facility] zonisamide 100 MG Oral Capsule Zonisamide 10/14/2020 12:00:00 AM EDT ORAL active MEDENT ([facility]) 40 mg 10/07/2020 12:00:00 AM EDT capsule,delayed release (DR/EC) 90 TAKE ONE CAPSULE BY MOUTH EVERY DAY TAKE ONE CAPSULE BY MOUTH EVERY DAY SOLD: 10/10/2020 [facility] 40 mg 10/07/2020 12:00:00 AM EDT capsule,delayed release (DR/EC) 90 TAKE ONE CAPSULE BY MOUTH EVERY DAY TAKE ONE CAPSULE BY MOUTH EVERY DAY SOLD: 01/19/2021 [facility] Esomeprazole 40 MG Delayed Release Oral Capsule [Nexiu m] NexIUM 40 MG NexIUM 40 MG 10/05/2020 12:00:00 AM EDT 1.0 {capsule} active NexIUM 40 MG eCW1 ([facility]) Esomeprazole 40 MG Delayed Release Oral Capsule [Nexiu m] NexIUM 40 MG NexIUM 40 MG 10/05/2020 12:00:00 AM EDT 1.0 {capsule} active NexIUM 40 MG eCW1 ([facility]) Esomeprazole 40 MG Delayed Release Oral Capsule [Nexiu m] NexIUM 40 MG NexIUM 40 MG 10/05/2020 12:00:00 AM EDT 1.0 {capsule} active NexIUM 40 MG eCW1 ([facility]) Esomeprazole 40 MG Delayed Release Oral Capsule [Nexiu m] NexIUM 40 MG NexIUM 40 MG 10/05/2020 12:00:00 AM EDT 1.0 {capsule} active NexIUM 40 MG eCW1 ([facility]) Esomeprazole 40 MG Delayed Release Oral Capsule [Nexiu m] NexIUM 40 MG NexIUM 40 MG 10/05/2020 12:00:00 AM EDT 1.0 {capsule} active NexIUM 40 MG eCW1 ([facility]) Esomeprazole 40 MG Delayed Release Oral Capsule [Nexiu m] NexIUM 40 MG NexIUM 40 MG 10/05/2020 12:00:00 AM EDT 1.0 {capsule} active NexIUM 40 MG eCW1 ([facility]) Esomeprazole 40 MG Delayed Release Oral Capsule [Nexiu m] NexIUM 40 MG NexIUM 40 MG 10/05/2020 12:00:00 AM EDT 1.0 {capsule} active NexIUM 40 MG eCW1 ([facility]) Esomeprazole 40 MG Delayed Release Oral Capsule [Nexiu m] NexIUM 40 MG NexIUM 40 MG 10/05/2020 12:00:00 AM EDT 1.0 {capsule} active NexIUM 40 MG eCW1 ([facility]) Esomeprazole 40 MG Delayed Release Oral Capsule [Nexiu m] NexIUM 40 MG NexIUM 40 MG 10/05/2020 12:00:00 AM EDT 1.0 {capsule} active NexIUM 40 MG eCW1 ([facility]) Esomeprazole 40 MG Delayed Release Oral Capsule [Nexiu m] NexIUM 40 MG NexIUM 40 MG 10/05/2020 12:00:00 AM EDT 1.0 {capsule} active NexIUM 40 MG eCW1 ([facility]) Esomeprazole 40 MG Delayed Release Oral Capsule [Nexiu m] NexIUM 40 MG NexIUM 40 MG 10/05/2020 12:00:00 AM EDT 1.0 {capsule} active NexIUM 40 MG eCW1 ([facility]) 0.5 mg 09/26/2020 12:00:00 AM EDT tablet 14 TAKE TWO TABLETS BY MOUTH EVERY DAY NEEDED MAXIMUM DAILY DOSE = 2 TABLETS TAKE TWO TABLETS BY MOUTH EVERY DAY NEEDED MAXIMUM DAILY DOSE = 2 TABLETS SOLD: 09/27/2020 [facility] 110 mcg/actuation 09/23/2020 12:00:00 AM EDT HFA aerosol inh aler 12 INHALE ONE PUFF BY MOUTH TWICE A DAY INHALE ONE PUFF BY MOUTH TWICE A DAY SOLD: 09/25/2020 [facility] 120 ACTUAT Fluticasone propionate 0.11 M G/ACTUAT Metered Dose Inhaler [Flovent] Flovent HFA 110 MCG/ACT Flovent HFA 110 MCG/ACT 09/22/2020 12:00:00 AM EDT 1.0 {puff} active Flovent HFA 110 MCG/ACT eCW1 ([facility]) 90 mcg/actuation 09/22/2020 12:00:00 AM EDT HFA aerosol inha ler 8 INHALE TWO PUFFS BY MOUTH EVERY 4 HOURS NEEDED INHALE TWO PUFFS BY MOUTH EVERY 4 HOURS NEEDED SOLD: 01/27/2021 [facility] 120 ACTUAT Fluticasone propionate 0.11 M G/ACTUAT Metered Dose Inhaler [Flovent] Flovent HFA 110 MCG/ACT Flovent HFA 110 MCG/ACT 09/22/2020 12:00:00 AM EDT 1.0 {puff} active Flovent HFA 110 MCG/ACT eCW1 ([facility]) 120 ACTUAT Fluticasone propionate 0.11 M G/ACTUAT Metered Dose Inhaler [Flovent] Flovent HFA 110 MCG/ACT Flovent HFA 110 MCG/ACT 09/22/2020 12:00:00 AM EDT 1.0 {puff} active Flovent HFA 110 MCG/ACT eCW1 ([facility]) 120 ACTUAT Fluticasone propionate 0.11 M G/ACTUAT Metered Dose Inhaler [Flovent] Flovent HFA 110 MCG/ACT Flovent HFA 110 MCG/ACT 09/22/2020 12:00:00 AM EDT 1.0 {puff} active Flovent HFA 110 MCG/ACT eCW1 ([facility]) 120 ACTUAT Fluticasone propionate 0.11 M G/ACTUAT Metered Dose Inhaler [Flovent] Flovent HFA 110 MCG/ACT Flovent HFA 110 MCG/ACT 09/22/2020 12:00:00 AM EDT 1.0 {puff} active Flovent HFA 110 MCG/ACT eCW1 ([facility]) 120 ACTUAT Fluticasone propionate 0.11 M G/ACTUAT Metered Dose Inhaler [Flovent] Flovent HFA 110 MCG/ACT Flovent HFA 110 MCG/ACT 09/22/2020 12:00:00 AM EDT 1.0 {puff} active Flovent HFA 110 MCG/ACT eCW1 ([facility]) 120 ACTUAT Fluticasone propionate 0.11 M G/ACTUAT Metered Dose Inhaler [Flovent] Flovent HFA 110 MCG/ACT Flovent HFA 110 MCG/ACT 09/22/2020 12:00:00 AM EDT 1.0 {puff} active eCW1 ([facility]) 120 ACTUAT Fluticasone propionate 0.11 M G/ACTUAT Metered Dose Inhaler [Flovent] Flovent HFA 110 MCG/ACT Flovent HFA 110 MCG/ACT 09/22/2020 12:00:00 AM EDT 1.0 {puff} active Flovent HFA 110 MCG/ACT eCW1 ([facility]) 120 ACTUAT Fluticasone propionate 0.11 M G/ACTUAT Metered Dose Inhaler [Flovent] Flovent HFA 110 MCG/ACT Flovent HFA 110 MCG/ACT 09/22/2020 12:00:00 AM EDT 1.0 {puff} active Flovent HFA 110 MCG/ACT eCW1 ([facility]) 120 ACTUAT Fluticasone propionate 0.11 M G/ACTUAT Metered Dose Inhaler [Flovent] Flovent HFA 110 MCG/ACT Flovent HFA 110 MCG/ACT 09/22/2020 12:00:00 AM EDT 1.0 {puff} active Flovent HFA 110 MCG/ACT eCW1 ([facility]) 120 ACTUAT Fluticasone propionate 0.11 M G/ACTUAT Metered Dose Inhaler [Flovent] Flovent HFA 110 MCG/ACT Flovent HFA 110 MCG/ACT 09/22/2020 12:00:00 AM EDT 1.0 {puff} active Flovent HFA 110 MCG/ACT eCW1 ([facility]) 120 ACTUAT Fluticasone propionate 0.11 M G/ACTUAT Metered Dose Inhaler [Flovent] Flovent HFA 110 MCG/ACT Flovent HFA 110 MCG/ACT 09/22/2020 12:00:00 AM EDT 1.0 {puff} active Flovent HFA 110 MCG/ACT eCW1 ([facility]) 90 mcg/actuation 09/22/2020 12:00:00 AM EDT HFA aerosol inha ler 8 INHALE TWO PUFFS BY MOUTH EVERY 4 HOURS NEEDED INHALE TWO PUFFS BY MOUTH EVERY 4 HOURS NEEDED SOLD: 09/25/2020 [facility] 120 ACTUAT Fluticasone propionate 0.11 M G/ACTUAT Metered Dose Inhaler [Flovent] Flovent HFA 110 MCG/ACT Flovent HFA 110 MCG/ACT 09/22/2020 12:00:00 AM EDT 1.0 {puff} active Flovent HFA 110 MCG/ACT eCW1 ([facility]) Esomeprazole 20 MG Delayed Release Oral Capsule ESOMEPRAZOLE MAGNESIUM 09/15/2020 12:00:00 AM EDT capsule,delayed release(DR/EC) 30 TAKE ONE CAPSULE BY MOUTH ONCE DAILY TAKE ONE CAPSULE BY MOUTH ONCE DAILY SOLD: 09/21/2020 [facility] Esomeprazole 20 MG Delayed Release Oral Capsule [Nexium] Nex ium 09/14/2020 12:00:00 AM EDT ORAL active M [facility]ENT ([facility] ) 75 mg 09/02/2020 12:00:00 AM EDT capsule,extended releas e 24hr 30 TAKE ONE CAPSULE BY MOUTH EVERY DAY TAKE ONE CAPSULE BY MOUTH EVERY DAY SOLD: 09/04/2020 [facility] 0.025 % (0.035 %) 08/30/2020 12:00:00 AM EDT drops 5 INSTILL 1 DROP INTO BOTH EYES TWO TIMES A DAY INSTILL 1 DROP INTO BOTH EYES TWO TIMES A DAY SOLD: 09/04/2020 [facility] 0.025 % (0.035 %) 08/30/2020 12:00:00 AM EDT drops 5 INSTILL 1 DROP INTO BOTH EYES TWO TIMES A DAY INSTILL 1 DROP INTO BOTH EYES TWO TIMES A DAY SOLD: 01/27/2021 [facility] 30 mg 08/28/2020 12:00:00 AM EDT tablet 60 TAKE ONE TABLET BY MOUTH TWICE A DAY DIRECTED TAKE ONE TABLET BY MOUTH TWICE A DAY DIRECTED SOLD: 10/28/2020 [facility] 150 mg 08/28/2020 12:00:00 AM EDT capsule,extended releas e 24hr 30 TAKE ONE CAPSULE BY MOUTH EVERY DAY TAKE ONE CAPSULE BY MOUTH EVERY DAY SOLD: 09/04/2020 [facility] 150 mg 08/28/2020 12:00:00 AM EDT capsule,extended releas e 24hr 30 TAKE ONE CAPSULE BY MOUTH EVERY DAY TAKE ONE CAPSULE BY MOUTH EVERY DAY SOLD: 10/07/2020 [facility] 0.5 mg 08/28/2020 12:00:00 AM EDT tablet 14 TAKE TWO TABLETS BY MOUTH EVERY DAY NEEDED MAXIMUM DAILY DOSE = TWO TABLETS TAKE TWO TABLETS BY MOUTH EVERY DAY NEEDED MAXIMUM DAILY DOSE = TWO TABLETS SOLD: 09/04/2020 [facility] 30 mg 08/28/2020 12:00:00 AM EDT tablet 60 TAKE ONE TABLET BY MOUTH TWICE A DAY DIRECTED TAKE ONE TABLET BY MOUTH TWICE A DAY DIRECTED SOLD: 09/04/2020 [facility] 20 mg 08/26/2020 12:00:00 AM EDT tablet 90 TAKE ONE TABLET BY MOUTH AT BEDTIME TAKE ONE TABLET BY MOUTH AT BEDTIME SOLD: 09/04/2020 [facility] quetiapine 50 MG Oral Tablet QUETIAPINE FUMARATE 08/02/2020 12:0 0:00 AM EDT tablet 90 TAKE ONE TABLET BY MOUTH AT BEDT MEI TAKE ONE TABLET BY MOUTH AT BEDTIME SOLD: 08/07/2020 [facility] 0.5 mg 07/22/2020 12:00:00 AM EDT tablet 40 TAKE ONE TABLET BY MOUTH TWICE A DAY NEEDED FOR ANXIETY MAXIMUM DAILY DOSE = 2 TAKE ONE TABLET BY MOUTH TWICE A DAY NEEDED FOR ANXIETY MAXIMUM DAILY DOSE = 2 SOLD: 07/23/2020 [facility] 40 mg 07/21/2020 12:00:00 AM EDT capsule,delayed release (DR/EC) 30 TAKE ONE CAPSULE BY MOUTH EVERY MORNING BEFORE MORNING MEAL TAKE ONE CAPSULE BY MOUTH EVERY MORNING BEFORE MORNING MEAL SOLD: 07/21/2020 [facility] montelukast 10 MG Oral Tablet MONTELUKAST SODIUM 07/20/2020 12:0 0:00 AM EDT tablet 30 TAKE ONE TABLET BY MOUTH EVERY D AY TAKE ONE TABLET BY MOUTH EVERY DAY SOLD: 12/08/2020 [facility] montelukast 10 MG Oral Tablet MONTELUKAST SODIUM 07/20/2020 12:0 0:00 AM EDT tablet 30 TAKE ONE TABLET BY MOUTH EVERY D AY TAKE ONE TABLET BY MOUTH EVERY DAY SOLD: 01/19/2021 [facility] montelukast 10 MG Oral Tablet MONTELUKAST SODIUM 07/20/2020 12:0 0:00 AM EDT tablet 30 TAKE ONE TABLET BY MOUTH EVERY D AY TAKE ONE TABLET BY MOUTH EVERY DAY SOLD: 09/04/2020 [facility] montelukast 10 MG Oral Tablet MONTELUKAST SODIUM 07/20/2020 12:0 0:00 AM EDT tablet 30 TAKE ONE TABLET BY MOUTH EVERY D AY TAKE ONE TABLET BY MOUTH EVERY DAY SOLD: 10/07/2020 [facility] montelukast 10 MG Oral Tablet MONTELUKAST SODIUM 07/20/2020 12:0 0:00 AM EDT tablet 30 TAKE ONE TABLET BY MOUTH EVERY D AY TAKE ONE TABLET BY MOUTH EVERY DAY SOLD: 07/21/2020 [facility] montelukast 10 MG Oral Tablet MONTELUKAST SODIUM 07/20/2020 12:0 0:00 AM EDT tablet 30 TAKE ONE TABLET BY MOUTH EVERY D AY TAKE ONE TABLET BY MOUTH EVERY DAY SOLD: 11/10/2020 [facility] Meclizine Hydrochloride 25 MG Oral Tablet MECLIZINE HCL 07/19/2020 12:00:00 AM EDT tablet 60 TAKE ONE TABLET BY MOUTH TWICE A DAY NEEDED FOR DIZZINESS MAXIMUM DAILY DOSE = TWO TABLETS TAKE ONE TABLET BY MOUTH TWICE A DAY NEEDED FOR DIZZINESS MAXIMUM DAILY DOSE = TWO TABLETS SOLD: 07/21/2020 [facility] 24 HR venlafaxine 75 MG Extended Release Oral Capsule VENLAF AXINE HCL 06/29/2020 12:00:00 AM EST capsule,extended release 24hr 90 T [place] ONE CAPSULE BY MOUTH EVERY DAY TAKE ONE CAPSULE BY MOUTH EVERY DAY SOLD: 07/01/2020 [facility] 50 mg 06/25/2020 12:00:00 AM EST capsule 60 TAKE ONE CAPSULE BY MOUTH TWICE A DAY MAXIMUM DAILY DOSE = 2 CAPSULES TAKE ONE CAPSULE BY MOUTH TWICE A DAY MAXIMUM DAILY DOSE = 2 CAPSULES SOLD: 07/01/2020 [facility] 50 mg 06/25/2020 12:00:00 AM EST capsule 60 TAKE ONE CAPSULE BY MOUTH TWICE A DAY MAXIMUM DAILY DOSE = 2 CAPSULES TAKE ONE CAPSULE BY MOUTH TWICE A DAY MAXIMUM DAILY DOSE = 2 CAPSULES SOLD: 10/22/2020 [facility] 50 mg 06/25/2020 12:00:00 AM EST capsule 60 TAKE ONE CAPSULE BY MOUTH TWICE A DAY MAXIMUM DAILY DOSE = 2 CAPSULES TAKE ONE CAPSULE BY MOUTH TWICE A DAY MAXIMUM DAILY DOSE = 2 CAPSULES SOLD: 09/21/2020 [facility] Meclizine Hydrochloride 25 MG Oral Tablet Meclizine HCL 06/24/2020 12:00:00 AM EST ORAL active MEDENT ([facility]) zonisamide 50 MG Oral Capsule Zonisamide 06/24/2020 12:00:00 AM EST ORAL completed MEDENT ([facility]) Meclizine Hydrochloride 25 MG Oral Tablet MECLIZINE HCL 06/15/2020 12:00:00 AM EST tablet 90 TAKE ONE TABLET BY MOUTH BO RY DAY NEEDED TAKE ONE TABLET BY MOUTH EVERY DAY NEEDED SOLD: 06/17/2020 [facility] 40 mg 06/11/2020 12:00:00 AM EST capsule,delayed release (DR/EC) 30 TAKE ONE CAPSULE BY MOUTH EVERY MORNING 30 MINUTES BEFORE MEAL TAKE ONE CAPSULE BY MOUTH EVERY MORNING 30 MINUTES BEFORE MEAL SOLD: 06/12/2020 [facility] 30 mg 06/06/2020 12:00:00 AM EST tablet 180 TAKE ONE TABLET BY MOUTH TWICE A DAY DIRECTED TAKE ONE TABLET BY MOUTH TWICE A DAY DIRECTED SOLD: 06/12/2020 [facility] 0.5 mg 06/04/2020 12:00:00 AM EST tablet 40 TAKE ONE TABLET BY MOUTH TWICE A DAY NEEDED FOR ANXIETY MAXIMUM DAILY DOSE = TWO TABLETS TAKE ONE TABLET BY MOUTH TWICE A DAY NEEDED FOR ANXIETY MAXIMUM DAILY DOSE = TWO TABLETS SOLD: 06/05/2020 [facility] quetiapine 50 MG Oral Tablet [Seroquel] Seroquel 05/28/2020 12:00:0 0 AM EST ORAL active [facility] ([facility]) Multivitamin Women 50+ 05/28/2020 12:00:00 AM EST ORAL active MED[facility] ([facility]) Omeprazole 40 MG Delayed Release Oral Capsule Omeprazole 05/28/2020 12:00:00 AM EST ORAL active [facility] ([facility]) zonisamide 25 MG Oral Capsule Zonisamide 05/28/2020 12:00:00 AM EST ORAL active [facility] ([facility]) montelukast 10 MG Oral Tablet Montelukast Sodium 05/28/2020 12:00:00 AM EST ORAL active [facility] ([facility]) 25 mg 05/15/2020 12:00:00 AM EST capsule 60 TAKE ONE CAPSULE BY MOUTH AT BEDTIME FOR 7 DAYS , THEN TAKE ONE CAPSULE BY MOUTH TWICE A DAY TAKE ONE CAPSULE BY MOUTH AT BEDTIME FOR 7 DAYS , THEN TAKE ONE CAPSULE BY MOUTH TWICE A DAY SOLD: 05/15/2020 [facility] zonisamide 25 MG Oral Capsule Zonisamide 05/15/2020 12:00:00 AM EST ORAL completed [facility] ([facility] ) 25 mg 05/15/2020 12:00:00 AM EST capsule 60 TAKE ONE CAPSULE BY MOUTH AT BEDTIME FOR 7 DAYS , THEN TAKE ONE CAPSULE BY MOUTH TWICE A DAY TAKE ONE CAPSULE BY MOUTH AT BEDTIME FOR 7 DAYS , THEN TAKE ONE CAPSULE BY MOUTH TWICE A DAY SOLD: 06/21/2020 [facility] 50 mg 05/14/2020 12:00:00 AM EST tablet 90 TAKE ONE TO TWO TABLETS BY MOUTH EVERY 8 HOURS NEEDED MAXIMUM DAILY DOSE = 3 TABLETS TAKE ONE TO TWO TABLETS BY MOUTH EVERY 8 HOURS NEEDED MAXIMUM DAILY DOSE = 3 TABLETS SOLD: 05/15/2020 [facility] 20 mg 05/13/2020 12:00:00 AM EST tablet 90 TAKE ONE TABLET BY MOUTH AT BEDTIME TAKE ONE TABLET BY MOUTH AT BEDTIME SOLD: 05/15/2020 [facility] quetiapine 50 MG Oral Tablet QUETIAPINE FUMARATE 05/12/2020 12:0 0:00 AM EST tablet 90 TAKE ONE TABLET BY MOUTH AT BEDT MEI TAKE ONE TABLET BY MOUTH AT BEDTIME SOLD: 05/15/2020 [facility] 0.5 mg 04/15/2020 12:00:00 AM EST tablet 40 TAKE ONE TABLET BY MOUTH TWICE A DAY NEEDED FOR ANXIETY MAXIMUM DAILY DOSE = TWO TABLETS TAKE ONE TABLET BY MOUTH TWICE A DAY NEEDED FOR ANXIETY MAXIMUM DAILY DOSE = TWO TABLETS SOLD: 04/27/2020 [facility] 40 mg 04/07/2020 12:00:00 AM EST capsule,delayed release (DR/EC) 30 TAKE ONE CAPSULE BY MOUTH EVERY MORNING 30 MINUTES BEFORE MORNING MEAL TAKE ONE CAPSULE BY MOUTH EVERY MORNING 30 MINUTES BEFORE MORNING MEAL SOLD: 04/09/2020 [facility] 1 gram 04/07/2020 12:00:00 AM EST tablet 25 TAKE ONE TABLET BY MOUTH EVERY DAY FOR 5 DAYS NEEDED TAKE ONE TABLET BY MOUTH EVERY DAY FOR 5 DAYS NEEDED SOLD: 04/09/2020 [facility] 40 mg 04/07/2020 12:00:00 AM EST capsule,delayed release (DR/EC) 30 TAKE ONE CAPSULE BY MOUTH EVERY MORNING 30 MINUTES BEFORE MORNING MEAL TAKE ONE CAPSULE BY MOUTH EVERY MORNING 30 MINUTES BEFORE MORNING MEAL SOLD: 05/15/2020 [facility] Omeprazole 40 MG Delayed Release Oral Capsule Omeprazole 40 MG 04/06/2020 12:00:00 AM EST active Omeprazo le 40 MG eCW1 ([facility]) Omeprazole 40 MG Delayed Release Oral Capsule Omeprazole 40 MG 04/06/2020 12:00:00 AM EST active Omeprazo le 40 MG eCW1 ([facility]) Omeprazole 40 MG Delayed Release Oral Capsule Omeprazole 40 MG 04/06/2020 12:00:00 AM EST active Omeprazo le 40 MG eCW1 ([facility]) Omeprazole 40 MG Delayed Release Oral Capsule Omeprazole 40 MG 04/06/2020 12:00:00 AM EST active Omeprazo le 40 MG eCW1 ([facility]) Omeprazole 40 MG Delayed Release Oral Capsule Omeprazole 40 MG 04/06/2020 12:00:00 AM EST active Omeprazo le 40 MG eCW1 ([facility]) Omeprazole 40 MG Delayed Release Oral Capsule Omeprazole 40 MG 04/06/2020 12:00:00 AM EST active Omeprazo le 40 MG eCW1 ([facility]) 0.5 mg 03/17/2020 12:00:00 AM EST tablet 40 TAKE ONE TABLET BY MOUTH TWICE A DAY NEEDED FOR ANXIETY MAXIMUM DAILY DOSE = TWO TABLETS TAKE ONE TABLET BY MOUTH TWICE A DAY NEEDED FOR ANXIETY MAXIMUM DAILY DOSE = TWO TABLETS SOLD: 03/20/2020 [facility] 0.5 mg 02/25/2020 12:00:00 AM EST tablet 40 TAKE ONE TABLET BY MOUTH TWICE A DAY NEEDED MAXIMUM DAILY DOSE = 2 TABLETS TAKE ONE TABLET BY MOUTH TWICE A DAY NEEDED MAXIMUM DAILY DOSE = 2 TABLETS SOLD: 02/26/2020 [facility] 30 mg 02/15/2020 12:00:00 AM EDT tablet 180 TAKE ONE TABLET BY MOUTH TWICE A DAY DIRECTED TAKE ONE TABLET BY MOUTH TWICE A DAY DIRECTED SOLD: 02/16/2020 [facility] 75 mg 02/15/2020 12:00:00 AM EDT capsule,extended releas e 24hr 90 TAKE ONE CAPSULE BY MOUTH EVERY DAY TAKE ONE CAPSULE BY MOUTH EVERY DAY SOLD: 02/16/2020 [facility] quetiapine 50 MG Oral Tablet QUETIAPINE FUMARATE 02/15/2020 12:0 0:00 AM EDT tablet 90 TAKE ONE TABLET BY MOUTH AT BEDT MEI TAKE ONE TABLET BY MOUTH AT BEDTIME SOLD: 02/16/2020 [facility] 0.5 mg 01/31/2020 12:00:00 AM EDT tablet 40 TAKE ONE TABLET BY MOUTH TWICE A DAY NEEDED MAXIMUM DAILY DOSE = 2 TABLETS TAKE ONE TABLET BY MOUTH TWICE A DAY NEEDED MAXIMUM DAILY DOSE = 2 TABLETS SOLD: 02/03/2020 [facility] 100 mg 01/21/2020 12:00:00 AM EDT capsule 90 TAKE ONE CAPSULE BY MOUTH THREE TIMES A DAY TAKE ONE CAPSULE BY MOUTH THREE TIMES A DAY SOLD: 01/21/2020 [facility] gabapentin 100 MG Oral Capsule Gabapentin 01/20/2020 12:00:00 AM EDT ORAL active MEDENT ([facility]) 150 mg 01/14/2020 12:00:00 AM EDT capsule,extended releas e 24hr 90 TAKE ONE CAPSULE BY MOUTH EVERY DAY TAKE ONE CAPSULE BY MOUTH EVERY DAY SOLD: 01/18/2020 [facility] valacyclovir 1000 MG Oral Tablet VALACYCLOVIR HCL 01/13/2020 12: 00:00 AM EDT tablet 5 TAKE ONE TABLET BY MOUTH EVERY D AY TAKE ONE TABLET BY MOUTH EVERY DAY SOLD: 01/18/2020 [facility] quetiapine 50 MG Oral Tablet QUETIAPINE FUMARATE 01/10/2020 12:0 0:00 AM EDT tablet 30 TAKE ONE TABLET BY MOUTH AT BEDT MEI TAKE ONE TABLET BY MOUTH AT BEDTIME SOLD: 01/10/2020 [facility] 30 mg 01/10/2020 12:00:00 AM EDT tablet 60 TAKE ONE TABLET BY MOUTH TWICE A DAY NEEDED TAKE ONE TABLET BY MOUTH TWICE A DAY NEEDED SOLD: 01/10/2020 [facility] montelukast 10 MG Oral Tablet MONTELUKAST SODIUM 12/31/2019 12:0 0:00 AM EDT tablet 90 TAKE ONE TABLET BY MOUTH EVERY D AY TAKE ONE TABLET BY MOUTH EVERY DAY SOLD: 04/09/2020 [facility] 0.025 % (0.035 %) 12/05/2019 12:00:00 AM EDT drops 5 INSTILL 1 DROP INTO BOTH EYES 2 TIMES A DAY INSTILL 1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 by [employer]. ID Date Data Source [id number] 06/04/2020 01:00:00 PM EST [facility] Name Value Range Interpretation Code Description Data Korin rce(s) Supporting Document(s) SARS coronavirus 2 RNA Not Detected [facility] This lab was ordered by [facility] and reported by [facility]. ID Date Data Source [id number] 05/20/2020 03:11:00 PM EST MEDENT ([facility] ) Name Value Range Interpretation Code Description Data Korin rce(s) Supporting Document(s) Antinuclear Antibodies Direct Laboratory test result MEDENT ([facility] ) Performed at: [facility] [place] [id number] Surveyor: Maria Esther Villafuerte MD, Phone: [phone] ID Date Data Source [id number] 05/20/2020 03:11:00 PM EST MEDENT ([facility] ) Name Value Range Interpretation Code Description Data Korin rce(s) Supporting Document(s) Rheumatoid factor [Units/volume] in Serum or Plasma Laboratory test result MEDENT ([facility] ) Erythrocyte sedimentation rate by 2H Westergren method 11 mm/hr 0-3 0 MEDENT ([facility] ) ID Date Data Source [id number] 01/30/2020 10:00:00 AM EDT [facility] Name Value Range Interpretation Code Description Data Korin rce(s) Supporting Document(s) SARS coronavirus 2 RNA [facility] This lab was ordered by [facility] and reported by [facility]. Procedure Social History Code Duration Value Status Description Data Source(s ) Smoking 03/01/2021 12:00:00 AM EST Never Smoker completed Never S moker eCW1 ([facility]) Smoking 02/22/2021 12:00:00 AM EDT Never Smoker completed Never S moker eCW1 ([facility]) Smoking 02/06/2021 12:00:00 AM EDT Never Smoker completed Never S moker eCW1 ([facility]) Smoking 12/08/2020 12:00:00 AM EDT Never Smoker completed Never S moker eCW1 ([facility]) Smoking 12/08/2020 12:00:00 AM EDT Never Smoker completed Never S moker eCW1 ([facility]) Smoking 12/08/2020 12:00:00 AM EDT Never Smoker completed Never S moker eCW1 ([facility]) Smoking 12/08/2020 12:00:00 AM EDT Never Smoker completed Never S moker eCW1 ([facility]) Smoking 11/18/2020 12:00:00 AM EDT Never Smoker completed Never S moker eCW1 ([facility]) Smoking 10/05/2020 12:00:00 AM EDT Never Smoker completed Never S moker eCW1 ([facility]) Smoking 10/05/2020 12:00:00 AM EDT Never Smoker completed Never S moker eCW1 ([facility]) Smoking 10/05/2020 12:00:00 AM EDT Never Smoker completed Never S moker eCW1 ([facility]) Smoking 09/09/2020 12:00:00 AM EDT Never Smoker completed Never S moker eCW1 ([facility]) Smoking 09/09/2020 12:00:00 AM EDT Never Smoker completed Never S moker eCW1 ([facility]) Smoking 09/09/2020 12:00:00 AM EDT Never Smoker completed Never S moker eCW1 ([facility]) Smoking 09/09/2020 12:00:00 AM EDT Never Smoker completed Never S moker eCW1 ([facility]) Smoking 08/19/2020 12:00:00 AM EDT Non Smoker completed Non Smoke r MEDENT ([facility] ) Smoking 08/12/2020 12:00:00 AM EDT Never Smoker completed Never S moker eCW1 ([facility]) Smoking 08/12/2020 12:00:00 AM EDT Never Smoker completed Never S moker eCW1 ([facility]) Smoking 08/12/2020 12:00:00 AM EDT Never Smoker completed Never S moker eCW1 ([facility]) Smoking 08/10/2020 12:00:00 AM EDT Never Smoker completed Never S moker eCW1 ([facility]) Smoking 06/23/2020 12:00:00 AM EST Never Smoker completed Never S moker eCW1 ([facility]) Smoking 06/23/2020 12:00:00 AM EST Never Smoker completed Never S moker eCW1 ([facility]) Smoking 06/09/2020 12:00:00 AM EST Never Smoker completed Never S moker eCW1 ([facility]) Smoking 06/09/2020 12:00:00 AM EST Never Smoker completed Never S moker eCW1 ([facility]) Smoking 06/09/2020 12:00:00 AM EST Never Smoker completed Never S moker eCW1 ([facility]) Smoking 05/29/2020 12:00:00 AM EST Patient has never smoked co mpleted Patient has never smoked [facility] ([facility]) Smoking 05/20/2020 12:00:00 AM EST Never Smoker completed Never S moker eCW1 ([facility]) Smoking 05/20/2020 12:00:00 AM EST Never Smoker completed Never S moker eCW1 ([facility]) Smoking 04/06/2020 12:00:00 AM EST Never Smoker completed Never S moker eCW1 ([facility]) Smoking 04/06/2020 12:00:00 AM EST Never Smoker completed Never S moker eCW1 ([facility]) Smoking 04/06/2020 12:00:00 AM EST Never Smoker completed Never S moker eCW1 ([facility]) Smoking 04/01/2020 12:00:00 AM EST Never Smoker completed Never S moker eCW1 ([facility]) Smoking 02/18/2020 12:00:00 AM EDT Never Smoker completed Never S moker eCW1 ([facility]) Smoking 02/04/2020 12:00:00 AM EDT Never Smoker completed Never S moker eCW1 ([facility]) Smoking 01/31/2020 12:00:00 AM EDT Never Smoker completed Never S moker eCW1 ([facility]) Vital Signs ID Date Data Source UNK Name Value Range Interpretation Code Description Data Source(s) Body weight 139.4 [lb_av] 139.4 [lb_av] eCW1 ([facility]) Body height 62 [in_i] 62 [in_i] eCW1 ([facility]) Body temperature 96.8 [degF] 96.8 [degF] eCW1 ( [facility]) Systolic blood pressure 120 mm[Hg] 120 mm[Hg] e CW1 ([facility]) Diastolic blood pressure 80 mm[Hg] 80 mm[Hg] eCW1 ([facility]) Body mass index (BMI) [Ratio] 25.49 kg/m2 25.49 kg/m2 eCW1 ([facility]) Heart rate 90 /min 90 /min eCW1 ([facility]) Respiratory rate 18 /min 18 /min eCW1 ([facility]) Body height 62 [in_i] 62 [in_i] eCW1 ([facility]) Body weight 138 [lb_av] 138 [lb_av] eCW1 (On license of [facility]) Body weight 62.6 kg 62.6 kg eCW1 ([facility]) Body mass index (BMI) [Ratio] 25.24 kg/m2 25.24 kg/m2 eCW1 ([facility]) Systolic blood pressure 120 mm[Hg] 120 mm[Hg] [place] MARTINEZ ([facility] ) Heart rate 68 /min 68 /min MEDENT ([facility] ) Respiratory rate 16 /min 16 /min MEDENT ( [facility] ) Diastolic blood pressure 70 mm[Hg] 70 mm[Hg] MEDENT ([facility] ) Body weight 139.6 [lb_av] 139.6 [lb_av] eCW1 ([facility]) Body weight 63.32 kg 63.32 kg eCW1 ([facility]) Body mass index (BMI) [Ratio] 25.53 kg/m2 25.53 kg/m2 eCW1 ([facility]) Heart rate 94 /min 94 /min eCW1 ([facility]) Respiratory rate 18 /min 18 /min eCW1 ([facility]) Body temperature 97.2 [degF] 97.2 [degF] eCW1 ( [facility]) Systolic blood pressure 126 mm[Hg] 126 mm[Hg] e CW1 ([facility]) Diastolic blood pressure 84 mm[Hg] 84 mm[Hg] eCW1 ([facility]) Body height 62 [in_i] 62 [in_i] eCW1 ([facility]) Respiratory rate 16 /min 16 /min MEDENT ( [facility] ) Systolic blood pressure 110 mm[Hg] 110 mm[Hg] M EDENT ([facility] ) Diastolic blood pressure 60 mm[Hg] 60 mm[Hg] MEDENT ([facility] ) Heart rate 64 /min 64 /min MEDENT ([facility] ) Body weight 141 [lb_av] 141 [lb_av] eCW1 (On license of [facility]) Body height 62 [in_i] 62 [in_i] eCW1 ([facility]) Body mass index (BMI) [Ratio] 25.79 kg/m2 25.79 kg/m2 W1 ([facility]) Heart rate 96 /min 96 /min eCW1 ([facility]) Respiratory rate 18 /min 18 /min eCW1 ([facility]) Body temperature 96.7 [degF] 96.7 [degF] eCW1 ( [facility]) Systolic blood pressure 120 mm[Hg] 120 mm[Hg] e CW1 ([facility]) Diastolic blood pressure 74 mm[Hg] 74 mm[Hg] eCW1 ([facility]) Body temperature 98.0 [degF] 98.0 [degF] MEDENT ([facility]) Body height 62 [in_i] 62 [in_i] MEDENT ([facility]) 5'2" Body mass index (BMI) [Ratio] 26.2 kg/m2 26.2 k g/m2 [facility] ([facility]) [place] body weight 110 [lb_av] 110 [lb_av] MEDEN T ([facility]) Body weight 64.865 kg 64.865 kg [facility] ([facility]) Body surface area Derived from formula 1.66 m2 1.66 m2 [facility] ([facility]) Systolic blood pressure 112 mm[Hg] 112 mm[Hg] M EDENT ([facility]) Diastolic blood pressure 68 mm[Hg] 68 mm[Hg] MEDENT ([facility]) Body weight 143.00 [lb_av] 143.00 [lb_av] MEDEN T ([facility]) Body weight 142 [lb_av] 142 [lb_av] eCW1 (On license of [facility]) Heart rate 95 /min 95 /min eCW1 ([facility]) Respiratory rate 18 /min 18 /min eCW1 ([facility]) Body temperature 95.5 [degF] 95.5 [degF] eCW1 ( [facility]) Systolic blood pressure 134 mm[Hg] 134 mm[Hg] e CW1 ([facility]) Diastolic blood pressure 81 mm[Hg] 81 mm[Hg] eCW1 ([facility]) Body height 62 [in_i] 62 [in_i] eCW1 ([facility]) Body mass index (BMI) [Ratio] 25.97 kg/m2 25.97 kg/m2 eCW1 ([facility]) Systolic blood pressure 140 mm[Hg] 140 mm[Hg] M EDENT ([facility]) Diastolic blood pressure 88 mm[Hg] 88 mm[Hg] MEDENT ([facility]) Heart rate 18 /min 18 /min [facility] ([facility]) Oxygen saturation in Arterial blood by Pulse oximetry 97 % 97 % [facility] Body weight 147.44 [lb_av] 147.44 [lb_av] MEDEN T ([facility]) Body mass index (BMI) [Ratio] 27.0 kg/m2 27.0 k g/m2 [facility] ([facility]) [place] body weight 110 [lb_av] 110 [lb_av] MEDEN T ([facility]) Respiratory rate 91 /min 91 /min [facility] ( [facility]) Body temperature 97.7 [degF] 97.7 [degF] [facility] ([facility]) Body height 62 [in_i] 62 [in_i] [facility] ([facility]) 5'2" Body weight 66.878 kg 66.878 kg [facility] ([facility]) Body surface area Derived from formula 1.68 m2 1.68 m2 [facility] ([facility]) Body weight 145 [lb_av] 145 [lb_av] eCW1 (On license of [facility]) Body mass index (BMI) [Ratio] 26.52 kg/m2 26.52 kg/m2 eCW1 ([facility]) Heart rate 102 /min 102 /min eCW1 ([facility]) Respiratory rate 18 /min 18 /min eCW1 ([facility]) Body temperature 96.3 [degF] 96.3 [degF] eCW1 ( [facility]) Systolic blood pressure 132 mm[Hg] 132 mm[Hg] e CW1 ([facility]) Diastolic blood pressure 76 mm[Hg] 76 mm[Hg] eCW1 ([facility]) Body height 62 [in_i] 62 [in_i] eCW1 ([facility]) Body height 62 [in_i] 62 [in_i] eCW1 ([facility]) Body weight 144.2 [lb_av] 144.2 [lb_av] eCW1 ([facility]) Body mass index (BMI) [Ratio] 26.37 kg/m2 26.37 kg/m2 eCW1 ([facility]) Heart rate 84 /min 84 /min eCW1 ([facility]) Respiratory rate 18 /min 18 /min eCW1 ([facility]) Body temperature 98.3 [degF] 98.3 [degF] eCW1 ( [facility]) Systolic blood pressure 116 mm[Hg] 116 mm[Hg] e CW1 ([facility]) Diastolic blood pressure 81 mm[Hg] 81 mm[Hg] eCW1 ([facility]) Body weight 147 [lb_av] 147 [lb_av] eCW1 (On license of [facility]) Body height 62 [in_i] 62 [in_i] eCW1 ([facility]) Body mass index (BMI) [Ratio] 26.88 kg/m2 26.88 kg/m2 eCW1 ([facility]) Heart rate 89 /min 89 /min eCW1 ([facility]) Respiratory rate 18 /min 18 /min eCW1 ([facility]) Body temperature 97.3 [degF] 97.3 [degF] eCW1 ( [facility]) Systolic blood pressure 156 mm[Hg] 156 mm[Hg] e CW1 ([facility]) Diastolic blood pressure 88 mm[Hg] 88 mm[Hg] eCW1 ([facility]) Body weight 146.4 [lb_av] 146.4 [lb_av] eCW1 ([facility]) Body height 62 [in_i] 62 [in_i] eCW1 ([facility]) Body mass index (BMI) [Ratio] 26.77 kg/m2 26.77 kg/m2 eCW1 ([facility]) Heart rate 86 /min 86 /min eCW1 ([facility]) Respiratory rate 20 /min 20 /min eCW1 ([facility]) Body temperature 97.1 [degF] 97.1 [degF] eCW1 ( [facility]) Systolic blood pressure 147 mm[Hg] 147 mm[Hg] e CW1 ([facility]) Diastolic blood pressure 87 mm[Hg] 87 mm[Hg] eCW1 ([facility]) Body weight 145.00 [lb_av] 145.00 [lb_av] MEDEN T ([facility]) Body height 62 [in_i] 62 [in_i] MEDENT ([facility] 5'2" Body mass index (BMI) [Ratio] 26.5 kg/m2 26.5 k g/m2 MEDENT ([facility]) Heart rate 95 /min 95 /min [facility] ([facility] Systolic blood pressure--sitting 130 mm[Hg] 130 mm[Hg] MEDENT ([facility]) Ra, medium cuff Diastolic blood pressure--sitting 86 mm[Hg] 86 mm[Hg] MEDENT ([facility]) Ra, medium cuff Body weight 147.6 [lb_av] 147.6 [lb_av] eCW1 ([facility]) Body height 62 [in_i] 62 [in_i] eCW1 ([facility]) Body mass index (BMI) [Ratio] 26.99 kg/m2 26.99 kg/m2 eCW1 ([facility]) Heart rate 96 /min 96 /min eCW1 ([facility]) Respiratory rate 18 /min 18 /min eCW1 ([facility]) Body temperature 97.7 [degF] 97.7 [degF] eCW1 ( [facility]) Systolic blood pressure 136 mm[Hg] 136 mm[Hg] e CW1 ([facility]) Diastolic blood pressure 74 mm[Hg] 74 mm[Hg] eCW1 ([facility]) Body weight 142 [lb_av] 142 [lb_av] eCW1 (On license of [facility]) Respiratory rate 20 /min 20 /min eCW1 ([facility]) Body temperature 96.9 [degF] 96.9 [degF] eCW1 ( [facility]) Systolic blood pressure 110 mm[Hg] 110 mm[Hg] e CW1 ([facility]) Diastolic blood pressure 70 mm[Hg] 70 mm[Hg] eCW1 ([facility]) Body height 62 [in_i] 62 [in_i] eCW1 ([facility]) Body mass index (BMI) [Ratio] 25.97 kg/m2 25.97 kg/m2 eCW1 ([facility]) Heart rate 99 /min 99 /min eCW1 ([facility]) Body weight 141 [lb_av] 141 [lb_av] eCW1 (On license of [facility]) Body mass index (BMI) [Ratio] 25.79 kg/m2 25.79 kg/m2 eCW1 ([facility]) Heart rate 97 /min 97 /min eCW1 ([facility]) Respiratory rate 20 /min 20 /min eCW1 ([facility]) Body temperature 96 [degF] 96 [degF] eCW1 ([facility]) Systolic blood pressure 102 mm[Hg] 102 mm[Hg] e CW1 ([facility]) Diastolic blood pressure 68 mm[Hg] 68 mm[Hg] eCW1 ([facility]) Body height 62 [in_i] 62 [in_i] eCW1 ([facility]) Body temperature 98.0 [degF] 98.0 [degF] MEDENT ([facility]) Body weight 138.0 [lb_av] 138.0 [lb_av] eCW1 ([facility]) Body height 62 [in_i] 62 [in_i] eCW1 ([facility]) Body mass index (BMI) [Ratio] 25.24 kg/m2 25.24 kg/m2 eCW1 ([facility]) Heart rate 85 /min 85 /min eCW1 ([facility]) Respiratory rate 18 /min 18 /min eCW1 ([facility]) Body temperature 97.5 [degF] 97.5 [degF] eCW1 ( [facility]) Systolic blood pressure 119 mm[Hg] 119 mm[Hg] e CW1 ([facility]) Diastolic blood pressure 74 mm[Hg] 74 mm[Hg] eCW1 ([facility]) Body weight 139.2 [lb_av] 139.2 [lb_av] eCW1 ([facility]) Body height 62 [in_i] 62 [in_i] eCW1 ([facility]) Body mass index (BMI) [Ratio] 25.46 kg/m2 25.46 kg/m2 eCW1 ([facility]) Heart rate 98 /min 98 /min eCW1 ([facility]) Respiratory rate 18 /min 18 /min eCW1 ([facility]) Body temperature 98.6 [degF] 98.6 [degF] eCW1 ( [facility]) Systolic blood pressure 140 mm[Hg] 140 mm[Hg] e CW1 ([facility]) Diastolic blood pressure 78 mm[Hg] 78 mm[Hg] eCW1 ([facility]) Patient Treatment Plan of Care Planned Activity Planned Date Details Description Data Source (s) tramadol hydrochloride 50 MG Oral Tablet 02/22/2021 12:00:00 AM EDT eCW1 ([facility]) tramadol hydrochloride 50 MG Oral Tablet 01/21/2021 12:00:00 AM EDT eCW1 ([facility]) tramadol hydrochloride 50 MG Oral Tablet 12/14/2020 12:00:00 AM EDT eCW1 ([facility]) tramadol hydrochloride 50 MG Oral Tablet 12/14/2020 12:00:00 AM EDT eCW1 ([facility]) tramadol hydrochloride 50 MG Oral Tablet 12/14/2020 12:00:00 AM EDT eCW1 ([facility]) Esomeprazole 40 MG Delayed Release Oral Capsule [Nexiu m] 10/05/2020 12:00:00 AM EDT eCW1 ([facility]) Esomeprazole 40 MG Delayed Release Oral Capsule [Nexiu m] 10/05/2020 12:00:00 AM EDT eCW1 ([facility]) Esomeprazole 40 MG Delayed Release Oral Capsule [Nexiu m] 10/05/2020 12:00:00 AM EDT eCW1 ([facility]) Esomeprazole 40 MG Delayed Release Oral Capsule [Nexiu m] 10/05/2020 12:00:00 AM EDT eCW1 ([facility]) Esomeprazole 40 MG Delayed Release Oral Capsule [Nexiu m] 10/05/2020 12:00:00 AM EDT eCW1 ([facility]) 120 ACTUAT Fluticasone propionate 0.11 MG/ACTUAT Meter ed Dose Inhaler [Flovent] 09/22/2020 12:00:00 AM EDT eCW1 ([facility]) 120 ACTUAT Fluticasone propionate 0.11 MG/ACTUAT Meter ed Dose Inhaler [Flovent] 09/22/2020 12:00:00 AM EDT eCW1 ([facility]) 120 ACTUAT Fluticasone propionate 0.11 MG/ACTUAT Meter ed Dose Inhaler [Flovent] 09/22/2020 12:00:00 AM EDT eCW1 ([facility]) 120 ACTUAT Fluticasone propionate 0.11 MG/ACTUAT Meter ed Dose Inhaler [Flovent] 09/22/2020 12:00:00 AM EDT eCW1 ([facility]) 120 ACTUAT Fluticasone propionate 0.11 MG/ACTUAT Meter ed Dose Inhaler [Flovent] 09/22/2020 12:00:00 AM EDT eCW1 ([facility]) 120 ACTUAT Fluticasone propionate 0.11 MG/ACTUAT Meter ed Dose Inhaler [Flovent] 09/22/2020 12:00:00 AM EDT eCW1 ([facility]) 120 ACTUAT Fluticasone propionate 0.11 MG/ACTUAT Meter ed Dose Inhaler [Flovent] 09/22/2020 12:00:00 AM EDT eCW1 ([facility]) Omeprazole 40 MG Delayed Release Oral Capsule 04/06/2020 12:00:00 A M EST eCW1 ([facility]) Omeprazole 40 MG Delayed Release Oral Capsule 04/06/2020 12:00:00 A M EST eCW1 ([facility]) Omeprazole 40 MG Delayed Release Oral Capsule 04/06/2020 12:00:00 A M EST eCW1 ([facility])
[2021-03-08] MEDS ORDERED: LIDOCAINE 2% 100MG/5ML SDV (FOR ANES.) As Ordered ONE (13:03)
[2021-03-08] MEDS ORDERED: propofoL 500 MG/50 ML VIAL As Ordered ONE (13:03)
[2021-03-08] MEDS ORDERED: fentaNYL 100 MCG/2 ML INJECTION (J3010) As Ordered ONE (13:03)
--- NOTE | 2021-03-08 13:11 | ROOR ---
Patient Name: Randee Uribe Procedure Date: 03/08/2021 12:57 PM Date of : 1955 Age: 65 Room: [facility] Gender: Female Note Status: Finalized Procedure: Upper GI endoscopy Indications: Heartburn Providers: Sonido Gomez MD Referring MD: Ashley Mcneill MD Requesting Provider: Medicines: Monitored Anesthesia Care Complications: No immediate complications. Procedure: Pre-Anesthesia Assessment: - The heart rate, respiratory rate, oxygen saturations, blood pressure, adequacy of pulmonary ventilation, and response to care were monitored throughout the procedure. The Endoscope was introduced through the mouth, and advanced to the second part of duodenum. The upper GI endoscopy was accomplished without difficulty. The patient tolerated the procedure well. Findings: The Z-line was variable and was found 35 cm from the incisors. This was biopsied with a cold forceps for histology. The entire examined stomach was normal. Biopsies were taken with a cold forceps for Helicobacter pylori testing. The examined duodenum was normal. Impression: - Z-line variable, 35 cm from the incisors. Biopsied. - Normal stomach. Biopsied. - Normal examined duodenum. Recommendation: - Telephone endoscopist for pathology results in 2 weeks. Procedure Code(s): --- Professional --- 01608, Esophagogastroduodenoscopy, flexible, transoral; with biopsy, single or multiple Diagnosis Code(s): --- Professional --- R12, Heartburn K22.8, Other specified diseases of esophagus CPT copyright 2019 [employer]. All rights reserved. The codes documented in this report are preliminary and upon silk trimmer review may be revised to meet current compliance requirements. Sonido Gomez MD Sonido Gomez MD 03/08/2021 1:11:16 PM Electronically signed by Sonido Gomez MD Number of Addenda: 0 Note Initiated On: 03/08/2021 12:57 PM Estimated Blood Loss: Estimated blood loss: none.
[2021-03-08 13:30] VITALS: BP 123/73
== END 2021-03-08 14:01 | disposition home or self-care (01) ==
LOC: M OPP 11:39
PROVIDERS: ATTEND Internal Medicine Gastroenterology
DX: K22.89 Other specified disease of esophagus (principal); R10.13 Epigastric pain; R01.1 Cardiac murmur, unspecified; Z79.891 Long term (current) use of opiate analgesic; Z79.899 Other long term (current) drug therapy; Z88.8 Allergy status to other drugs, medicaments and biological substances; Z87.11 Personal history of peptic ulcer disease
CPT/HCPCS: 43239; 88305; J3010

== ENCOUNTER → 2021-05-05 | Outpatient (CLI) | payer OTHER ==
[~2021-05-05] MED LIST changes: -MONT10TA10 PO; +MONT10TA97 PO; -NS 1,000 ML IV ONE
== END ==
LOC: M RAD 14:34
PROVIDERS: ATTEND Orthopaedic Surgery Adult Reconstructive Orthopaedic Surgery
DX: M94.262 Chondromalacia, left knee (principal)

== ENCOUNTER → 2021-06-10 | Outpatient (REF) | payer MEDICARE, MEDICAID ==
[~2021-06-10] MED LIST changes: -OMEP-221 PO; +OMEP40CA5 PO
== END ==
LOC: M SFHCPLAZ 13:05
PROVIDERS: ATTEND Family Medicine
DX: J02.9 Acute pharyngitis, unspecified (principal)

== ENCOUNTER → 2021-07-23 | Outpatient (CLI) | payer MEDICARE, MEDICAID | LOC: M LABSMTC 11:28 | PROVIDERS: ATTEND Anesthesiology | DX: Z01.812 Encounter for preprocedural laboratory examination (principal); Z20.822 Contact with and (suspected) exposure to COVID-19 ==

== ENCOUNTER → 2021-07-27 | Outpatient (CLI) | payer OTHER ==
[~2021-07-27] MED LIST changes: +BUPIVACAINE HCL 0.25% 10ML VIAL As Ordered ONE; +BUPIVACAINE HCL 0.25% 30ML VIAL As Ordered ONE; +TRIAMCINOLONE ACETONIDE SUSP 40 MG/ML VIAL (J3301) As Ordered ONE; +diazePAM 5MG TABLET As Ordered ONE; +diphenhydrAMINE 25MG CAP As Ordered ONE; +oxyCODONE 5MG TAB As Ordered ONE
== END ==
LOC: M PAIN 11:00
PROVIDERS: ATTEND Anesthesiology
DX: M79.18 Myalgia, other site (principal); J45.20 Mild intermittent asthma, uncomplicated; K21.9 Gastro-esophageal reflux disease without esophagitis; E55.9 Vitamin D deficiency, unspecified; Z86.59 Personal history of other mental and behavioral disorders; Z87.820 Personal history of traumatic brain injury; Z88.6 Allergy status to analgesic agent; Z88.8 Allergy status to other drugs, medicaments and biological substances; Z91.018 Allergy to other foods; Z79.899 Other long term (current) drug therapy
CPT/HCPCS: 20552; J3301

== ENCOUNTER → 2021-09-02 | Outpatient (CLI) | payer MEDICAID, MEDICARE, OTHER ==
[~2021-09-02] MED LIST changes: -BUPIVACAINE HCL 0.25% 10ML VIAL As Ordered ONE; -BUPIVACAINE HCL 0.25% 30ML VIAL As Ordered ONE; -TRIAMCINOLONE ACETONIDE SUSP 40 MG/ML VIAL (J3301) As Ordered ONE; +VITATAB73 PO; -diazePAM 5MG TABLET As Ordered ONE; -diphenhydrAMINE 25MG CAP As Ordered ONE; -oxyCODONE 5MG TAB As Ordered ONE
== END ==
LOC: M LABSMTC 11:48
PROVIDERS: ATTEND Anesthesiology
DX: Z01.818 Encounter for other preprocedural examination (principal); Z11.52 Encounter for screening for COVID-19

== ENCOUNTER 2021-09-07 11:41 | Day surgery (SDC) | payer OTHER ==
[~2021-09-07] VITALS: Ht 157.5 cm; Wt 63.5 kg
[~2021-09-07 11:41] MED LIST changes: +ACETAMINOPHEN 500 MG TAB PO ONE; +GABAPENTIN 300 MG CAP PO ONE; +LR 1,000 ML IV ONE; +ONDANSETRON 4MG/2ML VIAL IV ONE
[2021-09-07] MEDS ORDERED: fentaNYL 100 MCG/2 ML INJECTION As Ordered ONE (12:11)
[2021-09-07] MEDS ORDERED: LIDOCAINE 2% 100MG/5ML SDV (FOR ANES.) As Ordered ONE (12:11)
[2021-09-07] MEDS ORDERED: propofoL 200 MG/20 ML VIAL As Ordered ONE (12:11)
[2021-09-07] MEDS ORDERED: MIDAZOLAM INJ 2MG/2ML VIAL (J2250 PER 1MG) As Ordered ONE (12:11)
[2021-09-07] MEDS ORDERED: BUPIVACAINE/EPIN 0.5% 30 ML VIAL As Ordered ONE (13:01)
[2021-09-07] MEDS ORDERED: EPINEPHrine 1MG/ML INJ 30ML MD-VIAL As Ordered ONE (13:01)
[2021-09-07] MEDS ORDERED: dexameTHASONE 4 MG/ML 1ML VIAL (J1100 PER 1MG) As Ordered ONE (13:50)
[2021-09-07] MEDS ORDERED: ONDANSETRON 4MG/2ML VIAL As Ordered ONE (13:50)
[2021-09-07] MEDS ORDERED: KETOROLAC 60MG 2ML VIAL As Ordered ONE (13:50)
[2021-09-07] MEDS ORDERED: ONDANSETRON 4MG/2ML VIAL IV PRN (14:25)
[2021-09-07] MEDS ORDERED: LR 1,000 ML IV SCH (14:25)
[2021-09-07] MEDS ORDERED: fentaNYL 100 MCG/2 ML INJECTION IV PRN (14:25)
[2021-09-07] MEDS: oxyCODONE 5MG TAB PO PRN ×2 (14:59→15:41)
[2021-09-07 15:50] VITALS: BP 151/79
== END 2021-09-07 16:40 | disposition home or self-care (01) ==
LOC: M SDC 11:41
PROVIDERS: ATTEND Orthopaedic Surgery Adult Reconstructive Orthopaedic Surgery
DX: M22.42 Chondromalacia patellae, left knee (principal); M12.562 Traumatic arthropathy, left knee; K21.9 Gastro-esophageal reflux disease without esophagitis; J45.909 Unspecified asthma, uncomplicated; E78.2 Mixed hyperlipidemia; Z79.899 Other long term (current) drug therapy; Z79.51 Long term (current) use of inhaled steroids; F43.10 Post-traumatic stress disorder, unspecified; Z87.820 Personal history of traumatic brain injury; Z88.8 Allergy status to other drugs, medicaments and biological substances; Z91.014 Allergy to mammalian meats
CPT/HCPCS: 29881; J0171; J1100; J1885; J2250; J2405; J3010

== ENCOUNTER → 2021-09-28 | Outpatient (CLI) | payer OTHER ==
[~2021-09-28] MED LIST changes: -ACETAMINOPHEN 500 MG TAB PO ONE; -GABAPENTIN 300 MG CAP PO ONE; -LR 1,000 ML IV ONE; -ONDANSETRON 4MG/2ML VIAL IV ONE
== END ==
LOC: M PAIN 14:30
PROVIDERS: ATTEND Nurse Practitioner Family
DX: M96.1 Postlaminectomy syndrome, not elsewhere classified (principal); G89.29 Other chronic pain; J45.20 Mild intermittent asthma, uncomplicated; K21.9 Gastro-esophageal reflux disease without esophagitis; E55.9 Vitamin D deficiency, unspecified; Z86.59 Personal history of other mental and behavioral disorders; Z87.820 Personal history of traumatic brain injury; Z88.6 Allergy status to analgesic agent; Z88.8 Allergy status to other drugs, medicaments and biological substances; Z91.018 Allergy to other foods; Z91.09 Other allergy status, other than to drugs and biological substances; Z79.899 Other long term (current) drug therapy

== ENCOUNTER → 2021-10-05 | Outpatient (CLI) | payer OTHER | LOC: M PLAIMG 10:26 | PROVIDERS: ATTEND Orthopaedic Surgery Adult Reconstructive Orthopaedic Surgery | DX: M12.561 Traumatic arthropathy, right knee (principal) ==

== ENCOUNTER → 2021-11-16 | Outpatient (CLI) | payer OTHER, MEDICARE, MEDICAID ==
[2021-11-16 13:54] LABS: BLOOD UREA NITROGEN 9 MG/DL (7-18); CREATININE FOR GFR 0.81 MG/DL (0.55-1.30); GLOMERULAR FILTRATION RATE > 60.0 (>45)
== END ==
LOC: M LAB 12:46
PROVIDERS: ATTEND Nurse Practitioner Family
DX: M96.1 Postlaminectomy syndrome, not elsewhere classified (principal)

== ENCOUNTER → 2021-11-19 | Outpatient (CLI) | payer OTHER ==
[~2021-11-19] MED LIST changes: +PROHANCE 279.3MG/ML 15ML VIAL As Ordered ONE
== END ==
LOC: M RAD 14:10
PROVIDERS: ATTEND Nurse Practitioner Family
DX: M51.26 Other intervertebral disc displacement, lumbar region (principal); M51.37 Other intervertebral disc degeneration, lumbosacral region; M48.061 Spinal stenosis, lumbar region without neurogenic claudication; M96.1 Postlaminectomy syndrome, not elsewhere classified
CPT/HCPCS: 72158; A9576

== ENCOUNTER → 2022-01-19 | Outpatient (CLI) | payer OTHER ==
[~2022-01-19] MED LIST changes: -PROHANCE 279.3MG/ML 15ML VIAL As Ordered ONE; +SIMV-253 PO; -ZOCO20TA PO
== END ==
LOC: M PAIN 10:30
PROVIDERS: ATTEND Anesthesiology
DX: M79.18 Myalgia, other site (principal); G89.29 Other chronic pain; J45.20 Mild intermittent asthma, uncomplicated; K21.9 Gastro-esophageal reflux disease without esophagitis; E55.9 Vitamin D deficiency, unspecified; Z86.59 Personal history of other mental and behavioral disorders; Z87.820 Personal history of traumatic brain injury; Z88.6 Allergy status to analgesic agent; Z88.8 Allergy status to other drugs, medicaments and biological substances; Z91.018 Allergy to other foods; Z79.899 Other long term (current) drug therapy

== ENCOUNTER → 2022-02-01 | Outpatient (REF) | payer OTHER, MEDICAID, MEDICARE | LOC: M SFHCPLAZ 16:47 | PROVIDERS: ATTEND Family Medicine | DX: Z53.21 Procedure and treatment not carried out due to patient leaving prior to being seen by health care provider (principal) ==

== ENCOUNTER → 2022-02-23 | Outpatient (CLI) | payer MEDICAID, MEDICARE, OTHER | LOC: M SOG 08:51 | PROVIDERS: ATTEND Orthopaedic Surgery Adult Reconstructive Orthopaedic Surgery | DX: M25.552 Pain in left hip (principal) ==

== ENCOUNTER → 2022-04-10 | Outpatient (CLI) | payer MEDICARE, MEDICAID | LOC: M LABSMTC 11:25 | PROVIDERS: ATTEND Anesthesiology | DX: Z11.52 Encounter for screening for COVID-19 (principal) ==

== ENCOUNTER → 2022-04-14 | Outpatient (CLI) | payer MEDICARE, MEDICAID ==
[~2022-04-14] MED LIST changes: +BUPIVACAINE HCL 0.25% 10ML VIAL As Ordered ONE; +BUPIVACAINE HCL 0.25% 30ML VIAL As Ordered ONE; +TRIAMCINOLONE ACETONIDE SUSP 40MG/ML 1ML VIAL As Ordered ONE; +diazePAM 5MG TABLET As Ordered ONE; +diphenhydrAMINE 25MG CAP As Ordered ONE; +oxyCODONE 5MG TAB As Ordered ONE
== END ==
LOC: M PAIN 15:00
PROVIDERS: ATTEND Anesthesiology
DX: M79.18 Myalgia, other site (principal); G89.29 Other chronic pain; J45.20 Mild intermittent asthma, uncomplicated; K21.9 Gastro-esophageal reflux disease without esophagitis; E55.9 Vitamin D deficiency, unspecified; Z86.59 Personal history of other mental and behavioral disorders; Z87.820 Personal history of traumatic brain injury; Z88.6 Allergy status to analgesic agent; Z88.8 Allergy status to other drugs, medicaments and biological substances; Z91.018 Allergy to other foods; Z79.899 Other long term (current) drug therapy
CPT/HCPCS: 20552; J3301

== ENCOUNTER → 2022-05-20 | Outpatient (CLI) | payer OTHER, MEDICAID, MEDICARE ==
[~2022-05-20] MED LIST changes: -BUPIVACAINE HCL 0.25% 10ML VIAL As Ordered ONE; -BUPIVACAINE HCL 0.25% 30ML VIAL As Ordered ONE; -TRIAMCINOLONE ACETONIDE SUSP 40MG/ML 1ML VIAL As Ordered ONE; -diazePAM 5MG TABLET As Ordered ONE; -diphenhydrAMINE 25MG CAP As Ordered ONE; -oxyCODONE 5MG TAB As Ordered ONE
== END ==
LOC: M PAIN 13:45
PROVIDERS: ATTEND Nurse Practitioner Family
DX: M79.10 Myalgia, unspecified site (principal); G89.29 Other chronic pain; J45.20 Mild intermittent asthma, uncomplicated; K21.9 Gastro-esophageal reflux disease without esophagitis; E55.9 Vitamin D deficiency, unspecified; Z86.59 Personal history of other mental and behavioral disorders; Z87.820 Personal history of traumatic brain injury; Z88.6 Allergy status to analgesic agent; Z88.8 Allergy status to other drugs, medicaments and biological substances; Z91.018 Allergy to other foods; Z91.09 Other allergy status, other than to drugs and biological substances; Z79.899 Other long term (current) drug therapy

== ENCOUNTER → 2022-06-08 | Outpatient (CLI) | payer MEDICARE | LOC: M PLALAB 15:54 | PROVIDERS: ATTEND Nurse Practitioner Adult Health | DX: M25.531 Pain in right wrist (principal) ==

== ENCOUNTER → 2022-06-24 | Outpatient (CLI) | payer OTHER, MEDICAID ==
[~2022-06-24] MED LIST changes: +EFFE150C2 PO; +LATA0.0015 OU; +REFR1DRO8 OU; +SERO1TAB3 PO; +SERO50TA PO; +SYMB16INH INH; +VENL75TA2 PO
== END ==
LOC: M PAIN 14:00
PROVIDERS: ATTEND Nurse Practitioner Family
DX: M96.1 Postlaminectomy syndrome, not elsewhere classified (principal); M51.16 Intervertebral disc disorders with radiculopathy, lumbar region; G89.29 Other chronic pain; J45.20 Mild intermittent asthma, uncomplicated; K21.9 Gastro-esophageal reflux disease without esophagitis; E55.9 Vitamin D deficiency, unspecified; Z86.59 Personal history of other mental and behavioral disorders; Z87.820 Personal history of traumatic brain injury; Z88.6 Allergy status to analgesic agent; Z88.8 Allergy status to other drugs, medicaments and biological substances; Z91.018 Allergy to other foods; Z79.899 Other long term (current) drug therapy

== ENCOUNTER → 2022-07-18 | Outpatient (CLI) | payer MEDICARE, MEDICAID | LOC: M LABSMTC 10:53 | PROVIDERS: ATTEND Anesthesiology | DX: Z01.818 Encounter for other preprocedural examination (principal); Z11.52 Encounter for screening for COVID-19 ==

== ENCOUNTER 2022-07-21 08:30 | Day surgery (SDC) | payer MEDICARE, MEDICAID ==
[~2022-07-21] VITALS: Ht 157.5 cm; Wt 63.2 kg
[~2022-07-21 08:30] MED LIST changes: +NS 1,000 ML IV ONE
[2022-07-21] MEDS ORDERED: LIDOCAINE 2% MDV 20ML VIAL As Ordered ONE (10:28)
[2022-07-21] MEDS ORDERED: propofoL 200 MG/20 ML VIAL As Ordered ONE (10:28)
[2022-07-21 10:40] VITALS: BP 120/73
== END 2022-07-21 11:42 | disposition home or self-care (01) ==
LOC: M OPP 08:30
PROVIDERS: ATTEND Internal Medicine Gastroenterology
DX: Z86.010 Personal history of colon polyps (principal); K57.30 Diverticulosis of large intestine without perforation or abscess without bleeding; K64.8 Other hemorrhoids; F43.12 Post-traumatic stress disorder, chronic; J45.909 Unspecified asthma, uncomplicated; Z87.11 Personal history of peptic ulcer disease; Z79.02 Long term (current) use of antithrombotics/antiplatelets; Z79.2 Long term (current) use of antibiotics; Z79.51 Long term (current) use of inhaled steroids; Z79.891 Long term (current) use of opiate analgesic; Z79.899 Other long term (current) drug therapy; Z88.6 Allergy status to analgesic agent; Z91.018 Allergy to other foods; Z80.3 Family history of malignant neoplasm of breast

== ENCOUNTER → 2022-08-15 | Outpatient (CLI) | payer OTHER, MEDICAID ==
[~2022-08-15] MED LIST changes: +ISOVUE-M 300 61% 15ML VIAL As Ordered ONE; +LIDOCAINE 1% SDV 30ML VIAL As Ordered ONE; +NITR0.4S14 SL; -NS 1,000 ML IV ONE; +diazePAM 5MG TABLET As Ordered ONE; +methylPREDNISolone SUSP 40MG/ML 1ML VIAL (DEPO MEDROL) As Ordered ONE; +oxyCODONE 5MG TAB As Ordered ONE
== END ==
LOC: M PAIN 11:00
PROVIDERS: ATTEND Anesthesiology
DX: M51.16 Intervertebral disc disorders with radiculopathy, lumbar region (principal); G89.29 Other chronic pain; J45.20 Mild intermittent asthma, uncomplicated; K21.9 Gastro-esophageal reflux disease without esophagitis; E55.9 Vitamin D deficiency, unspecified; Z86.59 Personal history of other mental and behavioral disorders; Z87.820 Personal history of traumatic brain injury; Z88.6 Allergy status to analgesic agent; Z88.8 Allergy status to other drugs, medicaments and biological substances; Z91.018 Allergy to other foods; Z79.899 Other long term (current) drug therapy
CPT/HCPCS: 62323; J1030; Q9967

== ENCOUNTER 2022-08-29 06:37 | Day surgery (SDC) | payer MEDICARE, MEDICAID ==
[~2022-08-29] VITALS: Ht 157.5 cm; Wt 64.3 kg
[~2022-08-29 06:37] MED LIST changes: -ISOVUE-M 300 61% 15ML VIAL As Ordered ONE; -LIDOCAINE 1% SDV 30ML VIAL As Ordered ONE; +LIDOCAINE W/EPINEPHRINE 1% 20ML VIAL XX ONE; +SODIUM BICARBONATE 8.4% INJ 50MEQ 50ML VIAL XX ONE; -diazePAM 5MG TABLET As Ordered ONE; -methylPREDNISolone SUSP 40MG/ML 1ML VIAL (DEPO MEDROL) As Ordered ONE; -oxyCODONE 5MG TAB As Ordered ONE
[2022-08-29] MEDS ORDERED: POLYSPORIN TOPICAL OINTMENT 15GM As Ordered ONE (08:51)
[2022-08-29 08:57] VITALS: BP 146/72
== END 2022-08-29 09:16 | disposition home or self-care (01) ==
LOC: M SDC 06:37
PROVIDERS: ATTEND Orthopaedic Surgery Hand Surgery
DX: M65.4 Radial styloid tenosynovitis [de Quervain] (principal); J45.909 Unspecified asthma, uncomplicated; K21.9 Gastro-esophageal reflux disease without esophagitis; F43.10 Post-traumatic stress disorder, unspecified; F41.9 Anxiety disorder, unspecified; J30.2 Other seasonal allergic rhinitis; R01.1 Cardiac murmur, unspecified; Z79.899 Other long term (current) drug therapy

== ENCOUNTER → 2022-09-19 | Outpatient (CLI) | payer MEDICARE, MEDICAID ==
[~2022-09-19] MED LIST changes: -LIDOCAINE W/EPINEPHRINE 1% 20ML VIAL XX ONE; -SODIUM BICARBONATE 8.4% INJ 50MEQ 50ML VIAL XX ONE
[2022-09-19 11:04] LABS: BLOOD UREA NITROGEN 15 MG/DL (9-23); CALCIUM LEVEL 9.2 MG/DL (8.3-10.6); CARBON DIOXIDE LEVEL 28 MMOL/L (20-31); CHLORIDE LEVEL 105 MMOL/L (98-107); CHOLESTEROL LEVEL 168 MG/DL (<200); CREATININE FOR GFR 0.71 MG/DL (0.55-1.30); GLOMERULAR FILTRATION RATE > 60.0 (>45); GLUCOSE, FASTING 94 MG/DL (74-106); HDL CHOLESTEROL 45.3 MG/DL (>40); LDL CHOLESTEROL 96.5 MG/DL (<100); NON-HDL-C 122.7 MG/DL; POTASSIUM SERUM 4.5 MMOL/L (3.5-5.1); SODIUM LEVEL 140 MMOL/L (136-145); TRIGLYCERIDES LEVEL 131 MG/DL (<150)
[2022-09-19 11:05] LABS: TOTAL 25(OH) VITAMIN D 46.6 NG/ML (20.0-100.0)
[2022-09-19 11:11] LABS: HEMOGLOBIN A1c 5.8 % (4.0-6.0)
== END ==
LOC: M LAB 09:56
PROVIDERS: ATTEND Family Medicine
DX: E78.2 Mixed hyperlipidemia (principal); E55.9 Vitamin D deficiency, unspecified; R73.03 Prediabetes; Z87.898 Personal history of other specified conditions; Z79.899 Other long term (current) drug therapy

== ENCOUNTER 2022-12-12 14:16 | Emergency (ER) | payer MEDICARE, MEDICAID ==
[~2022-12-12 14:16] MED LIST changes: -FLUT11IN; +FLUT12AE6
== END 2022-12-12 15:32 | disposition left against medical advice (07) ==
LOC: EDBD 14:16 → M ED 14:16
DX: Z53.21 Procedure and treatment not carried out due to patient leaving prior to being seen by health care provider (principal)

== ENCOUNTER → 2023-05-18 | Outpatient (CLI) | payer OTHER, MEDICARE, MEDICAID ==
[~2023-05-18] MED LIST changes: -EFFE150C2 PO; +EFFE150C3 PO
== END ==
LOC: M PAIN 10:15
PROVIDERS: ATTEND Nurse Practitioner Family
DX: M51.16 Intervertebral disc disorders with radiculopathy, lumbar region (principal); M96.1 Postlaminectomy syndrome, not elsewhere classified; Z79.891 Long term (current) use of opiate analgesic; M48.07 Spinal stenosis, lumbosacral region; G89.29 Other chronic pain; J45.20 Mild intermittent asthma, uncomplicated; R73.01 Impaired fasting glucose; K21.9 Gastro-esophageal reflux disease without esophagitis; E78.5 Hyperlipidemia, unspecified; K76.0 Fatty (change of) liver, not elsewhere classified; F32.A Depression, unspecified; F41.0 Panic disorder [episodic paroxysmal anxiety]; Z79.899 Other long term (current) drug therapy; Z88.6 Allergy status to analgesic agent; Z88.8 Allergy status to other drugs, medicaments and biological substances; Z91.048 Other nonmedicinal substance allergy status

== ENCOUNTER 2023-06-28 09:07 | Day surgery (SDC) | payer MEDICARE, MEDICAID ==
[~2023-06-28] VITALS: Ht 157.5 cm; Wt 62.6 kg
[~2023-06-28 09:07] MED LIST changes: +ACET-683 PO; +FLUTISP NARES; +LUBR1DRO10 OU; +PHENYLEPHRINE 10% OPHTH SOL 5ML OS PRN; +VALA500T5 PO; +XELP0.00 OU
[2023-06-28] MEDS: LIDOCAINE 3.5 % 1ML OPHTH TOPICAL GEL OU ONE (09:50)
[2023-06-28] MEDS: PHENYLEPHRINE 2.5% OPHTH SOL 2ML OS SCH (09:51)
[2023-06-28] MEDS: OFLOXACIN 0.3 % (OCUFLOX) OPTH SOL 5ML OS ONE (09:51)
[2023-06-28] MEDS: ATROPINE SULFATE 1% OPHTH SOLN 2ML BTL OS SCH (09:51)
[2023-06-28] MEDS: TROPICAMIDE 1% OPHTH SOLN 15ML OS SCH (09:51)
[2023-06-28] MEDS ORDERED: fentaNYL 100 MCG/2 ML INJECTION As Ordered ONE (10:47)
[2023-06-28] MEDS ORDERED: MIDAZOLAM INJ 2MG/2ML VIAL As Ordered ONE (10:47)
[2023-06-28] MEDS: LIDOCAINE 1% SDV 5ML VIAL As Ordered ONE (11:01)
[2023-06-28] MEDS: CEFUROXIME 1MG/0.1ML INTRACAMERAL INJ As Ordered ONE (11:01)
[2023-06-28] MEDS: DUOVISC (0.50ML VISCOAT/0.85ML PROVISC) OPHTH KIT As Ordered ONE (11:01)
[2023-06-28] MEDS: BSS IRRIG/VANCO(10MG)/TOBRA(5MG)/EPINEPH(1:1000-0.5CC)500ML BAG-ORONLY As Ordered ONE (11:01)
[2023-06-28 11:24] VITALS: BP 151/85; TEMP 97.4; O2SAT 96
== END 2023-06-28 11:58 | disposition home or self-care (01) ==
LOC: M SDC 09:07
PROVIDERS: ATTEND Ophthalmology
DX: H25.12 Age-related nuclear cataract, left eye (principal); H40.812 Glaucoma with increased episcleral venous pressure, left eye; E78.5 Hyperlipidemia, unspecified; K21.9 Gastro-esophageal reflux disease without esophagitis; F43.10 Post-traumatic stress disorder, unspecified; F41.9 Anxiety disorder, unspecified; F32.A Depression, unspecified; J45.909 Unspecified asthma, uncomplicated; Z88.8 Allergy status to other drugs, medicaments and biological substances; Z91.018 Allergy to other foods; Z79.899 Other long term (current) drug therapy
CPT/HCPCS: 66991; C1783; J0697; J2250; J3010; V2632

== ENCOUNTER → 2023-06-29 | Outpatient (CLI) | payer OTHER, MEDICARE, MEDICAID ==
[~2023-06-29] MED LIST changes: +ISOVUE-M 300 61% 15ML VIAL As Ordered ONE; +LIDOCAINE 1% SDV 30ML VIAL As Ordered ONE; -PHENYLEPHRINE 10% OPHTH SOL 5ML OS PRN; +diazePAM 5MG TABLET As Ordered ONE; +diphenhydrAMINE 25MG CAP As Ordered ONE; +methylPREDNISolone SUSP 40MG/ML 1ML VIAL (DEPO MEDROL) As Ordered ONE; +oxyCODONE 5MG TAB As Ordered ONE
== END ==
LOC: M PAIN 14:30
PROVIDERS: ATTEND Anesthesiology
DX: M51.16 Intervertebral disc disorders with radiculopathy, lumbar region (principal); G89.29 Other chronic pain; J45.20 Mild intermittent asthma, uncomplicated; K21.9 Gastro-esophageal reflux disease without esophagitis; R73.01 Impaired fasting glucose; E78.5 Hyperlipidemia, unspecified; M47.812 Spondylosis without myelopathy or radiculopathy, cervical region; F32.A Depression, unspecified; M85.80 Other specified disorders of bone density and structure, unspecified site; Z79.891 Long term (current) use of opiate analgesic; Z79.899 Other long term (current) drug therapy; Z88.6 Allergy status to analgesic agent; Z88.8 Allergy status to other drugs, medicaments and biological substances; Z91.048 Other nonmedicinal substance allergy status; Z91.018 Allergy to other foods
CPT/HCPCS: 62323; J1030; Q9967

== ENCOUNTER 2023-07-05 09:29 | Day surgery (SDC) | payer MEDICARE, MEDICAID ==
[~2023-07-05] VITALS: Ht 157.5 cm; Wt 63.0 kg
[~2023-07-05 09:29] MED LIST changes: +BSS IRRIG/VANCO(10MG)/TOBRA(5MG)/EPINEPH(1:1000-0.5CC)500ML BAG-ORONLY As Ordered ONE; +CEFUROXIME 1MG/0.1ML INTRACAMERAL INJ As Ordered ONE; -ISOVUE-M 300 61% 15ML VIAL As Ordered ONE; -LIDOCAINE 1% SDV 30ML VIAL As Ordered ONE; +LIDOCAINE 1% SDV 5ML VIAL As Ordered ONE; +MIDAZOLAM INJ 2MG/2ML VIAL As Ordered ONE; +PHENYLEPHRINE 10% OPHTH SOL 5ML OD PRN; -diazePAM 5MG TABLET As Ordered ONE; -diphenhydrAMINE 25MG CAP As Ordered ONE; +fentaNYL 100 MCG/2 ML INJECTION As Ordered ONE; -methylPREDNISolone SUSP 40MG/ML 1ML VIAL (DEPO MEDROL) As Ordered ONE; -oxyCODONE 5MG TAB As Ordered ONE
[2023-07-05] MEDS: ATROPINE SULFATE 1% OPHTH SOLN 2ML BTL OD SCH (10:25)
[2023-07-05] MEDS: LIDOCAINE 3.5 % 1ML OPHTH TOPICAL GEL OU ONE (10:25)
[2023-07-05] MEDS: PHENYLEPHRINE 2.5% OPHTH SOL 2ML OD SCH (10:25)
[2023-07-05] MEDS: TROPICAMIDE 1% OPHTH SOLN 15ML OD SCH (10:25)
[2023-07-05] MEDS: OFLOXACIN 0.3 % (OCUFLOX) OPTH SOL 5ML OD ONE (10:25)
[2023-07-05] MEDS ORDERED: KETOROLAC 30 MG/ML 1ML VIAL IV ONE (12:50)
[2023-07-05] MEDS: ACETAMINOPHEN TAB 650MG DOSE (2X325MG) PO ONE (12:55)
[2023-07-05 13:00] VITALS: BP 145/87; TEMP 98.6; O2SAT 97
== END 2023-07-05 13:11 | disposition home or self-care (01) ==
LOC: M SDC 09:29
PROVIDERS: ATTEND Ophthalmology
DX: H25.11 Age-related nuclear cataract, right eye (principal); H40.9 Unspecified glaucoma; J45.20 Mild intermittent asthma, uncomplicated; Z79.899 Other long term (current) drug therapy; E78.5 Hyperlipidemia, unspecified; Z79.51 Long term (current) use of inhaled steroids
CPT/HCPCS: 66991; C1783; J0697; J2250; J3010; V2632

== ENCOUNTER → 2023-10-12 | Outpatient (CLI) | payer OTHER, MEDICARE, MEDICAID ==
[~2023-10-12] MED LIST changes: -BSS IRRIG/VANCO(10MG)/TOBRA(5MG)/EPINEPH(1:1000-0.5CC)500ML BAG-ORONLY As Ordered ONE; -CEFUROXIME 1MG/0.1ML INTRACAMERAL INJ As Ordered ONE; -LIDOCAINE 1% SDV 5ML VIAL As Ordered ONE; -MIDAZOLAM INJ 2MG/2ML VIAL As Ordered ONE; +OMEG-28 PO; -OMEG1CAP85 PO; -PHENYLEPHRINE 10% OPHTH SOL 5ML OD PRN; -fentaNYL 100 MCG/2 ML INJECTION As Ordered ONE
== END ==
LOC: M PAIN 11:30
PROVIDERS: ATTEND Nurse Practitioner Family
DX: M51.16 Intervertebral disc disorders with radiculopathy, lumbar region (principal); Z79.891 Long term (current) use of opiate analgesic; Z79.899 Other long term (current) drug therapy; Z79.1 Long term (current) use of non-steroidal anti-inflammatories (NSAID); Z79.02 Long term (current) use of antithrombotics/antiplatelets; Z79.51 Long term (current) use of inhaled steroids; Z88.6 Allergy status to analgesic agent; Z91.018 Allergy to other foods; Z91.048 Other nonmedicinal substance allergy status

== ENCOUNTER → 2023-11-02 | Outpatient (CLI) | payer MEDICARE, MEDICAID ==
[2023-11-02 19:18] LABS: HEMOGLOBIN A1c 5.9 % (4.0-6.0)
[2023-11-02 19:28] LABS: ALBUMIN 3.9 G/DL (3.2-5.2); ALKALINE PHOSPHATASE 98 U/L (46-116); ALT/SGPT 23 U/L (7.0-40); AST/SGOT 14 U/L (<34); BILIRUBIN,TOTAL 0.3 MG/DL (0.3-1.2); BLOOD UREA NITROGEN 12 MG/DL (9-23); CALCIUM LEVEL 9.6 MG/DL (8.3-10.6); CARBON DIOXIDE LEVEL 28 MMOL/L (20-31); CHLORIDE LEVEL 105 MMOL/L (98-107); CHOLESTEROL LEVEL 183 MG/DL (<200); CHOLESTEROL RISK RATIO 3.84 (<5); CREATININE FOR GFR 0.66 MG/DL (0.55-1.30); GLOMERULAR FILTRATION RATE > 60.0 (>45); GLUCOSE, FASTING 100 MG/DL (74-106); HDL CHOLESTEROL 47.6 MG/DL (>40); LDL CHOLESTEROL 106.8 MG/DL (<100); NON-HDL-C 135.4 MG/DL; POTASSIUM SERUM 4.1 MMOL/L (3.5-5.1); SODIUM LEVEL 140 MMOL/L (136-145); TOTAL PROTEIN 6.7 G/DL (5.7-8.2); TRIGLYCERIDES LEVEL 143 MG/DL (<150)
== END ==
LOC: M PLALAB 15:11
PROVIDERS: ATTEND Family Medicine
DX: E78.2 Mixed hyperlipidemia (principal); R73.03 Prediabetes

== ENCOUNTER → 2023-11-17 | Outpatient (CLI) | payer OTHER ==
[~2023-11-17] MED LIST changes: +ISOVUE-M 300 61% 15ML VIAL As Ordered ONE; +LIDOCAINE 1% SDV 30ML VIAL As Ordered ONE; +dexAMETHasone 10MG/1ML VIAL PRES.FREE As Ordered ONE; +diazePAM 5MG TABLET As Ordered ONE; +diphenhydrAMINE 25MG CAP As Ordered ONE; +oxyCODONE 5MG TAB As Ordered ONE
== END ==
LOC: M PAIN 10:00
PROVIDERS: ATTEND Anesthesiology
DX: M51.16 Intervertebral disc disorders with radiculopathy, lumbar region (principal); M96.1 Postlaminectomy syndrome, not elsewhere classified; Z79.891 Long term (current) use of opiate analgesic; Z79.899 Other long term (current) drug therapy; Z79.1 Long term (current) use of non-steroidal anti-inflammatories (NSAID); Z79.51 Long term (current) use of inhaled steroids; Z79.02 Long term (current) use of antithrombotics/antiplatelets; J45.909 Unspecified asthma, uncomplicated; E78.5 Hyperlipidemia, unspecified; R01.1 Cardiac murmur, unspecified; Z88.6 Allergy status to analgesic agent; Z88.8 Allergy status to other drugs, medicaments and biological substances; Z91.014 Allergy to mammalian meats; Z91.048 Other nonmedicinal substance allergy status
CPT/HCPCS: 62323; J1100; Q9967

== ENCOUNTER → 2024-01-02 | Outpatient (CLI) | payer OTHER ==
[~2024-01-02] MED LIST changes: -ISOVUE-M 300 61% 15ML VIAL As Ordered ONE; -LIDOCAINE 1% SDV 30ML VIAL As Ordered ONE; -dexAMETHasone 10MG/1ML VIAL PRES.FREE As Ordered ONE; -diazePAM 5MG TABLET As Ordered ONE; -diphenhydrAMINE 25MG CAP As Ordered ONE; -oxyCODONE 5MG TAB As Ordered ONE
== END ==
LOC: M PAIN 16:30
PROVIDERS: ATTEND Nurse Practitioner Family
DX: M79.18 Myalgia, other site (principal); G89.29 Other chronic pain; Z87.820 Personal history of traumatic brain injury; J45.20 Mild intermittent asthma, uncomplicated; R73.01 Impaired fasting glucose; K21.9 Gastro-esophageal reflux disease without esophagitis; M47.812 Spondylosis without myelopathy or radiculopathy, cervical region; M47.816 Spondylosis without myelopathy or radiculopathy, lumbar region; E78.2 Mixed hyperlipidemia; F32.A Depression, unspecified; F41.0 Panic disorder [episodic paroxysmal anxiety]; Z88.6 Allergy status to analgesic agent; Z88.8 Allergy status to other drugs, medicaments and biological substances; Z91.018 Allergy to other foods; Z91.048 Other nonmedicinal substance allergy status; Z79.891 Long term (current) use of opiate analgesic; Z79.899 Other long term (current) drug therapy

== ENCOUNTER → 2024-02-07 | Outpatient (CLI) | payer MEDICARE, MEDICAID ==
[~2024-02-07] MED LIST changes: -MULT200T7 PO; +MULT200T9 PO
== END ==
LOC: M SOG 07:24
PROVIDERS: ATTEND Physician Assistant
DX: M25.562 Pain in left knee (principal); Z53.9 Procedure and treatment not carried out, unspecified reason

== ENCOUNTER → 2024-03-19 | Outpatient (CLI) | payer OTHER ==
[~2024-03-19] MED LIST changes: +BUDE90AE INH; -PULM90IN INH
== END ==
LOC: M PAIN 09:00
PROVIDERS: ATTEND Nurse Practitioner Family
DX: M51.16 Intervertebral disc disorders with radiculopathy, lumbar region (principal); M79.18 Myalgia, other site; Z79.891 Long term (current) use of opiate analgesic; G89.29 Other chronic pain; Z87.820 Personal history of traumatic brain injury; J45.20 Mild intermittent asthma, uncomplicated; R73.01 Impaired fasting glucose; K21.9 Gastro-esophageal reflux disease without esophagitis; F32.A Depression, unspecified; F41.0 Panic disorder [episodic paroxysmal anxiety]; G47.00 Insomnia, unspecified; M85.852 Other specified disorders of bone density and structure, left thigh; Z79.899 Other long term (current) drug therapy; Z88.6 Allergy status to analgesic agent; Z88.8 Allergy status to other drugs, medicaments and biological substances; Z91.018 Allergy to other foods; Z91.048 Other nonmedicinal substance allergy status

== ENCOUNTER → 2024-05-07 | Outpatient (CLI) | payer OTHER ==
[~2024-05-07] MED LIST changes: +ISOVUE-M 300 61% 15ML VIAL As Ordered ONE; +LIDOCAINE 1% SDV 30ML VIAL As Ordered ONE; +dexAMETHasone 10MG/1ML VIAL PRES.FREE As Ordered ONE; +diazePAM 5MG TABLET As Ordered ONE; +diphenhydrAMINE 25MG CAP As Ordered ONE; +oxyCODONE 5MG TAB As Ordered ONE
== END ==
LOC: M PAIN 10:00
PROVIDERS: ATTEND Anesthesiology
DX: M51.16 Intervertebral disc disorders with radiculopathy, lumbar region (principal); G89.29 Other chronic pain; Z79.51 Long term (current) use of inhaled steroids; Z79.899 Other long term (current) drug therapy; Z80.3 Family history of malignant neoplasm of breast; Z88.6 Allergy status to analgesic agent; Z88.8 Allergy status to other drugs, medicaments and biological substances; Z91.018 Allergy to other foods; Z91.048 Other nonmedicinal substance allergy status
CPT/HCPCS: 62323; J1100; Q9967

== ENCOUNTER → 2024-06-05 | Outpatient (CLI) | payer OTHER, MEDICARE, MEDICAID ==
[~2024-06-05] MED LIST changes: -ISOVUE-M 300 61% 15ML VIAL As Ordered ONE; -LIDOCAINE 1% SDV 30ML VIAL As Ordered ONE; -dexAMETHasone 10MG/1ML VIAL PRES.FREE As Ordered ONE; -diazePAM 5MG TABLET As Ordered ONE; -diphenhydrAMINE 25MG CAP As Ordered ONE; -oxyCODONE 5MG TAB As Ordered ONE
== END ==
LOC: M SOG 13:04
PROVIDERS: ATTEND Physician Assistant
DX: M19.072 Primary osteoarthritis, left ankle and foot (principal)

== ENCOUNTER → 2024-06-07 | Outpatient (CLI) | payer OTHER | LOC: M PAIN 11:00 | PROVIDERS: ATTEND Nurse Practitioner Family | DX: M51.16 Intervertebral disc disorders with radiculopathy, lumbar region (principal); G89.29 Other chronic pain; Z79.51 Long term (current) use of inhaled steroids; Z79.899 Other long term (current) drug therapy; Z88.6 Allergy status to analgesic agent; Z88.8 Allergy status to other drugs, medicaments and biological substances; Z91.018 Allergy to other foods ==

== ENCOUNTER 2024-11-05 10:44 | Outpatient (RCR) | payer MEDICARE, MEDICAID | END 2024-11-21 | LOC: M PT 10:44 | PROVIDERS: ATTEND Anesthesiology Pain Medicine | DX: M54.16 Radiculopathy, lumbar region (principal) ==

== ENCOUNTER 2024-12-04 11:59 | Outpatient (RCR) | payer MEDICARE, MEDICAID | END 2024-12-22 | LOC: M PT 11:59 | PROVIDERS: ATTEND Anesthesiology Pain Medicine | DX: M54.16 Radiculopathy, lumbar region (principal) ==

== ENCOUNTER → 2024-12-10 | Outpatient (REF) | payer MEDICARE, MEDICAID ==
[2024-12-10 18:53] LABS: APPEARANCE, URINE CLOUDY (CLEAR); BACTERIA, URINE AUTO NEGATIVE (NEGATIVE); BILIRUBIN, URINE AUTO NEGATIVE (NEGATIVE); BLOOD, URINE BLOOD 2+ (NEGATIVE); GLUCOSE, URINE (UA) AUTO NEGATIVE (NEGATIVE); KETONE, URINE AUTO NEGATIVE (NEGATIVE); LEUKOCYTE ESTERASE, URINE AUTO 3+ (NEGATIVE); NITRITE, URINE AUTO NEGATIVE (NEGATIVE); PROTEIN, URINE AUTO 2+ mg/dL (NEGATIVE); RBC, URINE AUTO 1 /HPF (0-3); SPECIFIC GRAVITY URINE AUTO 1.017 (1.002-1.035); SQUAMOUS EPITHELIAL CELL UR AU 0 /HPF (0-6); UROBILINOGEN, URINE AUTO 0.2 mg/dL (0.0-2.0); WBC, URINE AUTO 18 /HPF (0-3)
== END ==
LOC: M LAB REF 17:58
PROVIDERS: ATTEND Physician Assistant Medical
DX: N39.0 Urinary tract infection, site not specified (principal)

== ENCOUNTER → 2024-12-16 | Outpatient (CLI) | payer MEDICARE, MEDICAID, OTHER | LOC: M SOG 07:29 | PROVIDERS: ATTEND Neuromusculoskeletal Medicine, Sports Medicine | DX: M25.551 Pain in right hip (principal); M25.552 Pain in left hip ==

== ENCOUNTER → 2024-12-30 | Outpatient (CLI) | payer MEDICARE, MEDICAID, OTHER | LOC: M SOG 08:08 | PROVIDERS: ATTEND Neuromusculoskeletal Medicine, Sports Medicine | DX: M25.551 Pain in right hip (principal); M25.552 Pain in left hip; M16.0 Bilateral primary osteoarthritis of hip ==

== ENCOUNTER → 2025-01-14 | Outpatient (CLI) | payer OTHER, MEDICARE, MEDICAID ==
[~2025-01-14] MED LIST changes: +HYDR-3713 PO
[2025-01-14 16:42] LABS: CALCIUM LEVEL 8.9 MG/DL (8.3-10.6); CARBON DIOXIDE LEVEL 32 MMOL/L (20-31); CHLORIDE LEVEL 103 MMOL/L (98-107); CREATININE FOR GFR 0.71 MG/DL (0.55-1.30); GLOMERULAR FILTRATION RATE > 90.0 (>39); PHOSPHORUS LEVEL 3.3 MG/DL (2.4-5.1); POTASSIUM SERUM 4.2 MMOL/L (3.5-5.1); SODIUM LEVEL 145 MMOL/L (136-145)
== END ==
LOC: M PLALAB 14:07
PROVIDERS: ATTEND Nurse Practitioner Family
DX: M54.16 Radiculopathy, lumbar region (principal); M54.59 Other low back pain

== ENCOUNTER 2025-01-17 08:23 | Day surgery (SDC) | payer MEDICARE, MEDICAID ==
[~2025-01-17] VITALS: Ht 157.5 cm; Wt 60.2 kg
[2025-01-17] MEDS ORDERED: LIDOCAINE 2% 100 MG/5 ML SDV (FOR ANES.) As Ordered ONE (09:58)
[2025-01-17 10:39] VITALS: TEMP 97.6
[2025-01-17 10:51] VITALS: BP 104/57; O2SAT 94
== END 2025-01-17 10:59 | disposition home or self-care (01) ==
LOC: M OPP 08:23
PROVIDERS: ATTEND Internal Medicine Gastroenterology
DX: K64.8 Other hemorrhoids (principal); K57.30 Diverticulosis of large intestine without perforation or abscess without bleeding; K92.1 Melena; K59.00 Constipation, unspecified; Z88.8 Allergy status to other drugs, medicaments and biological substances; Z91.014 Allergy to mammalian meats; Z91.048 Other nonmedicinal substance allergy status; Z79.51 Long term (current) use of inhaled steroids; Z79.891 Long term (current) use of opiate analgesic; Z79.899 Other long term (current) drug therapy; J45.909 Unspecified asthma, uncomplicated; R56.9 Unspecified convulsions

== ENCOUNTER → 2025-02-10 | Outpatient (CLI) | payer MEDICARE, MEDICAID | LOC: M CARPUL 13:19 | PROVIDERS: ATTEND Internal Medicine Cardiovascular Disease | DX: I35.1 Nonrheumatic aortic (valve) insufficiency (principal); R06.02 Shortness of breath; R94.31 Abnormal electrocardiogram [ECG] [EKG] ==

== ENCOUNTER → 2025-02-25 | Outpatient (CLI) | payer OTHER ==
[2025-02-25 17:37] LABS: CALCIUM LEVEL 8.8 MG/DL (8.3-10.6); CARBON DIOXIDE LEVEL 29.0 MMOL/L (20-31); CHLORIDE LEVEL 101.0 MMOL/L (98-107); CREATININE FOR GFR 0.72 MG/DL (0.55-1.30); GLOMERULAR FILTRATION RATE 89.9 (>39); POTASSIUM SERUM 4.0 MMOL/L (3.5-5.1); SODIUM LEVEL 138.0 MMOL/L (136-145)
== END ==
LOC: M PLALAB 14:47
PROVIDERS: ATTEND Family Medicine
DX: Z01.818 Encounter for other preprocedural examination (principal)